=== PATIENT | male | born 1960 | race Caucasian/White ===

== ENCOUNTER 2018-03-15 20:07 | Inpatient (IN) | payer OTHER ==
[2018-03-15] MEDS ORDERED: ASPIRIN 81 MG CHEWABLE TABLET ONE (20:28)
[2018-03-15 20:42] LABS: Absolute Lymphocytes (CBC) 1.6 K/uL (0.7-4.9); Absolute Monocytes 0.7 K/uL (0.1-1.3); Absolute Neutrophil 4.5 K/uL (1.8-8.0); Basophils % 0.5 % (0-1.3); Eosinophils % 2.8 % (0-4.4); Hematocrit 46.9 % (39.6-49.0); Lymphocytes % 22.2 % (15.3-44.8); MCH 31.7 pg (27.0-35.0); MCV 92.4 fL (80-100); MPV 8.6 fL (7.6-11.3); Monocytes % 10.5 % (3.3-12.3); RBC Red Blood Cell Count 5.08 M/uL (4.33-5.43)
[2018-03-15] MEDS ORDERED: NA CHLORIDE 0.9% 1,000 ML ONE (20:46)
[2018-03-15] MEDS ORDERED: METOPROLOL TARTRATE 5 MG/5 ML INJ IV ONE (20:46)
[2018-03-15 21:00] LABS: Protime INR 0.97
[2018-03-15 21:02] LABS: Albumin 4.2 g/dL (3.2-5.5); Bilirubin Direct 0.2 mg/dL (0-0.2); Bilirubin Total 1.5 mg/dL (0.3-1.2); Magnesium 2.2 mg/dL (1.8-2.5); Protein, Total 7.4 g/dL (6.0-8.3)
--- NOTE | 2018-03-15 21:03 | RAD REPORT ---
EXAM DESCRIPTION: Xavi Single View03/15/2018 8:58 pm CLINICAL HISTORY: Chest pain COMPARISON: 2010 FINDINGS: The lungs appear clear of acute infiltrate. The heart is normal size IMPRESSION: No acute abnormalities displayed
[2018-03-15 21:06] LABS: CKMB Creatine Kinase MB 2.4 ng/ml (0.3-4.0)
[2018-03-15] MEDS ORDERED: FENTANYL CITR 100 MCG/2 ML ONE (21:29)
[2018-03-15 21:36] LABS: Thyroid Stimulating Hormone 2.74 uIU/mL (0.34-5.60)
--- NOTE | 2018-03-15 22:48 | ER ---
Nurse's Notes [facility] Name: Buzz Jurado Age: 57 yrs Sex: Male : 1960 Arrival Date: 03/15/2018 Time: 20:10 Bed 2 Private MD: Diagnosis: Atrial fibrillation and flutter-with RVR;Chest pain, unspecified Presentation: 03/15 20:10 Presenting complaint: states: that pt has been having chest pain that radiates to left arm, fast heart rate and sweats on and off x 2 weeks. Also having nausea. Transition of care: patient was not received from another setting of care. Onset of symptoms was March 01, 2018. Initial Sepsis Screen: Does the patient meet any 2 criteria? HR > 90 bpm. Yes Does the patient have a suspected source of infection? No. Patient's initial sepsis screen is negative. Care prior to arrival: None. 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 - Social history:: Smoking status: Patient/guardian denies using tobacco. Screenin:10 Abuse screen: Denies threats or abuse. Nutritional screening: No deficits noted. Tuberculosis screening: No symptoms or risk factors identified. Fall Risk None identified. Assessment: 20:41 General: Appears in no apparent distress. Behavior is calm, cooperative. Pain: ak1 Complains of pain in chest Pain does not radiate. Pain currently is 2 out of 10 on a pain scale. Pain began 2 weeks SLATE PICKER intermittent. Neuro: Level of Consciousness is awake, alert, obeys commands, Oriented to person, place, time, situation, Corsets Salesperson are equal bilaterally Moves all extremities. Gait is steady, Speech is normal, Facial symmetry appears normal. Cardiovascular: Reports diaphoresis, palpitations, Rhythm is atrial fibrillation with rapid ventricular response. Respiratory: No deficits noted. GI: No signs and/or symptoms were reported involving the gastrointestinal system. : No signs and/or symptoms were reported regarding the genitourinary system. EENT: No signs and/or symptoms were reported regarding the EENT system. Derm: Skin is diaphoretic. 21:19 Reassessment: Patient appears in no apparent distress at this time. No changes from ak1 previously documented assessment. Patient is alert, oriented x 3, equal unlabored respirations, skin warm/dry/pink. 21:30 Reassessment: pt stated pt having chest pain. ERP notified, verbal orders for ak1 repeat EKG and pain medication. 21:36 Reassessment: repeat EKG continues to show A.Fib. pt stated pain has resolved and ak1 refused medication at this time. 21:59 Reassessment: Patient appears in no apparent distress at this time. No changes from ak1 previously documented assessment. Patient is alert, oriented x 3, equal unlabored respirations, skin warm/dry/pink. Patient denies pain at this time. Patient states feeling better. Vital Signs: 20:10 BP 114 / 87; Pulse 131; Resp 18; Temp 98.1(O); Pulse Ox 97% on R/A; Weight 102.06 kg fc (R); Height 6 ft. 4 in. (193.04 cm) (R); Pain 1/10; 20:56 BP 116 / 95; Pulse 112; Resp 16; Pulse Ox 96% on R/A; Pain 1/10; ak1 21:20 BP 105 / 81; Pulse 110 MON; Resp 16; Pulse Ox 96% on R/A; Pain 1/10; ak1 22:00 BP 96 / 74; Pulse 108; Resp 16; Pulse Ox 96% on R/A; Pain 0/10; ak1 22:27 BP 110 / 97; Pulse 109; Resp 18; Pulse Ox 96% on R/A; Pain 0/10; ak1 22:41 BP 112 / 75; Pulse 118; Resp 16; Temp 98.2(O); Pulse Ox 96% on R/A; Pain 1/10; ak1 22:50 BP 105 / 85; Pulse 106 MON; Resp 18; Temp 98.2(O); Pulse Ox 96% on R/A; Pain 1/10; ak1 23:50 BP 104 / 87; Pulse 110 MON; Resp 18; Temp 98.4(O); Pulse Ox 96% on R/A; Pain 0/10; ak1 20:10 Body Mass Index 27.39 (102.06 kg, 193.04 cm) fc 21:20 A fib ak1 22:50 A fib ak1 23:50 A fib ak1 ED Course: 20:10 Patient arrived in ED. es 20:10 Arm band placed on Patient placed in an exam room, on a stretcher, on manager cardiac, fc on pulse oximetry. 20:10 Patient has correct armband on for positive identification. Placed in gown. Bed in low fc position. Call light in reach. secured entrance monitor on. Pulse ox on. NIBP on. 20:19 Anjel Mac PA is PHCP. jr8 20:19 Dell Mejia MD is Attending Physician. jr8 20:19 Inserted saline lock: 20 gauge in left antecubital area, using aseptic technique. fc ,using aseptic technique. per Shelley JEAN. 20:23 Shelley Tate, RN is Primary Nurse. ak1 20:27 Triage completed. fc 20:43 Patient maintains SpO2 saturation greater than 95% on room air. ak1 20:57 X-ray completed. Portable x-ray completed in exam room. Patient tolerated procedure kc2 well. 20:58 XRAY Chest (1 view) In Process Unspecified. EDMS 22:46 Reji Gupta MD is Hospitalizing Provider. jr8 22:50 No provider procedures requiring assistance completed. Patient admitted, IV remains in ak1 place. Administered Medications: 20:30 Drug: Aspirin Chewable Tablet 324 mg Route: PO; ak1 20:41 Follow up: Response: No adverse reaction ak1 23:58 Follow up: Response: No adverse reaction ak1 20:55 Drug: NS 0.9% 1000 ml Route: IV; Rate: 1000 ml; Site: right antecubital; ak1 22:01 Follow up: IV Status: Completed infusion ak1 20:55 Drug: Metoprolol 5 mg Route: IVP; Site: right antecubital; ak1 22:01 Follow up: Response: No adverse reaction ak1 23:58 Follow up: Response: No adverse reaction ak1 23:57 Not Given (Patient Refused; pt continues to deny pain): fentaNYL (PF) 50 mcg IVP once ak1 Outcome: 22:47 Decision to Hospitalize by Provider. jr8 22:51 Condition: stable ak1 22:51 Instructed on the need for admit. 23:50 Admitted to Tele accompanied by tech, family with patient, via wheelchair, room 211, ak1 with chart, Report called to Shannan JEAN for 211 03/16 00:13 Patient left the ED. ak1 Signatures: Dispatcher [employer] Izzy Merino Felicia RN RN Anjel Giron PA PA jr8 Shelley Tate RN RN ak1 Linda Bolden Corrections: (The following items were deleted from the chart) 03/15 21:36 21:34 Reassessment: pt stated pt having chest pain. ERP notified, verbal orders ak1 for repeat EKG and pain medication. ak1
--- NOTE | 2018-03-15 22:48 | EDPHYS ---
Physician Documentation [facility] Name: Buzz Jurado Age: 57 yrs Sex: Male : 1960 Arrival Date: 03/15/2018 Time: 20:10 Bed 2 Private MD: ED Physician Dell Mejia HPI: 03/15 20:46 This 57 yrs old Male presents to ER via Wheelchair with complaints of jr8 Palpitations, Chest Pain, SWEATS. 20:46 The patient presents with a history of irregular heart beat, heart racing. Context: The jr8 symptoms occur at rest. Onset: The symptoms/episode began/occurred gradually, 2 week(s) ago. Duration: The patient or guardian reports multiple episodes. Modifying factors: The symptoms are aggravated by light activity, The symptoms are alleviated by nothing. Associated signs and symptoms: Pertinent positives: dyspnea on exertion . Severity of symptoms: At their worst the symptoms were moderate in the emergency department the symptoms are unchanged. The patient has not experienced similar symptoms in the past. The patient has not recently seen a physician. also complains of chest tightness and sweating on/off . Historical: - Allergies: 20:30 codeine- causes severe nausea; fc - Home Meds: 20:30 duloxetine 20 mg oral cpDR 1 cap daily [Active]; fc - PMHx: 20:30 Back pain; neck pain; Aortic Anuresym; Sleep Apnea; Testicular cancer with mets to fc lung, lymphnodes; - PSHx: 20:30 testicle removed; Hernia repair; rotator cuff repair-right; Appendectomy; R thumb; fc - Immunization history:: Last tetanus immunization: up to date. - Social history:: Smoking status: Patient/guardian denies using tobacco. ROS: 20:46 Eyes: Negative for injury, pain, redness, and discharge, ENT: Negative for injury, jr8 pain, and discharge, Neck: Negative for injury, pain, and swelling, Abdomen/GI: Negative for abdominal pain, nausea, vomiting, diarrhea, and constipation, Back: Negative for injury and pain, MS/Extremity: Negative for injury and deformity, Skin: Negative for injury, rash, and discoloration, Neuro: Negative for headache, weakness, numbness, tingling, and seizure. 20:46 Cardiovascular: Positive for chest pain, palpitations, Negative for edema, orthopnea, paroxysmal nocturnal dyspnea. 20:46 Respiratory: Positive for dyspnea on exertion, Negative for cough, hemoptysis, orthopnea, pleurisy, shortness of breath, sputum production, wheezing. Exam: 20:46 Eyes: Pupils equal round and reactive to light, extra-ocular motions intact. Lids and jr8 lashes normal. Conjunctiva and sclera are non-icteric and not injected. Cornea within normal limits. Periorbital areas with no swelling, redness, or edema. ENT: Nares patent. No nasal discharge, no septal abnormalities noted. Tympanic membranes are normal and external auditory canals are clear. Oropharynx with no redness, swelling, or masses, exudates, or evidence of obstruction, uvula midline. Mucous membranes moist. Neck: Trachea midline, no thyromegaly or masses palpated, and no cervical lymphadenopathy. Supple, full range of motion without nuchal rigidity, or vertebral point tenderness. No Meningismus. Respiratory: Lungs have equal breath sounds bilaterally, clear to auscultation and percussion. No rales, rhonchi or wheezes noted. No increased work of breathing, no retractions or nasal flaring. Abdomen/GI: Soft, non-tender, with normal bowel sounds. No distension or tympany. No guarding or rebound. No evidence of tenderness throughout. Back: No spinal tenderness. No costovertebral tenderness. Full range of motion. Skin: Warm, dry with normal turgor. Normal color with no rashes, no lesions, and no evidence of cellulitis. MS/ Extremity: Pulses equal, no cyanosis. Neurovascular intact. Full, normal range of motion. Neuro: Awake and alert, GCS 15, oriented to person, place, time, and situation. Cranial nerves II-XII grossly intact. Motor strength 5/5 in all extremities. Sensory grossly intact. Cerebellar exam normal. Normal gait. 20:46 Cardiovascular: Rate: tachycardic, Rhythm: irregularly irregular, Pulses: Pulses are 2+ in bilateral radial, brachial, femoral, popliteal, posterior tibial and and dorsalis pedis arteries.. Heart sounds: normal, normal S1and S2, no S3 or S4, no murmur, no rub, no gallop, Edema: is not appreciated, JVD: is not appreciated. Vital Signs: 20:10 BP 114 / 87; Pulse 131; Resp 18; Temp 98.1(O); Pulse Ox 97% on R/A; Weight 102.06 kg fc (R); Height 6 ft. 4 in. (193.04 cm) (R); Pain 1/10; 20:56 BP 116 / 95; Pulse 112; Resp 16; Pulse Ox 96% on R/A; Pain 1/10; ak1 21:20 BP 105 / 81; Pulse 110 MON; Resp 16; Pulse Ox 96% on R/A; Pain 1/10; ak1 22:00 BP 96 / 74; Pulse 108; Resp 16; Pulse Ox 96% on R/A; Pain 0/10; ak1 22:27 BP 110 / 97; Pulse 109; Resp 18; Pulse Ox 96% on R/A; Pain 0/10; ak1 22:41 BP 112 / 75; Pulse 118; Resp 16; Temp 98.2(O); Pulse Ox 96% on R/A; Pain 1/10; ak1 22:50 BP 105 / 85; Pulse 106 MON; Resp 18; Temp 98.2(O); Pulse Ox 96% on R/A; Pain 1/10; ak1 23:50 BP 104 / 87; Pulse 110 MON; Resp 18; Temp 98.4(O); Pulse Ox 96% on R/A; Pain 0/10; ak1 20:10 Body Mass Index 27.39 (102.06 kg, 193.04 cm) fc 21:20 A fib ak1 22:50 A fib ak1 23:50 A fib ak1 MDM: 20:19 Patient medically screened. [facility] 22:46 Data reviewed: vital signs, nurses notes, lab test result(s), EKG, radiologic studies, jr8 plain films, and as a result, I will admit patient. Data interpreted: Pulse oximetry: on room air is 96 %. Interpretation: normal. Counseling: I had a detailed discussion with the patient and/or guardian regarding: the historical points, exam findings, and any diagnostic results supporting the discharge/admit diagnosis, lab results, radiology results, the need for further work-up and treatment in the hospital. Physician consultation: Reji Gupta MD was called at 22:46, was contacted at 22:46, regarding admission, to the telemetry unit. consult, patient's condition, and will see patient. 03/15 20:24 Order name: Basic Metabolic Panel; Complete Time: 21:41 03/15 20:24 Order name: BNP; Complete Time: 21:06 03/15 20:24 Order name: CBC with Diff; Complete Time: 20:43 03/15 20:24 Order name: Ckmb; Complete Time: 21:41 ak03/15 20:24 Order name: CPK; Complete Time: 21:41 03/15 20:24 Order name: LFT's; Complete Time: 21:41 03/15 20:24 Order name: Magnesium; Complete Time: 21:41 03/15 20:24 Order name: PT-INR; Complete Time: 21:03/15 20:24 Order name: Ptt, Activated; Complete Time: 21:03/15 20:24 Order name: Troponin (emerg Dept Use Only); Complete Time: 21:06 03/15 20:42 Order name: T4 Free; Complete Time: 21:41 EDMS 03/15 20:42 Order name: Thyroid Stimulating Hormone; Complete Time: 21:41 EDMS 03/15 20:24 Order name: XRAY Chest (1 view); Complete Time: 21:06 03/15 20:24 Order name: EKG; Complete Time: 20:25 03/15 20:24 Order name: Cardiac monitoring; Complete Time: 20:24 03/15 20:24 Order name: EKG - Nurse/Tech; Complete Time: 20:24 03/15 20:24 Order name: IV Saline Lock; Complete Time: 20:24 03/15 20:24 Order name: Labs collected and sent; Complete Time: 20:24 03/15 20:24 Order name: O2 Per Protocol; Complete Time: 20:24 03/15 20:24 Order name: O2 Sat Monitoring; Complete Time: 20:24 ak03/15 21:34 Order name: EKG - Nurse/Tech; Complete Time: 21:34 03/15 21:34 Order name: EKG; Complete Time: 21:34 ak1 Administered Medications: 20:30 Drug: Aspirin Chewable Tablet 324 mg Route: PO; ak1 20:41 Follow up: Response: No adverse reaction ak1 23:58 Follow up: Response: No adverse reaction ak1 20:55 Drug: NS 0.9% 1000 ml Route: IV; Rate: 1000 ml; Site: right antecubital; ak1 22:01 Follow up: IV Status: Completed infusion ak1 20:55 Drug: Metoprolol 5 mg Route: IVP; Site: right antecubital; ak1 22:01 Follow up: Response: No adverse reaction ak1 23:58 Follow up: Response: No adverse reaction ak1 23:57 Not Given (Patient Refused; pt continues to deny pain): fentaNYL (PF) 50 mcg IVP once ak1 Disposition: 03/16 07:58 Co-signature as Attending Physician, Dell Mejia MD I agree with the assessment and cleve plan of care. Disposition: 03/15/18 22:47 Hospitalization ordered by Reji Gupta for Observation. Preliminary diagnosis are Atrial fibrillation and flutter - with RVR, Chest pain, unspecified. - Bed requested for Telemetry/MedSurg (observation). - Status is Observation. ak1 - Condition is Stable. - Problem is new. - Symptoms have improved. UTI on Admission? No Signatures: Dispatcher [employer] EDMS Dell Mejia MD MD cha Chretien, Felicia, RN RN Madison Estevez Josh, PA PA [facility] Shelley Tate, RN RN ak1 Corrections: (The following items were deleted from the chart) 03/15 20:42 20:41 THYROID STIMULAT HORMONE+C.LAB.BRZ ordered. EDMS EDMS 20:42 20:41 T4 FREE+C.LAB.BRZ ordered. EDMS EDMS 23:57 20:24 Urine Dipstick-Ancillary ordered. ak1 ak1
[2018-03-15] MEDS ORDERED: MORPHINE 4 MG/ML SYR IV PRN (23:26)
[2018-03-15] MEDS: ENOXAPARIN 80 MG/0.8 ML SQ SCH (23:33)
[2018-03-16 00:37] VITALS: BMI 28.5
[2018-03-16 04:48] LABS: Absolute Lymphocytes (CBC) 1.6 K/uL (0.7-4.9); Absolute Monocytes 0.6 K/uL (0.1-1.3); Absolute Neutrophil 2.9 K/uL (1.8-8.0); Basophils % 0.5 % (0-1.3); Eosinophils % 4.8 % (0-4.4); Hematocrit 43.3 % (39.6-49.0); Lymphocytes % 30.3 % (15.3-44.8); MCH 31.4 pg (27.0-35.0); MCV 93.7 fL (80-100); MPV 8.5 fL (7.6-11.3); Monocytes % 10.5 % (3.3-12.3); RBC Red Blood Cell Count 4.62 M/uL (4.33-5.43)
[2018-03-16 05:39] LABS: Potassium 5.1 mEq/L (3.6-5.0)
[2018-03-16 05:59] LABS: Thyroid Stimulating Hormone 2.38 uIU/mL (0.34-5.60)
[2018-03-16] MEDS ORDERED: Morphine 2 MG/2 ML SYR IV PRN (07:46)
[2018-03-16] MEDS: LISINOPRIL 10 MG TAB PO SCH (08:22)
[2018-03-16] MEDS: ENOXAPARIN 80 MG/0.8 ML SQ SCH (08:23)
[2018-03-16] MEDS ORDERED: METOPROLOL TAR 50 MG TAB PO SCH (09:00)
--- NOTE | 2018-03-16 09:15 | P.HP ---
Certification for Inpatient Patient admitted to: Observation With expected LOS: <2 Midnights Patient will require the following post-hospital care: None Practitioner: I am a practitioner with admitting privileges, knowledge of patient current condition, hospital course, and medical plan of care. Services: Services provided to patient in accordance with Admission requirements found in Title 42 Section 412.3 of the Code of Federal Regulations Patient History Date of Service: 03/16/18 Reason for admission: Chest pain rule out acute coronary syndrome; atrial fibrillation History of Present Illness: Patient is a 57-year-old gentleman came into the hospital with chest pain. Patient has also been having palpitations. Patient was worked up and was found have atrial fibrillation with rapid ventricular response. Patient has been having chest pain whenever the episodes occur. He had a stress test & heart catheterization in 2011. He states all this was normal. He was going to follow with his court messenger in [place] however the chest pain became persistent so he came into the hospital for further evaluation. Patient was given IV Lopressor in the emergency room. Patient's heart rate is better controlled. Will Consult Cardiology for further plan of care and do serial troponins and EKG. Patient also states he has had some hemorrhoidal bleeding. Will hold Lovenox for now Allergies codeine- causes severe nausea Allergy (Uncoded 03/16/18 00:24) Unknown Home Medications: Duloxetine HCl [Duloxetine HCl] 20 mg PO DAILY 03/16/18 - Past Medical/Surgical History Has patient received pneumonia vaccine in the past: Yes Diabetic: No -: hyperlipidemia -: aortic anuerysm -: arthritis -: hemorrhoids -: testicular cancer with lung, lymphatic;liver mets -: tonsillectomy -: hernia repairs x2 -: appendectmy -: rotator cuff repair- right -: right thumb repair -: right testicle removed - Family History Mother Medical History: Heart disease, Hypertension, Other (see notes) Notes: hyperlipidemia Father Medical History: Heart disease, Hypertension - Social History Smoking Status: Never smoker Alcohol use: Yes CD- Drugs: No Caffeine use: Yes Place of Residence: Home Review of Systems 10-point ROS is otherwise unremarkable Physical Examination - Vital Signs Temperature: 97.6 F Blood Pressure: 105/71 Pulse: 89 Respirations: 18 Pulse Ox (%): 97 - Physical Exam General: Alert, In no apparent distress, Oriented x3 HEENT: Atraumatic, PERRLA, Mucous membr. moist/pink, EOMI, Sclerae nonicteric Neck: Supple, 2+ carotid pulse no bruit, No LAD, Without JVD or thyroid abnormality Respiratory: Clear to auscultation bilaterally, Normal air movement Cardiovascular: Regular rate/rhythm, Normal S1 S2, No murmurs Gastrointestinal: Normal bowel sounds, Soft and benign, Non-distended, No tenderness Musculoskeletal: No clubbing, No swelling, No tenderness Integumentary: No rashes Neurological: Normal gait, Normal speech, Normal strength at 5/5 x4 extr, Normal tone, Sensation intact, Cranial nerves 3-12 intact, Normal affect Lymphatics: No axilla or inguinal lymphadenopathy - Studies Laboratory Data (last 24 hrs) 03/15/18 20:22: PT 11.5, INR 0.97, APTT 25.6 03/15/18 20:22: WBC 7.0, Hgb 16.1, Hct 46.9, Plt Count 214 03/15/18 20:22: B-Natriuretic Peptide 122 H 03/15/18 20:22: Sodium 138, Potassium 4.0, BUN 16, Creatinine 1.06, Glucose 69, Magnesium 2.2, Total Bilirubin 1.5 H, AST 23, ALT 25, Alkaline Phosphatase 68 Assessment & Plan - Problems (Diagnosis) (1) Atrial fibrillation with RVR Current Visit: Yes Status: Acute (2) Chest pain, rule out acute myocardial infarction Current Visit: Yes Status: Acute (3) Thoracic aortic aneurysm Current Visit: Yes Status: Acute - Plan 1. Serial troponins and EKG 2. Cardiology consultation 3. Echocardiogram and further cardiac workup per Cardiology 4. Anti-platelet therapy, anti coagulation, beta-antoine, statin, and O2 as needed 5. IV morphine for pain 6. Hold anti coagulation secondary to GI bleeding - Advance Directives Does patient have a Living Will: No Does patient have a Durable POA for Healthcare: No
[2018-03-16] MEDS ORDERED: RIVAROXABAN 20 MG TABLET PO ONE (10:27)
--- NOTE | 2018-03-16 15:40 | EKG ---
Test Date: 2018-03-16 Test Time: 09:19:47 Medical Practice Assistant: VITALY MEASUREMENT RESULTS: Intervals: Rate: 126 [place]: QRSD: 74 QT: 312 QTc: 451 [place]: P: [place]: QRS: 42 T: 43 INTERPRETIVE STATEMENTS: Atrial fibrillation with rapid ventricular response Abnormal ECG Compared to ECG 03/15/2018 21:28:28 No significant changes Electronically Signed On 03-16-18 15:37:45 CDT by Thomas Lopez
--- NOTE | 2018-03-16 15:42 | EKG ---
Test Date: 2018-03-15 Test Time: 20:21:59 Band Leader: JOSE MEASUREMENT RESULTS: Intervals: Rate: 122 [place]: QRSD: 68 QT: 306 QTc: 436 [place]: P: MS: QRS: 29 T: 16 INTERPRETIVE STATEMENTS: Atrial fibrillation with rapid ventricular response Abnormal ECG Compared to ECG 09/27/2011 00:09:54 Sinus bradycardia no longer present Electronically Signed On 03-16-18 15:37:59 CDT by Thomas Lopez
--- NOTE | 2018-03-16 15:42 | EKG ---
Test Date: 2018-03-15 Test Time: 21:28:28 Analytic Programmer: JOSE MEASUREMENT RESULTS: Intervals: Rate: 109 [place]: QRSD: 76 QT: 352 QTc: 474 [place]: P: [place]: QRS: 14 T: 25 INTERPRETIVE STATEMENTS: Atrial fibrillation with rapid ventricular response Low voltage QRS Abnormal ECG Compared to ECG 09/27/2011 00:09:54 Low QRS voltage now present Sinus bradycardia no longer present Electronically Signed On 03-16-18 15:37:56 CDT by Thomas Lopez
--- NOTE | 2018-03-16 17:01 | ECHO ---
HEIGHT: 6 ft 4 in WEIGHT: 234 lb 4 oz DATE OF STUDY: 03/16/[address]: Reji Gupta MD 2-DIMENSIONAL: YES M.MODE: YES DOPPLER: YES COLOR FLOW: YES TDS: PORTABLE: DEFINITY: BUBBLE STUDY: DIAGNOSIS: CORNARY ARTERY DISEASE CARDIAC HISTORY: CATHERIZATION: NO SURGERY: NO PROSTHETIC VALVE: NO PACEMAKER: NO MEASUREMENTS (cm) DIASTOLIC (NORMALS) SYSTOLIC (NORMALS) IVSd 1.3 (0.6-1.2) LA Diam 4.1 (1.9-4.0) LVEF 50-55% LVIDd 3.7 (3.5-5.7) LVIDs 3.1 (2.0-3.5) %FS 18% LVPWd 1.3 (0.6-1.2) Ao Diam 3.5 (2.0-3.7) 2 DIMENSIONAL ASSESSMENT: RIGHT ATRIUM: NORMAL LEFT ATRIUM: POSTITIVE ATRIAL THROMBUS RIGHT VENTRICLE: NORMAL LEFT VENTRICLE: NORMAL TRICUSPID VALVE: NORMAL MITRAL VALVE: NORMAL PULMONIC VALVE: NORMAL AORTIC VALVE: NORMAL PERICARDIAL EFFUSION: NONE AORTIC ROOT: NORMAL LEFT VENTRICULAR WALL MOTION: NORMAL DOPPLER/COLOR FLOW: MILD MITRAL AND TRICUSPID REGURGITATION. NORMAL RIGHT VENTRICULAR SYSTOLIC PRESSURE. COMMENTS: 2 CENTIMETER LEFT ATRIAL THROMBUS, MOBILE. NORMAL LEFT VENTRICULAR EJECTION FRACTION AND SIZE. LEFT ATRIAL ENLARGEMENT. MILD MITRAL AND TRICUSPID REGURGITATION. TECHNOLOGIST: WICHO WANG
[2018-03-16] MEDS: RIVAROXABAN 20 MG TABLET PO SCH (17:56)
[2018-03-16] MEDS: METOPROLOL TAR 50 MG TAB PO SCH (20:57)
[2018-03-17] MEDS: ACETAMINOPHEN 500 MG TAB PO PRN ×2 (04:44→13:58)
[2018-03-17 05:26] VITALS: O2SAT 98
[2018-03-17 08:07] LABS: Urine Appearance CLEAR; Urine Bilirubin NEGATIVE (NEG); Urine Blood NEGATIVE (NEG); Urine Color YELLOW; Urine Glucose NEGATIVE (NEG); Urine Protein NEGATIVE (NEG); Urine pH 6.5 (5.0-7.0)
[2018-03-17 08:18] LABS: Urine Microscopic Reflex NO UMIC
[2018-03-17] MEDS: METOPROLOL TAR 50 MG TAB PO SCH (08:49)
[2018-03-17] MEDS: LISINOPRIL 10 MG TAB PO SCH (09:00)
[2018-03-17] MEDS ORDERED: DULOXETINE 20 MG CAP PO SCH (09:00)
--- NOTE | 2018-03-17 10:42 | CON ---
Date of Consultation: 03/16/[address] to Dr. Gupta's service on 03/15/2018. I saw the patient on 03/16/2018. Reason For Consultation: Atrial fibrillation with chest pain. History Of Present Illness: Mr. Jurado is a 57-year-old white male, who has really no significant pas t cardiac history. He has a history of sleep apnea and apparently has known abdominal aortic aneurys m. The details of that are available. Had a history of testicular cancer, metastatic to the lungs m any years ago that apparently had been cured. He came in with chest pain, atrial fibrillation with r apid ventricular response, beta-blockers were given, Lovenox was started. The patient is asymptomati c now. His heart rate is under better control but still rapid at about 110 to 120. Denied PND, orth opnea, pedal edema, or syncope. Denied any fever or chills. Allergies: HE IS ALLERGIC TO CODEINE. Medications: At home include duloxetine. Review of Systems: Negative. Social History: Positive for tobacco. Denies alcohol or drugs. Family History: Noncontributory. Physical Examination: General: He was in no acute distress. Vital signs: Stable, but he was in atrial fibrillation at a rate of about 110. HEENT: Negative. Neck: Supple without any bruit, lymphadenopathy, or thyromegaly. Chest: Clear to auscultation and percussion. Cardiac: Revealed atrial fibrillation. No murmurs, gallops, or rubs. Abdomen: Benign. Extremities: Revealed no clubbing, cyanosis, or edema. Diagnostic Data: So far all within normal limits. Chest x-ray was negative. Atrial fibrillation no maricarmen on the EKG. Impression And Plan: Atrial fibrillation that seem to have been going on for the last 2 to 3 weeks. I agree with rate control and Lovenox for now. We will get a 2D echocardiogram on him today to rule out atrial thrombus or left ventricular dysfunction prior to making final decisions. We should prob ably send him home whenever he is ready with on anticoagulation such as Xarelto or Eliquis for at [facility] 3 weeks prior to attempting cardioversion. I will discuss the case further with Dr. Gupta and I wi ll see what the echocardiogram shows before making any further decisions. TOD/MONY Voice ID: [id number] Report ID: [id number]
--- NOTE | 2018-03-17 14:04 | P.DS ---
Admission Date: 03/17/18 Discharge Date: 03/17/18 Reason for Admission: Chest pain rule out acute coronary syndrome; atrial fibrillation Consultations: Cardiology - Problems (1) Atrial fibrillation with RVR Onset Date: 03/16/18 Current Visit: Yes Status: Acute (2) Chest pain, rule out acute myocardial infarction Onset Date: 03/16/18 Current Visit: Yes Status: Acute Brief History of Present Illness: Patient is a 57-year-old gentleman came into the hospital with chest pain. Patient has also been having palpitations. Patient was worked up and was found have atrial fibrillation with rapid ventricular response. Patient has been having chest pain whenever the episodes occur. He had a stress test & heart catheterization in 2011. He states all this was normal. He was going to follow with his finisher [facility] in [place] however the chest pain became persistent so he came into the hospital for further evaluation. Patient was given IV Lopressor in the emergency room. Patient's heart rate is better controlled. Will Consult Cardiology for further plan of care and do serial troponins and EKG. Patient also states he has had some hemorrhoidal bleeding. Will hold Lovenox for now Hospital Course: Overall during the hospital stay patient remained stable Patient was initially admitted to the hospital for palpitations was found to be in AFib with RVR. Cardiology was consulted. Patient did receive IV Lopressor in the ER and his heart rate was controlled however remained in AFib. Cardiology at that time recommended that we increase the dose for metoprolol 200 mg b.i.d. and patient had an echocardiogram done here in the hospital. Patient had an echocardiogram done here in the hospital which was consistent with ejection fraction of 30% and large blood clot in the left atrial area. Patient was started on Xarelto 20 mg daily. And a decision was made to observe the patient for 24 hr and then have a followup appointment in 3 weeks for possible cardioversion after he has been anticoagulant appropriately. At that time family requested that they would like to be [facility] and had an acceptance at [facility] and thus was transferred over to [facility] for further workup and treatment. Vital Signs/Physical Exam: Temp Pulse Resp BP Pulse Ox 96.6 F L 73 16 109/69 98 03/17/18 12:00 03/17/18 12:00 03/17/18 12:00 03/17/18 12:00 03/17/18 12:00 General: Alert, In no apparent distress HEENT: Atraumatic, PERRLA, EOMI Neck: Supple, JVD not distended Respiratory: Clear to auscultation bilaterally, Normal air movement Cardiovascular: Regular rate/rhythm, Normal S1 S2 Gastrointestinal: Normal bowel sounds, No tenderness Musculoskeletal: No tenderness Integumentary: No rashes Neurological: Normal speech, Normal tone, Normal affect Lymphatics: No axilla or inguinal lymphadenopathy Laboratory Data at Discharge: WBC 5.4 K/uL (4.3-10.9) D 03/16/18 04:27 Hgb 14.5 g/dL (13.6-17.9) 03/16/18 04: Hct 43.3 % (39.6-49.0) 03/16/18 04: Plt Count 200 K/uL (152-406) 03/16/18 04: PT 11.5 SECONDS (9.5-12.5) 03/15/18 20:22 INR 0.97 03/15/18 20:22 APTT 25.6 SECONDS (24.3-36.9) 03/15/18 20:22 Sodium 138 mEq/L (135-145) 03/16/18 04: Potassium 5.1 mEq/L (3.6-5.0) H 03/16/18 04:27 BUN 19 mg/dL (6-20) 03/16/18 04:27 Creatinine 1.04 mg/dL (0.61-1.24) 03/16/18 04: Glucose 95 mg/dL (65-120) 03/16/18 04:27 Magnesium 2.2 mg/dL (1.8-2.5) 03/15/18 20:22 Total Bilirubin 1.5 mg/dL (0.3-1.2) H 03/15/18 20:22 AST 23 IU/L (10-42) 03/15/18 20:22 ALT 25 IU/L (10-60) 03/15/18 20:22 Alkaline Phosphatase 68 IU/L (42-121) 03/15/18 20:22 Troponin I < 0.03 ng/mL (<0.03) 03/16/18 11:44 B-Natriuretic Peptide 122 pg/ml (<=100) H 03/15/18 20:22 Triglycerides 78 mg/dL (35-160) 03/16/18 04:27 Cholesterol 219 mg/dL (<200) H 03/16/18 04:27 HDL Cholesterol 43 mg/dL (27-67) 03/16/18 04:27 Cholesterol/HDL Ratio 5.09 03/16/18 04:27 Home Medications: Duloxetine HCl [Duloxetine HCl] 20 mg PO DAILY 03/16/18
[2018-03-17 16:45] VITALS: BP 97/60; TEMP 96.5
[2018-03-17] MEDS ORDERED: RIVAROXABAN 20 MG TABLET PO SCH (17:00)
[2018-03-17] MEDS: RIVAROXABAN 20 MG TABLET PO SCH (17:59)
--- NOTE | 2018-03-18 15:59 | PN ---
Mr. Jurado came in with atrial fibrillation. Left atrial thrombus was noted on the echocardiogram. Alan rosales remains in atrial fibrillation at a controlled rate. No TIA. I am comfortable with him going home on metoprolol and Xarelto, and I will see him in the office in the next week or 2. We will need to repeat echocardiography in the next 4-6 weeks and see how he is progressing and we will be hoping to cardiovert him after the thrombus has gone. TOD/MONY Voice ID: [id number] Report ID: [id number]
== END 2018-03-17 20:30 | disposition short-term general hospital (02) | DRG 310 ==
LOC: ER 20:07 → ERHOLD 23:20 → 2ND 23:49 → OBSVTOIN 03-17 07:50
PROVIDERS: ADMIT Hospitalist; ATTEND Family Medicine
DX: I48.91 Unspecified atrial fibrillation (principal); I51.3 Intracardiac thrombosis, not elsewhere classified; E78.5 Hyperlipidemia, unspecified; G47.30 Sleep apnea, unspecified; I71.4 Abdominal aortic aneurysm, without rupture; K64.9 Unspecified hemorrhoids; Z90.79 Acquired absence of other genital organ(s); Z88.6 Allergy status to analgesic agent; Z85.47 Personal history of malignant neoplasm of testis; Z85.118 Personal history of other malignant neoplasm of bronchus and lung; Z85.05 Personal history of malignant neoplasm of liver
CPT/HCPCS: 36415; 71045; 80048; 80061; 80076; 81003; 82550; 82553; 83735; 83880; 84439; 84443; 84484; 85025; 85610; 85730; 93005; 93306; 96361; 96374; 99285; G0378; J1650; J3010; J7030

== ENCOUNTER 2018-08-09 14:25 | Emergency (ER) | payer OTHER ==
--- OUTSIDE RECORDS SUMMARY | 2018-08-09 14:28 | XMS REPORT | Clinical Summary ---
:1960 Author Organization [facility] Address [address] [place] [address] Phone Care Team Providers Name Role Phone Unavailable Primary Care Provider Unavailable Allergies Active Allergy Reactions Severity Noted Date Comments Codeine Nausea Only 03/17/2018 Current Medications Prescription Sig. Disp. Refills Start Date End Date Status DULoxetine (CYMBALTA) Take 20 mg by Active 20 MG capsule mouth daily. methocarbamol Take 750 mg by Active (ROBAXIN) 750 MG mouth 3 (three) tablet times daily as needed. aspirin 81 MG chewable Take 1 tablet 0 03/29/2018 03/29/2019 Active tablet (81 mg total) by mouth daily. amiodarone (PACERONE) Take 1 tablet 60 tablet 0 03/28/2018 03/28/2019 Active 200 MG tablet (200 mg total) by mouth 2 (two) times daily. HYDROcodone-acetaminop Take 1 tablet 30 tablet 0 03/28/2018 04/07/2018 hen (NORCO 5-325) by mouth every 5-325 mg per tablet 6 (six) hours as needed for up to 10 days. 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 Encounters Date Type Specialty Care Team Description 03/24/2018 Anesthesia Event Luis Wang MD 03/24/2018 Procedure Pass 03/24/2018 Surgery SHELBIE Andino MD 03/22/2018 Procedure Pass 03/22/2018 Surgery Saima Dias HEART CATH ONLY - MD Joni NO ANGIOS 03/17/2018 - Hospital Encounter Cardiology Alagugurusamy Aneurysm, ascending 03/28/2018 , Ernestina, aorta (HCC) (Primary MD Dx);Respiratory insufficiency 03/17/2018 Orders Only General Internal Medicine after 08/08/2017 Family History Medical History Relation Name Comments Heart disease Father Heart disease Mother Relation Name Status Comments Father Mother Social History Tobacco Use Types Packs/Day Years Used Date Never Smoker Smokeless Tobacco: Never Used Alcohol Use Drinks/Week oz/Week Comments Yes occasion; wine and beer Sex Assigned at Date Recorded Not on file Last Filed Vital Signs Vital Sign Reading Time Taken Blood Pressure 124/65 03/28/2018 11:13 AM CDT Pulse 76 03/28/2018 11:13 AM CDT Temperature 36 C (96.8 F) 03/28/2018 11:13 AM CDT Respiratory Rate 18 03/28/2018 11:13 AM CDT Oxygen Saturation 96% 03/28/2018 11:13 AM CDT Inhaled Oxygen Concentration - - Weight 102.2 kg (225 lb 6.4 oz) 03/28/2018 9:00 AM CDT Height 193 cm (6' 4") 03/17/2018 9:55 PM CDT Body Mass Index 27.44 03/28/2018 9:00 AM CDT Plan of Treatment Not on file Procedures Procedure Name Priority Date/Time Associated Diagnosis Comments RESECTION,ATRIAL 03/24/2018 4:55 PM Atrial fibrillation, MYXOMA CDT chronic (HCC) MAZE 03/24/2018 4:55 PM Atrial fibrillation, CDT chronic (HCC) L HEART CATH ONLY - NO 03/22/2018 10:43 AM Atrial mass ANGIOS CDT after 08/08/2017 Results VASCULAR DIAGRAM -SCAN (05/18/2018 11:41 AM)Only the most recent of2 resultswithin the time period is included.CARDIAC CATH REPORT - SCAN (2017 7:10 AM)ECHOCARDIOGRAM REPORT - SCAN (03/29/2018 5:53 PM)Only the most recent of3 resultswithin the time period is included.RHYTHM STRIP - SCAN (2017 2:10 PM)XR chest 2 views (03/28/2018 1:27 PM)Only the most recent of2 resultswithin the time period is included. Specimen Performing Laboratory GE RIS Narrative FINAL REPORT Chest 2 views 03/28/2018 1:29 PM CLINICAL HISTORY: pneumo, discharge dependent COMPARISON: 03/27/2018 IMPRESSION: No pneumothorax is evident. There are trace bilateral pleural effusions with adjacent basilar atelectasis. Cardiomediastinal contours are within normal limits. The central pulmonary vasculature is not engorged. There are no acute-appearing skeletal abnormalities. Signed: Jose Miguel Gardner MD Report Verified Date/Time:03/28/2018 13:30:46 Reading Location: [address] Consult Reading Room Procedure Note Interface, External Ris In - 03/28/2018 1:32 PM CDT FINAL REPORT Chest 2 views 03/28/2018 1:29 PM CLINICAL HISTORY: pneumo, discharge dependent COMPARISON: 03/27/2018 IMPRESSION: No pneumothorax is evident. There are trace bilateral pleural effusions with adjacent basilar atelectasis. Cardiomediastinal contours are within normal limits. The central pulmonary vasculature is not engorged. There are no acute-appearing skeletal abnormalities. Signed: Jose Miguel Gardner MD Report Verified Date/Time: 03/28/2018 13:30:46 Reading Location: [facility] C013 Consult Reading Room 2D Echo W/Doppler(CW/PW/Color) (03/28/2018 11:16 AM)Only the most recent of2 resultswithin the time period is included. 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 Clinical History Atrial Fibrillation/flutter Cancer LA mass 03/24/2018 MAZE procedure, Excision of left atrial mass, PFO oversewn HGB 12.1 HCT 36.7 % Height: 76 inches Weight: 102.06 kg (225 lbs) BSA: 2.33 m^2 BMI: 27.39 kg/m^2 HR: 75 bpm BP: 111/74 mmHg Previous Study In comparison with the prior exam 03/20/2018 the following changes are noted: overall LV systolic function has improved and the left atrial mass has been excised with no evidence of residual mass present . Signature Findings Technical Quality: Technically adequate exam. Rhythm/BPRegular sinus rhythm during the exam. Left Ventricle The left ventricle is chamber size (by vol index) is mildly enlarged (male - LVED 75-89ml/m2). No evidence of LV hypertrophy. All of the LV segments contract normally . Global LV systolic function normal . LVEF by Mcleod's method of disk assessment is normal (55-60%) . The LVEF was measured using Mcleod's bi-plane method of disk . Normal diastolic function. Left AtriumLA size is normal (16-34 ml/m2) . Right VentricleThe right ventricular chamber size and systolic function are within normal limits. Right Atrium RA cavity size is normal . Aortic Valve Mild AoV cusp thickening. AoV cusp mobility is normal . A trace of aortic regurgitation. Mitral Valve Mild MV leaflet thickening. Trace mitral regurgitation. Tricuspid ValveTV structure is normal. Mild tricuspid regurgitation. Estimated peak systolic PA pressure is 35-40 mmHg . Pulmonic Valve Mild pulmonary regurgitation. Normal PV structure appears normal by available views. AortaAortic root size (SInus of Valsalva diameter) is normal . PericardiumNo pericardial effusion is visualized. IVC/SVC/PA/PV/PleuralThe inferior vena cava is adequately visualized. The inferior vena cava size is normal . The estimated RA pressure by IVC dynamics 0-5mmHg . Chambers/Structures Left Atrium LA Volume: 64.2 mlLA Area: 20.44 cm^2 LA Vol. Index: 28 ml/m^2 Left Ventricle LVIDd: 5.15 cm LVIDs: 3.57 cm LV Septum Diastolic: 1.01 cm LV PW Diastolic: 0.99 cm LV Length: 9.24 cm LVEDV Mcleod's:204.75 mlLV FS: 30.7 % LVESV Mcleod's:92.79 ml LVEF Mcelod's: 55 % LVEDVI: 88 ml /m^2 LVESVI: 40 ml/m^2 LVOT Diameter: 2.3 cm Right Atrium RA Vol. (Sngl Plane): 47.01 ml Aorta Ao Root S of Paula.: 3.83 cm Doppler/Quantitative Measurements Mitral Valve MV Peak E-Wave: 1.08 m/s MV Peak A-Wave: 0.44 m/s E/A Ratio: 2.43 Peak Gradient: 4.63 mmHg Deceleration Time: 151.4 msec MV Blayne. Peak: Aortic Valve Peak Velocity: 1.58 m/sMean Velocity: 1.22 m/s Peak Gradient: 9.93 mmHg Mean Gradient: 6.65 mmHg AV Area (continuity): 2.74 cm^2 AV VTI: 33.05 cm AV DVI: 0.66 LVOT Peak Velocity: 1.17 m/s Peak Gradient: 5.61 mmHg Mean Velocity: 0.88 m/s Mean Gradient: 3.49 mmHg LVOT Diameter: 2.3 cm LVOT VTI: 21.77 cm LVOT Area: 4.15 cm^2LVOT SV:90.4 ml LVOT CO: 6.78 l/min LVOT CI: 2.91 l/min/m^2 Tricuspid Valve TR Velocity: 2.91 m/s TR Gradient: 33.9 mmHg Procedure Note Interface, External Ris In - 03/29/2018 6:50 PM CDT Transthoracic Echocardiography Report (TTE) Demographics Patient Name ALISTAIR BUZZ Date of Study 03/28/2018 WOODY Gender Male Visit Number [id number] Race Unknown Room Number 1006 Number Date of 1960 Referring Lisseth Conway MD Physician 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 Clinical History Atrial Fibrillation/flutter Cancer LA mass 03/24/2018 MAZE procedure, Excision of left atrial mass, PFO oversewn HGB 12.1 HCT 36.7 % Height: 76 inches Weight: 102.06 kg (225 lbs) BSA: 2.33 m^2 BMI: 27.39 kg/m^2 HR: 75 bpm BP: 111/74 mmHg Previous Study In comparison with the prior exam 03/20/2018 the following changes are noted: overall LV systolic function has improved and the left atrial mass has been excised with no evidence of residual mass present . Signature Findings Technical Quality: Technically adequate exam. Rhythm/BP Regular sinus rhythm during the exam. Left Ventricle The left ventricle is chamber size (by vol index) is mildly enlarged (male - LVED 75-89ml/m2). No evidence of LV hypertrophy. All of the LV segments contract normally . Global LV systolic function normal . LVEF by Mcleod's method of disk assessment is normal (55-60%) . The LVEF was measured using Mcleod's bi-plane method of disk . Normal diastolic function. Left Atrium LA size is normal (16-34 ml/m2) . Right Ventricle The right ventricular chamber size and systolic function are within normal limits. Right Atrium RA cavity size is normal . Aortic Valve Mild AoV cusp thickening. AoV cusp mobility is normal . A trace of aortic regurgitation. Mitral Valve Mild MV leaflet thickening. Trace mitral regurgitation. Tricuspid Valve TV structure is normal. Mild tricuspid regurgitation. Estimated peak systolic PA pressure is 35-40 mmHg . Pulmonic Valve Mild pulmonary regurgitation. Normal PV structure appears normal by available views. Aorta Aortic root size (SInus of Valsalva diameter) is normal . Pericardium No pericardial effusion is visualized. IVC/SVC/PA/PV/Pleural The inferior vena cava is adequately visualized. The inferior vena cava size is normal . The estimated RA pressure by IVC dynamics 0-5mmHg . Chambers/Structures Left Atrium LA Volume: 64.2 ml LA Area: 20.44 cm^2 LA Vol. Index: 28 ml/m^2 Left Ventricle LVIDd: 5.15 cm LVIDs: 3.57 cm LV Septum Diastolic: 1.01 cm LV PW Diastolic: 0.99 cm LV Length: 9.24 cm LVEDV Mcleod's:204.75 ml LV FS: 30.7 % LVESV Mcleod's:92.79 ml LVEF Mcleod's: 55 % LVEDVI: 88 ml/m^2 LVESVI: 40 ml/m^2 LVOT Diameter: 2.3 cm Right Atrium RA Vol. (Sngl Plane): 47.01 ml Aorta Ao Root S of Paula.: 3.83 cm Doppler/Quantitative Measurements Mitral Valve MV Peak E-Wave: 1.08 m/s MV Peak A-Wave: 0.44 m/s E/A Ratio: 2.43 Peak Gradient: 4.63 mmHg Deceleration Time: 151.4 msec MV Blayne. Peak: Aortic Valve Peak Velocity: 1.58 m/s Mean Velocity: 1.22 m/s Peak Gradient: 9.93 mmHg Mean Gradient: 6.65 mmHg AV Area (continuity): 2.74 cm^2 AV VTI: 33.05 cm AV DVI: 0.66 LVOT Peak Velocity: 1.17 m/s Peak Gradient: 5.61 mmHg Mean Velocity: 0.88 m/s Mean Gradient: 3.49 mmHg LVOT Diameter: 2.3 cm LVOT VTI: 21.77 cm LVOT Area: 4.15 cm^2 LVOT SV:90.4 ml LVOT CO: 6.78 l/min LVOT CI: 2.91 l/min/m^2 Tricuspid Valve TR Velocity: 2.91 m/s TR Gradient: 33.9 mmHg Magnesium (03/28/2018 5:37 AM)Only the most recent of6 resultswithin the time period is included. Component Value Ref Range Magnesium 2.2 1.6 - 2.6 mg/dL Specimen Performing Laboratory Blood [address] [address] Basic Metabolic Panel (03/28/2018 5:37 AM)Only the most recent of11 resultswithin the time period is included. Component Value Ref Range Sodium 139 136 - 145 meq/L Potassium 4.6 3.5 - 5.1 meq/L Chloride 102 98 - 107 meq/L CO2 28 22 - 29 meq/L BUN 11 7 - 21 mg/dL Creatinine 0.70 0.57 - 1.25 mg/dL Glucose 98 70 - 105 mg/dL Calcium 9.7 8.4 - 10.2 mg/dL EGFR 116Comment: ESTIMATED GFR IS NOT ACCURATE mL/min/1.73 sq m CREATININE CLEARANCE IN PREDICTING GLOMERULAR FILTRATION RATE. ESTIMATED GFR IS NOT APPLICABLE FOR DIALYSIS PATIENTS. Specimen Performing Laboratory Blood [address] [address] XR chest 1 view portable / bedside (03/27/2018 6:52 PM)Only the most recent of4 resultswithin the time period is included. Specimen Performing Laboratory GE RIS Narrative FINAL REPORT EXAMINATION: AP PORTABLE CHEST RADIOGRAPH CLINICAL INDICATION: Chest tube removal. Evaluate for a pneumothorax. IMPRESSION: Compared with 03/26/2018. Overall aeration of the lungs has improved. Thin curvilinear and patchy opacities are again noted the lung bases. The morphology and distribution favor a component of atelectasis. Cardiomediastinal contours are grossly stable allowing for the improved aeration of the lungs. The right-sided chest tubes have been removed in the interval. Of note, there is a subtle radiolucency at the right lung base which is suspicious for a small pneumothorax. Short-term follow-up imaging surveillance recommended. Results discussed with the nurse caring for the patient at the time of dictation. She will notify the appropriate on-call clinician. Signed: Pawan Dash MD Report Verified Date/Time:03/27/2018 22:38:14 Reading Location: [address] Reading Room Procedure Note Interface, External Ris In - 03/27/2018 10:40 PM CDT FINAL REPORT EXAMINATION: AP PORTABLE CHEST RADIOGRAPH CLINICAL INDICATION: Chest tube removal. Evaluate for a pneumothorax. IMPRESSION: Compared with 03/26/2018. Overall aeration of the lungs has improved. Thin curvilinear and patchy opacities are again noted the lung bases. The morphology and distribution favor a component of atelectasis. Cardiomediastinal contours are grossly stable allowing for the improved aeration of the lungs. The right-sided chest tubes have been removed in the interval. Of note, there is a subtle radiolucency at the right lung base which is suspicious for a small pneumothorax. Short-term follow-up imaging surveillance recommended. Results discussed with the nurse caring for the patient at the time of dictation. She will notify the appropriate on-call clinician. Signed: Pawan Dash MD Report Verified Date/Time: 03/27/2018 22:38:14 Reading Location: [address] Reading Room with platelet count + automated diff (03/27/2018 4:19 AM)Only the most recent of9 resultswithin the time period is included. Component Value Ref Range WBC 13.5 (H) 3.5 - 10.5 K/L RBC 3.91 (L) 4.63 - 6.08 M/L Hemoglobin 12.1 (L) 13.7 - 17.5 GM/DL Hematocrit 36.7 (L) 40.1 - 51.0 % MCV 93.9 (H) 79.0 - 92.2 fL MCH 30.9 25.7 - 32.2 pg MCHC 33.0 32.3 - 36.5 GM/DL RDW 13.2 11.6 - 14.4 % Platelets 116 (L) 150 - 450 K/CU MM MPV 10.3 9.4 - 12.4 fL nRBC 0 0 - 0 /100 WBC % Neutros 85 % % Lymphs 5 % % Monos 9 % % Eos 0 % % Baso 0 % # Neutros 11.40 (H) 1.78 - 5.38 K/L # Lymphs 0.69 (L) 1.32 - 3.57 K/L # Monos 1.21 (H) 0.30 - 0.82 K/L # Eos 0.01 (L) 0.04 - 0.54 K/L # Baso 0.02 0.01 - 0.08 K/L Immature Granulocytes-Relative 1 0 - 1 % Specimen Performing Laboratory Blood [address] [address] CBC with platelet count + automated diff (03/27/2018 4:19 AM)Only the most recent of9 resultswithin the time period is included. Specimen Performing Laboratory Blood Narrative The following orders were created for panel order CBC with platelet count + automated diff. Procedure Abnormality Status --------- ------ CBC with platelet count ...[[id number]]AbnormalFinal result Please view results for these tests on the individual orders. Lactic acid, arterial, whole blood (03/26/2018 4:03 AM)Only the most recent of3 resultswithin the time period is included. Component Value Ref Range Lactate, Art 0.8 0.5 - 2.2 mmol/L Specimen Performing Laboratory Blood, Arterial [address] [address] Narrative Effective 03/24/2016: Units/Reference Range Change New: 0.5-2.2 mmol/LPrevious: 5-20 mg/dL Phosphorus (03/26/2018 4:03 AM)Only the most recent of2 resultswithin the time period is included. Component Value Ref Range Phosphorus 3.1 2.3 - 4.7 mg/dL Specimen Performing Laboratory Blood [address] [address] Blood gas, arterial (03/26/2018 4:03 AM)Only the most recent of9 resultswithin the time period is included. Component Value Ref Range pH, Arterial 7.44 7.35 - 7.45 pCO2, Arterial 41 35 - 45 mmHg pO2, Arterial 78 (L) 80 - 90 mmHg O2 Sat, Arterial 95.5 (L) 96.0 - 97.0 % HCO3, Arterial 27 21 - 29 mmol/L Base Excess, Arterial 3.1 (H) -2.0 - 3.0 mmol/L Patient Temperature 37.7 C FIO2 36.0 % Specimen Performing Laboratory Blood, Arterial [address] [address] POC-Glucose meter (03/25/2018 10:33 AM)Only the most recent of2 resultswithin the time period is included. Component Value Ref Range POC-Glucose Meter 96Comment: TESTED AT [address] 70 - 110 mg/dL [id number] Specimen Performing Laboratory Blood [address] [address] [facility] CRITICAL LABS (ABG,NA,K,H&H,GLUCOSE) (03/25/2018 4:27 AM)Only the most recent of6 resultswithin the time period is included. Specimen Performing Laboratory Blood, Arterial Narrative The following orders were created for panel order [facility] CRITICAL LABS (ABG,NA,K,H&H,GLUCOSE). Procedure Abnormality Status --------- ------ Blood gas, arterial[[id number]]AbnormalFinal result Sodium Na-Stat Lab[[id number]] NormalFinal result Potassium-Stat Lab[[id number]] AbnormalFinal result Glucose-Stat Lab[[id number]] AbnormalFinal result HGB/HCT (H&H)-Stat Lab[[id number]] Normal Final result Please view results for these tests on the individual orders. Potassium-Stat Lab (03/25/2018 4:27 AM)Only the most recent of7 resultswithin the time period is included. Component Value Ref Range Potassium 3.4 (L) 3.6 - 5.5 meq/L Specimen Performing Laboratory Blood, [address] [address] Sodium Na-Stat Lab (03/25/2018 4:27 AM)Only the most recent of7 resultswithin the time period is included. Component Value Ref Range Sodium 144 135 - 148 meq/L Specimen Performing Laboratory Blood, [address] [address] Glucose-Stat Lab (03/25/2018 4:27 AM)Only the most recent of7 resultswithin the time period is included. Component Value Ref Range Glucose 218 (H) 70 - 110 mg/dL Specimen Performing Laboratory Blood, [address] [address] HGB/HCT (H&H)-Stat Lab (03/25/2018 4:27 AM)Only the most recent of7 resultswithin the time period is included. Component Value Ref Range Hemoglobin 13.8 13.0 - 16.8 g/dL Hematocrit 41.0 40.0 - 50.0 % Specimen Performing Laboratory Blood, [address] [address] Hemoglobin-Stat Lab (03/24/2018 11:47 PM) Component Value Ref Range Hemoglobin 15.1 13.0 - 16.8 g/dL Specimen Performing Laboratory Blood, [address] [address] Calcium, Ionized (03/24/2018 11:47 PM)Only the most recent of3 resultswithin the time period is included. Component Value Ref Range Calcium, Ion 1.10 (L) 1.12 - 1.27 mmol/L pH, Blood 7.28 Specimen Performing Laboratory Blood [address] [address] Oxygen saturation, measured (03/24/2018 9:54 PM) Component Value Ref Range O2 Saturation (Measured) 78.3 % Specimen Performing Laboratory Blood [address] [address] aPTT (03/24/2018 9:54 PM)Only the most recent of5 resultswithin the time period is included. Component Value Ref Range PTT 29.6 22.5 - 36.0 seconds Specimen Performing Laboratory Blood [address] [address] Prothrombin time/INR (03/24/2018 9:54 PM)Only the most recent of2 resultswithin the time period is included. Component Value Ref Range Protime 17.4 (H) 11.7 - 14.7 seconds INR 1.4 <=5.9 Specimen Performing Laboratory Blood [address] [address] Narrative RECOMMENDED COUMADIN/WARFARIN INR THERAPY RANGES STANDARD DOSE: 2.0 - 3.0 Includes: PROPHYLAXIS for venous thrombosis, systemic embolization; TREATMENT for venous thrombosis and/or pulmonary embolus. HIGH RISK: Target INR is 2.5-3.5 for patients with mechanical heart valves. Fibrinogen (03/24/2018 9:54 PM) Component Value Ref Range Fibrinogen 375 225 - 434 mg/dl Specimen Performing Laboratory Blood [address] [address] ANESTHESIA MAHESH (03/24/2018 9:14 PM) Gregory Carreno MD 03/24/20189:14 PM MAHESH Date: 03/24/2018 5:47 PM Sex: Male Location: OR Requesting Physician: DARSHAN ANDINO Examiner: STARLA FISHER Indication: LA massIntubatedSedated Patient screened for esoph disease: Yes Insertion: easy Probe Type: multiplane Modalities: 2D, CFM, CWD, Contrast and PWD Aorta Size Dissection Plaque Thick Plaque Mobile Ascending Ao normal No < 3mm No Ao Arch normal No < 3mm No Descending Ao normal No < 3mm No Valves Annulus Stenosis Area (cm3) Gradient Regurgitation Leaflet Morphology Leaflet Motion Not Visualized Aortic valve normal none none normal normal Mitral valve normal none trivial (1+) normal normal Tricuspid normal none none normal normal Atria Size SEC Thrombus Tumor Device Right Atrium normal No No No Yes Left Atrium normal No No Yes device Interatrial Septum: Morphology: patent foramen ovale ASD: Shunt: Interventricular Septum: Morphology: normal Defect: Shunt: Ventricles Cavity size Dimension Hypertrophy Thrombus Global FXN EF Right ventricle normalNo No normal Left ventricle normalNo No moderately impaired 27 Pre Intervention Summary: Global hypokinesis with EF 30% LA mass near opening of TARAN, measured 3.26 x 1.28 cm Positive PFO by color flow and bubble study Trace MR Normal RV size and function Post Intervention Summary:Improvement of biV function on epinephrine and milrinone. LA mass is no longer visible. PFO no longer visible. No new valvular or aortic defects are obvious. Procedure Note Gregory Vicente MD - 03/24/2018 5:47 PM CDT Formatting of this note may be different from the original. MAHESH Date: 03/24/2018 5:47 PM Sex: Male Location: OR Requesting Physician: DARSHAN ANDINO Examiner: STARLA FISHER Indication: LA mass Intubated Sedated Patient screened for esoph disease: Yes Insertion: easy Probe Type: multiplane Modalities: 2D, CFM, CWD, Contrast and PWD Aorta Size Dissection Plaque Thick Plaque Mobile Ascending Ao normal No < 3mm No Ao Arch normal No < 3mm No Descending Ao normal No < 3mm No Valves Annulus Stenosis Area (cm3) Gradient Regurgitation Leaflet Morphology Leaflet Motion Not Visualized Aortic valve normal none none normal normal Mitral valve normal none trivial (1+) normal normal Tricuspid normal none none normal normal Atria Size SEC Thrombus Tumor Device Right Atrium normal No No No Yes Left Atrium normal No No Yes device Interatrial Septum: Morphology: patent foramen ovale ASD: Shunt: Interventricular Septum: Morphology: normal Defect: Shunt: Ventricles Cavity size Dimension Hypertrophy Thrombus Global FXN EF Right ventricle normal No No normal Left ventricle normal No No moderately impaired 27 Pre Intervention Summary: Global hypokinesis with EF 30% LA mass near opening of TARAN, measured 3.26 x 1.28 cm Positive PFO by color flow and bubble study Trace MR Normal RV size and function Post Intervention Summary: Improvement of biV function on epinephrine and milrinone. LA mass is no longer visible. PFO no longer visible. No new valvular or aortic defects are obvious. POC ACTIVATED CLOTTING TIME (03/24/2018 8:26 PM)Only the most recent of10 resultswithin the time period is included. Component Value Ref Range Activated Clotting Time 98Comment: TESTED AT [address] sec [id number] Specimen Performing Laboratory Blood [facility] [address] [address] Tissue Exam (03/24/2018 6:58 PM) Component Value Ref Range Case Report Surgical Pathology Report Case: [id number] Authorizing Provider:Darshan Andino MDCollected: 03/24/2018 [id number] Ordering Location: [facility] Received: 03/26/2018 1129 PERIOPERATIVE SERVICES Pathologist: Shelton Joe MD Specimen:Soft Tissue, Other, Atrial Mass DIAGNOSIS HEART, LEFT ATRIUM, RESECTION: MYXOMA Signing Pathologist Direct Phone Line: [phone] CPT Code(s) 36942 CLINICAL HISTORY Chronic atrial fibrillation, left atrial mass SPECIMEN SOURCE Left atrial mass GROSS DESCRIPTION Received fresh labeled "soft tissue, other", description "atrial mass" is a 4.0 x 2.0 x 1.0 cm dark red to yellow christine irregular rubbery gelatinous soft tissue mass. The specimen is serially sectioned to reveal a dark red to yellow-christine, rubbery, hemorrhagic, gelatinous cut surface. No firm areas are identified. Ink code: resection margin - black. The specimen is entirely submitted as follows: A1, perpendicular resection margin; A2-A5, remainder of specimen. DB/pl MICROSCOPIC DESCRIPTION Performed Specimen Performing Laboratory Tissue - Soft Tissue, [place] [address] TRANSFUSION SERVICE REPORT - SCAN (03/24/2018 5:41 PM)Type and screen, automated (03/23/2018 2:51 PM) Component Value Ref Range ABO/RH AUTOMATED (BEAKER) A POSITIVE Ab Scrn NEGATIVE Specimen Performing [place] [address] Transesophageal echo (03/21/2018 3:57 PM) Component Value Ref Range Ejection Fraction Specimen Performing Laboratory [facility] MKCKESSON CPACS Narrative Transesophageal Echocardiography Report (MAHESH) Demographics Patient Name SMALL, BYRONDate of Study 03/21/2018 WOODY [id number] Male Visit Number [id number] Unknown [id number] Room Number 1434 Number Date of Birth1960Referring Physician Arun Quinones MD 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 Clinical History LA THROMBUS,CANCER Height: 76 inches Weight: 102.06 kg (225 lbs) BSA: 2.33 m^2 BMI: 27.39 kg/m^2 HR: 93 bpm BP: 124/85 mmHg Procedure Medications - Fentanyl I.V. 50 mcg. - Versed I.V. 3 mg. Summary LA is enlarged but severity assessment is unreliable due to known MAHESH sector size limitation. A 3.5 x 1.2 cm oblong highly mobile mass has a discrete attachment site at the anterior LA appendage orifice, consistent with atypical LA myxoma. The mass intermittently enters the LA appendage and intermittently crosses the MV annulus during diastole. The surface is irregular with multiple mobile strands. LA appendage morphology is simple (wind sock) . LA appendage thrombus is not present . Signature Findings Rhythm/BPAtrial fibrillation with rapid ventricular response. Left Ventricle The left ventricle is chamber size (by vol index) is normal. All of the LV segments are hypokinetic . Global LV systolic function [id number] reduced . Estimation of LV systolic function is less reliable in the presence of tachycardia. Left AtriumLA is enlarged but severity assessment is unreliable due to known MAHESH sector size limitation. A 3.5 x 1.2 cm oblong highly mobile mass has a discrete attachment site at the anterior LA appendage orifice, consistent with atypical LA myxoma. The mass intermittently enters the LA appendage and intermittently crosses the MV annulus during diastole. The surface is irregular with multiple mobile strands. LA appendage morphology is simple (wind sock) . LA appendage thrombus is not present . Right VentricleRV chamber size is normal . Global RV systolic function is mildly reduced . Right Atrium RA size is normal. Atrial SeptumNormal interatrial septum by available views. A patent foramen ovale (PFO) is suspected by color Doppler. Aortic Valve Normal AoV structure and function. Mild aortic regurgitation. Mitral Valve Mild MV leaflet thickening. Mild posterior leaflet prolapse. Mild mitral regurgitation. Tricuspid ValveNormal TV structure and function. Mild tricuspid regurgitation. Estimated peak systolic PA pressure is 25-30 mmHg + RA pressure. AortaAortic root size (Sinus of Valsalva diameter) is borderline dilated. 3.7 cm PericardiumNo significant pericardial effusion is visualized. IVC/SVC/PA/PV/PleuralThe visualized SVC appears normal. 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 Clinical History LA THROMBUS,CANCER Height: 76 inches Weight: 102.06 kg (225 lbs) BSA: 2.33 m^2 BMI: 27.39 kg/m^2 HR: 93 bpm BP: 124/85 mmHg Procedure Medications - Fentanyl I.V. 50 mcg. - Versed I.V. 3 mg. Summary LA is enlarged but severity assessment is unreliable due to known MAHESH sector size limitation. A 3.5 x 1.2 cm oblong highly mobile mass has a discrete attachment site at the anterior LA appendage orifice, consistent with atypical LA myxoma. The mass intermittently enters the LA appendage and intermittently crosses the MV annulus during diastole. The surface is irregular with multiple mobile strands. LA appendage morphology is simple (wind sock) . LA appendage thrombus is not present . Signature Findings Rhythm/BP Atrial fibrillation with rapid ventricular response. Left Ventricle The left ventricle is chamber size (by vol index) is normal. All of the LV segments are hypokinetic . Global LV systolic function [id number] reduced . Estimation of LV systolic function is less reliable in the presence of tachycardia. Left Atrium LA is enlarged but severity assessment is unreliable due to known MAHESH sector size limitation. A 3.5 x 1.2 cm oblong highly mobile mass has a discrete attachment site at the anterior LA appendage orifice, consistent with atypical LA myxoma. The mass intermittently enters the LA appendage and intermittently crosses the MV annulus during diastole. The surface is irregular with multiple mobile strands. LA appendage morphology is simple (wind sock) . LA appendage thrombus is not present . Right Ventricle RV chamber size is normal . Global RV systolic function is mildly reduced . Right Atrium RA size is normal. Atrial Septum Normal interatrial septum by available views. A patent foramen ovale (PFO) is suspected by color Doppler. Aortic Valve Normal AoV structure and function. Mild aortic regurgitation. Mitral Valve Mild MV leaflet thickening. Mild posterior leaflet prolapse. Mild mitral regurgitation. Tricuspid Valve Normal TV structure and function. Mild tricuspid regurgitation. Estimated peak systolic PA pressure is 25-30 mmHg + RA pressure. Aorta Aortic root size (Sinus of Valsalva diameter) is borderline dilated. 3.7 cm Pericardium No significant pericardial effusion is visualized. IVC/SVC/PA/PV/Pleural The visualized SVC appears normal. ECG 12 lead (03/18/2018 9:26 AM)Only the most recent of2 resultswithin the time period is included. Specimen Performing Laboratory [employer] Narrative Ventricular Rate 104 BPM Atrial Rate 227 BPM QRS Duration 74 ms Q-T Interval 284 ms QTC Calculation(Bazett) 373 ms R [place] 33 degrees T [place] 37 degrees Atrial fibrillation with rapid ventricular response Abnormal ECG When compared with ECG of 17-MAR-2018 23:50, No significant change was found Confirmed by MD RAJAN J. ALBERTO ([id number]) on 03/19/2018 11:36:35 AM Procedure Note Interface, External Ris In - 03/19/2018 11:36 AM CDT Ventricular Rate 104 BPM Atrial Rate 227 BPM QRS Duration 74 ms Q-T Interval 284 ms QTC Calculation(Bazett) 373 ms R [place] 33 degrees T [place] 37 degrees Atrial fibrillation with rapid ventricular response Abnormal ECG When compared with ECG of 17-MAR-2018 23:50, No significant change was found Confirmed by MD RAJAN J. ALBERTO ([id number]) on 03/19/2018 11:36:35 AM TSH/Free T4 If Indicated (03/18/2018 5:49 AM) Component Value Ref Range TSH 1.46 0.35 - 4.94 uIU/mL Specimen Performing Laboratory Blood - Arm, [address] [address] PT/aPTT (03/18/2018 5:49 AM) Component Value Ref Range Protime 16.7 (H) 11.7 - 14.7 seconds INR 1.4 <=5.9 PTT 31.7 22.5 - 36.0 seconds Specimen Performing Laboratory Blood - Arm, [address] [address] Narrative RECOMMENDED COUMADIN/WARFARIN INR THERAPY RANGES STANDARD DOSE: 2.0 - 3.0 Includes: PROPHYLAXIS for venous thrombosis, systemic embolization; TREATMENT for venous thrombosis and/or pulmonary embolus. HIGH RISK: Target INR is 2.5-3.5 for patients with mechanical heart valves. Troponin I (03/18/2018 5:49 AM) Component Value Ref Range Troponin I 0.01 0.00 - 0.03 ng/mL Specimen Performing Laboratory Blood - Arm, [address] [address] Narrative Troponin I (TnI) levels must be interpreted in the context of the presenting symptoms and the clinical findings. Elevated TnI levels indicate myocardial damage, but are not specific for ischemic heart disease. Elevated TnI levels are seen in patients with other cardiac conditions (including myocarditis and congestive heart failure), and slight TnI elevations occur in patients with other conditions, including sepsis, renal failure, acidosis, acute neurological disease, and persistent tachyarrhythmia. Hemoglobin A1c (03/18/2018 5:49 AM) Component Value Ref Range Hemoglobin A1C 5.1 4.3 - 6.1 % Specimen Performing Laboratory Blood - Arm, [address] [address] Lipid panel (03/18/2018 5:49 AM) Component Value Ref Range Triglycerides 106 mg/dL Cholesterol 220 mg/dL HDL 37 mg/dL LDL Calculated 162 mg/dL Specimen Performing Laboratory Blood - Arm, [address] [address] Narrative Triglyceride Reference Range: Low Risk <150 [id number] High Risk 200-499 Very High Risk>=500 Cholesterol Reference Range: Low Risk <200 [id number] High Risk>240 HDL Cholesterol Reference Range: Low Risk >=60 High Risk <40 LDL Cholesterol Reference Range: Optimal<100 Near [id number] Very High >=190 Specimen slightly icteric after 08/08/2017
--- OUTSIDE RECORDS SUMMARY | 2018-08-09 14:29 | XMS REPORT ---
:1960 [facility] Address [address] [place] [address] [address]. [address] [place] [address] Care Team Providers Name Role Phone SILVER VEGA Unavailable Unavailable Problems This patient has no known problems. Allergies, Adverse Reactions, Alerts This patient has no known allergies or adverse reactions. Medications This patient has no known medications. Results Test Description Test Time Test Comments Text Results Atomic Results Result Comments TISSUE EXAM 2018-03-28 Surgical Pathology Report 14:11:00 Case: [id number] Authorizing Provider: Darshan Dillon MD Collected: 03/24/2018 1858 Ordering Location: [facility] Received: 03/26/2018 1129 PERIOPERATIVE SERVICES Pathologist: Shelton Joe MD Specimen: Soft Tissue, Other, Atrial Mass HEART, LEFT ATRIUM, RESECTION:MYXOMA Signing Pathologist Direct Phone Line: [phone] signed by Shelton Joe MD on 03/28/2018 at 2:11 [id number] atrial fibrillation, left atrial massLeft atrial massReceived fresh labeled "soft tissue, other", description "atrial [...] perpendicular resection margin; A2-A5, remainder of specimen. DB/plPerformed RAD, CHEST, 2 2018-03-28 Reason for FINAL REPORT PATIENT ID: VIEWS 13:30:00 exam:->pneumo, [id number] Chest 2 views 03/28/2018 discharge 1:29 PM CLINICAL HISTORY: pneumo, dependent discharge dependent COMPARISON: 03/27/2018 IMPRESSION: No pneumothorax is evident. There are trace bilateral pleural effusions with adjacent basilar atelectasis. Cardiomediastinal contours are within normal limits. The central pulmonary vasculature is not engorged. There are no acute-appearing skeletal abnormalities. Signed: Jose Miguel Medeiros Verified Date/Time: 03/28/2018 13:30:46 Reading Location: [address] Consult Reading Room ESIUM 2018-03-28 07:13:00 Test Item Value Reference Range Comments MAGNESIUM (BEAKER) (test mhfv=242) 2.2 mg/dL 1.6-2.6 BASIC METABOLIC [id number] 07:13:00 Test Item Value Reference Range Comments SODIUM (BEAKER) (test 139 meq/L 136-145 jhuh=591) POTASSIUM (BEAKER) (test 4.6 meq/L 3.5-5.1 wuye=216) CHLORIDE (BEAKER) (test 102 meq/L 98-107 sibj=946) CO2 (BEAKER) (test 28 meq/L 22-29 gaet=313) BLOOD UREA NITROGEN 11 mg/dL 7-21 (BEAKER) (test plms=828) CREATININE (BEAKER) (test 0.70 mg/dL 0.57-1.25 bexq=707) GLUCOSE RANDOM (BEAKER) 98 mg/dL 70-105 (test nyxn=347) CALCIUM (BEAKER) (test 9.7 mg/dL 8.4-10.2 ncuu=588) EGFR (BEAKER) (test 116 mL/min/1.73 sq m ESTIMATED GFR IS NOT isft=4563) ACCURATE CREATININE CLEARANCE IN PREDICTING GLOMERULAR FILTRATION RATE. ESTIMATED GFR IS NOT APPLICABLE FOR DIALYSIS PATIENTS. RAD, CHEST, 1 VIEW, NON [id number] 22:38:00Reason for exam:->eval for right pneumothorax after chest tube removalShould this be performed atthe bedside?->YesFINAL REPORT EXAMINATION: AP PORTABLE CHEST RADIOGRAPH CLINICAL [...] lungs. The right-sided chest tubes have been removedin the interval. Of note, there is a subtle radiolucency at the right lung base which is suspicious for a small pneumothorax. Short-term follow-up imaging surveillance recommended. Results discussed with the nurse caring for the patient at the time of dictation. She will notify the appropriate on- callclinician. Signed: Arnoldo Dash MDReport Verified Date/Time: 03/27/2018 22: 38:14 Reading Location: [address] Reading Room 10:38 [id number] 05:17:00 Test Item Value Reference Range Comments MAGNESIUM (BEAKER) (test avsi=334) 2.0 mg/dL 1.6-2.6 BASIC METABOLIC [id number] 05:17:00 Test Item Value Reference Range Comments SODIUM (BEAKER) (test 138 meq/L 136-145 wntn=042) POTASSIUM (BEAKER) (test 4.6 meq/L 3.5-5.1 rvtf=622) CHLORIDE (BEAKER) (test 101 meq/L 98-107 ctfu=446) CO2 (BEAKER) (test 29 meq/L 22-29 rkez=928) BLOOD UREA NITROGEN 11 mg/dL 7-21 (BEAKER) (test qoel=300) CREATININE (BEAKER) (test 0.74 mg/dL 0.57-1.25 qgyy=251) GLUCOSE RANDOM (BEAKER) 116 mg/dL 70-105 (test itqa=017) CALCIUM (BEAKER) (test 9.3 mg/dL 8.4-10.2 lahl=224) EGFR (BEAKER) (test 109 mL/min/1.73 sq m ESTIMATED GFR IS NOT eqsy=8007) ACCURATE CREATININE CLEARANCE IN PREDICTING GLOMERULAR FILTRATION RATE. ESTIMATED GFR IS NOT APPLICABLE FOR DIALYSIS PATIENTS. CBC W/PLT COUNT & AUTO [id number] 05:08:00 Test Item Value Reference Range Comments WHITE BLOOD CELL COUNT (BEAKER) (test yfjm=715) 13.5 K/ L 3.5-10.5 RED BLOOD CELL COUNT (BEAKER) (test cxyq=924) 3.91 M/ L 4.63-6.08 HEMOGLOBIN (BEAKER) (test znuv=418) 12.1 GM/DL 13.7-17.5 HEMATOCRIT (BEAKER) (test mtnt=782) 36.7 % 40.1-51.0 MEAN CORPUSCULAR VOLUME (BEAKER) (test ebww=256) 93.9 fL 79.0-92.2 MEAN CORPUSCULAR HEMOGLOBIN (BEAKER) (test 30.9 pg 25.7-32.2 sved=888) MEAN CORPUSCULAR HEMOGLOBIN CONC (BEAKER) (test 33.0 GM/DL 32.3-36.5 yxiq=727) RED CELL DISTRIBUTION WIDTH (BEAKER) (test 13.2 % 11.6-14.4 hhbz=637) PLATELET COUNT (BEAKER) (test rfdp=316) 116 K/CU MM 150-450 MEAN PLATELET VOLUME (BEAKER) (test ijyw=210) 10.3 fL 9.4-12.4 NUCLEATED RED BLOOD CELLS (BEAKER) (test 0 /100 WBC 0-0 jnzj=088) NEUTROPHILS RELATIVE PERCENT (BEAKER) (test 85 % nryq=028) LYMPHOCYTES RELATIVE PERCENT (BEAKER) (test 5 % dhtm=343) MONOCYTES RELATIVE PERCENT (BEAKER) (test 9 % ihvk=147) EOSINOPHILS RELATIVE PERCENT (BEAKER) (test 0 % kmsu=478) BASOPHILS RELATIVE PERCENT (BEAKER) (test 0 % jekw=800) NEUTROPHILS ABSOLUTE COUNT (BEAKER) (test 11.40 K/ L 1.78-5.38 tuzj=436) LYMPHOCYTES ABSOLUTE COUNT (BEAKER) (test 0.69 K/ L 1.32-3.57 fyct=119) MONOCYTES ABSOLUTE COUNT (BEAKER) (test 1.21 K/ L 0.30-0.82 stav=336) EOSINOPHILS ABSOLUTE COUNT (BEAKER) (test 0.01 K/ L 0.04-0.54 ugdv=945) BASOPHILS ABSOLUTE COUNT (BEAKER) (test 0.02 K/ L 0.01-0.08 pdqe=174) IMMATURE GRANULOCYTES-RELATIVE PERCENT (BEAKER) 1 % 0-1 (test xsdr=9290) POCT-GLUCOSE [id number] 08:39:00 Test Item Value Reference Range Comments POC-GLUCOSE METER (BEAKER) 96 mg/dL 70-110 TESTED AT [facility] [address] [facility] (test jahn=2242) [facility] [address] POCT-GLUCOSE [id number] 08:39:00 Test Item Value Reference Range Comments POC-GLUCOSE METER (BEAKER) 156 mg/dL 70-110 TESTED AT [facility] [address] [facility] (test kpwt=1522) [facility] [address] RAD, CHEST, 1 VIEW, NON [id number] 06:12:00Reason for exam:->chest tubeShould this be performed at the bedside?->YesFINAL REPORT RAD, CHEST, 1 VIEW, NON DEPT INDICATION: chest tube COMPARISON: Prior day's exam FINDINGS: Portable frontal view of the chest. IMPRESSION: Support Lines: The [place]-Daniella catheter has been. Right IJ sheath remains in place. Thoracic drainage catheters again noted. Lungs and pleura: Basilar subsegmental atelectasis on the right. Trace right apical pneumothorax. Bilateral small effusions. No pneumothorax.Heart and mediastinum: Stable contours. Additional findings: None. Signed: JR Valdze Robert MDReport Verified Date/Time: 03/26/2018 06:12:29 Reading Location: [facility] C013Y CT Body Reading Room CBC W/ PLT COUNT & AUTO [id number] 05:52:00 Test Item Value Reference Range Comments WHITE BLOOD CELL COUNT (BEAKER) (test kozq=483) 15.0 K/ L 3.5-10.5 RED BLOOD CELL COUNT (BEAKER) (test qsbq=013) 3.80 M/ L 4.63-6.08 HEMOGLOBIN (BEAKER) (test jdxx=471) 12.1 GM/DL 13.7-17.5 HEMATOCRIT (BEAKER) (test wfcw=538) 34.7 % 40.1-51.0 MEAN CORPUSCULAR VOLUME (BEAKER) (test sesv=069) 91.3 fL 79.0-92.2 MEAN CORPUSCULAR HEMOGLOBIN (BEAKER) (test 31.8 pg 25.7-32.2 plhb=819) MEAN CORPUSCULAR HEMOGLOBIN CONC (BEAKER) (test 34.9 GM/DL 32.3-36.5 ghgj=031) RED CELL DISTRIBUTION WIDTH (BEAKER) (test 13.2 % 11.6-14.4 bgjg=194) PLATELET COUNT (BEAKER) (test clpj=491) 102 K/CU MM 150-450 MEAN PLATELET VOLUME (BEAKER) (test fymh=097) 10.0 fL 9.4-12.4 NUCLEATED RED BLOOD CELLS (BEAKER) (test 0 /100 WBC 0-0 thvv=969) NEUTROPHILS RELATIVE PERCENT (BEAKER) (test 85 % umqi=992) LYMPHOCYTES RELATIVE PERCENT (BEAKER) (test 5 % riqv=539) MONOCYTES RELATIVE PERCENT (BEAKER) (test 9 % uhgv=305) EOSINOPHILS RELATIVE PERCENT (BEAKER) (test 0 % rgrw=041) BASOPHILS RELATIVE PERCENT (BEAKER) (test 0 % xfxw=233) NEUTROPHILS ABSOLUTE COUNT (BEAKER) (test 12.80 K/ L 1.78-5.38 uqdh=021) LYMPHOCYTES ABSOLUTE COUNT (BEAKER) (test 0.68 K/ L 1.32-3.57 jlvn=940) MONOCYTES ABSOLUTE COUNT (BEAKER) (test 1.39 K/ L 0.30-0.82 owas=278) EOSINOPHILS ABSOLUTE COUNT (BEAKER) (test 0.00 K/ L 0.04-0.54 fxfs=008) BASOPHILS ABSOLUTE COUNT (BEAKER) (test 0.01 K/ L 0.01-0.08 rvzl=684) IMMATURE GRANULOCYTES-RELATIVE PERCENT (BEAKER) 1 % 0-1 (test usur=3617) BLOOD GAS, [id number] 04:52:00 Test Item Value Reference Range Comments PH ARTERIAL (BEAKER) (test qfyp=597) 7.44 7.35-7.45 PCO2 ARTERIAL (BEAKER) (test fkxz=043) 41 mmHg 35-45 PO2 ARTERIAL (BEAKER) (test zpfe=818) 78 mmHg 80-90 O2 SATURATION ARTERIAL (BEAKER) (test gane=365) 95.5 % 96.0-97.0 HCO3 ARTERIAL (BEAKER) (test yasb=689) 27 mmol/L 21-29 BASE EXCESS ARTERIAL (BEAKER) (test dhqp=710) 3.1 mmol/L -2.0-3.0 PATIENT TEMPERATURE (BEAKER) (test djjj=7736) 37.7 C FIO2 (BEAKER) (test kddi=1687) 36.0 % [id number] 04:31:00 Test Item Value Reference Range Comments PHOSPHORUS (BEAKER) (test chzh=970) 3.1 mg/dL 2.3-4.7 BASIC METABOLIC [id number] 04:31:00 Test Item Value Reference Range Comments SODIUM (BEAKER) (test 137 meq/L 136-145 veyw=353) POTASSIUM (BEAKER) (test 3.8 meq/L 3.5-5.1 pgsg=593) CHLORIDE (BEAKER) (test 106 meq/L 98-107 kbkj=479) CO2 (BEAKER) (test 24 meq/L 22-29 lwew=526) BLOOD UREA NITROGEN 11 mg/dL 7-21 (BEAKER) (test wtka=417) CREATININE (BEAKER) (test 0.65 mg/dL 0.57-1.25 mkwd=797) GLUCOSE RANDOM (BEAKER) 119 mg/dL 70-105 (test gdsv=976) CALCIUM (BEAKER) (test 8.9 mg/dL 8.4-10.2 kupo=313) EGFR (BEAKER) (test 127 mL/min/1.73 sq m ESTIMATED GFR IS NOT jqro=7194) ACCURATE CREATININE CLEARANCE IN PREDICTING GLOMERULAR FILTRATION RATE. ESTIMATED GFR IS NOT APPLICABLE FOR DIALYSIS PATIENTS. Specimen slightly ictericLACTIC ACID, ARTERIAL, WHOLE [id number] 04:26:00 Test Item Value Reference Range Comments LACTATE BLOOD ARTERIAL (2) (BEAKER) (test 0.8 mmol/L 0.5-2.2 cuqr=6160) Effective 03/24/2016: Units/Reference Range ChangeNew: 0.5-2.2 mmol/L Previous: 5 -20 mg/dLRAD, CHEST, 1 VIEW, NON [id number] 09:24:00Reason for exam:->s/ p resection atrial myxomaShould this be performed at the bedside?->YesFINAL REPORT HISTORY : s/p resection atrial myxoma. Comparison : 03/24/2018 Comment: Single portable view of the chest was obtained. The cardiac silhouette size is enlarged. The previously seen nasogastric tube is not definitively visualized. The endotracheal tube has been removed. The remainder of the support lines and tubes are otherwise unchanged. No definite pneumothorax is seen. There is a suspected small right-sided pleural effusion. There is some nonspecific patchy bibasilar airspace disease which may represent atelectasis. Pneumonitis or aspiration cannot be excluded. Signed: Oneil Davis MDReport Verified Date/Time: 03/25/2018 09:24:11 Reading Location: [address] Transitional Reading Room [id number] 06:29:00 Test Item Value Reference Range Comments PHOSPHORUS (BEAKER) (test mogd=938) 1.1 mg/dL 2.3-4.7 CBC W/PLT COUNT & AUTO [id number] 05:51:00 Test Item Value Reference Range Comments WHITE BLOOD CELL COUNT (BEAKER) (test qdkt=288) 19.2 K/ L 3.5-10.5 RED BLOOD CELL COUNT (BEAKER) (test rbzo=622) 4.11 M/ L 4.63-6.08 HEMOGLOBIN (BEAKER) (test gube=546) 12.9 GM/DL 13.7-17.5 HEMATOCRIT (BEAKER) (test verp=156) 37.9 % 40.1-51.0 MEAN CORPUSCULAR VOLUME (BEAKER) (test lgfk=659) 92.2 fL 79.0-92.2 MEAN CORPUSCULAR HEMOGLOBIN (BEAKER) (test 31.4 pg 25.7-32.2 maxd=329) MEAN CORPUSCULAR HEMOGLOBIN CONC (BEAKER) (test 34.0 GM/DL 32.3-36.5 vcyj=499) RED CELL DISTRIBUTION WIDTH (BEAKER) (test 13.0 % 11.6-14.4 ompl=963) PLATELET COUNT (BEAKER) (test qhlu=585) 132 K/CU MM 150-450 MEAN PLATELET VOLUME (BEAKER) (test pwde=342) 10.0 fL 9.4-12.4 NUCLEATED RED BLOOD CELLS (BEAKER) (test 0 /100 WBC 0-0 jaws=384) NEUTROPHILS RELATIVE PERCENT (BEAKER) (test 90 % ohxi=507) LYMPHOCYTES RELATIVE PERCENT (BEAKER) (test 1 % vgqt=342) MONOCYTES RELATIVE PERCENT (BEAKER) (test 7 % yqjq=202) EOSINOPHILS RELATIVE PERCENT (BEAKER) (test 0 % tzub=453) BASOPHILS RELATIVE PERCENT (BEAKER) (test 0 % brdp=768) NEUTROPHILS ABSOLUTE COUNT (BEAKER) (test 17.33 K/ L 1.78-5.38 ffgg=950) LYMPHOCYTES ABSOLUTE COUNT (BEAKER) (test 0.27 K/ L 1.32-3.57 ooxo=332) MONOCYTES ABSOLUTE COUNT (BEAKER) (test 1.39 K/ L 0.30-0.82 kecu=267) EOSINOPHILS ABSOLUTE COUNT (BEAKER) (test 0.00 K/ L 0.04-0.54 cxys=093) BASOPHILS ABSOLUTE COUNT (BEAKER) (test 0.04 K/ L 0.01-0.08 dxot=388) IMMATURE GRANULOCYTES-RELATIVE PERCENT (BEAKER) 1 % 0-1 (test avco=5728) BLOOD GAS, [id number] 05:35:00 Test Item Value Reference Range Comments PH ARTERIAL (BEAKER) (test ghkq=129) 7.33 7.35-7.45 PCO2 ARTERIAL (BEAKER) (test fnge=367) 40 mmHg 35-45 PO2 ARTERIAL (BEAKER) (test maje=647) 159 mmHg 80-90 O2 SATURATION ARTERIAL (BEAKER) (test vkds=087) 98.9 % 96.0-97.0 HCO3 ARTERIAL (BEAKER) (test cdcd=942) 20 mmol/L 21-29 BASE EXCESS ARTERIAL (BEAKER) (test evum=104) -5.2 mmol/L -2.0-3.0 PATIENT TEMPERATURE (BEAKER) (test pqlr=3206) 37.4 C FIO2 (BEAKER) (test eeeb=6553) 40.0 % GLUCOSE-STAT [id number] 05:35:00 Test Item Value Reference Range Comments GLUCOSE RANDOM (BEAKER) (test ximv=845) 218 mg/dL 70-110 POTASSIUM-STAT [id number] 05:35:00 Test Item Value Reference Range Comments POTASSIUM (BEAKER) (test wwka=477) 3.4 meq/L 3.6-5.5 SODIUM NA-STAT [id number] 05:33:00 Test Item Value Reference Range Comments SODIUM (BEAKER) (test jllu=404) 144 meq/L 135-148 HGB/HCT (H&H) - STAT [id number] 05:33:00 Test Item Value Reference Range Comments HEMOGLOBIN (BEAKER) (test xtoc=537) 13.8 g/dL 13.0-16.8 HEMATOCRIT (BEAKER) (test earj=643) 41.0 % 40.0-50.0 [id number] 05:32:00 Test Item Value Reference Range Comments MAGNESIUM (BEAKER) (test dycp=737) 1.9 mg/dL 1.6-2.6 BASIC METABOLIC [id number] 05:32:00 Test Item Value Reference Range Comments SODIUM (BEAKER) (test 143 meq/L 136-145 rszy=844) POTASSIUM (BEAKER) (test 3.5 meq/L 3.5-5.1 asvt=511) CHLORIDE (BEAKER) (test 111 meq/L 98-107 sqre=869) CO2 (BEAKER) (test 17 meq/L 22-29 fzxo=173) BLOOD UREA NITROGEN 13 mg/dL 7-21 (BEAKER) (test vrvy=262) CREATININE (BEAKER) (test 1.09 mg/dL 0.57-1.25 kjov=858) GLUCOSE RANDOM (BEAKER) 227 mg/dL 70-105 (test syql=482) CALCIUM (BEAKER) (test 8.5 mg/dL 8.4-10.2 eayk=757) EGFR (BEAKER) (test 70 mL/min/1.73 sq m ESTIMATED GFR IS NOT wfpb=7423) ACCURATE CREATININE CLEARANCE IN PREDICTING GLOMERULAR FILTRATION RATE. ESTIMATED GFR IS NOT APPLICABLE FOR DIALYSIS PATIENTS. LACTIC ACID, ARTERIAL, WHOLE [id number] 05:19:00 Test Item Value Reference Range Comments LACTATE BLOOD ARTERIAL (2) 8.6 mmol/L 0.5-2.2 Specimen slightly hemolyzed (BEAKER) (test ojpe=2656) Effective 03/24/2016: Units/Reference Range ChangeNew: 0.5-2.2 mmol/L Previous: 5 -20 mg/dLBLOOD GAS, [id number] 02:21:00 Test Item Value Reference Range Comments PH ARTERIAL (BEAKER) (test belv=120) 7.31 7.35-7.45 PCO2 ARTERIAL (BEAKER) (test bqmy=522) 36 mmHg 35-45 PO2 ARTERIAL (BEAKER) (test fgvy=496) 123 mmHg 80-90 O2 SATURATION ARTERIAL (BEAKER) (test noqe=453) 98.2 % 96.0-97.0 HCO3 ARTERIAL (BEAKER) (test tjav=772) 18 mmol/L 21-29 BASE EXCESS ARTERIAL (BEAKER) (test mgzf=208) -7.7 mmol/L -2.0-3.0 PATIENT TEMPERATURE (BEAKER) (test cbiy=3994) 36.8 C FIO2 (BEAKER) (test olhm=6900) 40.0 % BLOOD GAS, [id number] 00:28:00 Test Item Value Reference Range Comments PH ARTERIAL (BEAKER) (test uozk=318) 7.28 7.35-7.45 PCO2 ARTERIAL (BEAKER) (test zsot=299) 35 mmHg 35-45 PO2 ARTERIAL (BEAKER) (test uhbp=846) 114 mmHg 80-90 O2 SATURATION ARTERIAL (BEAKER) (test xisk=017) 97.8 % 96.0-97.0 HCO3 ARTERIAL (BEAKER) (test fpis=773) 16 mmol/L 21-29 BASE EXCESS ARTERIAL (BEAKER) (test ltpx=190) -9.7 mmol/L -2.0-3.0 PATIENT TEMPERATURE (BEAKER) (test csem=5677) 36.7 C FIO2 (BEAKER) (test gacv=3320) 40.0 % POTASSIUM-STAT [id number] 00:28:00 Test Item Value Reference Range Comments POTASSIUM (BEAKER) (test fqoh=431) 3.1 meq/L 3.6-5.5 GLUCOSE-STAT [id number] 00:28:00 Test Item Value Reference Range Comments GLUCOSE RANDOM (BEAKER) (test pnkj=321) 236 mg/dL 70-110 CALCIUM, [id number] 00:28:00 Test Item Value Reference Range Comments CALCIUM IONIZED (BEAKER) (test groh=872) 1.10 mmol/L 1.12-1.27 PH, BLOOD (BEAKER) (test pofu=9001) 7.28 SODIUM NA-STAT [id number] 00:27:00 Test Item Value Reference Range Comments SODIUM (BEAKER) (test nbmu=583) 142 meq/L 135-148 HEMOGLOBIN-STAT [id number] 00:27:00 Test Item Value Reference Range Comments HEMOGLOBIN (BEAKER) (test usvs=957) 15.1 g/dL 13.0-16.8 HGB/HCT (H&H) - STAT [id number] 00:27:00 Test Item Value Reference Range Comments HEMOGLOBIN (BEAKER) (test lwoo=878) 15.1 GM/DL 13.0-16.8 HEMATOCRIT (BEAKER) (test zoly=905) 44.0 % 40.0-50.0 [id number] 22:39:00 Test Item Value Reference Range Comments MAGNESIUM (BEAKER) (test 2.2 mg/dL 1.6-2.6 Specimen slightly hemolyzed exhw=691) BASIC METABOLIC [id number] 22:39:00 Test Item Value Reference Range Comments SODIUM (BEAKER) (test 140 meq/L 136-145 eseh=866) POTASSIUM (BEAKER) (test 4.0 meq/L 3.5-5.1 Specimen slightly vwyv=986) hemolyzed CHLORIDE (BEAKER) (test 110 meq/L 98-107 ejnt=565) CO2 (BEAKER) (test 17 meq/L 22-29 uuid=688) BLOOD UREA NITROGEN 14 mg/dL 7-21 (BEAKER) (test hlpb=498) CREATININE (BEAKER) (test 1.09 mg/dL 0.57-1.25 Specimen slightly mqnt=732) hemolyzed GLUCOSE RANDOM (BEAKER) 202 mg/dL 70-105 (test adbc=289) CALCIUM (BEAKER) (test 8.8 mg/dL 8.4-10.2 fvqj=784) EGFR (BEAKER) (test 70 mL/min/1.73 sq m ESTIMATED GFR IS NOT ogls=1555) ACCURATE CREATININE CLEARANCE IN PREDICTING GLOMERULAR FILTRATION RATE. ESTIMATED GFR IS NOT APPLICABLE FOR DIALYSIS PATIENTS. LACTIC ACID, ARTERIAL, WHOLE [id number] 22:36:00 Test Item Value Reference Range Comments LACTATE BLOOD ARTERIAL (2) 5.5 mmol/L 0.5-2.2 Specimen slightly hemolyzed (BEAKER) (test ndzp=0844) Effective 03/24/2016: Units/Reference Range ChangeNew: 0.5-2.2 mmol/L Previous: 5 -20 mg/[id number] 22:32:00 Test Item Value Reference Range Comments FIBRINOGEN LEVEL (BEAKER) (test wqdr=711) 375 mg/dl 225-434 [id number] 22:32:00 Test Item Value Reference Range Comments PARTIAL THROMBOPLASTIN TIME (BEAKER) (test 29.6 seconds 22.5-36.0 dtkq=328) CBC W/PLT COUNT & AUTO [id number] 22:31:00 Test Item Value Reference Range Comments WHITE BLOOD CELL COUNT (BEAKER) (test tqdf=213) 20.7 K/ L 3.5-10.5 RED BLOOD CELL COUNT (BEAKER) (test jbgt=959) 4.73 M/ L 4.63-6.08 HEMOGLOBIN (BEAKER) (test glph=199) 14.8 GM/DL 13.7-17.5 HEMATOCRIT (BEAKER) (test vufx=260) 44.4 % 40.1-51.0 MEAN CORPUSCULAR VOLUME (BEAKER) (test yeoz=915) 93.9 fL 79.0-92.2 MEAN CORPUSCULAR HEMOGLOBIN (BEAKER) (test 31.3 pg 25.7-32.2 sjvm=465) MEAN CORPUSCULAR HEMOGLOBIN CONC (BEAKER) (test 33.3 GM/DL 32.3-36.5 muev=569) RED CELL DISTRIBUTION WIDTH (BEAKER) (test 13.2 % 11.6-14.4 rlsh=254) PLATELET COUNT (BEAKER) (test txqy=748) 147 K/CU MM 150-450 MEAN PLATELET VOLUME (BEAKER) (test htoq=834) 9.9 fL 9.4-12.4 NUCLEATED RED BLOOD CELLS (BEAKER) (test 0 /100 WBC 0-0 slca=522) NEUTROPHILS RELATIVE PERCENT (BEAKER) (test 82 % tqru=380) LYMPHOCYTES RELATIVE PERCENT (BEAKER) (test 7 % sric=381) MONOCYTES RELATIVE PERCENT (BEAKER) (test 9 % nlnh=956) EOSINOPHILS RELATIVE PERCENT (BEAKER) (test 0 % otlg=286) BASOPHILS RELATIVE PERCENT (BEAKER) (test 0 % swnc=662) NEUTROPHILS ABSOLUTE COUNT (BEAKER) (test 17.02 K/ L 1.78-5.38 semk=094) LYMPHOCYTES ABSOLUTE COUNT (BEAKER) (test 1.53 K/ L 1.32-3.57 cjox=284) MONOCYTES ABSOLUTE COUNT (BEAKER) (test 1.85 K/ L 0.30-0.82 zngb=128) EOSINOPHILS ABSOLUTE COUNT (BEAKER) (test 0.03 K/ L 0.04-0.54 ygci=183) BASOPHILS ABSOLUTE COUNT (BEAKER) (test 0.06 K/ L 0.01-0.08 bnjh=231) IMMATURE GRANULOCYTES-RELATIVE PERCENT (BEAKER) 1 % 0-1 (test pwrp=1476) PROTHROMBIN [id number] 22:31:00 Test Item Value Reference Range Comments PROTIME (BEAKER) (test etyz=111) 17.4 seconds 11.7-14.7 INR (BEAKER) (test idvg=276) 1.4 <=5.9 RECOMMENDED COUMADIN/WARFARIN INR THERAPY RANGESSTANDARD DOSE: 2.0 - 3.0 Includes: PROPHYLAXIS forvenous thrombosis, systemic embolization; TREATMENT for venous thrombosis and/or pulmonary embolus.HIGH RISK: Target INR is 2.5-3.5 for patients with mechanical heart valves.OXYGEN SATURATION, [id number] 22:26:00 Test Item Value Reference Range Comments O2 SATURATION (MEASURED) (BEAKER) (test zvct=1726) 78.3 % CALCIUM, [id number] 22:23:00 Test Item Value Reference Range Comments CALCIUM IONIZED (BEAKER) (test zxon=269) 1.19 mmol/L 1.12-1.27 PH, BLOOD (BEAKER) (test yuie=5793) 7.26 SODIUM NA-STAT [id number] 22:22:00 Test Item Value Reference Range Comments SODIUM (BEAKER) (test dvku=753) 139 meq/L 135-148 POTASSIUM-STAT [id number] 22:22:00 Test Item Value Reference Range Comments POTASSIUM (BEAKER) (test bkhj=687) 3.7 meq/L 3.6-5.5 HGB/HCT (H&H) - STAT [id number] 22:22:00 Test Item Value Reference Range Comments HEMOGLOBIN (BEAKER) (test kndi=406) 15.7 g/dL 13.0-16.8 HEMATOCRIT (BEAKER) (test xmeo=740) 46.0 % 40.0-50.0 BLOOD GAS, [id number] 22:22:00 Test Item Value Reference Range Comments PH ARTERIAL (BEAKER) (test fyoj=891) 7.26 7.35-7.45 PCO2 ARTERIAL (BEAKER) (test auvp=079) 44 mmHg 35-45 PO2 ARTERIAL (BEAKER) (test zvev=623) 102 mmHg 80-90 O2 SATURATION ARTERIAL (BEAKER) (test wgjm=196) 96.8 % 96.0-97.0 HCO3 ARTERIAL (BEAKER) (test nzwg=092) 19 mmol/L 21-29 BASE EXCESS ARTERIAL (BEAKER) (test ihyc=700) -7.6 mmol/L -2.0-3.0 PATIENT TEMPERATURE (BEAKER) (test jjzu=9073) 36.9 C FIO2 (BEAKER) (test mvow=9791) 60.0 % GLUCOSE-STAT [id number] 22:22:00 Test Item Value Reference Range Comments GLUCOSE RANDOM (BEAKER) (test ktfa=126) 197 mg/dL 70-110 RAD, CHEST, 1 VIEW, NON [id number] 21:48:00Reason for exam:->s/p atrial myexoma dissectionFINAL REPORT RAD, CHEST, 1 VIEW, NON DEPT INDICATION: s/p atrial myexoma dissection COMPARISON: March 23, 2020 FINDINGS : Portable frontal view of the chest. IMPRESSION: Support Lines: Right IJ [place] catheter terminates over the proximal right main pulmonary artery. Multiple thoracic drains have been placed. The endotracheal tube terminates 9 cm above the drake. The enterictube is curved in retrograde fashion in the lower thoracic esophagus. Careful removal and repositioning is advised. Lungs and pleura: Discoid subsegmental atelectasis noted on the right. There is a trace right apical pneumothorax. Basilar subsegmental atelectasis noted on the left. No pneumothorax.Heart and mediastinum: Normal cardiac size. Normal aortic caliber.Additional findings: None. Signed: JR Valdez Robert MDReport Verified Date/Time: 03/24/2018 21:48:52 Reading Location: [place] [id number] CT Body Reading Room [id number] 21:05:00 Test Item Value Reference Range Comments ACTIVATED CLOTTING TIME (BEAKER) 98 sec TESTED AT [address] (test epbt=808) [facility] [address] [id number] 21:05:00 Test Item Value Reference Range Comments ACTIVATED CLOTTING TIME 494 sec TESTED AT [place] [id number] [place] (BEAKER) (test ijpx=732) [facility] [address] [id number] 21:05:00 Test Item Value Reference Range Comments ACTIVATED CLOTTING TIME 510 sec TESTED AT [place] [id number] [place] (BEAKER) (test xska=652) [facility] [address] [id number] 21:05:00 Test Item Value Reference Range Comments ACTIVATED CLOTTING TIME 527 sec TESTED AT [place] [address] [place] (BEAKER) (test fcax=215) [facility] [address] [id number] 21:05:00 Test Item Value Reference Range Comments ACTIVATED CLOTTING TIME 527 sec TESTED AT [place] [address] [place] (BEAKER) (test aqgz=004) [place] [id number] 21:05:00 Test Item Value Reference Range Comments ACTIVATED CLOTTING TIME 417 sec TESTED AT [place] [id number] [place] (BEAKER) (test nhmz=392) [facility] [address] [id number] 21:05:00 Test Item Value Reference Range Comments ACTIVATED CLOTTING TIME 428 sec TESTED AT [place] [id number] BERTNER (BEAKER) (test ubto=528) [facility] [address] [id number] 21:05:00 Test Item Value Reference Range Comments ACTIVATED CLOTTING TIME 389 sec TESTED AT [place] [id number] BERTNER (BEAKER) (test edys=418) [facility] [address] [id number] 21:05:00 Test Item Value Reference Range Comments ACTIVATED CLOTTING TIME 351 sec TESTED AT [place] [id number] BERTNER (BEAKER) (test ydvf=896) [place] [id number] 21:05:00 Test Item Value Reference Range Comments ACTIVATED CLOTTING TIME 103 sec TESTED AT [facility] [address] BERTNER (BEAKER) (test wgie=501) [facility] [address] BLOOD GAS, [id number] 19:37:00 Test Item Value Reference Range Comments PH ARTERIAL (BEAKER) (test ckmx=203) 7.36 7.35-7.45 PCO2 ARTERIAL (BEAKER) (test gwec=810) 43 mmHg 35-45 PO2 ARTERIAL (BEAKER) (test vvid=849) 363 mmHg 80-90 O2 SATURATION ARTERIAL (BEAKER) (test fytl=142) 99.8 % 96.0-97.0 HCO3 ARTERIAL (BEAKER) (test fojg=923) 24 mmol/L 21-29 BASE EXCESS ARTERIAL (BEAKER) (test vmeh=466) -1.9 mmol/L -2.0-3.0 PATIENT TEMPERATURE (BEAKER) (test jhfh=2115) 36.6 C FIO2 (BEAKER) (test mbze=2602) 85.0 % GLUCOSE-STAT [id number] 19:37:00 Test Item Value Reference Range Comments GLUCOSE RANDOM (BEAKER) (test uoql=454) 177 mg/dL 70-110 SODIUM NA-STAT [id number] 19:37:00 Test Item Value Reference Range Comments SODIUM (BEAKER) (test invf=130) 133 meq/L 135-148 POTASSIUM-STAT [id number] 19:36:00 Test Item Value Reference Range Comments POTASSIUM (BEAKER) (test wuqu=596) 5.3 meq/L 3.6-5.5 HGB/HCT (H&H) - STAT [id number] 19:36:00 Test Item Value Reference Range Comments HEMOGLOBIN (BEAKER) (test avpt=347) 13.9 g/dL 13.0-16.8 HEMATOCRIT (BEAKER) (test zezi=307) 41.0 % 40.0-50.0 POTASSIUM-STAT [id number] 19:09:00 Test Item Value Reference Range Comments POTASSIUM (BEAKER) (test dudx=646) 4.9 meq/L 3.6-5.5 BLOOD GAS, [id number] 19:09:00 Test Item Value Reference Range Comments PH ARTERIAL (BEAKER) (test tevw=824) 7.41 7.35-7.45 PCO2 ARTERIAL (BEAKER) (test jndc=076) 37 mmHg 35-45 PO2 ARTERIAL (BEAKER) (test saka=472) 353 mmHg 80-90 O2 SATURATION ARTERIAL (BEAKER) (test snfv=665) 99.8 % 96.0-97.0 HCO3 ARTERIAL (BEAKER) (test rdla=152) 23 mmol/L 21-29 BASE EXCESS ARTERIAL (BEAKER) (test nuax=369) -1.5 mmol/L -2.0-3.0 PATIENT TEMPERATURE (BEAKER) (test wdru=7668) 36.6 C FIO2 (BEAKER) (test aodr=7444) 85.0 % GLUCOSE-STAT [id number] 19:09:00 Test Item Value Reference Range Comments GLUCOSE RANDOM (BEAKER) (test yvlc=619) 141 mg/dL 70-110 SODIUM NA-STAT [id number] 19:09:00 Test Item Value Reference Range Comments SODIUM (BEAKER) (test yluw=217) 132 meq/L 135-148 HGB/HCT (H&H) - STAT [id number] 19:09:00 Test Item Value Reference Range Comments HEMOGLOBIN (BEAKER) (test kqnl=763) 13.3 g/dL 13.0-16.8 HEMATOCRIT (BEAKER) (test qijb=792) 39.0 % 40.0-50.0 POTASSIUM-STAT [id number] 18:39:00 Test Item Value Reference Range Comments POTASSIUM (BEAKER) (test qrxu=856) 4.1 meq/L 3.6-5.5 BLOOD GAS, [id number] 18:39:00 Test Item Value Reference Range Comments PH ARTERIAL (BEAKER) (test qglr=859) 7.41 7.35-7.45 PCO2 ARTERIAL (BEAKER) (test kisr=780) 37 mmHg 35-45 PO2 ARTERIAL (BEAKER) (test kalq=314) 248 mmHg 80-90 O2 SATURATION ARTERIAL (BEAKER) (test wzkz=264) 99.6 % 96.0-97.0 HCO3 ARTERIAL (BEAKER) (test tqrv=877) 23 mmol/L 21-29 BASE EXCESS ARTERIAL (BEAKER) (test jqfe=573) -1.6 mmol/L -2.0-3.0 PATIENT TEMPERATURE (BEAKER) (test wjkb=9511) 35.2 C FIO2 (BEAKER) (test wuiv=6008) 80.0 % GLUCOSE-STAT [id number] 18:39:00 Test Item Value Reference Range Comments GLUCOSE RANDOM (BEAKER) (test rzec=032) 120 mg/dL 70-110 SODIUM NA-STAT [id number] 18:39:00 Test Item Value Reference Range Comments SODIUM (BEAKER) (test whpu=906) 132 meq/L 135-148 HGB/HCT (H&H) - STAT [id number] 18:39:00 Test Item Value Reference Range Comments HEMOGLOBIN (BEAKER) (test syvw=284) 12.5 g/dL 13.0-16.8 HEMATOCRIT (BEAKER) (test govy=523) 37.0 % 40.0-50.0 CALCIUM, [id number] 17:24:00 Test Item Value Reference Range Comments CALCIUM IONIZED (BEAKER) (test mawg=564) 1.15 mmol/L 1.12-1.27 PH, BLOOD (BEAKER) (test zvtg=2236) 7.38 BLOOD GAS, [id number] 17:24:00 Test Item Value Reference Range Comments PH ARTERIAL (BEAKER) (test xdwd=236) 7.39 7.35-7.45 PCO2 ARTERIAL (BEAKER) (test rhqf=556) 41 mmHg 35-45 PO2 ARTERIAL (BEAKER) (test rzwl=543) 447 mmHg 80-90 O2 SATURATION ARTERIAL (BEAKER) (test yfkf=595) 99.8 % 96.0-97.0 HCO3 ARTERIAL (BEAKER) (test ofqt=147) 25 mmol/L 21-29 BASE EXCESS ARTERIAL (BEAKER) (test nfvj=053) -0.5 mmol/L -2.0-3.0 PATIENT TEMPERATURE (BEAKER) (test aker=0448) 36.0 C FIO2 (BEAKER) (test faxh=0356) 100.0 % GLUCOSE-STAT [id number] 17:23:00 Test Item Value Reference Range Comments GLUCOSE RANDOM (BEAKER) (test mzio=351) 95 mg/dL 70-110 SODIUM NA-STAT [id number] 17:23:00 Test Item Value Reference Range Comments SODIUM (BEAKER) (test avtm=267) 136 meq/L 135-148 POTASSIUM-STAT [id number] 17:23:00 Test Item Value Reference Range Comments POTASSIUM (BEAKER) (test pkxv=987) 3.7 meq/L 3.6-5.5 HGB/HCT (H&H) - STAT [id number] 17:23:00 Test Item Value Reference Range Comments HEMOGLOBIN (BEAKER) (test rnyg=892) 15.6 g/dL 13.0-16.8 HEMATOCRIT (BEAKER) (test uobd=551) 46.0 % 40.0-50.0 [id number] 11:57:00 Test Item Value Reference Range Comments PARTIAL THROMBOPLASTIN TIME (BEAKER) (test 44.2 seconds 22.5-36.0 poxh=617) BASIC METABOLIC [id number] 06:20:00 Test Item Value Reference Range Comments SODIUM (BEAKER) (test 139 meq/L 136-145 fjpq=060) POTASSIUM (BEAKER) (test 4.2 meq/L 3.5-5.1 aksi=368) CHLORIDE (BEAKER) (test 108 meq/L 98-107 khes=466) CO2 (BEAKER) (test 23 meq/L 22-29 oecq=936) BLOOD UREA NITROGEN 13 mg/dL 7-21 (BEAKER) (test nzjh=914) CREATININE (BEAKER) (test 0.84 mg/dL 0.57-1.25 yyfv=179) GLUCOSE RANDOM (BEAKER) 97 mg/dL 70-105 (test jqtb=583) CALCIUM (BEAKER) (test 9.5 mg/dL 8.4-10.2 glqj=750) EGFR (BEAKER) (test 94 mL/min/1.73 sq m ESTIMATED GFR IS NOT pnnk=2291) ACCURATE CREATININE CLEARANCE IN PREDICTING GLOMERULAR FILTRATION RATE. ESTIMATED GFR IS NOT APPLICABLE FOR DIALYSIS PATIENTS. [id number] 05:44:00 Test Item Value Reference Range Comments PARTIAL THROMBOPLASTIN TIME (BEAKER) (test 34.0 seconds 22.5-36.0 qciq=065) CBC W/PLT COUNT & AUTO [id number] 05:33:00 Test Item Value Reference Range Comments WHITE BLOOD CELL COUNT (BEAKER) (test xdmw=974) 5.7 K/ L 3.5-10.5 RED BLOOD CELL COUNT (BEAKER) (test ftnd=551) 5.07 M/ L 4.63-6.08 HEMOGLOBIN (BEAKER) (test hkwo=214) 15.7 GM/DL 13.7-17.5 HEMATOCRIT (BEAKER) (test wuot=759) 47.2 % 40.1-51.0 MEAN CORPUSCULAR VOLUME (BEAKER) (test trwp=634) 93.1 fL 79.0-92.2 MEAN CORPUSCULAR HEMOGLOBIN (BEAKER) (test 31.0 pg 25.7-32.2 dlyh=099) MEAN CORPUSCULAR HEMOGLOBIN CONC (BEAKER) (test 33.3 GM/DL 32.3-36.5 bllr=778) RED CELL DISTRIBUTION WIDTH (BEAKER) (test 13.3 % 11.6-14.4 wyot=192) PLATELET COUNT (BEAKER) (test tsax=939) 196 K/CU MM 150-450 MEAN PLATELET VOLUME (BEAKER) (test mmfr=616) 10.0 fL 9.4-12.4 NUCLEATED RED BLOOD CELLS (BEAKER) (test 0 /100 WBC 0-0 fwgb=904) NEUTROPHILS RELATIVE PERCENT (BEAKER) (test 60 % mqio=737) LYMPHOCYTES RELATIVE PERCENT (BEAKER) (test 26 % wcut=804) MONOCYTES RELATIVE PERCENT (BEAKER) (test 11 % cxbs=590) EOSINOPHILS RELATIVE PERCENT (BEAKER) (test 2 % yxgi=118) BASOPHILS RELATIVE PERCENT (BEAKER) (test 1 % civi=363) NEUTROPHILS ABSOLUTE COUNT (BEAKER) (test 3.41 K/ L 1.78-5.38 zgbz=664) LYMPHOCYTES ABSOLUTE COUNT (BEAKER) (test 1.51 K/ L 1.32-3.57 rbsr=320) MONOCYTES ABSOLUTE COUNT (BEAKER) (test 0.63 K/ L 0.30-0.82 rlsp=048) EOSINOPHILS ABSOLUTE COUNT (BEAKER) (test 0.12 K/ L 0.04-0.54 ejox=526) BASOPHILS ABSOLUTE COUNT (BEAKER) (test 0.04 K/ L 0.01-0.08 rery=256) IMMATURE GRANULOCYTES-RELATIVE PERCENT (BEAKER) 0 % 0-1 (test grdl=9274) [id number] 22:16:00 Test Item Value Reference Range Comments PARTIAL THROMBOPLASTIN TIME (BEAKER) (test 32.2 seconds 22.5-36.0 yldi=001) [id number] 15:17:00 Test Item Value Reference Range Comments PARTIAL THROMBOPLASTIN TIME (BEAKER) (test 26.8 seconds 22.5-36.0 bnti=331) Prior to initiating heparinRAD, CHEST, 2 [id number] 14:45:00Reason for exam :->cough for 3 weeksFINAL REPORT Two lateral and one frontal chest images Discussion: Lungs clear. Heart size normal. No effusion or pneumothorax. Bones and soft tissues unremarkable. Signed: Jeanmarie Farmereport Verified Date/Time: 03/23/2018 14:45:35 Reading Location: [address] Consult Reading Room BASI METABOLIC [id number] 06:41:00 Test Item Value Reference Range Comments SODIUM (BEAKER) (test 138 meq/L 136-145 dmsl=967) POTASSIUM (BEAKER) (test 4.4 meq/L 3.5-5.1 cpis=602) CHLORIDE (BEAKER) (test 108 meq/L 98-107 nrea=914) CO2 (BEAKER) (test 23 meq/L 22-29 mxzf=153) BLOOD UREA NITROGEN 16 mg/dL 7-21 (BEAKER) (test mtht=893) CREATININE (BEAKER) (test 0.88 mg/dL 0.57-1.25 mwzt=971) GLUCOSE RANDOM (BEAKER) 87 mg/dL 70-105 (test kfsf=147) CALCIUM (BEAKER) (test 9.5 mg/dL 8.4-10.2 osiz=232) EGFR (BEAKER) (test 89 mL/min/1.73 sq m ESTIMATED GFR IS NOT gwvj=9091) ACCURATE CREATININE CLEARANCE IN PREDICTING GLOMERULAR FILTRATION RATE. ESTIMATED GFR IS NOT APPLICABLE FOR DIALYSIS PATIENTS. CBC W/PLT COUNT & AUTO [id number] 04:56:00 Test Item Value Reference Range Comments WHITE BLOOD CELL COUNT (BEAKER) (test rhgg=573) 7.0 K/ L 3.5-10.5 RED BLOOD CELL COUNT (BEAKER) (test nlwi=165) 5.13 M/ L 4.63-6.08 HEMOGLOBIN (BEAKER) (test slcg=991) 16.1 GM/DL 13.7-17.5 HEMATOCRIT (BEAKER) (test rmwo=167) 47.8 % 40.1-51.0 MEAN CORPUSCULAR VOLUME (BEAKER) (test ylsj=180) 93.2 fL 79.0-92.2 MEAN CORPUSCULAR HEMOGLOBIN (BEAKER) (test 31.4 pg 25.7-32.2 cwvh=636) MEAN CORPUSCULAR HEMOGLOBIN CONC (BEAKER) (test 33.7 GM/DL 32.3-36.5 wnzg=562) RED CELL DISTRIBUTION WIDTH (BEAKER) (test 13.2 % 11.6-14.4 bdis=818) PLATELET COUNT (BEAKER) (test mckb=306) 237 K/CU MM 150-450 MEAN PLATELET VOLUME (BEAKER) (test pxer=814) 11.0 fL 9.4-12.4 NUCLEATED RED BLOOD CELLS (BEAKER) (test 0 /100 WBC 0-0 namu=103) NEUTROPHILS RELATIVE PERCENT (BEAKER) (test 68 % rhnt=449) LYMPHOCYTES RELATIVE PERCENT (BEAKER) (test 19 % bmse=790) MONOCYTES RELATIVE PERCENT (BEAKER) (test 10 % wesr=010) EOSINOPHILS RELATIVE PERCENT (BEAKER) (test 2 % pcxt=146) BASOPHILS RELATIVE PERCENT (BEAKER) (test 1 % mcqv=765) NEUTROPHILS ABSOLUTE COUNT (BEAKER) (test 4.72 K/ L 1.78-5.38 pzcc=521) LYMPHOCYTES ABSOLUTE COUNT (BEAKER) (test 1.35 K/ L 1.32-3.57 wuvb=823) MONOCYTES ABSOLUTE COUNT (BEAKER) (test 0.73 K/ L 0.30-0.82 nmbk=537) EOSINOPHILS ABSOLUTE COUNT (BEAKER) (test 0.12 K/ L 0.04-0.54 tbis=561) BASOPHILS ABSOLUTE COUNT (BEAKER) (test 0.04 K/ L 0.01-0.08 cbaw=679) IMMATURE GRANULOCYTES-RELATIVE PERCENT (BEAKER) 0 % 0-1 (test xolh=9970) [id number] 06:11:00 Test Item Value Reference Range Comments MAGNESIUM (BEAKER) (test lwxk=611) 1.9 mg/dL 1.6-2.6 BASIC METABOLIC [id number] 06:11:00 Test Item Value Reference Range Comments SODIUM (BEAKER) (test 138 meq/L 136-145 frwh=379) POTASSIUM (BEAKER) (test 4.1 meq/L 3.5-5.1 owhj=559) CHLORIDE (BEAKER) (test 106 meq/L 98-107 tjiz=219) CO2 (BEAKER) (test 22 meq/L 22-29 fbao=921) BLOOD UREA NITROGEN 13 mg/dL 7-21 (BEAKER) (test fups=344) CREATININE (BEAKER) (test 0.80 mg/dL 0.57-1.25 akie=976) GLUCOSE RANDOM (BEAKER) 91 mg/dL 70-105 (test qrdz=638) CALCIUM (BEAKER) (test 9.6 mg/dL 8.4-10.2 hxkc=156) EGFR (BEAKER) (test 100 mL/min/1.73 sq m ESTIMATED GFR IS NOT bbgd=9021) ACCURATE CREATININE CLEARANCE IN PREDICTING GLOMERULAR FILTRATION RATE. ESTIMATED GFR IS NOT APPLICABLE FOR DIALYSIS PATIENTS. CBC W/PLT COUNT & AUTO [id number] 05:49:00 Test Item Value Reference Range Comments WHITE BLOOD CELL COUNT (BEAKER) (test wsds=707) 5.7 K/ L 3.5-10.5 RED BLOOD CELL COUNT (BEAKER) (test yipw=242) 5.31 M/ L 4.63-6.08 HEMOGLOBIN (BEAKER) (test cnqz=580) 16.3 GM/DL 13.7-17.5 HEMATOCRIT (BEAKER) (test ldqh=223) 48.0 % 40.1-51.0 MEAN CORPUSCULAR VOLUME (BEAKER) (test shvw=630) 90.4 fL 79.0-92.2 MEAN CORPUSCULAR HEMOGLOBIN (BEAKER) (test 30.7 pg 25.7-32.2 bxwd=647) MEAN CORPUSCULAR HEMOGLOBIN CONC (BEAKER) (test 34.0 GM/DL 32.3-36.5 ahks=105) RED CELL DISTRIBUTION WIDTH (BEAKER) (test 13.2 % 11.6-14.4 uqez=982) PLATELET COUNT (BEAKER) (test dpxs=013) 198 K/CU MM 150-450 MEAN PLATELET VOLUME (BEAKER) (test dzgw=120) 9.7 fL 9.4-12.4 NUCLEATED RED BLOOD CELLS (BEAKER) (test 0 /100 WBC 0-0 iesn=491) NEUTROPHILS RELATIVE PERCENT (BEAKER) (test 60 % bxan=044) LYMPHOCYTES RELATIVE PERCENT (BEAKER) (test 25 % qwtl=499) MONOCYTES RELATIVE PERCENT (BEAKER) (test 11 % ahuo=939) EOSINOPHILS RELATIVE PERCENT (BEAKER) (test 4 % ltkk=632) BASOPHILS RELATIVE PERCENT (BEAKER) (test 1 % fmhj=668) NEUTROPHILS ABSOLUTE COUNT (BEAKER) (test 3.42 K/ L 1.78-5.38 nddb=186) LYMPHOCYTES ABSOLUTE COUNT (BEAKER) (test 1.40 K/ L 1.32-3.57 wnoh=232) MONOCYTES ABSOLUTE COUNT (BEAKER) (test 0.60 K/ L 0.30-0.82 pjqa=303) EOSINOPHILS ABSOLUTE COUNT (BEAKER) (test 0.21 K/ L 0.04-0.54 yqif=178) BASOPHILS ABSOLUTE COUNT (BEAKER) (test 0.06 K/ L 0.01-0.08 xanq=935) IMMATURE GRANULOCYTES-RELATIVE PERCENT (BEAKER) 0 % 0-1 (test lcwg=6401) BASIC METABOLIC [id number] 04:57:00 Test Item Value Reference Range Comments SODIUM (BEAKER) (test 140 meq/L 136-145 sphh=646) POTASSIUM (BEAKER) (test 4.1 meq/L 3.5-5.1 bswh=267) CHLORIDE (BEAKER) (test 109 meq/L 98-107 hdte=567) CO2 (BEAKER) (test 24 meq/L 22-29 zgfd=704) BLOOD UREA NITROGEN 14 mg/dL 7-21 (BEAKER) (test vzpc=261) CREATININE (BEAKER) (test 0.81 mg/dL 0.57-1.25 lwua=297) GLUCOSE RANDOM (BEAKER) 100 mg/dL 70-105 (test wyoo=265) CALCIUM (BEAKER) (test 9.4 mg/dL 8.4-10.2 vvjy=817) EGFR (BEAKER) (test 98 mL/min/1.73 sq m ESTIMATED GFR IS NOT esjg=5102) ACCURATE CREATININE CLEARANCE IN PREDICTING GLOMERULAR FILTRATION RATE. ESTIMATED GFR IS NOT APPLICABLE FOR DIALYSIS PATIENTS. CBC W/PLT COUNT & AUTO [id number] 04:42:00 Test Item Value Reference Range Comments WHITE BLOOD CELL COUNT (BEAKER) (test bdhv=204) 5.9 K/ L 3.5-10.5 RED BLOOD CELL COUNT (BEAKER) (test eyib=168) 5.02 M/ L 4.63-6.08 HEMOGLOBIN (BEAKER) (test veuc=026) 15.6 GM/DL 13.7-17.5 HEMATOCRIT (BEAKER) (test dsdo=970) 45.3 % 40.1-51.0 MEAN CORPUSCULAR VOLUME (BEAKER) (test hhkh=747) 90.2 fL 79.0-92.2 MEAN CORPUSCULAR HEMOGLOBIN (BEAKER) (test 31.1 pg 25.7-32.2 nump=760) MEAN CORPUSCULAR HEMOGLOBIN CONC (BEAKER) (test 34.4 GM/DL 32.3-36.5 xsik=056) RED CELL DISTRIBUTION WIDTH (BEAKER) (test 13.2 % 11.6-14.4 ljka=428) PLATELET COUNT (BEAKER) (test oscy=137) 202 K/CU MM 150-450 MEAN PLATELET VOLUME (BEAKER) (test ypgb=569) 9.6 fL 9.4-12.4 NUCLEATED RED BLOOD CELLS (BEAKER) (test 0 /100 WBC 0-0 jhye=699) NEUTROPHILS RELATIVE PERCENT (BEAKER) (test 62 % ffay=635) LYMPHOCYTES RELATIVE PERCENT (BEAKER) (test 25 % bswz=727) MONOCYTES RELATIVE PERCENT (BEAKER) (test 10 % qhwv=397) EOSINOPHILS RELATIVE PERCENT (BEAKER) (test 2 % vbte=993) BASOPHILS RELATIVE PERCENT (BEAKER) (test 1 % lwkx=369) NEUTROPHILS ABSOLUTE COUNT (BEAKER) (test 3.65 K/ L 1.78-5.38 puwo=455) LYMPHOCYTES ABSOLUTE COUNT (BEAKER) (test 1.49 K/ L 1.32-3.57 kigj=067) MONOCYTES ABSOLUTE COUNT (BEAKER) (test 0.56 K/ L 0.30-0.82 pgbk=783) EOSINOPHILS ABSOLUTE COUNT (BEAKER) (test 0.14 K/ L 0.04-0.54 aevw=678) BASOPHILS ABSOLUTE COUNT (BEAKER) (test 0.05 K/ L 0.01-0.08 pszq=874) IMMATURE GRANULOCYTES-RELATIVE PERCENT (BEAKER) 0 % 0-1 (test hofd=3053) BASIC METABOLIC [id number] 06:01:00 Test Item Value Reference Range Comments SODIUM (BEAKER) (test 140 meq/L 136-145 zree=717) POTASSIUM (BEAKER) (test 3.8 meq/L 3.5-5.1 Specimen slightly leiz=143) hemolyzed CHLORIDE (BEAKER) (test 108 meq/L 98-107 zwnt=799) CO2 (BEAKER) (test 23 meq/L 22-29 jszf=479) BLOOD UREA NITROGEN 14 mg/dL 7-21 (BEAKER) (test wjtd=691) CREATININE (BEAKER) (test 0.87 mg/dL 0.57-1.25 Specimen slightly qtbp=787) hemolyzed GLUCOSE RANDOM (BEAKER) 91 mg/dL 70-105 (test njbk=243) CALCIUM (BEAKER) (test 9.2 mg/dL 8.4-10.2 qzle=215) EGFR (BEAKER) (test 90 mL/min/1.73 sq m ESTIMATED GFR IS NOT eiay=4863) ACCURATE CREATININE CLEARANCE IN PREDICTING GLOMERULAR FILTRATION RATE. ESTIMATED GFR IS NOT APPLICABLE FOR DIALYSIS PATIENTS. HEMOGLOBIN [id number] 08:04:00 Test Item Value Reference Range Comments HEMOGLOBIN A1C (BEAKER) (test ryhx=628) 5.1 % 4.3-6.1 [id number] 07:27:00 Test Item Value Reference Range Comments MAGNESIUM (BEAKER) (test fofr=486) 1.9 mg/dL 1.6-2.6 BASIC METABOLIC [id number] 07:27:00 Test Item Value Reference Range Comments SODIUM (BEAKER) (test 139 meq/L 136-145 lebm=716) POTASSIUM (BEAKER) (test 4.1 meq/L 3.5-5.1 mxai=419) CHLORIDE (BEAKER) (test 108 meq/L 98-107 wixk=487) CO2 (BEAKER) (test 22 meq/L 22-29 fdyb=871) BLOOD UREA NITROGEN 12 mg/dL 7-21 (BEAKER) (test kojq=282) CREATININE (BEAKER) (test 0.88 mg/dL 0.57-1.25 mhkf=444) GLUCOSE RANDOM (BEAKER) 94 mg/dL 70-105 (test spum=871) CALCIUM (BEAKER) (test 9.4 mg/dL 8.4-10.2 ggwu=898) EGFR (BEAKER) (test 89 mL/min/1.73 sq m ESTIMATED GFR IS NOT kbmh=5016) ACCURATE CREATININE CLEARANCE IN PREDICTING GLOMERULAR FILTRATION RATE. ESTIMATED GFR IS NOT APPLICABLE FOR DIALYSIS PATIENTS. Specimen slightly ictericLIPID [id number] 07:27:00 Test Item Value Reference Range Comments TRIGLYCERIDES (BEAKER) (test izta=864) 106 mg/dL CHOLESTEROL (BEAKER) (test xmpd=358) 220 mg/dL HDL CHOLESTEROL (BEAKER) (test yapg=927) 37 mg/dL LDL CHOLESTEROL CALCULATED (BEAKER) (test 162 mg/dL sdcp=038) Triglyceride Reference Range: Low Risk <150 Borderline 150- 199 High Risk 200-499 Very High Risk >=500Cholesterol Reference Range: Low Risk <200 Borderline 200-239 High Risk > 240HDL Cholesterol Reference Range: Low Risk >=60 High Risk <40LDL Cholesterol Reference Range: Optimal <100 Near Optimal 100-129 Borderline 130-159 High 160-189 Very High >=190 Specimen slightly ictericTSH/FREE T4 IF [id number] 07:07 :00 Test Item Value Reference Range Comments THYROID STIMULATING HORMONE (BEAKER) (test 1.46 uIU/mL 0.35-4.94 hrqt=423) TROPONIN [id number] 07:05:00 Test Item Value Reference Range Comments TROPONIN I (BEAKER) (test fozy=289) 0.01 ng/mL 0.00-0.03 Troponin I (TnI) levels must be interpreted [...] failure, acidosis, acute neurological disease, and persistent tachyarrhythmia.PROTHROMBIN [id number] 06:28:00 Test Item Value Reference Range Comments PROTIME (BEAKER) (test piqr=568) 16.7 seconds 11.7-14.7 INR (BEAKER) (test uwsh=820) 1.4 <=5.9 RECOMMENDED COUMADIN/WARFARIN INR THERAPY RANGESSTANDARD DOSE: 2.0 - 3.0 Includes: PROPHYLAXIS forvenous thrombosis, systemic embolization; TREATMENT for venous thrombosis and/or pulmonary embolus.HIGH RISK: Target INR is 2.5-3.5 for patients with mechanical heart valves.PT/[id number] 06:28:00 Test Item Value Reference Range Comments PROTIME (BEAKER) (test ytbi=933) 16.7 seconds 11.7-14.7 INR (BEAKER) (test xkqm=408) 1.4 <=5.9 PARTIAL THROMBOPLASTIN TIME (BEAKER) (test 31.7 seconds 22.5-36.0 zvdu=051) RECOMMENDED COUMADIN/WARFARIN INR THERAPY RANGESSTANDARD DOSE: 2.0 - 3.0 Includes: PROPHYLAXIS forvenous thrombosis, systemic embolization; TREATMENT for venous thrombosis and/or pulmonary embolus.HIGH RISK: Target INR is 2.5-3.5 for patients with mechanical heart valves.CBC W/PLT COUNT & AUTO [id number] 06:18:00 Test Item Value Reference Range Comments WHITE BLOOD CELL COUNT (BEAKER) (test hwuv=708) 6.7 K/ L 3.5-10.5 RED BLOOD CELL COUNT (BEAKER) (test kcjo=040) 4.86 M/ L 4.63-6.08 HEMOGLOBIN (BEAKER) (test cxsi=845) 15.4 GM/DL 13.7-17.5 HEMATOCRIT (BEAKER) (test haej=837) 44.9 % 40.1-51.0 MEAN CORPUSCULAR VOLUME (BEAKER) (test gfqg=485) 92.4 fL 79.0-92.2 MEAN CORPUSCULAR HEMOGLOBIN (BEAKER) (test 31.7 pg 25.7-32.2 zdum=590) MEAN CORPUSCULAR HEMOGLOBIN CONC (BEAKER) (test 34.3 GM/DL 32.3-36.5 uvxh=327) RED CELL DISTRIBUTION WIDTH (BEAKER) (test 13.2 % 11.6-14.4 obpp=607) PLATELET COUNT (BEAKER) (test xjht=440) 192 K/CU MM 150-450 MEAN PLATELET VOLUME (BEAKER) (test mmwe=199) 10.0 fL 9.4-12.4 NUCLEATED RED BLOOD CELLS (BEAKER) (test 0 /100 WBC 0-0 aash=392) NEUTROPHILS RELATIVE PERCENT (BEAKER) (test 67 % uqug=249) LYMPHOCYTES RELATIVE PERCENT (BEAKER) (test 21 % lvxk=791) MONOCYTES RELATIVE PERCENT (BEAKER) (test 9 % mtnv=067) EOSINOPHILS RELATIVE PERCENT (BEAKER) (test 3 % xfnq=845) BASOPHILS RELATIVE PERCENT (BEAKER) (test 0 % njng=829) NEUTROPHILS ABSOLUTE COUNT (BEAKER) (test 4.49 K/ L 1.78-5.38 dtjl=468) LYMPHOCYTES ABSOLUTE COUNT (BEAKER) (test 1.38 K/ L 1.32-3.57 hphp=915) MONOCYTES ABSOLUTE COUNT (BEAKER) (test 0.62 K/ L 0.30-0.82 zzhv=327) EOSINOPHILS ABSOLUTE COUNT (BEAKER) (test 0.17 K/ L 0.04-0.54 ntzk=846) BASOPHILS ABSOLUTE COUNT (BEAKER) (test 0.03 K/ L 0.01-0.08 bsdv=288) IMMATURE GRANULOCYTES-RELATIVE PERCENT (BEAKER) 0 % 0-1 (test chry=3432)
[2018-08-09 15:16] LABS: Absolute Lymphocytes (CBC) 1.5 K/uL (0.7-4.9); Absolute Monocytes 0.7 K/uL (0.1-1.3); Absolute Neutrophil 5.7 K/uL (1.8-8.0); Basophils % 0.4 % (0-1.3); Eosinophils % 2.4 % (0-4.4); Lymphocytes % 18.1 % (15.3-44.8); MCH 32.7 pg (27.0-35.0); MCV 94.5 fL (80-100); Monocytes % 8.9 % (3.3-12.3)
[2018-08-09] MEDS ORDERED: NA CHLORIDE 0.9% 500 ML ONE (15:54)
[2018-08-09 16:06] LABS: Albumin 3.8 g/dL (3.4-5.0); Bilirubin Direct 0.2 mg/dL (0-0.2); Potassium 4.1 mmol/L (3.5-5.1); Protein, Total 7.5 g/dL (6.4-8.2)
--- NOTE | 2018-08-09 17:49 | RAD REPORT ---
EXAM DESCRIPTION: CTAbdomen Pelvis W Contrast - 08/09/2018 5:35 pm CLINICAL HISTORY: Abdominal pain. rectal bleeding COMPARISON: No comparisons TECHNIQUE: Biphasic CT imaging of the abdomen and pelvis was performed with 100 ml non-ionic IV cont rast. All CT scans are performed using dose optimization technique as appropriate and may include automated exposure control or mA/KV adjustment according to patient size. FINDINGS: The lung bases are clear. The liver, spleen, pancreas, adrenal glands and kidneys are within normal limits. No bowel obstruction, free air, free fluid or abscess. Sigmoid diverticulosis coli is present without diverticulitis. The appendix appears absent. No evidence of significant lymphadenopathy. Postsurgic al change are present in the left inguinal canal. No suspicious bony findings. IMPRESSION: Prominent sigmoid diverticulosis coli without diverticulitis.
--- NOTE | 2018-08-09 18:15 | ER ---
Nurse's Notes [facility] Name: Buzz Jurado Age: 58 yrs Sex: Male : 1960 Arrival Date: 08/09/2018 Time: 14:27 Bed 5 Private MD: out of town, doctor Diagnosis: Diverticulosis of large intestine without perforation or abscess with bleeding;Rectal bleeding Presentation: 08/09 14:30 Presenting complaint: Patient states: Rectal bleeding for 3 days. Reports bright red aj bleeding and clots in toilet. Transition of care: patient was not received from another setting of care. Onset of symptoms was August 06, 2018. Risk Assessment: Do you want to hurt yourself or someone else? Patient reports no desire to harm self or others. Initial Sepsis Screen: Does the patient meet any 2 criteria? No. Patient's initial sepsis screen is negative. Does the patient have a suspected source of infection? No. Patient's initial sepsis screen is negative. Care prior to arrival: None. 14:30 Method Of Arrival: Ambulatory aj 14:30 Acuity: [place]QU[place] 2 aj Triage Assessment: 14:33 General: Appears in no apparent distress. comfortable, Behavior is calm, cooperative, aj appropriate for age. Pain: Denies pain. Neuro: Level of Consciousness is awake, alert, obeys commands, Oriented to person, place, time, situation, Appropriate for age. Respiratory: Airway is patent Respiratory effort is even, unlabored, Respiratory pattern is regular, symmetrical. GI: Abdomen is flat, Reports bloody stool. Derm: Skin is intact, is healthy with good turgor, Skin is diaphoretic, Skin is normal. 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 - Social history:: Smoking status: Patient/guardian denies using tobacco. - Ebola Screening: : Patient negative for fever greater than or equal to 101.5 degrees Fahrenheit, and additional compatible Ebola Virus Disease symptoms Patient denies exposure to infectious person Patient denies travel to an Ebola-affected area in the 21 days before illness onset No symptoms or risks identified at this time. - Family history:: not pertinent. - Hospitalizations: : No recent hospitalization is reported. Screenin:00 Abuse screen: Denies threats or abuse. Denies injuries from another. Nutritional jl7 screening: No deficits noted. Tuberculosis screening: No symptoms or risk factors identified. Fall Risk IV access (20 points). Total Bain Fall Scale indicates No Risk (0-24 pts). Assessment: 15:00 General: Appears in no apparent distress. comfortable, Behavior is calm, cooperative, jl7 appropriate for age. Pain: Denies pain. Neuro: Level of Consciousness is awake, alert, obeys commands, Oriented to person, place, time, situation. Cardiovascular: Patient's skin is warm and dry. Respiratory: Airway is patent Respiratory effort is even, unlabored, Respiratory pattern is regular, symmetrical. GI: Abdomen is flat, non-distended, Bowel sounds present X 4 quads. Abd is soft and non tender X 4 quads. Reports rectal bleeding. : No signs and/or symptoms were reported regarding the genitourinary system. EENT: No signs and/or symptoms were reported regarding the EENT system. Derm: Skin is pink, warm \T\ dry. Musculoskeletal: No signs and/or symptoms reported regarding the musculoskeletal system. 15:10 Reassessment: Pt finished drinking oral contrast, CT notified. jl7 16:00 Reassessment: No changes from previously documented assessment. Patient and/or family jl7 updated on plan of care and expected duration. Pain level reassessed. Patient is alert, oriented x 3, equal unlabored respirations, skin warm/dry/pink. 16:57 Reassessment: Patient and/or family updated on plan of care and expected duration. Pain jl7 level reassessed. Patient is alert, oriented x 3, equal unlabored respirations, skin warm/dry/pink. 18:00 Reassessment: ERD at bedside discussing plan of care. jl7 Vital Signs: 14:33 BP 114 / 82; Pulse 98; Resp 16; Temp 96.0; Pulse Ox 99% on R/A; Weight 104.33 kg; aj Height 6 ft. 4 in. (193.04 cm); 16:12 BP 115 / 92; Pulse 78; Resp 16 S; Pulse Ox 96% on R/A; jl7 16:57 BP 120 / 87; Pulse 87; Resp 16 S; Pulse Ox 96% on R/A; jl7 18:10 BP 119 / 89; Pulse 80; Resp 16 S; Pulse Ox 98% on R/A; Pain 0/10; jl7 14:33 Body Mass Index 28.00 (104.33 kg, 193.04 cm) ED Course: 14:27 Patient arrived in ED. mr 14:28 out of town, doctor is Private Physician. mr 14:31 Triage completed. aj 14:33 Arm band placed on right wrist. Patient placed in an exam room. aj 14:34 Henry Celaya MD is Attending Physician. rn 14:50 Madeline Soni RN is Primary Nurse. jl7 15:00 Patient has correct armband on for positive identification. Placed in gown. Bed in low jl7 position. Call light in reach. Side rails up X 1. Pulse ox on. NIBP on. Warm blanket given. 15:00 Initial lab(s) drawn, by mi, sent to lab. Inserted saline lock: 20 gauge in right jl7 antecubital area, using aseptic technique. Blood collected. 17:[address] via stretcher. vr 18:19 No provider procedures requiring assistance completed. IV discontinued, intact, jl7 bleeding controlled, No redness/swelling at site. Pressure dressing applied. Administered Medications: 15:49 Drug: NS 0.9% 500 ml Route: IV; Rate: bolus; Site: right antecubital; jl7 16:30 Follow up: IV Status: Completed infusion jl7 Outcome: 18:14 Discharge ordered by . rn 18:19 Discharged to home ambulatory. jl7 18:19 Condition: stable 18:19 Discharge instructions given to patient, Instructed on discharge instructions, follow up and referral plans. Demonstrated understanding of instructions, follow-up care. 18:20 Patient left the ED. jl7 Signatures: Vonnie Jones RN Letty Ozuna mr Henry Celaya MD MD rn Davis, Victoria Madeline Soni RN RN jl7
--- NOTE | 2018-08-09 18:15 | EDPHYS ---
Physician Documentation [facility] Name: Buzz Jurado Age: 58 yrs Sex: Male : 1960 Arrival Date: 08/09/2018 Time: 14:27 Bed 5 Private MD: out of town, doctor ED Physician Henry Celaya HPI: 08/09 14:44 This 58 yrs old Male presents to ER via Ambulatory with complaints of Rectal rn Bleeding. 14:44 The patient presents to the emergency department with bleeding from the rectum/anus, rn that is mild. Onset: The symptoms/episode began/occurred 3 day(s) ago. Modifying factors: The symptoms are alleviated by nothing, The symptoms are aggravated by bowel movement. The patient has not experienced similar symptoms in the past. Reports bright red rectal bleeding for 3 days, no abd pain, reports abd feels "tight", painless bleeding, no fever, no trauma, stopped his xarelto and aspirin 2 days ago, continues to bleed, only with bowel movements. . 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 - Social history:: Smoking status: Patient/guardian denies using tobacco. - Ebola Screening: : Patient negative for fever greater than or equal to 101.5 degrees Fahrenheit, and additional compatible Ebola Virus Disease symptoms Patient denies exposure to infectious person Patient denies travel to an Ebola-affected area in the 21 days before illness onset No symptoms or risks identified at this time. - Family history:: not pertinent. - Hospitalizations: : No recent hospitalization is reported. ROS: 14:44 Constitutional: Negative for fever, chills, and weight loss, + sweating Eyes: Negative rn for injury, pain, redness, and discharge, Neck: Negative for injury, pain, and swelling, Cardiovascular: Negative for chest pain, palpitations, and edema, Respiratory: Negative for shortness of breath, cough, wheezing, and pleuritic chest pain, Abdomen/GI: Negative for abdominal pain, nausea, vomiting, diarrhea, and constipation, + rectal bleeding MS/Extremity: Negative for injury and deformity, Skin: Negative for injury, rash, and discoloration, Neuro: Negative for headache, weakness, numbness, tingling, and seizure. Exam: 14:44 Constitutional: This is a well developed, well nourished patient who is awake, alert, rn and in no acute distress. Head/Face: Normocephalic, atraumatic. Eyes: Pupils equal round and reactive to light, extra-ocular motions intact. Lids and lashes normal. Conjunctiva and sclera are non-icteric and not injected. Cornea within normal limits. Periorbital areas with no swelling, redness, or edema. Cardiovascular: Regular rate and rhythm with a normal S1 and S2. No gallops, murmurs, or rubs. Normal PMI, no JVD. No pulse deficits. Respiratory: Lungs have equal breath sounds bilaterally, clear to auscultation and percussion. No rales, rhonchi or wheezes noted. No increased work of breathing, no retractions or nasal flaring. Abdomen/GI: Soft, non-tender, with normal bowel sounds. No distension or tympany. No guarding or rebound. No evidence of tenderness throughout. Skin: Warm, dry with normal turgor. Normal color with no rashes, no lesions, and no evidence of cellulitis. MS/ Extremity: Pulses equal, no cyanosis. Neurovascular intact. Full, normal range of motion. Equal circumference. Neuro: Awake and alert, GCS 15, oriented to person, place, time, and situation. Cranial nerves II-XII grossly intact. Motor strength 5/5 in all extremities. Sensory grossly intact. Cerebellar exam normal. Normal gait. Vital Signs: 14:33 BP 114 / 82; Pulse 98; Resp 16; Temp 96.0; Pulse Ox 99% on R/A; Weight 104.33 kg; aj Height 6 ft. 4 in. (193.04 cm); 16:12 BP 115 / 92; Pulse 78; Resp 16 S; Pulse Ox 96% on R/A; jl7 16:57 BP 120 / 87; Pulse 87; Resp 16 S; Pulse Ox 96% on R/A; jl7 18:10 BP 119 / 89; Pulse 80; Resp 16 S; Pulse Ox 98% on R/A; Pain 0/10; jl7 14:33 Body Mass Index 28.00 (104.33 kg, 193.04 cm) aj MDM: 14:35 Patient medically screened. rn 18:07 Differential diagnosis: hemorrhoids, diverticulosis, diverticulitis. Data reviewed: rn vital signs, nurses notes, lab test result(s), radiologic studies, CT scan, and as a result, I will discharge patient. Counseling: I had a detailed discussion with the patient and/or guardian regarding: the historical points, exam findings, and any diagnostic results supporting the discharge/admit diagnosis, lab results, radiology results, the need for outpatient follow up, to return to the emergency department if symptoms worsen or persist or if there are any questions or concerns that arise at home. Special discussion:. ED course: Pt without acute findings on CT abdomen, shows diverticulosis, no active process, normal h/h, offered admission, pt has a private GI doctor that he prefers to f/u with, return precautions given and understood. . 08/09 14:44 Order name: Basic Metabolic Panel 08/09 14:44 Order name: CBC with Diff 08/09 14:44 Order name: Hepatic Function 08/09 14:44 Order name: Lipase 08/09 14:44 Order name: Type And Screen 08/09 15:19 Order name: CBC with Automated Diff [facility] 08/09 14:44 Order name: CT Abd/Pelvis - W/Contrast 08/09 16:06 Order name: Basic Metabolic Panel; Complete Time: 16:10 [facility] 08/09 16:06 Order name: Liver (Hepatic) Function; Complete Time: 16:10 [facility] 08/09 16:06 Order name: Lipase; Complete Time: 16:10 [facility] 08/09 17:50 Order name: CT; Complete Time: 18:02 [facility] 08/09 18:01 Order name: Type and Screen; Complete Time: 18:02 [facility] 08/09 18:18 Order name: ABO/RH no charge [facility] 08/09 14:44 Order name: IV Saline Lock; Complete Time: 15:50 09/19 14:44 Order name: Labs collected and sent; Complete Time: 15:50 rn Administered Medications: 15:49 Drug: NS 0.9% 500 ml Route: IV; Rate: bolus; Site: right antecubital; [facility] 16:30 Follow up: IV Status: Completed infusion jl7 Disposition: 08/09/18 18:14 Discharged to Home. Impression: Diverticulosis of large intestine without perforation or abscess with bleeding, Rectal bleeding. - Condition is Stable. - Discharge Instructions: Diverticulosis, Gastrointestinal Bleeding, Rectal Bleeding. - Medication Reconciliation Form, Thank You Letter, Antibiotic Education, Prescription Opioid Use form. - Follow up: Private Physician; When: 1 - 2 days; Reason: Recheck today's complaints, Re-evaluation by your physician. - Problem is new. - Symptoms have improved. Signatures: Dispatcher [employer] EDVonnie Rockwell, RN Henry Sal MD MD rn Leal, Jahala, RN RN jl7 Corrections: (The following items were deleted from the chart) 18:20 18:14 08/09/2018 18:14 Discharged to Home. Impression: Diverticulosis of large jl7 intestine without perforation or abscess with bleeding; Rectal bleeding. Condition is Stable. Forms are Medication Reconciliation Form, Thank You Letter, Antibiotic Education, Prescription Opioid Use. Follow up: Private Physician; When: 1 - 2 days; Reason: Recheck today's complaints, Re-evaluation by your physician. Problem is new. Symptoms have improved. rn
[2018-08-09 19:06] VITALS: TEMP 96
[2018-08-09 19:09] VITALS: BP 119/89; O2SAT 98
[2018-08-09 20:24] LABS: Blood Morphology Comment NOT SEEN (NOT SEEN); Platelet Estimate ADEQ
== END 2018-08-09 18:20 | disposition home or self-care (01) ==
LOC: ER 14:25
DX: K57.30 Diverticulosis of large intestine without perforation or abscess without bleeding (principal); Z85.47 Personal history of malignant neoplasm of testis; Z85.118 Personal history of other malignant neoplasm of bronchus and lung; Z79.01 Long term (current) use of anticoagulants; Z88.5 Allergy status to narcotic agent
CPT/HCPCS: 36415; 74177; 80048; 80076; 83690; 85025; 86850; 86900; 86901; Q9967

== ENCOUNTER 2018-09-16 22:26 | Observation (INO) | payer OTHER ==
--- OUTSIDE RECORDS SUMMARY | 2018-09-16 22:29 | XMS REPORT | Clinical Summary ---
:1960 Author Organization [facility] Address [address] [place] [address] Care Team Providers Name Role Phone Camelia Pete Primary Care Provider Unavailable Allergies Active Allergy Reactions Severity Noted Date Comments Codeine Nausea Only 03/17/2018 Medications Medication Sig Dispensed Refills Start Date End Date Status DULoxetine (CYMBALTA) Take 20 mg by 0 Active 20 MG capsule mouth daily. methocarbamol Take 750 mg by 0 Active (ROBAXIN) 750 MG mouth 3 (three) tablet times daily as needed. aspirin 81 MG chewable Take 1 tablet 0 03/29/2018 03/29/2019 Active tablet (81 mg total) by mouth daily. amiodarone (PACERONE) Take 1 tablet 60 tablet 0 03/28/2018 03/28/2019 Active 200 MG tablet (200 mg total) by mouth 2 (two) times daily. rivaroxaban (XARELTO) Take 20 mg by 0 07/14/2018 Active 20 mg Tab tablet mouth. aspirin 81 MG EC Take 81 mg by 0 Active tablet mouth. DULoxetine (CYMBALTA) TAKE ONE CAPSULE 0 06/23/2018 Active 20 MG capsule BY MOUTH EVERY DAY NO DRIVING/NO ALCOHOL/NO OPERATING MACHINERY predniSONE (DELTASONE) Take as 0 07/31/2018 Active 10 mg tablet pack instructed on package cyclobenzaprine Take 5 mg by 0 07/31/2018 Active (FLEXERIL) 5 MG tablet mouth. HYDROcodone-acetaminop Take 1 tablet by 30 tablet 0 03/28/2018 04/07/2018 hen (NORCO 5-325) mouth every 6 5-325 mg per tablet (six) hours as needed for up to 10 days. 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 Encounters Date Type Specialty Care Team Description 08/13/2018 Emergency Emergency Medicine Ofordeme, Rectal bleeding (Primary Dx); [facility] Abdominal pain, acute, left lower quadrant MD Nils 08/13/2018 Orders Only General Internal Medicine 03/24/2018 Surgery Darshan Andino MAZE MD 03/24/2018 Anesthesia Event Luis Wang MD 03/22/2018 Surgery Joni Dias MD L HEART CATH ONLY - NO ANGIOS 03/17/2018 - Hospital Encounter Cardiology Alagugurusamy, Aneurysm, ascending aorta (HCC) (Primary Dx); 03/28/2018 MD Ernestina Respiratory insufficiency 03/17/2018 Orders Only General Internal Medicine after 09/15/2017 Family History Medical History Relation Name Comments Heart disease Father Heart disease Mother Relation Name Status Comments Father Mother Social History Tobacco Use Types Packs/Day Years Used Date Never Smoker Smokeless Tobacco: Never Used Alcohol Use Drinks/Week oz/Week Comments Yes occasion; wine and beer Sex Assigned at Date Recorded Not on file Job Start Date Occupation Industry Not on file Not on file Not on file Travel History Travel Start Travel End No recent travel history available. Last Filed Vital Signs Vital Sign Reading Time Taken Blood Pressure 116/74 08/13/2018 7:41 PM CDT Pulse 66 08/13/2018 7:41 PM CDT Temperature 36.5 C (97.7 F) 08/13/2018 7:38 PM CDT Respiratory Rate 18 08/13/2018 7:41 PM CDT Oxygen Saturation 95% 08/13/2018 7:38 PM CDT Inhaled Oxygen Concentration 21% 03/28/2018 1:03 AM CDT Weight 104.3 kg (230 lb) 08/13/2018 7:41 PM CDT Height 193 cm (6' 4") 08/13/2018 7:41 PM CDT Body Mass Index 28 08/13/2018 7:41 PM CDT Plan of Treatment Not on file Procedures Procedure Name Priority Date/Time Associated Comments Diagnosis ED ECG INTERPRETATION Routine 08/14/2018 12:48 Results for this AM CDT procedure are in the results section. CT ABDOMEN/PELVIS WITH STAT 08/13/2018 10:44 Results for this IV CONTRAST PM CDT procedure are in the results section. XR CHEST PA OR AP 1 STAT 08/13/2018 9:39 Results for this VIEW IN DEPT. PM CDT procedure are in the results section. URINALYSIS W/ STAT 08/13/2018 9:07 Results for this MICROSCOPIC PM CDT procedure are in the results section. B-TYPE NATRIURETIC STAT 08/13/2018 8:59 Results for this FACTOR (BNP) PM CDT procedure are in the results section. ECG 12-LEAD Routine 08/13/2018 8:56 PM CDT Procedure Note - Interface, External Ris In - 08/13/2018 10:38 PM CDT Ventricular Rate 69 BPM Atrial Rate 69 BPM P-R Interval 174 ms QRS Duration 84 ms Q-T Interval 418 ms QTC Calculation(Bazett) 447 ms P [place] 64 degrees R [place] 14 degrees T [place] 67 degrees Normal sinus rhythm Low voltage QRS Borderline ECG When compared with ECG of 18-MAR-2018 09:26, Sinus rhythm has replaced Atrial fibrillation Vent. rate has decreased BY 35 BPM Nonspecific T wave abnormality now evident in Anterior leads QT has lengthened ECG 12-LEAD STAT 08/13/2018 8:56 Results for this PM CDT procedure are in the results section. CBC W/PLT COUNT & AUTO STAT 08/13/2018 8:13 Results for this DIFFERENTIAL PM CDT procedure are in the results section. TROPONIN I STAT 08/13/2018 8:13 Results for this PM CDT procedure are in the results section. CREATINE KINASE (CK), STAT 08/13/2018 8:13 Results for this TOTAL AND MB PM CDT procedure are in the results section. PT/APTT STAT 08/13/2018 8:13 Results for this PM CDT procedure are in the results section. HEPATIC FUNCTION PANEL STAT 08/13/2018 8:13 Results for this PM CDT procedure are in the results section. LIPASE STAT 08/13/2018 8:13 Results for this PM CDT procedure are in the results section. CBC W/PLT COUNT & AUTO STAT 08/13/2018 8:13 Results for this DIFFERENTIAL PM CDT procedure are in the results section. BASIC METABOLIC PANEL STAT 08/13/2018 8:13 Results for this (7) PM CDT procedure are in the results section. VASCULAR DIAGRAM -SCAN 05/18/2018 11:41 AM CDT CARDIAC CATH REPORT - 04/04/2018 7:10 SCAN AM CDT ECHOCARDIOGRAM REPORT 03/29/2018 5:53 - SCAN PM CDT RHYTHM STRIP - SCAN 03/29/2018 2:10 PM CDT VASCULAR DIAGRAM -SCAN 03/29/2018 2:10 PM CDT XR CHEST 2 VIEWS EMMANUEL 03/28/2018 1:27 Results for this PM CDT procedure are in the results section. 2D ECHO W/ DOPPLER Pending 03/28/2018 11:16 Results for this (CW/PW/COLOR) Discharge AM CDT procedure are in the results section. MAGNESIUM Routine 03/28/2018 5:37 Results for this AM CDT procedure are in the results section. BASIC METABOLIC PANEL Routine 03/28/2018 5:37 Results for this (7) AM CDT procedure are in the results section. XR CHEST 1 VIEW Routine 03/27/2018 6:52 Results for this PORTABLE/BEDSIDE PM CDT procedure are in the results section. CBC W/PLT COUNT & AUTO Routine 03/27/2018 4:19 Results for this DIFFERENTIAL AM CDT procedure are in the results section. CBC W/PLT COUNT & AUTO Routine 03/27/2018 4:19 Results for this DIFFERENTIAL AM CDT procedure are in the results section. MAGNESIUM Routine 03/27/2018 4:19 Results for this AM CDT procedure are in the results section. BASIC METABOLIC PANEL Routine 03/27/2018 4:19 Results for this (7) AM CDT procedure are in the results section. XR CHEST 1 VIEW Routine 03/26/2018 5:20 Results for this PORTABLE/BEDSIDE AM CDT procedure are in the results section. CBC W/PLT COUNT & AUTO Routine 03/26/2018 4:03 Results for this DIFFERENTIAL AM CDT procedure are in the results section. LACTIC ACID, ARTERIAL, Routine 03/26/2018 4:03 Results for this WHOLE BLOOD AM CDT procedure are in the results section. BLOOD GAS, ARTERIAL Routine 03/26/2018 4:03 Results for this AM CDT procedure are in the results section. PHOSPHORUS Routine 03/26/2018 4:03 Results for this AM CDT procedure are in the results section. BASIC METABOLIC PANEL Routine 03/26/2018 4:03 Results for this (7) AM CDT procedure are in the results section. CBC W/PLT COUNT & AUTO Routine 03/26/2018 4:03 Results for this DIFFERENTIAL AM CDT procedure are in the results section. POCT-GLUCOSE METER Routine 03/25/2018 10:33 Results for this AM CDT procedure are in the results section. XR CHEST 1 VIEW EMMANUEL 03/25/2018 9:00 Results for this PORTABLE/BEDSIDE AM CDT procedure are in the results section. POCT-GLUCOSE METER Routine 03/25/2018 8:12 Results for this AM CDT procedure are in the results section. CBC W/PLT COUNT & AUTO Routine 03/25/2018 4:27 Results for this DIFFERENTIAL AM CDT procedure are in the results section. HGB/HCT (H&H) - STAT STAT 03/25/2018 4:27 Results for this LAB AM CDT procedure are in the results section. GLUCOSE-STAT LAB STAT 03/25/2018 4:27 Results for this AM CDT procedure are in the results section. POTASSIUM-STAT LAB STAT 03/25/2018 4:27 Results for this AM CDT procedure are in the results section. SODIUM NA-STAT LAB STAT 03/25/2018 4:27 Results for this AM CDT procedure are in the results section. BLOOD GAS, ARTERIAL STAT 03/25/2018 4:27 Results for this AM CDT procedure are in the results section. RRL CRITICAL LABS STAT 03/25/2018 4:27 Results for this (ABG,NA,K,H&H,GLUCOSE) AM CDT procedure are in the results section. LACTIC ACID, ARTERIAL, STAT 03/25/2018 4:27 Results for this WHOLE BLOOD AM CDT procedure are in the results section. PHOSPHORUS Routine 03/25/2018 4:27 Results for this AM CDT procedure are in the results section. MAGNESIUM Routine 03/25/2018 4:27 Results for this AM CDT procedure are in the results section. BASIC METABOLIC PANEL Routine 03/25/2018 4:27 Results for this (7) AM CDT procedure are in the results section. CBC W/PLT COUNT & AUTO Routine 03/25/2018 4:27 Results for this DIFFERENTIAL AM CDT procedure are in the results section. BLOOD GAS, ARTERIAL STAT 03/25/2018 2:15 Results for this AM CDT procedure are in the results section. HGB/HCT (H&H) - STAT STAT 03/24/2018 11:47 Results for this LAB PM CDT procedure are in the results section. HEMOGLOBIN-STAT LAB STAT 03/24/2018 11:47 Results for this PM CDT procedure are in the results section. GLUCOSE-STAT LAB STAT 03/24/2018 11:47 Results for this PM CDT procedure are in the results section. CALCIUM, IONIZED STAT 03/24/2018 11:47 Results for this PM CDT procedure are in the results section. POTASSIUM-STAT LAB STAT 03/24/2018 11:47 Results for this PM CDT procedure are in the results section. SODIUM NA-STAT LAB STAT 03/24/2018 11:47 Results for this PM CDT procedure are in the results section. BLOOD GAS, ARTERIAL STAT 03/24/2018 11:47 Results for this PM CDT procedure are in the results section. CBC W/PLT COUNT & AUTO Routine 03/24/2018 9:54 Results for this DIFFERENTIAL PM CDT procedure are in the results section. HGB/HCT (H&H) - STAT STAT 03/24/2018 9:54 Results for this LAB PM CDT procedure are in the results section. GLUCOSE-STAT LAB STAT 03/24/2018 9:54 Results for this PM CDT procedure are in the results section. POTASSIUM-STAT LAB STAT 03/24/2018 9:54 Results for this PM CDT procedure are in the results section. SODIUM NA-STAT LAB STAT 03/24/2018 9:54 Results for this PM CDT procedure are in the results section. BLOOD GAS, ARTERIAL STAT 03/24/2018 9:54 Results for this PM CDT procedure are in the results section. LACTIC ACID, ARTERIAL, STAT 03/24/2018 9:54 Results for this WHOLE BLOOD PM CDT procedure are in the results section. CBC W/PLT COUNT & AUTO Routine 03/24/2018 9:54 Results for this DIFFERENTIAL PM CDT procedure are in the results section. MAGNESIUM Routine 03/24/2018 9:54 Results for this PM CDT procedure are in the results section. BASIC METABOLIC PANEL Routine 03/24/2018 9:54 Results for this (7) PM CDT procedure are in the results section. OXYGEN SATURATION, STAT 03/24/2018 9:54 Results for this MEASURED PM CDT procedure are in the results section. FIBRINOGEN STAT 03/24/2018 9:54 Results for this PM CDT procedure are in the results section. APTT STAT 03/24/2018 9:54 Results for this PM CDT procedure are in the results section. PROTHROMBIN TIME/INR STAT 03/24/2018 9:54 Results for this PM CDT procedure are in the results section. CALCIUM, IONIZED STAT 03/24/2018 9:54 Results for this PM CDT procedure are in the results section. RRL CRITICAL LABS STAT 03/24/2018 9:54 Results for this (ABG,NA,K,H&H,GLUCOSE) PM CDT procedure are in the results section. XR CHEST 1 VIEW STAT 03/24/2018 9:37 Results for this PORTABLE/BEDSIDE PM CDT procedure are in the results section. ANESTHESIA JERILYN Routine 03/24/2018 9:14 Results for this PM CDT procedure are in the results section. POCT-ACT Routine 03/24/2018 8:26 Results for this PM CDT procedure are in the results section. POCT-ACT Routine 03/24/2018 7:34 Results for this PM CDT procedure are in the results section. HGB/HCT (H&H) - STAT STAT 03/24/2018 7:30 Results for this LAB PM CDT procedure are in the results section. GLUCOSE-STAT LAB STAT 03/24/2018 7:30 Results for this PM CDT procedure are in the results section. POTASSIUM-STAT LAB STAT 03/24/2018 7:30 Results for this PM CDT procedure are in the results section. SODIUM NA-STAT LAB STAT 03/24/2018 7:30 Results for this PM CDT procedure are in the results section. BLOOD GAS, ARTERIAL STAT 03/24/2018 7:30 Results for this PM CDT procedure are in the results section. RRL CRITICAL LABS STAT 03/24/2018 7:30 Results for this (ABG,NA,K,H&H,GLUCOSE) PM CDT procedure are in the results section. POCT-ACT Routine 03/24/2018 7:23 Results for this PM CDT procedure are in the results section. POCT-ACT Routine 03/24/2018 7:04 Results for this PM CDT procedure are in the results section. HGB/HCT (H&H) - STAT STAT 03/24/2018 7:01 Results for this LAB PM CDT procedure are in the results section. GLUCOSE-STAT LAB STAT 03/24/2018 7:01 Results for this PM CDT procedure are in the results section. POTASSIUM-STAT LAB STAT 03/24/2018 7:01 Results for this PM CDT procedure are in the results section. SODIUM NA-STAT LAB STAT 03/24/2018 7:01 Results for this PM CDT procedure are in the results section. BLOOD GAS, ARTERIAL STAT 03/24/2018 7:01 Results for this PM CDT procedure are in the results section. RRL CRITICAL LABS STAT 03/24/2018 7:01 Results for this (ABG,NA,K,H&H,GLUCOSE) PM CDT procedure are in the results section. TISSUE EXAM AP Routine 03/24/2018 6:58 Results for this PM CDT procedure are in the results section. POCT-ACT Routine 03/24/2018 6:53 Results for this PM CDT procedure are in the results section. POCT-ACT Routine 03/24/2018 6:37 Results for this PM CDT procedure are in the results section. HGB/HCT (H&H) - STAT STAT 03/24/2018 6:32 Results for this LAB PM CDT procedure are in the results section. GLUCOSE-STAT LAB STAT 03/24/2018 6:32 Results for this PM CDT procedure are in the results section. POTASSIUM-STAT LAB STAT 03/24/2018 6:32 Results for this PM CDT procedure are in the results section. SODIUM NA-STAT LAB STAT 03/24/2018 6:32 Results for this PM CDT procedure are in the results section. BLOOD GAS, ARTERIAL STAT 03/24/2018 6:32 Results for this PM CDT procedure are in the results section. RRL CRITICAL LABS STAT 03/24/2018 6:32 Results for this (ABG,NA,K,H&H,GLUCOSE) PM CDT procedure are in the results section. POCT-ACT Routine 03/24/2018 6:24 Results for this PM CDT procedure are in the results section. POCT-ACT Routine 03/24/2018 6:12 Results for this PM CDT procedure are in the results section. POCT-ACT Routine 03/24/2018 5:58 Results for this PM CDT procedure are in the results section. TRANSFUSION SERVICE 03/24/2018 5:41 REPORT - SCAN PM CDT POCT-ACT Routine 03/24/2018 5:19 Results for this PM CDT procedure are in the results section. HGB/HCT (H&H) - STAT STAT 03/24/2018 5:17 Results for this LAB PM CDT procedure are in the results section. GLUCOSE-STAT LAB STAT 03/24/2018 5:17 Results for this PM CDT procedure are in the results section. POTASSIUM-STAT LAB STAT 03/24/2018 5:17 Results for this PM CDT procedure are in the results section. SODIUM NA-STAT LAB STAT 03/24/2018 5:17 Results for this PM CDT procedure are in the results section. BLOOD GAS, ARTERIAL STAT 03/24/2018 5:17 Results for this PM CDT procedure are in the results section. CALCIUM, IONIZED STAT 03/24/2018 5:17 Results for this PM CDT procedure are in the results section. RRL CRITICAL LABS STAT 03/24/2018 5:17 Results for this (ABG,NA,K,H&H,GLUCOSE) PM CDT procedure are in the results section. RESECTION,ATRIAL 03/24/2018 4:55 Atrial MYXOMA PM CDT fibrillation, chronic (HCC) Left atrial mass MAZE 03/24/2018 4:55 Atrial PM CDT fibrillation, chronic (HCC) Left atrial mass APTT Routine 03/24/2018 11:32 Results for this AM CDT procedure are in the results section. CBC W/PLT COUNT & AUTO Routine 03/24/2018 5:13 Results for this DIFFERENTIAL AM CDT procedure are in the results section. BASIC METABOLIC PANEL Routine 03/24/2018 5:13 Results for this (7) AM CDT procedure are in the results section. CBC W/PLT COUNT & AUTO Routine 03/24/2018 5:13 Results for this DIFFERENTIAL AM CDT procedure are in the results section. APTT Routine 03/24/2018 5:13 Results for this AM CDT procedure are in the results section. APTT Routine 03/23/2018 9:43 Results for this PM CDT procedure are in the results section. TYPE AND SCREEN, Routine 03/23/2018 2:51 Results for this AUTOMATED PM CDT procedure are in the results section. APTT Routine 03/23/2018 2:51 Results for this PM CDT procedure are in the results section. XR CHEST 2 VIEWS Routine 03/23/2018 2:07 Results for this PM CDT procedure are in the results section. BASIC METABOLIC PANEL Routine 03/23/2018 5:29 Results for this (7) AM CDT procedure are in the results section. CBC W/PLT COUNT & AUTO Routine 03/23/2018 4:33 Results for this DIFFERENTIAL AM CDT procedure are in the results section. CBC W/PLT COUNT & AUTO Routine 03/23/2018 4:33 Results for this DIFFERENTIAL AM CDT procedure are in the results section. L HEART CATH ONLY - NO 03/22/2018 10:43 Atrial mass ANGIOS AM CDT ECHOCARDIOGRAM REPORT 03/21/2018 6:20 - SCAN PM CDT TRANSESOPHAGEAL ECHO Routine 03/21/2018 3:57 Results for this PM CDT procedure are in the results section. ECHOCARDIOGRAM REPORT 03/21/2018 12:20 - SCAN PM CDT CBC W/PLT COUNT & AUTO Routine 03/21/2018 5:26 Results for this DIFFERENTIAL AM CDT procedure are in the results section. MAGNESIUM Routine 03/21/2018 5:26 Results for this AM CDT procedure are in the results section. BASIC METABOLIC PANEL Routine 03/21/2018 5:26 Results for this (7) AM CDT procedure are in the results section. CBC W/PLT COUNT & AUTO Routine 03/21/2018 5:26 Results for this DIFFERENTIAL AM CDT procedure are in the results section. 2D ECHO W/ DOPPLER Routine 03/20/2018 7:57 Results for this (CW/PW/COLOR) PM CDT procedure are in the results section. CBC W/PLT COUNT & AUTO Routine 03/20/2018 4:22 Results for this DIFFERENTIAL AM CDT procedure are in the results section. CBC W/PLT COUNT & AUTO Routine 03/20/2018 4:22 Results for this DIFFERENTIAL AM CDT procedure are in the results section. BASIC METABOLIC PANEL Routine 03/20/2018 4:22 Results for this (7) AM CDT procedure are in the results section. BASIC METABOLIC PANEL Routine 03/19/2018 4:12 Results for this (7) AM CDT procedure are in the results section. ECG 12-LEAD Routine 03/18/2018 9:26 AM CDT Procedure Note - Interface, External Ris In - 03/18/2018 10:39 AM CDT Ventricular Rate 104 BPM Atrial Rate 227 BPM QRS Duration 74 ms Q-T Interval 284 ms QTC Calculation(Bazett) 373 ms R [place] 33 degrees T [place] 37 degrees Atrial fibrillation with rapid ventricular response Abnormal ECG When compared with ECG of 17-MAR-2018 23:50, No significant change was found ECG 12-LEAD Routine 03/18/2018 9:26 AM CDT CBC W/PLT COUNT & AUTO Routine 03/18/2018 5:49 AM CDT Results for this DIFFERENTIAL procedure are in the results section. TROPONIN I Routine 03/18/2018 5:49 AM CDT TSH/FREE T4 IF INDICATED Routine 03/18/2018 5:49 AM CDT CBC W/PLT COUNT & AUTO Routine 03/18/2018 5:49 AM CDT Results for this DIFFERENTIAL procedure are in the results section. HEMOGLOBIN A1C Routine 03/18/2018 5:49 AM CDT LIPID PANEL Routine 03/18/2018 5:49 AM CDT MAGNESIUM Routine 03/18/2018 5:49 AM CDT PROTHROMBIN TIME/INR Routine 03/18/2018 5:49 AM CDT PT/APTT Routine 03/18/2018 5:49 AM CDT BASIC METABOLIC PANEL (7) Routine 03/18/2018 5:49 AM CDT ECG 12-LEAD Routine 03/17/2018 11:50 PM CDT Procedure Note - Interface, External Ris In - 03/17/2018 11:59 PM CDT Ventricular Rate 108 BPM Atrial Rate 110 BPM QRS Duration 74 ms Q-T Interval 294 ms QTC Calculation(Bazett) 393 ms R [place] 38 degrees T [place] 39 degrees Atrial fibrillation with rapid ventricular response Abnormal ECG No previous ECGs available ECG 12-LEAD Routine 03/17/2018 11:50 PM CDT after 09/15/2017 Results ED ECG Interpretation (08/14/2018 12:48 AM CDT) [facility] 08/14/2018 12:48 AM ECG/EKG Interpretation Date/Time: 08/14/2018 12:47 AM Performed by: ADOLPH CHOWDARY Authorized by: ADOLPH CHOWDARY The ECG was interpreted by ED physician. The ECG is interpreted as sinus rhythm. Rate is normal rate. Heart rate is 69 BPM. Conduction: conduction normal. ST segments normal. T waves abnormal. [place] is normal. Clinical Impression: non-specific ECGECG reviewed and does not meet STEMI criteria. CT abdomen/pelvis with IV contrast (08/13/2018 10:44 PM CDT) Narrative Performed At FINAL REPORT [employer] CLINICAL HISTORY: Left lower quadrant pain, rectal bleeding, suspect diverticulitis FINDINGS: Multiple axial images of the abdomen and pelvis were performed after the uncomplicated administration of IV contrast. Oral contrast was not given. This exam was performed according to our departmental dose-optimization program, which includes automated exposure control, adjustment of the mA and/or kV according to patient size and/or use of the iterative reconstruction technique. Comparison:None. Lower chest: Clear lungs. No pleural effusion or pneumothorax. Visualized cardiac contours normal. Liver: No significant findings. Gallbladder and biliary tree: No significant findings. Spleen: No significant findings. Adrenal Glands: No significant findings. Kidneys and ureters: No significant findings. Stomach and Duodenum: No significant findings. Pancreas: No significant findings. Bowel: High density content in the left colon suggestive of enteric contrast. No focal abnormality. No bowel obstruction or pneumatosis intestinalis. No significant diverticulosis. Appendix: Nonvisualized. No right lower quadrant inflammatory changes. Bladder: No significant findings. Major vascular structures: Scattered atherosclerotic calcifications Reproductive organs: No significant findings. Other: Subcutaneous stranding in the left inguinal region suggesting previous procedure. No free intraperitoneal air, fluid or adenopathy Skeleton: No acute bony abnormality. IMPRESSION: Subcutaneous stranding in the left inguinal region, probably from previous procedure. Please correlate with history. Otherwise no CT abnormality to explain the patient's left lower quadrant pain. Specifically, there is no CT evidence of acute diverticulitis. High density suggestive of enteric contrast in the left colon, possibly from recent procedure. Please correlate with history. Signed: Jean Babb MD Report Verified Date/Time:08/13/2018 22:50:13 Reading Location: [address] Reading Room Procedure Note Interface, External Ris In - 08/13/2018 10:52 PM CDT FINAL REPORT CLINICAL HISTORY: Left lower quadrant pain, rectal bleeding, suspect diverticulitis FINDINGS: Multiple axial images of the abdomen and pelvis were performed after the uncomplicated administration of IV contrast. Oral contrast was not given. This exam was performed according to our departmental dose-optimization program, which includes automated exposure control, adjustment of the mA and/or kV according to patient size and/or use of the iterative reconstruction technique. Comparison:None. Lower chest: Clear lungs. No pleural effusion or pneumothorax. Visualized cardiac contours normal. Liver: No significant findings. Gallbladder and biliary tree: No significant findings. Spleen: No significant findings. Adrenal Glands: No significant findings. Kidneys and ureters: No significant findings. Stomach and Duodenum: No significant findings. Pancreas: No significant findings. Bowel: High density content in the left colon suggestive of enteric contrast. No focal abnormality. No bowel obstruction or pneumatosis intestinalis. No significant diverticulosis. Appendix: Nonvisualized. No right lower quadrant inflammatory changes. Bladder: No significant findings. Major vascular structures: Scattered atherosclerotic calcifications Reproductive organs: No significant findings. Other: Subcutaneous stranding in the left inguinal region suggesting previous procedure. No free intraperitoneal air, fluid or adenopathy Skeleton: No acute bony abnormality. IMPRESSION: Subcutaneous stranding in the left inguinal region, probably from previous procedure. Please correlate with history. Otherwise no CT abnormality to explain the patient's left lower quadrant pain. Specifically, there is no CT evidence of acute diverticulitis. High density suggestive of enteric contrast in the left colon, possibly from recent procedure. Please correlate with history. Signed: Jean Babb MD Report Verified Date/Time: 08/13/2018 22:50:13 Reading Location: [address] Reading Room Performing Organization Address City/State/Zipcode Phone Number [employer] XR chest PA or AP 1 view in dept (08/13/2018 9:39 PM CDT) Narrative Performed At FINAL REPORT [employer] INDICATION: chest pain COMPARISON: March 28, 2018 TECHNIQUE: Single frontal view of the chest. FINDINGS: Lungs and pleura: Clear lungs. No effusion. Heart and mediastinum: Normal heart size. Unremarkable mediastinal contours. Osseous structures: No acute abnormality. Other: None. IMPRESSION: No acute intrathoracic abnormality. Signed: JR Valdez Robert MD Report Verified Date/Time:08/13/2018 22:04:08 Reading Location: [address] Transitional Reading Room Procedure Note Interface, External Ris In - 08/13/2018 10:06 PM CDT FINAL REPORT INDICATION: chest pain COMPARISON: March 28, 2018 TECHNIQUE: Single frontal view of the chest. FINDINGS: Lungs and pleura: Clear lungs. No effusion. Heart and mediastinum: Normal heart size. Unremarkable mediastinal contours. Osseous structures: No acute abnormality. Other: None. IMPRESSION: No acute intrathoracic abnormality. Signed: JR Valdez Robert MD Report Verified Date/Time: 08/13/2018 22:04:08 Reading Location: [address] Transitional Reading Room Performing Organization Address City/State/Zipcode Phone Number [facility] Urinalysis w/Microscopic (08/13/2018 9:07 PM CDT) Color, UA Yellow [facility] Clarity, UA Clear [facility] Specific [place], UA 1.017 1.001 - 1.035 [facility] pH, UA 6.5 5.0 - 8.0 [facility] Protein, UA Negative Negative [facility] Glucose, UA Negative Negative [facility] Ketones, UA Negative Negative [facility] Bilirubin, UA Negative Negative [facility] Blood, UA Negative Negative [facility] Nitrite, UA Negative Negative [facility] Leukocytes, UA Negative Negative [facility] Urobilinogen, UA 12.0 (H) 0.2 - 1.0 mg/dL [facility] RBC, UA <1 /HPF [facility] WBC, UA <1 /HPF [facility] Squam Epithel, UA <1 /HPF [facility] Specimen Source [facility] Specimen Urine Performing Organization Address [facility] Phone Number [facility] [address] [place] [address] [place] B-type Natriuretic Factor (BNP) (08/13/2018 8:59 PM CDT) BNP 69 0 - 100 pg/mL [facility] Specimen Blood Performing Organization Address [facility] [place] Phone Number [address] [address] [place] ECG 12 lead (08/13/2018 8:56 PM CDT)Only the most recent of3 resultswithin the time period is included. Narrative Performed At Ventricular Rate 69 BPM GE MUSE Atrial Rate 69 BPM P-R Interval 174 ms QRS Duration 84 ms Q-T Interval 418 ms QTC Calculation(Bazett) 447 ms P [place] 64 degrees R [place] 14 degrees T [place] 67 degrees Normal sinus rhythm Low voltage QRS Otherwise normal ECG When compared with ECG of 18-MAR-2018 09:26, Sinus rhythm has replaced Atrial fibrillation Confirmed by Lila VARGAS MICHAEL ([id number]) on 08/15/2018 8:04:07 AM Procedure Note Interface, External Ris In - 08/15/2018 8:04 AM CDT Ventricular Rate 69 BPM Atrial Rate 69 BPM P-R Interval 174 ms QRS Duration 84 ms Q-T Interval 418 ms QTC Calculation(Bazett) 447 ms P [place] 64 degrees R [place] 14 degrees T [place] 67 degrees Normal sinus rhythm Low voltage QRS Otherwise normal ECG When compared with ECG of 18-MAR-2018 09:26, Sinus rhythm has replaced Atrial fibrillation Confirmed by Lila VARGAS MICHAEL ([id number]) on 08/15/2018 8:04:07 AM Performing Organization Address [facility]/Zipcode Phone Number [employer] PT/aPTT (08/13/2018 8:13 PM CDT)Only the most recent of2 resultswithin the time period is included. Protime 13.8 11.7 - 14.[address] [facility] INR 1.1 <=5.9 [facility] PTT 24.9 22.5 - 36.[address] [facility] Specimen Blood Narrative Performed At [facility] RECOMMENDED COUMADIN/WARFARIN INR THERAPY RANGES STANDARD DOSE: 2.0 - 3.0 Includes: PROPHYLAXIS for venous thrombosis, systemic embolization; TREATMENT for venous thrombosis and/or pulmonary embolus. HIGH RISK: Target INR is 2.5-3.5 for patients with mechanical heart valves. Performing Organization Address City/State/Zipcode Phone Number [facility] [address] [place] [address] CENTER CBC with platelet count + automated diff (08/13/2018 8:13 PM CDT)Only the most recent of10 resultswithin the time period is included. WBC 6.6 3.5 - 10.5 K/L [facility] RBC 4.54 (L) 4.63 - 6.08 M/L [facility] Hemoglobin 14.5 13.7 - 17.5 GM/DL [facility] Hematocrit 43.2 40.1 - 51.0 % [facility] MCV 95.2 (H) 79.0 - 92.[address] [facility] MCH 31.9 25.7 - 32.[address] [facility] MCHC 33.6 32.3 - 36.5 GM/DL [facility] RDW 13.5 11.6 - 14.4 % [facility] Platelets 176 150 - 450 K/CU MM [facility] MPV 9.9 9.4 - 12.[address] [facility] nRBC 0 0 - 0 /[address] [facility] % Neutros 64 % [facility] % Lymphs 21 % [facility] % Monos 11 % [facility] % Eos 3 % [facility] % Baso 1 % [facility] # Neutros 4.23 1.78 - 5.38 K/L [facility] # Lymphs 1.35 1.32 - 3.57 K/L [facility] # Monos 0.72 0.30 - 0.82 K/L [facility] # Eos 0.17 0.04 - 0.54 K/L [facility] # Baso 0.04 0.01 - 0.08 K/L [facility] Immature Granulocytes-Relative 1 0 - 1 % [facility] Specimen Blood Performing Organization Address City/[facility] Cent[facility]ode Phone Number [address] [address] [place] Troponin I (08/13/2018 8:13 PM CDT)Only the most recent of2 resultswithin the time period is included. Troponin I <0.01 0.00 - 0.03 ng/mL [facility] Specimen Blood Narrative Performed At [facility] Troponin I (TnI) levels must be interpreted [...] acidosis, acute neurological disease, and persistent tachyarrhythmia. Performing Organization Address City/[facility]/Zipcode Phone Number [address] [address] [place] Lipase (08/13/2018 8:13 PM CDT) Lipase 44 8 - 78 U/L [facility] Specimen Blood Performing Organization Address [facility] Cent[facility] Phone Number [address] [address] [place] Creatine Kinase (CK), Total and MB (08/13/2018 8:13 PM CDT) Total CK 80 29 - 200 U/L [facility] CK-MB 1.7 0.0 - 6.6 ng/mL [facility] MB Relative Index 2.1 % [facility] Specimen Blood Narrative Performed At CK-MB Reference Range: [facility] <6.7Normal 6.7-10.0Borderline >10.0 Abnormal Performing Organization Address [facility] [place] Phone Number [address] [address] [place] Hepatic function panel (08/13/2018 8:13 PM CDT) Protein, Total 6.7Comment: Specimen 6.0 - 8.3 gm/dL [facility] hemolyzed [facility] Albumin 4.0Comment: Specimen 3.5 - 5.0 g/dL [facility] Total Bilirubin 1.4 (H)Comment: Specimen 0.2 - 1.2 mg/dL [facility] hemolyzed [facility] Bilirubin, Direct 0.3Comment: Specimen 0.1 - 0.5 mg/dL [facility] hemolyzed [facility] Alkaline Phosphatase 62 40 - 150 U/L [facility] AST 26Comment: Specimen 5 - 34 U/L [facility] slightly hemolyzed [facility] ALT 47Comment: Specimen 6 - 55 U/L [facility] slightly hemolyzed [facility] Specimen Blood Performing Organization Address City/[facility]/Zipcode Phone Number [facility] [address] [place] [address] [place] Basic Metabolic Panel (08/13/2018 8:13 PM CDT)Only the most recent of12 resultswithin the time period is included. Sodium 141 136 - 145 meq/L [facility] Potassium 4.2Comment: Specimen slightly 3.5 - 5.1 meq/L [facility] hemolyzed [facility] Chloride 107 98 - 107 meq/L [facility] CO2 27 22 - 29 meq/L [facility] BUN 15 7 - 21 mg/dL [facility] Creatinine 0.95Comment: Specimen 0.57 - 1.25 mg/dL [facility] slightly hemolyzed [facility] Glucose 75 70 - 105 mg/dL [facility] Calcium 9.1 8.4 - 10.2 mg/dL [facility] EGFR 81Comment: ESTIMATED GFR IS mL/min/1.73 sq m [facility] NOT ACCURATE CREATININE [facility] CENTER CLEARANCE IN PREDICTING GLOMERULAR FILTRATION RATE. ESTIMATED GFR IS NOT APPLICABLE FOR DIALYSIS PATIENTS. Specimen Blood Performing Organization Address [facility]/Zipcode Phone Number [facility] [address] [place], [place] [address] [phone] [place] VASCULAR DIAGRAM -SCAN (05/18/2018 11:41 AM CDT)Only the most recent of2 resultswithin the time period is included. Narrative Performed At CARDIAC CATH REPORT - SCAN (04/04/2018 7:10 AM CDT) Narrative Performed At ECHOCARDIOGRAM REPORT - SCAN (03/29/2018 5:53 PM CDT) Narrative Performed At RHYTHM STRIP - SCAN (03/29/2018 2:10 PM CDT) Narrative Performed At XR chest 2 views (03/28/2018 1:27 PM CDT)Only the most recent of2 resultswithin the time period is included. Narrative Performed At FINAL REPORT [facility] Chest 2 views 03/28/2018 1:29 PM CLINICAL HISTORY: pneumo, discharge dependent COMPARISON: 03/27/2018 IMPRESSION: No pneumothorax is evident. There are trace bilateral pleural effusions with adjacent basilar atelectasis. Cardiomediastinal contours are within normal limits. The central pulmonary vasculature is not engorged. There are no acute-appearing skeletal abnormalities. Signed: Jose Miguel Gardner MD Report Verified Date/Time:03/28/2018 13:30:46 Reading Location: [address] Consult Reading Room Procedure Note Interface, [...] Report Verified Date/Time: 03/28/2018 13:30:46 Reading Location: [address] Consult Reading Room Performing Organization Address City/State/Zipcode Phone Number [employer] Echo W/Doppler(CW/PW/Color) (03/28/2018 11:16 AM CDT) Ejection Fraction [facility] ECHO HEARTLAB MKCKESSON CPACS Narrative Performed At Transthoracic Echocardiography Report (TTE) [facility] ECHO HEARTLAB [employer] TechnologyCKESSON CPA Demographics Patient NameSMALL, BYRONDate of Study 03/28/2018 WOODY Male Visit [id number] Unknown Room Number 1006 Number Date of 1960Referring Lisseth Conway MD Physician Age 57 year(s)Pot Feeder Jose C Caballero, NB, RDCS,RVT,RDMS [employer] Elisa Shelton, InterpretingLisseth Conway MD RDCSPhysician Procedure [...] LVED 75-89ml/m2). No evidence of LV hypertrophy. Al l of the LV segments contract normally . Gl obal LV systolic function normal . LV EF by Mcleod's method of disk assessment is no rmal (55-60%) . Th e LVEF was measured using Mcleod's bi-plane me thod of disk . No rmal diastolic function. Left AtriumLA size is normal (16-34 ml/m2) . Right VentricleThe right ventricular chamber size and systolic fu nction are within normal limits. Right Atrium RA cavity size is normal . Aortic Valve Mild AoV cusp thickening. Ao V cusp mobility is normal . A trace of aortic regurgitation. Mitral Valve Mild MV leaflet thickening. Tr nadja mitral regurgitation. Tricuspid ValveTV structure is normal. Mi ld tricuspid regurgitation. Es timated peak systolic PA pressure is 35-40 mmHg . Pulmonic Valve Mild pulmonary regurgitation. No rmal PV structure appears normal by available vi ews. AortaAortic root size (SInus of Valsalva diameter) is no rmal . PericardiumNo pericardial effusion is visualized. IVC/SVC/PA/PV/PleuralThe inferior vena cava is adequately visualized. Th e inferior vena cava size is normal . 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 Magnesium 2.2 1.6 - 2.6 mg/dL [facility] Specimen Blood Performing Organization Address City/[facility] Phone Number [place] [phone] [place] [address] CENTER XR chest 1 view portable / bedside (03/27/2018 6:52 PM CDT)Only the most recent of4 resultswithin the time period is included. Narrative Performed At FINAL REPORT [facility] EXAMINATION: AP PORTABLE CHEST RADIOGRAPH CLINICAL INDICATION: [...] MD Report Verified Date/Time:03/27/2018 22:38:14 Reading Location: [address] Reading Room Procedure Note Interface, External [...] Report Verified Date/Time: 03/27/2018 22:38:14 Reading Location: [address] Reading Room Performing Organization Address City/State/Zipcode Phone Number [facility] Lactic acid, arterial, whole blood (03/26/2018 4:03 AM CDT)Only the most recent of3 resultswithin the time period is included. Lactate, Art 0.8 0.5 - 2.2 mmol/L [facility] Specimen Blood, Arterial Narrative Performed At [facility] Effective 03/24/2016: Units/Reference Range Change New: 0.5-2.2 mmol/LPrevious: 5-20 mg/dL Performing Organization Address City/State/Zipcode Phone Number [address] [address] CENTER Phosphorus (03/26/2018 4:03 AM CDT)Only the most recent of2 resultswithin the time period is included. Phosphorus 3.1 2.3 - 4.7 mg/dL [facility] Specimen Blood Performing Organization Address City/[facility]/Zipcode Phone Number [address] [address] [phone] [place] Blood gas, arterial (03/26/2018 4:03 AM CDT)Only the most recent of9 resultswithin the time period is included. pH, Arterial 7.44 7.35 - 7.45 [facility] pCO2, Arterial 41 35 - [address] [facility] pO2, Arterial 78 (L) 80 - [address] [facility] O2 Sat, Arterial 95.5 (L) 96.0 - 97.0 % [facility] HCO3, Arterial 27 21 - 29 mmol/L [facility] Base Excess, Arterial 3.1 (H) -2.0 - 3.0 mmol/L [facility] Patient Temperature 37.[address] [facility] FIO2 36.0 % [facility] Specimen Blood, Arterial Performing Organization Address City/[facility] Phone Number [address] [address] [place] POC-Glucose meter (03/25/2018 10:33 AM CDT)Only the most recent of2 resultswithin the time period is included. POC-Glucose Meter 96Comment: TESTED AT 70 - 110 mg/dL [facility] BSC [address] [place] [address] Specimen Blood Performing Organization Address City/[facility] Centercode Phone Number [address] [address] [place] Potassium-Stat Lab (03/25/2018 4:27 AM CDT)Only the most recent of7 resultswithin the time period is included. Potassium 3.4 (L) 3.6 - 5.5 meq/L [facility] Specimen Blood, Arterial Performing Organization Address [facility] Phone Number [address] [address] [place] Sodium Na-Stat Lab (03/25/2018 4:27 AM CDT)Only the most recent of7 resultswithin the time period is included. Sodium 144 135 - 148 meq/L [facility] Specimen Blood, Arterial Performing Organization Address City/[facility] Phone Number [address] [address] [phone] CENTER Glucose-Stat Lab (03/25/2018 4:27 AM CDT)Only the most recent of7 resultswithin the time period is included. Glucose 218 (H) 70 - 110 mg/dL [facility] Specimen Blood, Arterial Performing Organization Address [facility] [place] Phone Number [address] [address] [phone] [place] HGB/HCT (H&H)-Stat Lab (03/25/2018 4:27 AM CDT)Only the most recent of7 resultswithin the time period is included. Hemoglobin 13.8 13.0 - 16.8 g/dL [facility] Hematocrit 41.0 40.0 - 50.0 % [facility] Specimen Blood, Arterial Performing Organization Address [facility] Phone Number [address] [address] [phone] CENTER Hemoglobin-Stat Lab (03/24/2018 11:47 PM CDT) Hemoglobin 15.1 13.0 - 16.8 g/dL [facility] Specimen Blood, Arterial Performing Organization Address City/[facility] Centercode Phone Number [address] [address] [place] Calcium, Ionized (03/24/2018 11:47 PM CDT)Only the most recent of3 resultswithin the time period is included. Calcium, Ion 1.10 (L) 1.12 - 1.27 mmol/L [facility] pH, Blood 7.28 [facility] Specimen Blood Performing Organization Address City/[facility] Centercode Phone Number [address] [address] [phone] [place] Oxygen saturation, measured (03/24/2018 9:54 PM CDT) O2 Saturation (Measured) 78.3 % [facility] Specimen Blood Performing Organization Address [facility] Phone Number [address] [address] [phone] CENTER aPTT (03/24/2018 9:54 PM CDT)Only the most recent of5 resultswithin the time period is included. PTT 29.6 22.5 - 36.[address] [facility] Specimen Blood Performing Organization Address [facility] Phone Number [address] [address] CENTER Prothrombin time/INR (03/24/2018 9:54 PM CDT)Only the most recent of2 resultswithin the time period is included. Protime 17.4 (H) 11.7 - 14.[address] [facility] INR 1.[address] <=[address]9 [facility] Specimen Blood Narrative Performed At [facility] RECOMMENDED COUMADIN/WARFARIN INR THERAPY RANGES STANDARD DOSE: 2.0 - 3.0 Includes: PROPHYLAXIS for venous thrombosis, systemic embolization; TREATMENT for venous thrombosis and/or pulmonary embolus. HIGH RISK: Target INR is 2.5-3.5 for patients with mechanical heart valves. Performing Organization Address City/[facility] Centercode Phone Number [address] [address] CENTER Fibrinogen (03/24/2018 9:54 PM CDT) Fibrinogen 375 225 - 434 mg/dl [facility] Specimen Blood Performing Organization Address City/State/Zipcode Phone Number [facility] [address] [place] [address] CENTER ANESTHESIA JERILYN (03/24/2018 9:14 PM CDT) Narrative Performed At Gregory Vicente MD 03/24/20189:14 PM JERILYN Date: 03/24/2018 5:47 PM Sex: Male Location: [...] Vicente MD - 03/24/2018 5:47 PM CDT JERILYN Date: 03/24/2018 5:47 PM Sex: Male Location: [...] obvious. POC ACTIVATED CLOTTING TIME (03/24/2018 8:26 PM CDT)Only the most recent of10 resultswithin the time period is included. Activated Clotting Time 98Comment: TESTED AT sec [address] [address] Specimen Blood Performing Organization Address City/State/Zipcode Phone Number [address] [address] CENTER Tissue Exam (03/24/2018 6:58 PM CDT) Case Report Surgical Pathology Report Case: [id number] [facility] Authorizing Provider:Darshan Andino MDCollected: 03/24/2018 [facility] [facility] Ordering Location: [facility] Received: 03/26/2018 1129 [employer]IOPERATIVE SERVICES Pathologist: Shelton Joe MD Specimen:Soft Tissue, Other, Atrial Mass DIAGNOSIS HEART, LEFT ATRIUM, RESECTION: [facility] MYXOMA [facility] Signing Pathologist Direct Phone Line: [phone] CPT Code(s) [address]33 [facility] CLINICAL HISTORY Chronic atrial fibrillation, [facility] left atrial mass [facility] SPECIMEN SOURCE Left atrial mass [facility] GROSS DESCRIPTION Received fresh labeled "soft tissue, other", description "atrial mass" is a 4.0 x 2.0 x 1.0 cm dark red to yellow christine irregular rubbery gelatinous soft tissue mass. [facility] The specimen is serially sectioned to reveal a dark red to yellow-christine, rubbery, hemorrhagic, gelatinous cut surface. No firm areas are identified. Ink code: resection margin - black. The specimen is entirely submitted as follows: A1, perpendicular resection margin; A2-A5, remainder of specimen. DB/pl MICROSCOPIC DESCRIPTION Performed [facility] Specimen Tissue - Soft Tissue, Other Performing Organization Address City/[facility] [place] Phone Number [address] [address] CENTER TRANSFUSION SERVICE REPORT - SCAN (03/24/2018 5:41 PM CDT) Narrative Performed At Type and screen, automated (03/23/2018 2:51 PM CDT) ABO/RH AUTOMATED (BEAKER) A POSITIVE [facility] Ab Scrn NEGATIVE [facility] Specimen Blood Performing Organization Address [facility] [place] Phone Number [address] [address] [phone] ECHOCARDIOGRAM REPORT - SCAN (03/21/2018 6:20 PM CDT) Narrative Performed At Transesophageal echo (03/21/2018 3:57 PM CDT) Ejection Fraction [facility] [employer] [facility] Narrative Performed At Transesophageal Echocardiography Report (JERILYN) [facility] [employer] [facility] Demographics Patient Name SMALL, BYRONDate of Study 03/21/2018 WOODY [id number] GenderMale Visit Number [id number] Unknown [id number] Room Number 1434 Number Date of Birth1960Referring Physician Arun Quinones MD Age57 year(s)Pot Feeder Paul Sunshine InterpretingHira Ribera, Physician Procedure Type of Study JERILYN procedure:TRANSESOPHAGEAL ECHO Indications:Suspected cardiac source of emboli. Clinical History LA THROMBUS,CANCER Height: 76 inches Weight: 102.06 kg (225 lbs) BSA: 2.33 m^2 BMI: 27.39 kg/m^2 HR: 93 bpm BP: 124/85 mmHg Procedure Medications - Fentanyl I.V. 50 mcg. - Versed I.V. 3 mg. Summary LA is enlarged but severity assessment is unreliable due to known JERILYN sector size limitation. A 3.5 x 1.2 [...] Signature Findings Rhythm/BPAtrial fibrillation with rapid ventricular re sponse. Left Ventricle The left ventricle is chamber size (by vol index) is normal. Al l of the LV segments are hypokinetic . Gl obal LV systolic function [id number] re duced . Es timation of LV systolic function is less reliable in the presence of tachycardia. Left AtriumLA is enlarged but severity assessment is un reliable due to known JERILYN sector size limitation. A 3.5 x 1.2 cm oblong highly mobile mass has a di screte attachment site at the anterior LA ap pendage orifice, consistent with atypical LA my xoma. The mass intermittently enters the LA ap pendage and intermittently crosses the MV annulus du ring diastole. The surface is irregular with mu ltiple mobile strands. LA appendage morphology is simple (wind sock) . LA appendage thrombus is not present . Right VentricleRV chamber size is normal . Gl obal RV systolic function is mildly reduced . Right Atrium RA size is normal. Atrial SeptumNormal interatrial septum by available views. A patent foramen ovale (PFO) is suspected by color Do ppler. Aortic Valve Normal AoV structure and function. Mi ld aortic regurgitation. Mitral Valve Mild MV leaflet thickening. Mild posterior leaflet pr olapse. Mi ld mitral regurgitation. Tricuspid ValveNormal TV structure and function. Mi ld tricuspid regurgitation. Es timated peak systolic PA pressure is 25-30 mmHg + RA pressure. AortaAortic root size (Sinus of Valsalva diameter) is loly rderline dilated. 3.7 cm PericardiumNo significant pericardial effusion is visualized. IVC/SVC/PA/PV/PleuralThe visualized SVC appears normal. 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 Clinical History LA THROMBUS,CANCER Height: 76 inches Weight: 102.06 kg (225 lbs) BSA: 2.33 m^2 BMI: 27.39 kg/m^2 HR: 93 bpm BP: 124/85 mmHg Procedure Medications - Fentanyl I.V. 50 mcg. - Versed I.V. 3 mg. Summary LA is enlarged but severity assessment is unreliable due to known JERILYN sector size limitation. A 3.5 x 1.2 [...] are hypokinetic . Global LV systolic function [id number] reduced . Estimation of LV systolic function is less reliable in the presence of tachycardia. Left Atrium LA is enlarged but severity assessment is unreliable due to known JERILYN sector size limitation. A 3.5 x 1.2 [...] visualized. IVC/SVC/PA/PV/Pleural The visualized SVC appears normal. Performing Organization Address City/State/Zipcode Phone Number [facility] ECHOCARDIOGRAM REPORT - SCAN (03/21/2018 12:20 PM CDT) Narrative Performed At 2D Echo W/Doppler(CW/PW/Color) (03/20/2018 7:57 PM CDT) Ejection Fraction [facility] Narrative Performed At Transthoracic Echocardiography Report (TTE) [facility] Demographics Patient NameSBUZZ DANIELS Date of Study03/20/2018 Gender Male Visit [id number] Race Unknown [id number] Number Date of 1960 ReferringZofia Do Physician Age 57 year(s) Pot Feeder Interpreting Physician LuisMD FellowMicALY Freitas Procedure Type of Study TTE procedure:2DECHO W DOPPLER(CW/PW/COLOR) (EMMANUEL) Indications:Sustained or non sustained Afib, SVT or VT. Clinical History CANCER ABN CT SCAN OF LUNG LA THROMBUS Height: 76 inches Weight: 102.06 kg (225 lbs) BSA: 2.33 m^2 BMI: 27.39 kg/m^2 HR: 103 bpm BP: 115/86 mmHg Summary The LV endocardium is adequately visualized. No evidence of LV hypertrophy. The left ventricle is chamber size (by vol index) is normal (male - LVED vol - 34-74ml/m2). All of the LV segments are hypokinetic . Global LV systolic function moderately reduced . LVEF by Mcleod's method of disk assessment is moderately reduced (30-34%) . No significant pericardial effusion is visualized. LA size is mildly enlarged . A higly mobile mass, measuring 1.5 cm x 1.5 cm is noted near the MV annulus. I some views it appears to emerge from the LA appendage - in some views it appears partially attached (sessile attachment) near the aortic root - mitral annular fibrous trigone area within the LA / MV annulus. A jerilyn may be needed to more clearly define complex mass. The estimated RA pressure by IVC dynamics 11-15mmHg . Mild tricuspid regurgitation. Estimated peak systolic pressure is at least 40-45 mmHg. Peak systolic pressure may be underestimated; partial TR signal. Signature Findings Rhythm/BPAtrial fibrillation with controlled ventricular re sponse. Left Ventricle The LV endocardium is adequately visualized. No evidence of LV hypertrophy. Th e left ventricle is chamber size (by vol index) is normal (male - LVED vol - 34-74ml/m2). Al l of the LV segments are hypokinetic . Gl obal LV systolic function moderately reduced . LV EF by Mcleod's method of disk assessment is mo derately reduced (30-34%) . Left AtriumLA size is mildly enlarged . A higly mobile mass, measuring 1.5 cm x 1.5 cm is no marciarmen near the MV annulus. I some views it appears to emerge from the LA appendage - in some views it ap pears partially attached (sessile attachment) ne ar the aortic root - mitral annular fibrous tr igone area within the LA / MV annulus. A jerilyn may be needed to more clearly define complex mass. Right VentricleThe right ventricular chamber size and systolic fu nction are within normal limits. Right Atrium RA size is probably normal based on available vi ews. Aortic Valve Normal AoV structure and function. Mitral Valve Mild MV leaflet thickening. Mi ld mitral regurgitation. Tricuspid ValveMild tricuspid regurgitation. Es timated peak systolic pressure is at least 40-45 mm Hg. Pe ak systolic pressure may be underestimated; pa rtial TR signal. Pulmonic Valve PV is not well visualized; function appears normal by Doppler visualized. AortaAortic root size (SInus of Valsalva diameter) is no rmal . PericardiumNo significant pericardial effusion is visualized. IVC/SVC/PA/PV/PleuralThe estimated RA pressure by IVC dynamics 11-15mmHg . Chambers/Structures Left Atrium LA Volume: 80.46 ml LA Area: 26.59 cm^2 LA Vol. Index: 35 ml/m^2 Left Ventricle LVEDV Mcleod's:136.83 ml LVESV Mcleod's:87.45 ml LVEF Mcleod's: 36.1 % LVEDVI: 59 ml/m^2 LVOT Diameter: 2.22 cmLVESVI: 38 ml/m^2 Doppler/Quantitative Measurements Mitral Valve MV Peak E-Wave: 0.89 m/sPeak Gradient: 3.17 mmHg MV Blayne. Peak: Tissue Doppler E' Lateral Velocity: 0.09 m/s E/E': 9.97 Aortic Valve Peak Velocity: 1.05 m/sMean Velocity: 0.61 m/s Peak Gradient: 4.44 mmHg Mean Gradient: 1.96 mmHg AV Area (continuity): 3.74 cm^2 AV VTI: 15.67 cm AV DVI: 0.97 LVOT Peak Velocity: 0.79 m/s Peak Gradient: 2.51 mmHg Mean Velocity: 0.55 m/s Mean Gradient: 1.4 mmHg LVOT Diameter: 2.22 cmLVOT VTI: 15.14 cm LVOT Area: 3.87 cm^2LVOT SV:58.57 ml LVOT CO: 6.03 l/min LVOT CI: 2.59 l/min/m^2 Tricuspid Valve TR Velocity: 1.83 m/s TR Gradient: 13.36 mmHg Procedure Note Interface, External Ris In - 03/21/2018 11:45 AM CDT Transthoracic Echocardiography Report (TTE) Demographics Patient Name BUZZ SAINZ Date of Study 03/20/2018 Gender Male Visit Number [id number] Race Unknown Room Number 1434 Number Date of 1960 Referring Zofia Do Physician Age 57 year(s) 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 Clinical History CANCER ABN CT SCAN OF LUNG LA THROMBUS Height: 76 inches Weight: 102.06 kg (225 lbs) BSA: 2.33 m^2 BMI: 27.39 kg/m^2 HR: 103 bpm BP: 115/86 mmHg Summary The LV endocardium is adequately visualized. No evidence of LV hypertrophy. The left ventricle is chamber size (by vol index) is normal (male - LVED vol - 34-74ml/m2). All of the LV segments are hypokinetic . Global LV systolic function moderately reduced . LVEF by Mcleod's method of disk assessment is moderately reduced (30-34%) . No significant pericardial effusion is visualized. LA size is mildly enlarged . A higly mobile mass, measuring 1.5 cm x 1.5 cm is noted near the MV annulus. I some views it appears to emerge from the LA appendage - in some views it appears partially attached (sessile attachment) near the aortic root - mitral annular fibrous trigone area within the LA / MV annulus. A jerilyn may be needed to more clearly define complex mass. The estimated RA pressure by IVC dynamics 11-15mmHg . Mild tricuspid regurgitation. Estimated peak systolic pressure is at least 40-45 mmHg. Peak systolic pressure may be underestimated; partial TR signal. Signature Findings Rhythm/BP Atrial fibrillation with controlled ventricular response. Left Ventricle The LV endocardium is adequately visualized. No evidence of LV hypertrophy. The left ventricle is chamber size (by vol index) is normal (male - LVED vol - 34-74ml/m2). All of the LV segments are hypokinetic . Global LV systolic function moderately reduced . LVEF by Mcleod's method of disk assessment is moderately reduced (30-34%) . Left Atrium LA size is mildly enlarged . A higly mobile mass, measuring 1.5 cm x 1.5 cm is noted near the MV annulus. I some views it appears to emerge from the LA appendage - in some views it appears partially attached (sessile attachment) near the aortic root - mitral annular fibrous trigone area within the LA / MV annulus. A jerilyn may be needed to more clearly define complex mass. Right Ventricle The right ventricular chamber size and systolic function are within normal limits. Right Atrium RA size is probably normal based on available views. Aortic Valve Normal AoV structure and function. Mitral Valve Mild MV leaflet thickening. Mild mitral regurgitation. Tricuspid Valve Mild tricuspid regurgitation. Estimated peak systolic pressure is at least 40-45 mmHg. Peak systolic pressure may be underestimated; partial TR signal. Pulmonic Valve PV is not well visualized; function appears normal by Doppler visualized. Aorta Aortic root size (SInus of Valsalva diameter) is normal . Pericardium No significant pericardial effusion is visualized. IVC/SVC/PA/PV/Pleural The estimated RA pressure by IVC dynamics 11-15mmHg . Chambers/Structures Left Atrium LA Volume: 80.46 ml LA Area: 26.59 cm^2 LA Vol. Index: 35 ml/m^2 Left Ventricle LVEDV Mcleod's:136.83 ml LVESV Mcleod's:87.45 ml LVEF Mcleod's: 36.1 % LVEDVI: 59 ml/m^2 LVOT Diameter: 2.22 cm LVESVI: 38 ml/m^2 Doppler/Quantitative Measurements Mitral Valve MV Peak E-Wave: 0.89 m/s Peak Gradient: 3.17 mmHg MV Blayne. Peak: Tissue Doppler E' Lateral Velocity: 0.09 m/s E/E': 9.97 Aortic Valve Peak Velocity: 1.05 m/s Mean Velocity: 0.61 m/s Peak Gradient: 4.44 mmHg Mean Gradient: 1.96 mmHg AV Area (continuity): 3.74 cm^2 AV VTI: 15.67 cm AV DVI: 0.97 LVOT Peak Velocity: 0.79 m/s Peak Gradient: 2.51 mmHg Mean Velocity: 0.55 m/s Mean Gradient: 1.4 mmHg LVOT Diameter: 2.22 cm LVOT VTI: 15.14 cm LVOT Area: 3.87 cm^2 LVOT SV:58.57 ml LVOT CO: 6.03 l/min LVOT CI: 2.59 l/min/m^2 Tricuspid Valve TR Velocity: 1.83 m/s TR Gradient: 13.36 mmHg Performing Organization Address City/State/Zipcode Phone Number [facility] TSH/Free T4 If Indicated (03/18/2018 5:49 AM CDT) TSH 1.46 0.35 - 4.94 uIU/mL [facility] Specimen Blood - Arm, Left Performing Organization Address City/[facility] [place]/Zipcode Phone Number [address] [address] [phone] [place] Hemoglobin A1c (03/18/2018 5:49 AM CDT) Hemoglobin A1C 5.1 4.3 - 6.1 % [facility] Specimen Blood - Arm, Left Performing Organization Address [facility] [place]/[facility] Phone Number [address] [address] [phone] [place] Lipid panel (03/18/2018 5:49 AM CDT) Triglycerides 106 mg/dL [facility] Cholesterol 220 mg/dL [facility] HDL 37 mg/dL [facility] LDL Calculated 162 mg/dL [facility] Specimen Blood - Arm, Left Narrative Performed At [facility] Triglyceride Reference Range: Low Risk <150 [id number] High Risk 200-499 Very High Risk>=500 Cholesterol Reference Range: Low Risk <200 [id number] High Risk>240 HDL Cholesterol Reference Range: Low Risk >=60 High Risk <40 LDL Cholesterol Reference Range: Optimal<100 Near [id number] Very High >=190 Specimen slightly icteric Performing Organization Address [facility] [place]/Zipcode Phone Number [address] [address] [phone] CENTER after 09/15/2017 Insurance Payer Benefit Plan / Group Subscriber ID Type Phone Address [facility] HMO/POS/OPEN ACCESS xxxxxxxxxxx HMO/POS Advance Directives For more information, please contact:[place] [id number] Sanna SimpsonStoning[place], [place] [phone] Code Status Date Activated Date Inactivated Comments Full Code 03/24/2018 10:56 PM 03/28/2018 6:54 PM This code status was determined by: Patient Full Code 03/22/2018 2:53 PM 03/24/2018 10:56 PM This code status was determined by: Patient Full Code 03/21/2018 4:07 PM 03/21/2018 4:45 PM This code status was determined by: Patient Full Code 03/17/2018 10:55 PM 03/21/2018 4:07 PM This code status was determined by: Patient
--- OUTSIDE RECORDS SUMMARY | 2018-09-16 22:31 | XMS REPORT ---
:1960 [facility] Address [address] [place] [address] Care Team Providers Name Role Phone ADOLPH CHOWDARY Unavailable Unavailable SILVER VEGA Unavailable Unavailable Problems This patient has no known problems. Allergies, Adverse Reactions, Alerts This patient has no known allergies or adverse reactions. Medications This patient has no known medications. Results Test Description Test Time Test Comments Text Results Atomic Results Result Comments CT, ABDOMEN 2018-08-13 22:50:00 Reason for exam:->RECTAL FINAL REPORT PATIENT ID: Rigo colin [id number] CLINICAL exam:->ABDOMINAL PAINWhat HISTORY: Left lower is the patient's sedation quadrant pain, rectal requirement?->No Sedation bleeding, suspect diverticulitis FINDINGS: Multiple axial images [...] Please correlate with history. Signed: Jean Babb MDReport Verified Date/Time: 08/13/2018 22:50:13 Reading Location: [address] Reading Room TINE KINASE (CK), TOTAL AND MB 2018-08-13 22:40:00 Test Item Value Reference Range Comments CREATINE KINASE TOTAL (BEAKER) (test eyif=508) 80 U/L 29-200 CREATINE KINASE-MB (BEAKER) (test lhuy=255) 1.7 ng/mL 0.0-6.6 CREATINE KINASE-MB INDEX (BEAKER) (test nvla=493) 2.1 % CK-MB Reference Range:<6.7 Normal6.7-10.0 Borderline>10.0 AbnormalTROPONIN [id number] 22:40:00 Test Item Value Reference Range Comments TROPONIN I (BEAKER) (test pufc=552) < ng/mL 0.00-0.03 Troponin I (TnI) levels must [...] failure, acidosis, acute neurological disease, and persistent tachyarrhythmia.RAD, CHEST, PA OR AP, 1 [id number] 22:04:00Reason for exam:->chest painShould this be performed at the bedside?- >YesFINAL REPORT INDICATION: chest pain COMPARISON: March 28, 2018 TECHNIQUE: Singlefrontal view of the chest. FINDINGS: Lungs and pleura: Clear lungs. No effusion.Heart and mediastinum: Normal heart size. Unremarkable mediastinal contours.Osseous structures: No acute abnormality.Other : None. IMPRESSION: No acute intrathoracic abnormality. Signed: JR José Miguel, Catherine MKIeport Verified Date/Time: 08/13/2018 22:04:08 Reading Location: [facility] C0[facility] Transitional Reading Room URINALYSIS W/ [id number] 21:58:00 Test Item Value Reference Range Comments COLOR (BEAKER) (test hksr=818) Yellow CLARITY (BEAKER) (test eaix=887) Clear SPECIFIC GRAVITY UA (BEAKER) (test bdsy=195) 1.017 1.001-1.035 PH UA (BEAKER) (test zyak=298) 6.5 5.0-8.0 PROTEIN UA (BEAKER) (test lebn=263) Negative Negative GLUCOSE UA (BEAKER) (test kvbk=398) Negative Negative KETONES UA (BEAKER) (test lkeq=037) Negative Negative BILIRUBIN UA (BEAKER) (test spoq=775) Negative Negative BLOOD UA (BEAKER) (test rxnb=124) Negative Negative NITRITE UA (BEAKER) (test blka=767) Negative Negative LEUKOCYTE ESTERASE UA (BEAKER) (test jree=963) Negative Negative UROBILINOGEN UA (BEAKER) (test fyez=396) 12.0 mg/dL 0.2-1.0 RBC UA (BEAKER) (test izys=210) < /HPF WBC UA (BEAKER) (test uozt=536) < /HPF SQUAMOUS EPITHELIAL (BEAKER) (test hpod=253) < /HPF SOURCE(BEAKER) (test jbmn=4313) B-TYPE NATRIURETIC FACTOR (BNP)2018-08-13 21:31:00 Test Item Value Reference Range Comments B-TYPE NATRIURETIC PEPTIDE (BEAKER) (test piss=581) 69 pg/mL 0-100 [id number] 21:02:00 Test Item Value Reference Range Comments LIPASE (BEAKER) (test viud=476) 44 U/L 8-78 BASIC METABOLIC [id number] 21:02:00 Test Item Value Reference Range Comments SODIUM (BEAKER) (test 141 meq/L 136-145 hslr=022) POTASSIUM (BEAKER) (test 4.2 meq/L 3.5-5.1 Specimen slightly ldmk=467) hemolyzed CHLORIDE (BEAKER) (test 107 meq/L 98-107 xrfe=830) CO2 (BEAKER) (test 27 meq/L 22-29 otmn=497) BLOOD UREA NITROGEN 15 mg/dL 7-21 (BEAKER) (test nkax=374) CREATININE (BEAKER) (test 0.95 mg/dL 0.57-1.25 Specimen slightly soit=936) hemolyzed GLUCOSE RANDOM (BEAKER) 75 mg/dL 70-105 (test uugq=216) CALCIUM (BEAKER) (test 9.1 mg/dL 8.4-10.2 axvn=377) EGFR (BEAKER) (test 81 mL/min/1.73 sq m ESTIMATED GFR IS NOT dbmb=2127) ACCURATE CREATININE CLEARANCE IN PREDICTING GLOMERULAR FILTRATION RATE. ESTIMATED GFR IS NOT APPLICABLE FOR DIALYSIS PATIENTS. HEPATIC FUNCTION [id number] 21:02:00 Test Item Value Reference Range Comments TOTAL PROTEIN (BEAKER) (test 6.7 gm/dL 6.0-8.3 Specimen slightly hemolyzed ndoa=269) ALBUMIN (BEAKER) (test 4.0 g/dL 3.5-5.0 Specimen slightly hemolyzed bima=5568) BILIRUBIN TOTAL (BEAKER) (test 1.4 mg/dL 0.2-1.2 Specimen slightly hemolyzed ihse=493) BILIRUBIN DIRECT (BEAKER) (test 0.3 mg/dL 0.1-0.5 Specimen slightly hemolyzed bcvz=715) ALKALINE PHOSPHATASE (BEAKER) 62 U/L 40-150 (test zypw=878) AST (SGOT) (BEAKER) (test 26 U/L 5-34 Specimen slightly hemolyzed omua=288) ALT (SGPT) (BEAKER) (test 47 U/L 6-55 Specimen slightly hemolyzed kbrk=819) [id number] 20:37:00 Test Item Value Reference Range Comments PROTIME (BEAKER) (test hvvw=566) 13.8 seconds 11.7-14.7 INR (BEAKER) (test pgej=183) 1.1 <=5.9 PARTIAL THROMBOPLASTIN TIME (BEAKER) (test 24.9 seconds 22.5-36.0 iwpd=288) RECOMMENDED COUMADIN/WARFARIN INR THERAPY RANGESSTANDARD DOSE: 2.0 - 3.0 Includes: PROPHYLAXIS forvenous thrombosis, systemic embolization; TREATMENT for venous thrombosis and/or pulmonary embolus.HIGH RISK: Target INR is 2.5-3.5 for patients with mechanical heart valves.CBC W/PLT COUNT & AUTO [id number] 20:28:00 Test Item Value Reference Range Comments WHITE BLOOD CELL COUNT (BEAKER) (test fdbd=604) 6.6 K/ L 3.5-10.5 RED BLOOD CELL COUNT (BEAKER) (test rjgp=655) 4.54 M/ L 4.63-6.08 HEMOGLOBIN (BEAKER) (test ougc=112) 14.5 GM/DL 13.7-17.5 HEMATOCRIT (BEAKER) (test qntm=800) 43.2 % 40.1-51.0 MEAN CORPUSCULAR VOLUME (BEAKER) (test wpgy=288) 95.2 fL 79.0-92.2 MEAN CORPUSCULAR HEMOGLOBIN (BEAKER) (test 31.9 pg 25.7-32.2 hzwq=823) MEAN CORPUSCULAR HEMOGLOBIN CONC (BEAKER) (test 33.6 GM/DL 32.3-36.5 ilyo=048) RED CELL DISTRIBUTION WIDTH (BEAKER) (test 13.5 % 11.6-14.4 vhno=437) PLATELET COUNT (BEAKER) (test ohji=074) 176 K/CU MM 150-450 MEAN PLATELET VOLUME (BEAKER) (test oswf=633) 9.9 fL 9.4-12.4 NUCLEATED RED BLOOD CELLS (BEAKER) (test 0 /100 WBC 0-0 asus=398) NEUTROPHILS RELATIVE PERCENT (BEAKER) (test 64 % ubjl=981) LYMPHOCYTES RELATIVE PERCENT (BEAKER) (test 21 % qjfh=396) MONOCYTES RELATIVE PERCENT (BEAKER) (test 11 % jgty=800) EOSINOPHILS RELATIVE PERCENT (BEAKER) (test 3 % zkzp=369) BASOPHILS RELATIVE PERCENT (BEAKER) (test 1 % jnff=436) NEUTROPHILS ABSOLUTE COUNT (BEAKER) (test 4.23 K/ L 1.78-5.38 qfnc=159) LYMPHOCYTES ABSOLUTE COUNT (BEAKER) (test 1.35 K/ L 1.32-3.57 tkvy=426) MONOCYTES ABSOLUTE COUNT (BEAKER) (test 0.72 K/ L 0.30-0.82 rhip=235) EOSINOPHILS ABSOLUTE COUNT (BEAKER) (test 0.17 K/ L 0.04-0.54 wjhf=706) BASOPHILS ABSOLUTE COUNT (BEAKER) (test 0.04 K/ L 0.01-0.08 ztfx=654) IMMATURE GRANULOCYTES-RELATIVE PERCENT (BEAKER) 1 % 0-1 (test nyma=9766) TISSUE [id number] 14:11:00Surgical Pathology Report Case: [id number] Authorizing Provider: Darshan Dillon MD Collected: 03/24/2018 7088 Ordering Location: [facility] Received: 03/26/2018 1129 PERIOPERATIVE SERVICES Pathologist: Shelton Joe MD Specimen: Soft Tissue, Other, Atrial Mass HEART, LEFT ATRIUM, RESECTION: MYXOMA Signing Pathologist Direct Phone Line: [phone] signed by Shelton Joe MD on 03/28/2018 at 2:11 [id number] atrial fibrillation, left atrial massLeft atrial massReceived fresh labeled "soft tissue, other", description "atrial mass" is a 4.0 x 2.0 x 1.0 cm dark red to yellow christine irregular rubbery gelatinous soft tissue mass. The specimen is serially sectioned to reveal a dark red to yellow-christine, rubbery, hemorrhagic, gelatinous cut surface. No firm areasare identified. Ink code: resection margin - black. The specimen is entirely submitted as follows: A1, perpendicular resection margin; A2-A5, remainder of specimen. DB/plPerformedRAD, CHEST, 2 [id number] 13:30:00Reason for exam:->pneumo, discharge dependentFINAL REPORT Chest 2 views 03/28/2018 1:29 PM CLINICAL HISTORY: pneumo, discharge dependent COMPARISON: 03/27/2018 IMPRESSION: No pneumothorax is evident. There are trace bilateral pleural effusions with adjacent basilar atelectasis. Cardiomediastinal contours are within normal limits. The central pulmonary vasculature is not engorged. There are no acute-appearing skeletal abnormalities. Signed: Jose Miguel Gardner MDReport Verified Date/Time: 03/28/2018 13:30:46 Reading Location: [facility] B1 [id number] Consult Reading Room [id number] 07: 13:00 Test Item Value Reference Range Comments MAGNESIUM (BEAKER) (test rzlk=116) 2.2 mg/dL 1.6-2.6 BASIC METABOLIC [id number] 07:13:00 Test Item Value Reference Range Comments SODIUM (BEAKER) (test 139 meq/L 136-145 vxlf=469) POTASSIUM (BEAKER) (test 4.6 meq/L 3.5-5.1 dxiu=253) CHLORIDE (BEAKER) (test 102 meq/L 98-107 vbvk=052) CO2 (BEAKER) (test 28 meq/L 22-29 sioe=099) BLOOD UREA NITROGEN 11 mg/dL 7-21 (BEAKER) (test dafa=521) CREATININE (BEAKER) (test 0.70 mg/dL 0.57-1.25 jdeh=297) GLUCOSE RANDOM (BEAKER) 98 mg/dL 70-105 (test sxom=004) CALCIUM (BEAKER) (test 9.7 mg/dL 8.4-10.2 mjyr=984) EGFR (BEAKER) (test 116 mL/min/1.73 sq m ESTIMATED GFR IS NOT iadk=8519) ACCURATE CREATININE CLEARANCE IN PREDICTING GLOMERULAR FILTRATION RATE. ESTIMATED GFR IS NOT APPLICABLE FOR DIALYSIS PATIENTS. RAD, CHEST, 1 VIEW, NON [id number] 22:38:00Reason for exam:->eval for right pneumothorax after [...] will notify the appropriate on- callclinician. Signed: Pawan Dash MDReport Verified Date/Time: 03/27/2018 22: 38:14 Reading Location: [address] Reading Room 10:38 [id number] 05:17:00 Test Item Value Reference Range Comments MAGNESIUM (BEAKER) (test stjl=952) 2.0 mg/dL 1.6-2.6 BASIC METABOLIC [id number] 05:17:00 Test Item Value Reference Range Comments SODIUM (BEAKER) (test 138 meq/L 136-145 wqtf=490) POTASSIUM (BEAKER) (test 4.6 meq/L 3.5-5.1 abgw=527) CHLORIDE (BEAKER) (test 101 meq/L 98-107 zqtr=137) CO2 (BEAKER) (test 29 meq/L 22-29 lzcb=961) BLOOD UREA NITROGEN 11 mg/dL 7-21 (BEAKER) (test wtxg=797) CREATININE (BEAKER) (test 0.74 mg/dL 0.57-1.25 zksy=115) GLUCOSE RANDOM (BEAKER) 116 mg/dL 70-105 (test sxlm=932) CALCIUM (BEAKER) (test 9.3 mg/dL 8.4-10.2 tclv=905) EGFR (BEAKER) (test 109 mL/min/1.73 sq m ESTIMATED GFR IS NOT yzfz=6715) ACCURATE CREATININE CLEARANCE IN PREDICTING GLOMERULAR FILTRATION RATE. ESTIMATED GFR IS NOT APPLICABLE FOR DIALYSIS PATIENTS. CBC W/PLT COUNT & AUTO [id number] 05:08:00 Test Item Value Reference Range Comments WHITE BLOOD CELL COUNT (BEAKER) (test zhoj=295) 13.5 K/ L 3.5-10.5 RED BLOOD CELL COUNT (BEAKER) (test zbev=912) 3.91 M/ L 4.63-6.08 HEMOGLOBIN (BEAKER) (test laka=875) 12.1 GM/DL 13.7-17.5 HEMATOCRIT (BEAKER) (test juef=698) 36.7 % 40.1-51.0 MEAN CORPUSCULAR VOLUME (BEAKER) (test augb=028) 93.9 fL 79.0-92.2 MEAN CORPUSCULAR HEMOGLOBIN (BEAKER) (test 30.9 pg 25.7-32.2 yrdz=696) MEAN CORPUSCULAR HEMOGLOBIN CONC (BEAKER) (test 33.0 GM/DL 32.3-36.5 ovvt=769) RED CELL DISTRIBUTION WIDTH (BEAKER) (test 13.2 % 11.6-14.4 fkuu=242) PLATELET COUNT (BEAKER) (test htad=960) 116 K/CU MM 150-450 MEAN PLATELET VOLUME (BEAKER) (test ldzn=620) 10.3 fL 9.4-12.4 NUCLEATED RED BLOOD CELLS (BEAKER) (test 0 /100 WBC 0-0 bpav=839) NEUTROPHILS RELATIVE PERCENT (BEAKER) (test 85 % hpad=077) LYMPHOCYTES RELATIVE PERCENT (BEAKER) (test 5 % scqs=245) MONOCYTES RELATIVE PERCENT (BEAKER) (test 9 % hyvm=374) EOSINOPHILS RELATIVE PERCENT (BEAKER) (test 0 % vrit=761) BASOPHILS RELATIVE PERCENT (BEAKER) (test 0 % znrj=049) NEUTROPHILS ABSOLUTE COUNT (BEAKER) (test 11.40 K/ L 1.78-5.38 uecc=039) LYMPHOCYTES ABSOLUTE COUNT (BEAKER) (test 0.69 K/ L 1.32-3.57 gnob=703) MONOCYTES ABSOLUTE COUNT (BEAKER) (test 1.21 K/ L 0.30-0.82 bjxm=752) EOSINOPHILS ABSOLUTE COUNT (BEAKER) (test 0.01 K/ L 0.04-0.54 xmtg=194) BASOPHILS ABSOLUTE COUNT (BEAKER) (test 0.02 K/ L 0.01-0.08 crcu=554) IMMATURE GRANULOCYTES-RELATIVE PERCENT (BEAKER) 1 % 0-1 (test kdov=5936) POCT-GLUCOSE [id number] 08:39:00 Test Item Value Reference Range Comments POC-GLUCOSE METER (BEAKER) 96 mg/dL 70-110 TESTED AT [address] (test ncni=4560) [facility] [address] POCT-GLUCOSE [id number] 08:39:00 Test Item Value Reference Range Comments POC-GLUCOSE METER (BEAKER) 156 mg/dL 70-110 TESTED AT [address] (test gfmq=3035) [facility] [address] RAD, CHEST, 1 VIEW, NON [id number] 06:12:00Reason for exam:->chest tubeShould this be performed at the bedside?->YesFINAL REPORT RAD, CHEST, 1 VIEW, NON DEPT INDICATION: chest tube COMPARISON: Prior day's exam FINDINGS: Portable frontal view of the chest. IMPRESSION: Support Lines: The Florence-Daniella catheter has been. Right IJ sheath remains in place. Thoracic drainage catheters again noted. Lungs and pleura: Basilar subsegmental atelectasis on the right. Trace right apical pneumothorax. Bilateral small effusions. No pneumothorax.Heart and mediastinum: Stable contours. Additional findings: None. Signed: JR Valdez Robert MDReport Verified Date/Time: 03/26/2018 06:12:29 Reading Location: [address] Body Reading Room CBC W/ PLT COUNT & AUTO [id number] 05:52:00 Test Item Value Reference Range Comments WHITE BLOOD CELL COUNT (BEAKER) (test yaqh=468) 15.0 K/ L 3.5-10.5 RED BLOOD CELL COUNT (BEAKER) (test lyxg=709) 3.80 M/ L 4.63-6.08 HEMOGLOBIN (BEAKER) (test geww=699) 12.1 GM/DL 13.7-17.5 HEMATOCRIT (BEAKER) (test hqkq=854) 34.7 % 40.1-51.0 MEAN CORPUSCULAR VOLUME (BEAKER) (test ffgi=927) 91.3 fL 79.0-92.2 MEAN CORPUSCULAR HEMOGLOBIN (BEAKER) (test 31.8 pg 25.7-32.2 cckq=623) MEAN CORPUSCULAR HEMOGLOBIN CONC (BEAKER) (test 34.9 GM/DL 32.3-36.5 dlgs=571) RED CELL DISTRIBUTION WIDTH (BEAKER) (test 13.2 % 11.6-14.4 ween=787) PLATELET COUNT (BEAKER) (test vugi=699) 102 K/CU MM 150-450 MEAN PLATELET VOLUME (BEAKER) (test axcq=997) 10.0 fL 9.4-12.4 NUCLEATED RED BLOOD CELLS (BEAKER) (test 0 /100 WBC 0-0 bvny=583) NEUTROPHILS RELATIVE PERCENT (BEAKER) (test 85 % pwbu=985) LYMPHOCYTES RELATIVE PERCENT (BEAKER) (test 5 % aioq=504) MONOCYTES RELATIVE PERCENT (BEAKER) (test 9 % ycqv=209) EOSINOPHILS RELATIVE PERCENT (BEAKER) (test 0 % kvdx=793) BASOPHILS RELATIVE PERCENT (BEAKER) (test 0 % zrdj=962) NEUTROPHILS ABSOLUTE COUNT (BEAKER) (test 12.80 K/ L 1.78-5.38 xfjt=169) LYMPHOCYTES ABSOLUTE COUNT (BEAKER) (test 0.68 K/ L 1.32-3.57 dcdl=282) MONOCYTES ABSOLUTE COUNT (BEAKER) (test 1.39 K/ L 0.30-0.82 ymun=738) EOSINOPHILS ABSOLUTE COUNT (BEAKER) (test 0.00 K/ L 0.04-0.54 vsaj=252) BASOPHILS ABSOLUTE COUNT (BEAKER) (test 0.01 K/ L 0.01-0.08 jqbp=879) IMMATURE GRANULOCYTES-RELATIVE PERCENT (BEAKER) 1 % 0-1 (test atat=5913) BLOOD GAS, [id number] 04:52:00 Test Item Value Reference Range Comments PH ARTERIAL (BEAKER) (test cjav=540) 7.44 7.35-7.45 PCO2 ARTERIAL (BEAKER) (test xcrg=593) 41 mmHg 35-45 PO2 ARTERIAL (BEAKER) (test yjip=543) 78 mmHg 80-90 O2 SATURATION ARTERIAL (BEAKER) (test gqln=718) 95.5 % 96.0-97.0 HCO3 ARTERIAL (BEAKER) (test iuhi=924) 27 mmol/L 21-29 BASE EXCESS ARTERIAL (BEAKER) (test fals=473) 3.1 mmol/L -2.0-3.0 PATIENT TEMPERATURE (BEAKER) (test hjan=4467) 37.7 C FIO2 (BEAKER) (test cfdo=5811) 36.0 % [id number] 04:31:00 Test Item Value Reference Range Comments PHOSPHORUS (BEAKER) (test dtem=497) 3.1 mg/dL 2.3-4.7 BASIC METABOLIC [id number] 04:31:00 Test Item Value Reference Range Comments SODIUM (BEAKER) (test 137 meq/L 136-145 tbcn=971) POTASSIUM (BEAKER) (test 3.8 meq/L 3.5-5.1 mwop=208) CHLORIDE (BEAKER) (test 106 meq/L 98-107 ywdw=744) CO2 (BEAKER) (test 24 meq/L 22-29 bkaf=791) BLOOD UREA NITROGEN 11 mg/dL 7-21 (BEAKER) (test hucp=208) CREATININE (BEAKER) (test 0.65 mg/dL 0.57-1.25 cbfv=591) GLUCOSE RANDOM (BEAKER) 119 mg/dL 70-105 (test gqcx=021) CALCIUM (BEAKER) (test 8.9 mg/dL 8.4-10.2 mbps=958) EGFR (BEAKER) (test 127 mL/min/1.73 sq m ESTIMATED GFR IS NOT upyh=7503) ACCURATE CREATININE CLEARANCE IN PREDICTING GLOMERULAR FILTRATION RATE. ESTIMATED GFR IS NOT APPLICABLE FOR DIALYSIS PATIENTS. Specimen slightly ictericLACTIC ACID, ARTERIAL, WHOLE [id number] 04:26:00 Test Item Value Reference Range Comments LACTATE BLOOD ARTERIAL (2) (BEAKER) (test 0.8 mmol/L 0.5-2.2 hgvt=6502) Effective 03/24/2016: Units/Reference Range ChangeNew: 0.5-2.2 mmol/L Previous: 5 -20 mg/dLRAD, CHEST, 1 VIEW, NON [id number] 09:24:00Reason for exam:->s/ p resection atrial myxomaShould [...] or aspiration cannot be excluded. Signed: Oneil Daviseport Verified Date/Time: 03/25/2018 09:24:11 Reading Location: [address] Transitional Reading Room [id number] 06:29:00 Test Item Value Reference Range Comments PHOSPHORUS (BEAKER) (test bkif=591) 1.1 mg/dL 2.3-4.7 CBC W/PLT COUNT & AUTO [id number] 05:51:00 Test Item Value Reference Range Comments WHITE BLOOD CELL COUNT (BEAKER) (test pvfy=382) 19.2 K/ L 3.5-10.5 RED BLOOD CELL COUNT (BEAKER) (test ynev=095) 4.11 M/ L 4.63-6.08 HEMOGLOBIN (BEAKER) (test qszq=012) 12.9 GM/DL 13.7-17.5 HEMATOCRIT (BEAKER) (test dmld=833) 37.9 % 40.1-51.0 MEAN CORPUSCULAR VOLUME (BEAKER) (test lhco=773) 92.2 fL 79.0-92.2 MEAN CORPUSCULAR HEMOGLOBIN (BEAKER) (test 31.4 pg 25.7-32.2 sovq=362) MEAN CORPUSCULAR HEMOGLOBIN CONC (BEAKER) (test 34.0 GM/DL 32.3-36.5 rmse=658) RED CELL DISTRIBUTION WIDTH (BEAKER) (test 13.0 % 11.6-14.4 uvzj=919) PLATELET COUNT (BEAKER) (test glip=784) 132 K/CU MM 150-450 MEAN PLATELET VOLUME (BEAKER) (test kaub=405) 10.0 fL 9.4-12.4 NUCLEATED RED BLOOD CELLS (BEAKER) (test 0 /100 WBC 0-0 bbdu=572) NEUTROPHILS RELATIVE PERCENT (BEAKER) (test 90 % dvwy=306) LYMPHOCYTES RELATIVE PERCENT (BEAKER) (test 1 % upwy=496) MONOCYTES RELATIVE PERCENT (BEAKER) (test 7 % pxvv=800) EOSINOPHILS RELATIVE PERCENT (BEAKER) (test 0 % lfzw=091) BASOPHILS RELATIVE PERCENT (BEAKER) (test 0 % wrdv=063) NEUTROPHILS ABSOLUTE COUNT (BEAKER) (test 17.33 K/ L 1.78-5.38 ncsf=376) LYMPHOCYTES ABSOLUTE COUNT (BEAKER) (test 0.27 K/ L 1.32-3.57 rqbx=408) MONOCYTES ABSOLUTE COUNT (BEAKER) (test 1.39 K/ L 0.30-0.82 febi=158) EOSINOPHILS ABSOLUTE COUNT (BEAKER) (test 0.00 K/ L 0.04-0.54 hxjl=247) BASOPHILS ABSOLUTE COUNT (BEAKER) (test 0.04 K/ L 0.01-0.08 rakl=346) IMMATURE GRANULOCYTES-RELATIVE PERCENT (BEAKER) 1 % 0-1 (test feyu=9756) BLOOD GAS, [id number] 05:35:00 Test Item Value Reference Range Comments PH ARTERIAL (BEAKER) (test fvmz=801) 7.33 7.35-7.45 PCO2 ARTERIAL (BEAKER) (test xtkc=620) 40 mmHg 35-45 PO2 ARTERIAL (BEAKER) (test mrwg=776) 159 mmHg 80-90 O2 SATURATION ARTERIAL (BEAKER) (test mdzo=197) 98.9 % 96.0-97.0 HCO3 ARTERIAL (BEAKER) (test uoti=522) 20 mmol/L 21-29 BASE EXCESS ARTERIAL (BEAKER) (test lskr=636) -5.2 mmol/L -2.0-3.0 PATIENT TEMPERATURE (BEAKER) (test iwnh=0126) 37.4 C FIO2 (BEAKER) (test xtui=1420) 40.0 % GLUCOSE-STAT [id number] 05:35:00 Test Item Value Reference Range Comments GLUCOSE RANDOM (BEAKER) (test jzgs=282) 218 mg/dL 70-110 POTASSIUM-STAT [id number] 05:35:00 Test Item Value Reference Range Comments POTASSIUM (BEAKER) (test dxro=962) 3.4 meq/L 3.6-5.5 SODIUM NA-STAT [id number] 05:33:00 Test Item Value Reference Range Comments SODIUM (BEAKER) (test rxvl=911) 144 meq/L 135-148 HGB/HCT (H&H) - STAT [id number] 05:33:00 Test Item Value Reference Range Comments HEMOGLOBIN (BEAKER) (test udhq=044) 13.8 g/dL 13.0-16.8 HEMATOCRIT (BEAKER) (test pwto=526) 41.0 % 40.0-50.0 [id number] 05:32:00 Test Item Value Reference Range Comments MAGNESIUM (BEAKER) (test jtou=641) 1.9 mg/dL 1.6-2.6 BASIC METABOLIC [id number] 05:32:00 Test Item Value Reference Range Comments SODIUM (BEAKER) (test 143 meq/L 136-145 akzu=043) POTASSIUM (BEAKER) (test 3.5 meq/L 3.5-5.1 bhim=761) CHLORIDE (BEAKER) (test 111 meq/L 98-107 ppnb=767) CO2 (BEAKER) (test 17 meq/L 22-29 wqag=498) BLOOD UREA NITROGEN 13 mg/dL 7-21 (BEAKER) (test omgd=885) CREATININE (BEAKER) (test 1.09 mg/dL 0.57-1.25 exvc=141) GLUCOSE RANDOM (BEAKER) 227 mg/dL 70-105 (test vton=425) CALCIUM (BEAKER) (test 8.5 mg/dL 8.4-10.2 evql=670) EGFR (BEAKER) (test 70 mL/min/1.73 sq m ESTIMATED GFR IS NOT pxkv=1526) ACCURATE CREATININE CLEARANCE IN PREDICTING GLOMERULAR FILTRATION RATE. ESTIMATED GFR IS NOT APPLICABLE FOR DIALYSIS PATIENTS. LACTIC ACID, ARTERIAL, WHOLE [id number] 05:19:00 Test Item Value Reference Range Comments LACTATE BLOOD ARTERIAL (2) 8.6 mmol/L 0.5-2.2 Specimen slightly hemolyzed (BEAKER) (test gqwb=0149) Effective 03/24/2016: Units/Reference Range ChangeNew: 0.5-2.2 mmol/L Previous: 5 -20 mg/dLBLOOD GAS, [id number] 02:21:00 Test Item Value Reference Range Comments PH ARTERIAL (BEAKER) (test fmso=880) 7.31 7.35-7.45 PCO2 ARTERIAL (BEAKER) (test anqx=893) 36 mmHg 35-45 PO2 ARTERIAL (BEAKER) (test tpyc=624) 123 mmHg 80-90 O2 SATURATION ARTERIAL (BEAKER) (test jsiv=674) 98.2 % 96.0-97.0 HCO3 ARTERIAL (BEAKER) (test lrvp=609) 18 mmol/L 21-29 BASE EXCESS ARTERIAL (BEAKER) (test erns=220) -7.7 mmol/L -2.0-3.0 PATIENT TEMPERATURE (BEAKER) (test yxur=0170) 36.8 C FIO2 (BEAKER) (test uqpo=7665) 40.0 % BLOOD GAS, [id number] 00:28:00 Test Item Value Reference Range Comments PH ARTERIAL (BEAKER) (test pvlg=871) 7.28 7.35-7.45 PCO2 ARTERIAL (BEAKER) (test olxa=912) 35 mmHg 35-45 PO2 ARTERIAL (BEAKER) (test lvfo=547) 114 mmHg 80-90 O2 SATURATION ARTERIAL (BEAKER) (test unxq=876) 97.8 % 96.0-97.0 HCO3 ARTERIAL (BEAKER) (test nuvb=417) 16 mmol/L 21-29 BASE EXCESS ARTERIAL (BEAKER) (test xcbi=713) -9.7 mmol/L -2.0-3.0 PATIENT TEMPERATURE (BEAKER) (test ahid=4435) 36.7 C FIO2 (BEAKER) (test zbvo=9349) 40.0 % POTASSIUM-STAT [id number] 00:28:00 Test Item Value Reference Range Comments POTASSIUM (BEAKER) (test wllg=772) 3.1 meq/L 3.6-5.5 GLUCOSE-STAT [id number] 00:28:00 Test Item Value Reference Range Comments GLUCOSE RANDOM (BEAKER) (test ojkj=984) 236 mg/dL 70-110 CALCIUM, [id number] 00:28:00 Test Item Value Reference Range Comments CALCIUM IONIZED (BEAKER) (test ctut=951) 1.10 mmol/L 1.12-1.27 PH, BLOOD (BEAKER) (test sraj=8351) 7.28 SODIUM NA-STAT [id number] 00:27:00 Test Item Value Reference Range Comments SODIUM (BEAKER) (test efrf=153) 142 meq/L 135-148 HEMOGLOBIN-STAT [id number] 00:27:00 Test Item Value Reference Range Comments HEMOGLOBIN (BEAKER) (test zzyk=205) 15.1 g/dL 13.0-16.8 HGB/HCT (H&H) - STAT [id number] 00:27:00 Test Item Value Reference Range Comments HEMOGLOBIN (BEAKER) (test weox=952) 15.1 GM/DL 13.0-16.8 HEMATOCRIT (BEAKER) (test kqrk=166) 44.0 % 40.0-50.0 [id number] 22:39:00 Test Item Value Reference Range Comments MAGNESIUM (BEAKER) (test 2.2 mg/dL 1.6-2.6 Specimen slightly hemolyzed jnmx=764) BASIC METABOLIC [id number] 22:39:00 Test Item Value Reference Range Comments SODIUM (BEAKER) (test 140 meq/L 136-145 vedx=910) POTASSIUM (BEAKER) (test 4.0 meq/L 3.5-5.1 Specimen slightly umrn=603) hemolyzed CHLORIDE (BEAKER) (test 110 meq/L 98-107 nlwp=479) CO2 (BEAKER) (test 17 meq/L 22-29 nnpx=332) BLOOD UREA NITROGEN 14 mg/dL 7-21 (BEAKER) (test anpz=659) CREATININE (BEAKER) (test 1.09 mg/dL 0.57-1.25 Specimen slightly ditf=559) hemolyzed GLUCOSE RANDOM (BEAKER) 202 mg/dL 70-105 (test hhjn=153) CALCIUM (BEAKER) (test 8.8 mg/dL 8.4-10.2 isbp=178) EGFR (BEAKER) (test 70 mL/min/1.73 sq m ESTIMATED GFR IS NOT lzpz=6307) ACCURATE CREATININE CLEARANCE IN PREDICTING GLOMERULAR FILTRATION RATE. ESTIMATED GFR IS NOT APPLICABLE FOR DIALYSIS PATIENTS. LACTIC ACID, ARTERIAL, WHOLE [id number] 22:36:00 Test Item Value Reference Range Comments LACTATE BLOOD ARTERIAL (2) 5.5 mmol/L 0.5-2.2 Specimen slightly hemolyzed (BEAKER) (test qndj=3055) Effective 03/24/2016: Units/Reference Range ChangeNew: 0.5-2.2 mmol/L Previous: 5 -20 mg/[id number] 22:32:00 Test Item Value Reference Range Comments FIBRINOGEN LEVEL (BEAKER) (test dvmr=160) 375 mg/dl 225-434 [id number] 22:32:00 Test Item Value Reference Range Comments PARTIAL THROMBOPLASTIN TIME (BEAKER) (test 29.6 seconds 22.5-36.0 cbew=769) CBC W/PLT COUNT & AUTO [id number] 22:31:00 Test Item Value Reference Range Comments WHITE BLOOD CELL COUNT (BEAKER) (test xiuf=955) 20.7 K/ L 3.5-10.5 RED BLOOD CELL COUNT (BEAKER) (test fkky=679) 4.73 M/ L 4.63-6.08 HEMOGLOBIN (BEAKER) (test dqce=205) 14.8 GM/DL 13.7-17.5 HEMATOCRIT (BEAKER) (test aiwh=381) 44.4 % 40.1-51.0 MEAN CORPUSCULAR VOLUME (BEAKER) (test ewrm=820) 93.9 fL 79.0-92.2 MEAN CORPUSCULAR HEMOGLOBIN (BEAKER) (test 31.3 pg 25.7-32.2 ymyb=914) MEAN CORPUSCULAR HEMOGLOBIN CONC (BEAKER) (test 33.3 GM/DL 32.3-36.5 bzpc=417) RED CELL DISTRIBUTION WIDTH (BEAKER) (test 13.2 % 11.6-14.4 tfwk=499) PLATELET COUNT (BEAKER) (test skty=567) 147 K/CU MM 150-450 MEAN PLATELET VOLUME (BEAKER) (test tjcj=420) 9.9 fL 9.4-12.4 NUCLEATED RED BLOOD CELLS (BEAKER) (test 0 /100 WBC 0-0 nnrm=221) NEUTROPHILS RELATIVE PERCENT (BEAKER) (test 82 % zhqt=570) LYMPHOCYTES RELATIVE PERCENT (BEAKER) (test 7 % peyp=153) MONOCYTES RELATIVE PERCENT (BEAKER) (test 9 % cbwk=934) EOSINOPHILS RELATIVE PERCENT (BEAKER) (test 0 % xusl=361) BASOPHILS RELATIVE PERCENT (BEAKER) (test 0 % kfps=200) NEUTROPHILS ABSOLUTE COUNT (BEAKER) (test 17.02 K/ L 1.78-5.38 ytdl=751) LYMPHOCYTES ABSOLUTE COUNT (BEAKER) (test 1.53 K/ L 1.32-3.57 fmtz=732) MONOCYTES ABSOLUTE COUNT (BEAKER) (test 1.85 K/ L 0.30-0.82 nyzq=754) EOSINOPHILS ABSOLUTE COUNT (BEAKER) (test 0.03 K/ L 0.04-0.54 pfpx=420) BASOPHILS ABSOLUTE COUNT (BEAKER) (test 0.06 K/ L 0.01-0.08 immx=885) IMMATURE GRANULOCYTES-RELATIVE PERCENT (BEAKER) 1 % 0-1 (test szjk=5913) PROTHROMBIN [id number] 22:31:00 Test Item Value Reference Range Comments PROTIME (BEAKER) (test usry=456) 17.4 seconds 11.7-14.7 INR (BEAKER) (test uskn=061) 1.4 <=5.9 RECOMMENDED COUMADIN/WARFARIN INR THERAPY RANGESSTANDARD DOSE: 2.0 - 3.0 Includes: PROPHYLAXIS forvenous thrombosis, systemic embolization; TREATMENT for venous thrombosis and/or pulmonary embolus.HIGH RISK: Target INR is 2.5-3.5 for patients with mechanical heart valves.OXYGEN SATURATION, [id number] 22:26:00 Test Item Value Reference Range Comments O2 SATURATION (MEASURED) (BEAKER) (test grpe=7580) 78.3 % CALCIUM, [id number] 22:23:00 Test Item Value Reference Range Comments CALCIUM IONIZED (BEAKER) (test tnjj=799) 1.19 mmol/L 1.12-1.27 PH, BLOOD (BEAKER) (test owpg=0072) 7.26 SODIUM NA-STAT [id number] 22:22:00 Test Item Value Reference Range Comments SODIUM (BEAKER) (test layz=839) 139 meq/L 135-148 POTASSIUM-STAT [id number] 22:22:00 Test Item Value Reference Range Comments POTASSIUM (BEAKER) (test bknb=566) 3.7 meq/L 3.6-5.5 HGB/HCT (H&H) - STAT [id number] 22:22:00 Test Item Value Reference Range Comments HEMOGLOBIN (BEAKER) (test qxpw=844) 15.7 g/dL 13.0-16.8 HEMATOCRIT (BEAKER) (test uubl=155) 46.0 % 40.0-50.0 BLOOD GAS, [id number] 22:22:00 Test Item Value Reference Range Comments PH ARTERIAL (BEAKER) (test seop=383) 7.26 7.35-7.45 PCO2 ARTERIAL (BEAKER) (test hxmg=932) 44 mmHg 35-45 PO2 ARTERIAL (BEAKER) (test gkuu=961) 102 mmHg 80-90 O2 SATURATION ARTERIAL (BEAKER) (test kbhx=230) 96.8 % 96.0-97.0 HCO3 ARTERIAL (BEAKER) (test uefn=253) 19 mmol/L 21-29 BASE EXCESS ARTERIAL (BEAKER) (test bolr=102) -7.6 mmol/L -2.0-3.0 PATIENT TEMPERATURE (BEAKER) (test kist=4181) 36.9 C FIO2 (BEAKER) (test lzjh=0121) 60.0 % GLUCOSE-STAT [id number] 22:22:00 Test Item Value Reference Range Comments GLUCOSE RANDOM (BEAKER) (test rptv=068) 197 mg/dL 70-110 RAD, CHEST, 1 VIEW, NON [id number] 21:48:00Reason for exam:->s/p atrial myexoma dissectionFINAL REPORT RAD, CHEST, 1 VIEW, NON DEPT INDICATION: s/p atrial myexoma dissection COMPARISON: March 23, 2020 FINDINGS : Portable frontal view of the chest. IMPRESSION: Support Lines: Right IJ Florence-Daniella catheter terminates over the proximal right main [...] MDReport Verified Date/Time: 03/24/2018 21:48:52 Reading Location: [facility] C013Y CT Body Reading Room [id number] 21:05:00 Test Item Value Reference Range Comments ACTIVATED CLOTTING TIME (BEAKER) 98 sec TESTED AT [facility] [facility] (test knwk=012) [facility] [address] [id number] 21:05:00 Test Item Value Reference Range Comments ACTIVATED CLOTTING TIME 494 sec TESTED AT [place] [address] [facility] (BEAKER) (test uysv=923) [place] [address] [id number] 21:05:00 Test Item Value Reference Range Comments ACTIVATED CLOTTING TIME 510 sec TESTED AT [place] [address] [facility] (BEAKER) (test pyle=153) [place] [address] [id number] 21:05:00 Test Item Value Reference Range Comments ACTIVATED CLOTTING TIME 527 sec TESTED AT [place] [address] [facility] (BEAKER) (test mfbo=470) [place] [address] [id number] 21:05:00 Test Item Value Reference Range Comments ACTIVATED CLOTTING TIME 527 sec TESTED AT [address] (BEAKER) (test hczi=663) [place] [address] [id number] 21:05:00 Test Item Value Reference Range Comments ACTIVATED CLOTTING TIME 417 sec TESTED AT [address] (BEAKER) (test fpen=341) [place] [address] [id number] 21:05:00 Test Item Value Reference Range Comments ACTIVATED CLOTTING TIME 428 sec TESTED AT [address] (BEAKER) (test nnbt=635) [place] [address] [id number] 21:05:00 Test Item Value Reference Range Comments ACTIVATED CLOTTING TIME 389 sec TESTED AT [address] (BEAKER) (test cqac=757) [place] [address] [id number] 21:05:00 Test Item Value Reference Range Comments ACTIVATED CLOTTING TIME 351 sec TESTED AT [place] [address] [facility] (BEAKER) (test ctqs=312) [place] [address] [id number] 21:05:00 Test Item Value Reference Range Comments ACTIVATED CLOTTING TIME 103 sec TESTED AT [address] (BEAKER) (test nxjz=400) [place] [id number] BLOOD GAS, [id number] 19:37:00 Test Item Value Reference Range Comments PH ARTERIAL (BEAKER) (test rmao=653) 7.36 7.35-7.45 PCO2 ARTERIAL (BEAKER) (test rcva=644) 43 mmHg 35-45 PO2 ARTERIAL (BEAKER) (test cpqk=264) 363 mmHg 80-90 O2 SATURATION ARTERIAL (BEAKER) (test bbxn=438) 99.8 % 96.0-97.0 HCO3 ARTERIAL (BEAKER) (test fpey=562) 24 mmol/L 21-29 BASE EXCESS ARTERIAL (BEAKER) (test uypa=895) -1.9 mmol/L -2.0-3.0 PATIENT TEMPERATURE (BEAKER) (test tnyn=4420) 36.6 C FIO2 (BEAKER) (test zanj=3609) 85.0 % GLUCOSE-STAT [id number] 19:37:00 Test Item Value Reference Range Comments GLUCOSE RANDOM (BEAKER) (test ulzz=558) 177 mg/dL 70-110 SODIUM NA-STAT [id number] 19:37:00 Test Item Value Reference Range Comments SODIUM (BEAKER) (test fkom=685) 133 meq/L 135-148 POTASSIUM-STAT [id number] 19:36:00 Test Item Value Reference Range Comments POTASSIUM (BEAKER) (test cdho=446) 5.3 meq/L 3.6-5.5 HGB/HCT (H&H) - STAT [id number] 19:36:00 Test Item Value Reference Range Comments HEMOGLOBIN (BEAKER) (test ynye=065) 13.9 g/dL 13.0-16.8 HEMATOCRIT (BEAKER) (test xtbf=448) 41.0 % 40.0-50.0 POTASSIUM-STAT [id number] 19:09:00 Test Item Value Reference Range Comments POTASSIUM (BEAKER) (test cbxz=927) 4.9 meq/L 3.6-5.5 BLOOD GAS, [id number] 19:09:00 Test Item Value Reference Range Comments PH ARTERIAL (BEAKER) (test lkxd=651) 7.41 7.35-7.45 PCO2 ARTERIAL (BEAKER) (test vrnl=242) 37 mmHg 35-45 PO2 ARTERIAL (BEAKER) (test nbob=067) 353 mmHg 80-90 O2 SATURATION ARTERIAL (BEAKER) (test owey=823) 99.8 % 96.0-97.0 HCO3 ARTERIAL (BEAKER) (test isng=525) 23 mmol/L 21-29 BASE EXCESS ARTERIAL (BEAKER) (test lhwr=937) -1.5 mmol/L -2.0-3.0 PATIENT TEMPERATURE (BEAKER) (test ambz=8412) 36.6 C FIO2 (BEAKER) (test eazg=3295) 85.0 % GLUCOSE-STAT [id number] 19:09:00 Test Item Value Reference Range Comments GLUCOSE RANDOM (BEAKER) (test ddeh=040) 141 mg/dL 70-110 SODIUM NA-STAT [id number] 19:09:00 Test Item Value Reference Range Comments SODIUM (BEAKER) (test tsrb=824) 132 meq/L 135-148 HGB/HCT (H&H) - STAT [id number] 19:09:00 Test Item Value Reference Range Comments HEMOGLOBIN (BEAKER) (test syxw=807) 13.3 g/dL 13.0-16.8 HEMATOCRIT (BEAKER) (test xwfz=922) 39.0 % 40.0-50.0 POTASSIUM-STAT [id number] 18:39:00 Test Item Value Reference Range Comments POTASSIUM (BEAKER) (test ybpk=802) 4.1 meq/L 3.6-5.5 BLOOD GAS, [id number] 18:39:00 Test Item Value Reference Range Comments PH ARTERIAL (BEAKER) (test mfsw=535) 7.41 7.35-7.45 PCO2 ARTERIAL (BEAKER) (test qkgi=432) 37 mmHg 35-45 PO2 ARTERIAL (BEAKER) (test vnce=764) 248 mmHg 80-90 O2 SATURATION ARTERIAL (BEAKER) (test ysrs=356) 99.6 % 96.0-97.0 HCO3 ARTERIAL (BEAKER) (test lsrq=713) 23 mmol/L 21-29 BASE EXCESS ARTERIAL (BEAKER) (test byhl=470) -1.6 mmol/L -2.0-3.0 PATIENT TEMPERATURE (BEAKER) (test wtxg=4592) 35.2 C FIO2 (BEAKER) (test dksj=5648) 80.0 % GLUCOSE-STAT [id number] 18:39:00 Test Item Value Reference Range Comments GLUCOSE RANDOM (BEAKER) (test awxd=690) 120 mg/dL 70-110 SODIUM NA-STAT [id number] 18:39:00 Test Item Value Reference Range Comments SODIUM (BEAKER) (test wdbt=846) 132 meq/L 135-148 HGB/HCT (H&H) - STAT [id number] 18:39:00 Test Item Value Reference Range Comments HEMOGLOBIN (BEAKER) (test njyt=384) 12.5 g/dL 13.0-16.8 HEMATOCRIT (BEAKER) (test ubcr=890) 37.0 % 40.0-50.0 CALCIUM, [id number] 17:24:00 Test Item Value Reference Range Comments CALCIUM IONIZED (BEAKER) (test lkpm=760) 1.15 mmol/L 1.12-1.27 PH, BLOOD (BEAKER) (test bcyd=6289) 7.38 BLOOD GAS, [id number] 17:24:00 Test Item Value Reference Range Comments PH ARTERIAL (BEAKER) (test sxir=159) 7.39 7.35-7.45 PCO2 ARTERIAL (BEAKER) (test zlsp=242) 41 mmHg 35-45 PO2 ARTERIAL (BEAKER) (test afpb=054) 447 mmHg 80-90 O2 SATURATION ARTERIAL (BEAKER) (test ahqy=855) 99.8 % 96.0-97.0 HCO3 ARTERIAL (BEAKER) (test lvcy=438) 25 mmol/L 21-29 BASE EXCESS ARTERIAL (BEAKER) (test ehyv=555) -0.5 mmol/L -2.0-3.0 PATIENT TEMPERATURE (BEAKER) (test hxab=8485) 36.0 C FIO2 (BEAKER) (test dnqr=9766) 100.0 % GLUCOSE-STAT [id number] 17:23:00 Test Item Value Reference Range Comments GLUCOSE RANDOM (BEAKER) (test bxxl=551) 95 mg/dL 70-110 SODIUM NA-STAT [id number] 17:23:00 Test Item Value Reference Range Comments SODIUM (BEAKER) (test szck=565) 136 meq/L 135-148 POTASSIUM-STAT [id number] 17:23:00 Test Item Value Reference Range Comments POTASSIUM (BEAKER) (test ohld=350) 3.7 meq/L 3.6-5.5 HGB/HCT (H&H) - STAT [id number] 17:23:00 Test Item Value Reference Range Comments HEMOGLOBIN (BEAKER) (test nmav=416) 15.6 g/dL 13.0-16.8 HEMATOCRIT (BEAKER) (test once=914) 46.0 % 40.0-50.0 [id number] 11:57:00 Test Item Value Reference Range Comments PARTIAL THROMBOPLASTIN TIME (BEAKER) (test 44.2 seconds 22.5-36.0 wsav=505) BASIC METABOLIC [id number] 06:20:00 Test Item Value Reference Range Comments SODIUM (BEAKER) (test 139 meq/L 136-145 mzkh=417) POTASSIUM (BEAKER) (test 4.2 meq/L 3.5-5.1 ykba=674) CHLORIDE (BEAKER) (test 108 meq/L 98-107 cuzg=376) CO2 (BEAKER) (test 23 meq/L 22-29 lzzd=721) BLOOD UREA NITROGEN 13 mg/dL 7-21 (BEAKER) (test eqiv=024) CREATININE (BEAKER) (test 0.84 mg/dL 0.57-1.25 rdjy=540) GLUCOSE RANDOM (BEAKER) 97 mg/dL 70-105 (test qmic=204) CALCIUM (BEAKER) (test 9.5 mg/dL 8.4-10.2 attw=586) EGFR (BEAKER) (test 94 mL/min/1.73 sq m ESTIMATED GFR IS NOT bnaq=0998) ACCURATE CREATININE CLEARANCE IN PREDICTING GLOMERULAR FILTRATION RATE. ESTIMATED GFR IS NOT APPLICABLE FOR DIALYSIS PATIENTS. [id number] 05:44:00 Test Item Value Reference Range Comments PARTIAL THROMBOPLASTIN TIME (BEAKER) (test 34.0 seconds 22.5-36.0 qlsj=734) CBC W/PLT COUNT & AUTO [id number] 05:33:00 Test Item Value Reference Range Comments WHITE BLOOD CELL COUNT (BEAKER) (test wvpj=850) 5.7 K/ L 3.5-10.5 RED BLOOD CELL COUNT (BEAKER) (test yxwk=445) 5.07 M/ L 4.63-6.08 HEMOGLOBIN (BEAKER) (test zkti=130) 15.7 GM/DL 13.7-17.5 HEMATOCRIT (BEAKER) (test dqhj=390) 47.2 % 40.1-51.0 MEAN CORPUSCULAR VOLUME (BEAKER) (test tiwn=252) 93.1 fL 79.0-92.2 MEAN CORPUSCULAR HEMOGLOBIN (BEAKER) (test 31.0 pg 25.7-32.2 hayp=980) MEAN CORPUSCULAR HEMOGLOBIN CONC (BEAKER) (test 33.3 GM/DL 32.3-36.5 tqld=829) RED CELL DISTRIBUTION WIDTH (BEAKER) (test 13.3 % 11.6-14.4 xnhx=758) PLATELET COUNT (BEAKER) (test cazk=432) 196 K/CU MM 150-450 MEAN PLATELET VOLUME (BEAKER) (test jxgz=628) 10.0 fL 9.4-12.4 NUCLEATED RED BLOOD CELLS (BEAKER) (test 0 /100 WBC 0-0 ohtk=791) NEUTROPHILS RELATIVE PERCENT (BEAKER) (test 60 % znnu=916) LYMPHOCYTES RELATIVE PERCENT (BEAKER) (test 26 % cwji=240) MONOCYTES RELATIVE PERCENT (BEAKER) (test 11 % yplb=012) EOSINOPHILS RELATIVE PERCENT (BEAKER) (test 2 % daly=661) BASOPHILS RELATIVE PERCENT (BEAKER) (test 1 % gztx=330) NEUTROPHILS ABSOLUTE COUNT (BEAKER) (test 3.41 K/ L 1.78-5.38 dupj=293) LYMPHOCYTES ABSOLUTE COUNT (BEAKER) (test 1.51 K/ L 1.32-3.57 wjke=089) MONOCYTES ABSOLUTE COUNT (BEAKER) (test 0.63 K/ L 0.30-0.82 fqxc=836) EOSINOPHILS ABSOLUTE COUNT (BEAKER) (test 0.12 K/ L 0.04-0.54 fpcr=362) BASOPHILS ABSOLUTE COUNT (BEAKER) (test 0.04 K/ L 0.01-0.08 bsxn=401) IMMATURE GRANULOCYTES-RELATIVE PERCENT (BEAKER) 0 % 0-1 (test xkxj=1025) [id number] 22:16:00 Test Item Value Reference Range Comments PARTIAL THROMBOPLASTIN TIME (BEAKER) (test 32.2 seconds 22.5-36.0 ciqd=886) [id number] 15:17:00 Test Item Value Reference Range Comments PARTIAL THROMBOPLASTIN TIME (BEAKER) (test 26.8 seconds 22.5-36.0 agie=964) Prior to initiating heparinRAD, CHEST, 2 [id number] 14:45:00Reason for exam :->cough for 3 weeksFINAL REPORT Two lateral and one frontal chest images Discussion: Lungs clear. Heart size normal. No effusion or pneumothorax. Bones and soft tissues unremarkable. Signed: Jeanmarie Farmer Verified Date/Time: 03/23/2018 14:45:35 Reading Location: [address] Consult Reading [facility] METABOLIC [id number] 06:41:00 Test Item Value Reference Range Comments SODIUM (BEAKER) (test 138 meq/L 136-145 lxhg=001) POTASSIUM (BEAKER) (test 4.4 meq/L 3.5-5.1 fykc=756) CHLORIDE (BEAKER) (test 108 meq/L 98-107 iftr=802) CO2 (BEAKER) (test 23 meq/L 22-29 chtu=320) BLOOD UREA NITROGEN 16 mg/dL 7-21 (BEAKER) (test svuy=783) CREATININE (BEAKER) (test 0.88 mg/dL 0.57-1.25 rali=518) GLUCOSE RANDOM (BEAKER) 87 mg/dL 70-105 (test ehep=308) CALCIUM (BEAKER) (test 9.5 mg/dL 8.4-10.2 almi=946) EGFR (BEAKER) (test 89 mL/min/1.73 sq m ESTIMATED GFR IS NOT khxr=1128) ACCURATE CREATININE CLEARANCE IN PREDICTING GLOMERULAR FILTRATION RATE. ESTIMATED GFR IS NOT APPLICABLE FOR DIALYSIS PATIENTS. CBC W/PLT COUNT & AUTO [id number] 04:56:00 Test Item Value Reference Range Comments WHITE BLOOD CELL COUNT (BEAKER) (test tpbb=397) 7.0 K/ L 3.5-10.5 RED BLOOD CELL COUNT (BEAKER) (test utdp=744) 5.13 M/ L 4.63-6.08 HEMOGLOBIN (BEAKER) (test ebav=145) 16.1 GM/DL 13.7-17.5 HEMATOCRIT (BEAKER) (test jpym=624) 47.8 % 40.1-51.0 MEAN CORPUSCULAR VOLUME (BEAKER) (test bkii=837) 93.2 fL 79.0-92.2 MEAN CORPUSCULAR HEMOGLOBIN (BEAKER) (test 31.4 pg 25.7-32.2 ufiv=303) MEAN CORPUSCULAR HEMOGLOBIN CONC (BEAKER) (test 33.7 GM/DL 32.3-36.5 wdzs=925) RED CELL DISTRIBUTION WIDTH (BEAKER) (test 13.2 % 11.6-14.4 vhii=974) PLATELET COUNT (BEAKER) (test zgzi=068) 237 K/CU MM 150-450 MEAN PLATELET VOLUME (BEAKER) (test kqqb=980) 11.0 fL 9.4-12.4 NUCLEATED RED BLOOD CELLS (BEAKER) (test 0 /100 WBC 0-0 wrwa=691) NEUTROPHILS RELATIVE PERCENT (BEAKER) (test 68 % syog=034) LYMPHOCYTES RELATIVE PERCENT (BEAKER) (test 19 % jfsp=956) MONOCYTES RELATIVE PERCENT (BEAKER) (test 10 % chhg=833) EOSINOPHILS RELATIVE PERCENT (BEAKER) (test 2 % erwt=781) BASOPHILS RELATIVE PERCENT (BEAKER) (test 1 % sotc=483) NEUTROPHILS ABSOLUTE COUNT (BEAKER) (test 4.72 K/ L 1.78-5.38 humv=679) LYMPHOCYTES ABSOLUTE COUNT (BEAKER) (test 1.35 K/ L 1.32-3.57 fofv=391) MONOCYTES ABSOLUTE COUNT (BEAKER) (test 0.73 K/ L 0.30-0.82 varb=852) EOSINOPHILS ABSOLUTE COUNT (BEAKER) (test 0.12 K/ L 0.04-0.54 jvxh=708) BASOPHILS ABSOLUTE COUNT (BEAKER) (test 0.04 K/ L 0.01-0.08 woyx=593) IMMATURE GRANULOCYTES-RELATIVE PERCENT (BEAKER) 0 % 0-1 (test wnye=4253) [id number] 06:11:00 Test Item Value Reference Range Comments MAGNESIUM (BEAKER) (test xnck=320) 1.9 mg/dL 1.6-2.6 BASIC METABOLIC [id number] 06:11:00 Test Item Value Reference Range Comments SODIUM (BEAKER) (test 138 meq/L 136-145 pbos=505) POTASSIUM (BEAKER) (test 4.1 meq/L 3.5-5.1 nqft=389) CHLORIDE (BEAKER) (test 106 meq/L 98-107 fwnl=804) CO2 (BEAKER) (test 22 meq/L 22-29 kxsj=655) BLOOD UREA NITROGEN 13 mg/dL 7-21 (BEAKER) (test ffgy=646) CREATININE (BEAKER) (test 0.80 mg/dL 0.57-1.25 wusq=058) GLUCOSE RANDOM (BEAKER) 91 mg/dL 70-105 (test depb=372) CALCIUM (BEAKER) (test 9.6 mg/dL 8.4-10.2 wwae=774) EGFR (BEAKER) (test 100 mL/min/1.73 sq m ESTIMATED GFR IS NOT iuhb=1944) ACCURATE CREATININE CLEARANCE IN PREDICTING GLOMERULAR FILTRATION RATE. ESTIMATED GFR IS NOT APPLICABLE FOR DIALYSIS PATIENTS. CBC W/PLT COUNT & AUTO [id number] 05:49:00 Test Item Value Reference Range Comments WHITE BLOOD CELL COUNT (BEAKER) (test ogof=343) 5.7 K/ L 3.5-10.5 RED BLOOD CELL COUNT (BEAKER) (test phpw=645) 5.31 M/ L 4.63-6.08 HEMOGLOBIN (BEAKER) (test icpm=089) 16.3 GM/DL 13.7-17.5 HEMATOCRIT (BEAKER) (test obti=117) 48.0 % 40.1-51.0 MEAN CORPUSCULAR VOLUME (BEAKER) (test uife=519) 90.4 fL 79.0-92.2 MEAN CORPUSCULAR HEMOGLOBIN (BEAKER) (test 30.7 pg 25.7-32.2 mzdb=842) MEAN CORPUSCULAR HEMOGLOBIN CONC (BEAKER) (test 34.0 GM/DL 32.3-36.5 usym=225) RED CELL DISTRIBUTION WIDTH (BEAKER) (test 13.2 % 11.6-14.4 pctd=632) PLATELET COUNT (BEAKER) (test dyse=437) 198 K/CU MM 150-450 MEAN PLATELET VOLUME (BEAKER) (test vdag=856) 9.7 fL 9.4-12.4 NUCLEATED RED BLOOD CELLS (BEAKER) (test 0 /100 WBC 0-0 ncvc=398) NEUTROPHILS RELATIVE PERCENT (BEAKER) (test 60 % upsf=345) LYMPHOCYTES RELATIVE PERCENT (BEAKER) (test 25 % wbjr=880) MONOCYTES RELATIVE PERCENT (BEAKER) (test 11 % bfur=767) EOSINOPHILS RELATIVE PERCENT (BEAKER) (test 4 % rgfi=315) BASOPHILS RELATIVE PERCENT (BEAKER) (test 1 % zwvx=577) NEUTROPHILS ABSOLUTE COUNT (BEAKER) (test 3.42 K/ L 1.78-5.38 liqs=251) LYMPHOCYTES ABSOLUTE COUNT (BEAKER) (test 1.40 K/ L 1.32-3.57 wwyp=699) MONOCYTES ABSOLUTE COUNT (BEAKER) (test 0.60 K/ L 0.30-0.82 votp=900) EOSINOPHILS ABSOLUTE COUNT (BEAKER) (test 0.21 K/ L 0.04-0.54 nwdo=516) BASOPHILS ABSOLUTE COUNT (BEAKER) (test 0.06 K/ L 0.01-0.08 nyza=212) IMMATURE GRANULOCYTES-RELATIVE PERCENT (BEAKER) 0 % 0-1 (test lkad=1304) BASIC METABOLIC [id number] 04:57:00 Test Item Value Reference Range Comments SODIUM (BEAKER) (test 140 meq/L 136-145 dlmq=493) POTASSIUM (BEAKER) (test 4.1 meq/L 3.5-5.1 spvm=825) CHLORIDE (BEAKER) (test 109 meq/L 98-107 aexi=966) CO2 (BEAKER) (test 24 meq/L 22-29 fwfv=621) BLOOD UREA NITROGEN 14 mg/dL 7-21 (BEAKER) (test xtvn=224) CREATININE (BEAKER) (test 0.81 mg/dL 0.57-1.25 zira=031) GLUCOSE RANDOM (BEAKER) 100 mg/dL 70-105 (test oeig=821) CALCIUM (BEAKER) (test 9.4 mg/dL 8.4-10.2 dxtt=356) EGFR (BEAKER) (test 98 mL/min/1.73 sq m ESTIMATED GFR IS NOT hrwx=0480) ACCURATE CREATININE CLEARANCE IN PREDICTING GLOMERULAR FILTRATION RATE. ESTIMATED GFR IS NOT APPLICABLE FOR DIALYSIS PATIENTS. CBC W/PLT COUNT & AUTO [id number] 04:42:00 Test Item Value Reference Range Comments WHITE BLOOD CELL COUNT (BEAKER) (test buxn=255) 5.9 K/ L 3.5-10.5 RED BLOOD CELL COUNT (BEAKER) (test pwba=019) 5.02 M/ L 4.63-6.08 HEMOGLOBIN (BEAKER) (test fbkm=047) 15.6 GM/DL 13.7-17.5 HEMATOCRIT (BEAKER) (test kxos=996) 45.3 % 40.1-51.0 MEAN CORPUSCULAR VOLUME (BEAKER) (test biec=158) 90.2 fL 79.0-92.2 MEAN CORPUSCULAR HEMOGLOBIN (BEAKER) (test 31.1 pg 25.7-32.2 iszi=395) MEAN CORPUSCULAR HEMOGLOBIN CONC (BEAKER) (test 34.4 GM/DL 32.3-36.5 afay=317) RED CELL DISTRIBUTION WIDTH (BEAKER) (test 13.2 % 11.6-14.4 sghx=330) PLATELET COUNT (BEAKER) (test nopq=944) 202 K/CU MM 150-450 MEAN PLATELET VOLUME (BEAKER) (test gghy=905) 9.6 fL 9.4-12.4 NUCLEATED RED BLOOD CELLS (BEAKER) (test 0 /100 WBC 0-0 ecrl=963) NEUTROPHILS RELATIVE PERCENT (BEAKER) (test 62 % ciqo=884) LYMPHOCYTES RELATIVE PERCENT (BEAKER) (test 25 % elyb=142) MONOCYTES RELATIVE PERCENT (BEAKER) (test 10 % pfmu=925) EOSINOPHILS RELATIVE PERCENT (BEAKER) (test 2 % iwyn=067) BASOPHILS RELATIVE PERCENT (BEAKER) (test 1 % hqbq=266) NEUTROPHILS ABSOLUTE COUNT (BEAKER) (test 3.65 K/ L 1.78-5.38 lyco=944) LYMPHOCYTES ABSOLUTE COUNT (BEAKER) (test 1.49 K/ L 1.32-3.57 ddhr=151) MONOCYTES ABSOLUTE COUNT (BEAKER) (test 0.56 K/ L 0.30-0.82 zasq=873) EOSINOPHILS ABSOLUTE COUNT (BEAKER) (test 0.14 K/ L 0.04-0.54 cwiz=695) BASOPHILS ABSOLUTE COUNT (BEAKER) (test 0.05 K/ L 0.01-0.08 wzks=002) IMMATURE GRANULOCYTES-RELATIVE PERCENT (BEAKER) 0 % 0-1 (test prdw=0705) BASIC METABOLIC [id number] 06:01:00 Test Item Value Reference Range Comments SODIUM (BEAKER) (test 140 meq/L 136-145 yrcx=501) POTASSIUM (BEAKER) (test 3.8 meq/L 3.5-5.1 Specimen slightly ugiv=851) hemolyzed CHLORIDE (BEAKER) (test 108 meq/L 98-107 osmk=889) CO2 (BEAKER) (test 23 meq/L 22-29 tkzd=784) BLOOD UREA NITROGEN 14 mg/dL 7-21 (BEAKER) (test cjtt=655) CREATININE (BEAKER) (test 0.87 mg/dL 0.57-1.25 Specimen slightly pgxy=428) hemolyzed GLUCOSE RANDOM (BEAKER) 91 mg/dL 70-105 (test weon=129) CALCIUM (BEAKER) (test 9.2 mg/dL 8.4-10.2 wvpy=791) EGFR (BEAKER) (test 90 mL/min/1.73 sq m ESTIMATED GFR IS NOT rthu=8298) ACCURATE CREATININE CLEARANCE IN PREDICTING GLOMERULAR FILTRATION RATE. ESTIMATED GFR IS NOT APPLICABLE FOR DIALYSIS PATIENTS. HEMOGLOBIN [id number] 08:04:00 Test Item Value Reference Range Comments HEMOGLOBIN A1C (BEAKER) (test peuz=280) 5.1 % 4.3-6.1 [id number] 07:27:00 Test Item Value Reference Range Comments MAGNESIUM (BEAKER) (test hbob=409) 1.9 mg/dL 1.6-2.6 BASIC METABOLIC [id number] 07:27:00 Test Item Value Reference Range Comments SODIUM (BEAKER) (test 139 meq/L 136-145 zdpa=292) POTASSIUM (BEAKER) (test 4.1 meq/L 3.5-5.1 fzkq=105) CHLORIDE (BEAKER) (test 108 meq/L 98-107 gajw=544) CO2 (BEAKER) (test 22 meq/L 22-29 qaex=290) BLOOD UREA NITROGEN 12 mg/dL 7-21 (BEAKER) (test feja=488) CREATININE (BEAKER) (test 0.88 mg/dL 0.57-1.25 yvhv=215) GLUCOSE RANDOM (BEAKER) 94 mg/dL 70-105 (test rtuf=726) CALCIUM (BEAKER) (test 9.4 mg/dL 8.4-10.2 twny=978) EGFR (BEAKER) (test 89 mL/min/1.73 sq m ESTIMATED GFR IS NOT rtmq=9481) ACCURATE CREATININE CLEARANCE IN PREDICTING GLOMERULAR FILTRATION RATE. ESTIMATED GFR IS NOT APPLICABLE FOR DIALYSIS PATIENTS. Specimen slightly ictericLIPID [id number] 07:27:00 Test Item Value Reference Range Comments TRIGLYCERIDES (BEAKER) (test sjuc=250) 106 mg/dL CHOLESTEROL (BEAKER) (test uqhx=857) 220 mg/dL HDL CHOLESTEROL (BEAKER) (test oczp=807) 37 mg/dL LDL CHOLESTEROL CALCULATED (BEAKER) (test 162 mg/dL oqrq=728) Triglyceride Reference Range: Low Risk <150 Borderline 150- 199 High Risk 200-499 Very High Risk >=500Cholesterol Reference Range: Low Risk <200 Borderline 200-239 High Risk > 240HDL Cholesterol Reference Range: Low Risk >=60 High Risk <40LDL Cholesterol Reference Range: Optimal <100 Near Optimal 100-129 Borderline 130-159 High 160-189 Very High >=190 Specimen slightly ictericTSH/FREE T4 IF [id number] 07:07 :00 Test Item Value Reference Range Comments THYROID STIMULATING HORMONE (BEAKER) (test 1.46 uIU/mL 0.35-4.94 unyo=681) TROPONIN [id number] 07:05:00 Test Item Value Reference Range Comments TROPONIN I (BEAKER) (test bpfc=333) 0.01 ng/mL 0.00-0.03 Troponin I (TnI) levels [...] acidosis, acute neurological disease, and persistent tachyarrhythmia.PROTHROMBIN [id number] 06:28:00 Test Item Value Reference Range Comments PROTIME (BEAKER) (test wntw=888) 16.7 seconds 11.7-14.7 INR (BEAKER) (test bjje=308) 1.4 <=5.9 RECOMMENDED COUMADIN/WARFARIN INR THERAPY RANGESSTANDARD DOSE: 2.0 - 3.0 Includes: PROPHYLAXIS forvenous thrombosis, systemic embolization; TREATMENT for venous thrombosis and/or pulmonary embolus.HIGH RISK: Target INR is 2.5-3.5 for patients with mechanical heart valves.PT/[id number] 06:28:00 Test Item Value Reference Range Comments PROTIME (BEAKER) (test mkat=446) 16.7 seconds 11.7-14.7 INR (BEAKER) (test youg=246) 1.4 <=5.9 PARTIAL THROMBOPLASTIN TIME (BEAKER) (test 31.7 seconds 22.5-36.0 drvw=119) RECOMMENDED COUMADIN/WARFARIN INR THERAPY RANGESSTANDARD DOSE: 2.0 - 3.0 Includes: PROPHYLAXIS forvenous thrombosis, systemic embolization; TREATMENT for venous thrombosis and/or pulmonary embolus.HIGH RISK: Target INR is 2.5-3.5 for patients with mechanical heart valves.CBC W/PLT COUNT & AUTO [id number] 06:18:00 Test Item Value Reference Range Comments WHITE BLOOD CELL COUNT (BEAKER) (test wofw=699) 6.7 K/ L 3.5-10.5 RED BLOOD CELL COUNT (BEAKER) (test gkbk=629) 4.86 M/ L 4.63-6.08 HEMOGLOBIN (BEAKER) (test uqan=680) 15.4 GM/DL 13.7-17.5 HEMATOCRIT (BEAKER) (test rrcq=385) 44.9 % 40.1-51.0 MEAN CORPUSCULAR VOLUME (BEAKER) (test stxv=858) 92.4 fL 79.0-92.2 MEAN CORPUSCULAR HEMOGLOBIN (BEAKER) (test 31.7 pg 25.7-32.2 oyaq=895) MEAN CORPUSCULAR HEMOGLOBIN CONC (BEAKER) (test 34.3 GM/DL 32.3-36.5 anet=698) RED CELL DISTRIBUTION WIDTH (BEAKER) (test 13.2 % 11.6-14.4 nzly=144) PLATELET COUNT (BEAKER) (test fqjq=239) 192 K/CU MM 150-450 MEAN PLATELET VOLUME (BEAKER) (test vdrs=990) 10.0 fL 9.4-12.4 NUCLEATED RED BLOOD CELLS (BEAKER) (test 0 /100 WBC 0-0 tfxl=028) NEUTROPHILS RELATIVE PERCENT (BEAKER) (test 67 % uvyz=512) LYMPHOCYTES RELATIVE PERCENT (BEAKER) (test 21 % afyn=895) MONOCYTES RELATIVE PERCENT (BEAKER) (test 9 % amzn=649) EOSINOPHILS RELATIVE PERCENT (BEAKER) (test 3 % ttav=679) BASOPHILS RELATIVE PERCENT (BEAKER) (test 0 % apso=311) NEUTROPHILS ABSOLUTE COUNT (BEAKER) (test 4.49 K/ L 1.78-5.38 mefk=375) LYMPHOCYTES ABSOLUTE COUNT (BEAKER) (test 1.38 K/ L 1.32-3.57 nhej=930) MONOCYTES ABSOLUTE COUNT (BEAKER) (test 0.62 K/ L 0.30-0.82 cqii=850) EOSINOPHILS ABSOLUTE COUNT (BEAKER) (test 0.17 K/ L 0.04-0.54 pjog=348) BASOPHILS ABSOLUTE COUNT (BEAKER) (test 0.03 K/ L 0.01-0.08 ahmp=423) IMMATURE GRANULOCYTES-RELATIVE PERCENT (BEAKER) 0 % 0-1 (test yoaj=8091)
[2018-09-16] MEDS ORDERED: NA CHLORIDE 0.9% 1,000 ML ONE (23:04)
[2018-09-16 23:19] LABS: Absolute Lymphocytes (CBC) 1.8 K/uL (0.7-4.9); Absolute Monocytes 0.6 K/uL (0.1-1.3); Absolute Neutrophil 4.4 K/uL (1.8-8.0); Basophils % 0.7 % (0-1.3); Eosinophils % 2.7 % (0-4.4); Hematocrit 43.1 % (39.6-49.0); Lymphocytes % 25.3 % (15.3-44.8); MCH 33.3 pg (27.0-35.0); MCV 94.9 fL (80-100); MPV 8.2 fL (7.6-11.3); Monocytes % 8.9 % (3.3-12.3); RBC Red Blood Cell Count 4.54 M/uL (4.33-5.43)
[2018-09-16 23:22] LABS: Protime INR 0.95
[2018-09-16 23:37] LABS: ALT/SGPT 41 U/L (12-78); AST/SGOT 22 U/L (15-37); Albumin 3.7 g/dL (3.4-5.0); Alkaline Phosphatase 68 U/L (45-117); BUN Blood Urea Nitrogen 20 mg/dL (7-18); Bicarbonate 22 mmol/L (21-32); Bilirubin Direct 0.2 mg/dL (0-0.2); Bilirubin Total 0.9 mg/dL (0.2-1.0); CKMB Creatine Kinase MB 2.8 ng/mL (0.3-3.6); Creatine Phosphokinase 175 U/L (39-308); Glucose Level 86 mg/dL (74-106); Lipase 176 U/L (73-393); Magnesium 2.3 mg/dL (1.8-2.4); Potassium 3.6 mmol/L (3.5-5.1); Protein, Total 6.8 g/dL (6.4-8.2); Sodium Level 141 mmol/L (136-145); Troponin (Emerg Dept Use Only) < 0.02 ng/mL (0.0-0.045)
--- NOTE | 2018-09-17 01:42 | EDPHYS ---
Physician Documentation [facility] Name: Buzz Jurado Age: 58 yrs Sex: Male : 1960 Arrival Date: 09/16/2018 Time: 22:28 Bed 15 Private MD: ED Physician Tacho Estrella HPI: 09/17 02:55 This 58 yrs old Male presents to ER via Wheelchair with complaints of tw4 Fainting. 02:55 The patient has experienced syncope. The patient has experienced syncope, became tw4 unresponsive, collapsed, lost consciousness. Onset: The symptoms/episode began/occurred just prior to arrival, today. Duration: This was a single episode. Context: the episode(s) was witnessed. Associated injury: The patient did not suffer any apparent associated injury. Associated signs and symptoms: The patient has no apparent associated signs or symptoms. Current symptoms: Currently, the patient is not experiencing any symptoms. The patient has not experienced similar symptoms in the past. 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 - Social history:: Smoking status: Patient/guardian denies using tobacco, never smoked. - Ebola Screening: : No symptoms or risks identified at this time. ROS: 09/17 02:55 Constitutional: Negative for fever, chills, and weight loss, Eyes: Negative for injury, tw4 pain, redness, and discharge, Cardiovascular: Negative for chest pain, palpitations, and edema, Respiratory: Negative for shortness of breath, cough, wheezing, and pleuritic chest pain, Abdomen/GI: Negative for abdominal pain, nausea, vomiting, diarrhea, and constipation, Back: Negative for injury and pain, MS/Extremity: Negative for injury and deformity, Skin: Negative for injury, rash, and discoloration. Neuro: Positive for loss of consciousness, syncope, Negative for altered mental status, dizziness, gait disturbance, headache, hearing loss, numbness, seizure activity, speech changes. Exam: 02:55 Constitutional: This is a well developed, well nourished patient who is awake, alert, tw4 and in no acute distress. Head/Face: Normocephalic, atraumatic. Chest/axilla: Normal chest wall appearance and motion. Nontender with no deformity. No lesions are appreciated. Cardiovascular: Regular rate and rhythm with a normal S1 and S2. No gallops, murmurs, or rubs. Normal PMI, no JVD. No pulse deficits. Respiratory: Lungs have equal breath sounds bilaterally, clear to auscultation and percussion. No rales, rhonchi or wheezes noted. No increased work of breathing, no retractions or nasal flaring. Abdomen/GI: Soft, non-tender, with normal bowel sounds. No distension or tympany. No guarding or rebound. No evidence of tenderness throughout. Back: No spinal tenderness. No costovertebral tenderness. Full range of motion. MS/ Extremity: Pulses equal, no cyanosis. Neurovascular intact. Full, normal range of motion. 02:55 Neuro: Orientation: is normal, Mentation: is normal, Memory: is normal, Cranial nerves: Vital Signs: 09/16 22:38 BP 144 / 115; Pulse 67; Resp 18; Temp 98.6; Pulse Ox 95% ; Weight 106.59 kg; Height 6 tl3 ft. 4 in. (193.04 cm); 22:55 BP 91 / 63; ao 23:25 BP 97 / 58; Pulse 63; Resp 17; Pulse Ox 95% on R/A; Pain 0/10; ao 09/17 00:08 BP 94 / 61; Pulse 69; Resp 16; Pulse Ox 95% ; Pain 0/10; ao 01:09 BP 100 / 58; Pulse 70; Resp 14; Pulse Ox 96% ; Pain 0/10; ao 02:36 BP 104 / 70; Pulse 76; Resp 17; Pulse Ox 94% on 2 lpm NC; ao 09/16 22:38 Body Mass Index 28.60 (106.59 kg, 193.04 cm) tl3 MDM: 09/16 22:54 Patient medically screened. tw4 09/17 02:59 Differential Diagnosis: aortic aneurysm, cardiac arrhythmia, emotional response, tw4 idiopathic syncope, vasovagal episode. Data reviewed: vital signs, nurses notes. Data interpreted: Pulse oximetry: Interpretation: normal. Test interpretation: by ED physician or midlevel provider: ECG. Counseling: I had a detailed discussion with the patient and/or guardian regarding: the historical points, exam findings, and any diagnostic results supporting the discharge/admit diagnosis. Physician consultation: Reji Gupta MD was contacted at 01:00, regarding patient's condition, need to come to ED to see patient, and will see patient in ED, [facility]. 09/16 22:55 Order name: UDS 09/16 22:55 Order name: Basic Metabolic Panel; Complete Time: 00:21 09/17 00:22 Interpretation: Normal except: CL 109; BUN 20; GFR 69. 09/16 22:55 Order name: CBC with Diff; Complete Time: 00:22 09/17 00:22 Interpretation: Within normal limits. 09/16 22:55 Order name: Ckmb; Complete Time: 00:22 09/17 00:22 Interpretation: Within normal limits: CKMB 2.8. 09/16 22:55 Order name: CPK; Complete Time: 00:22 09/17 00:22 Interpretation: Within normal limits: CPK 175. 09/16 22:55 Order name: Hepatic Function; Complete Time: 00:22 09/16 22:55 Order name: Lipase; Complete Time: 00:22 09/17 00:22 Interpretation: Within normal limits: LIP 176. 09/16 22:55 Order name: Magnesium; Complete Time: 00:22 09/17 00:22 Interpretation: Within normal limits: MG 2.3. 09/16 22:55 Order name: Protime (+inr); Complete Time: 00:22 09/17 00:22 Interpretation: Within normal limits: PT 11.2. 09/16 22:55 Order name: Ptt, Activated; Complete Time: 00:23 09/17 00:23 Interpretation: Within normal limits: PTT 28.0. 09/16 22:55 Order name: Troponin (emerg Dept Use Only); Complete Time: 00:23 tw4 09/17 00:23 Interpretation: Within normal limits: TROPED < 0.02. tw4 09/17 01:50 Order name: Lipid Profile [facility] 09/17 01:50 Order name: Lipid Profile [facility] 09/17 01:50 Order name: Troponin I [facility]TN 09/16 22:55 Order name: CT Head C Spine tw4 09/16 22:55 Order name: EKG; Complete Time: 22:56 tw4 09/16 22:55 Order name: Cardiac monitoring; Complete Time: 23:11 tw4 09/16 22:55 Order name: EKG - Nurse/Tech; Complete Time: 23:11 tw4 09/17 01:45 Order name: CT Chest For PE Angio kb 09/17 01:50 Order name: CONS Physician Consult EDTN 09/17 01:50 Order name: Heart Healthy [facility] 09/17 01:50 Order name: Troponin I [facility] 09/17 01:50 Order name: Troponin I [facility] 09/17 01:50 Order name: Troponin I [facility] 09/17 01:51 Order name: Echo with Doppler [facility]TN 09/17 01:51 Order name: EKG Electrocardiogram [facility]TN 09/17 01:51 Order name: EKG Electrocardiogram [facility] 09/17 02:57 Order name: Urine Dipstick--Ancillary (enter results) ms 09/16 22:55 Order name: IV Saline Lock; Complete Time: 23:11 tw4 09/16 22:55 Order name: Labs collected and sent; Complete Time: 23:12 tw4 09/16 22:55 Order name: NPO; Complete Time: 23:12 tw4 09/16 22:55 Order name: O2 Per Protocol; Complete Time: 23:12 tw4 09/16 22:55 Order name: O2 Sat Monitoring; Complete Time: 23:12 tw4 09/16 22:55 Order name: Urine Dipstick-Ancillary (obtain specimen); Complete Time: 02:51 tw4 EC:59 Rhythm is regular. QRS [place] is Normal. MO interval is normal. QRS interval is normal. tw4 QT interval is normal. No Q waves. T waves are Normal. No ST changes noted. Clinical impression: Normal ECG. Interpreted by me. Reviewed by me. Administered Medications: 09/16 23:05 Drug: NS 0.9% 1000 ml Route: IV; Rate: 1 bolus; Site: left forearm; ao 09/17 02:50 Follow up: IV Status: Completed infusion; IV Intake: 1000ml ao Disposition: 09/17/18 01:41 Hospitalization ordered by Reji Gupta for Observation. Preliminary diagnosis is Syncope and collapse. - Bed requested for Telemetry/MedSurg (observation). - Status is Observation. ao - Condition is Stable. - Problem is new. - Symptoms have improved. UTI on Admission? No Signatures: Dispatcher [employer] EDTN Rhea Dickinson, RN RN Demetri Graff, RN RN Tacho Hills MD MD tw4 Cecille Ansari RN RN tl3 Corrections: (The following items were deleted from the chart) 09/16 23:09 22:55 Head Brain Wo Cont+CT.RAD.BRZ ordered. [facility] 09/17 02:17 01:41 Hospitalization Ordered by Reji Gupta MD for Observation. Preliminary diagnosis is Syncope and collapse. Bed requested for Telemetry/MedSurg (observation). Status is Observation. Condition is Stable. Problem is new. Symptoms have improved. UTI on Admission? No. tw4 03:23 02:17 09/17/2018 01:41 Hospitalization Ordered by Reji Gupta MD for Observation. ao Preliminary diagnosis is Syncope and collapse. Bed requested for Telemetry/MedSurg (observation). Status is Observation. Condition is Stable. Problem is new. Symptoms have improved. UTI on Admission? No. mw
--- NOTE | 2018-09-17 01:42 | ER ---
Nurse's Notes 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 Transition of care: patient was not received from another setting of care. Onset of symptoms was September 16, 2018 at 22:35. Risk Assessment: Do you want to hurt yourself or someone else? Patient reports no desire to harm self or others. Initial Sepsis Screen: Does the patient meet any 2 criteria? No. Patient's initial sepsis screen is negative. Does the patient have a suspected source of infection? No. Patient's initial sepsis screen is negative. Care prior to arrival: None. 22:32 Method Of Arrival: Wheelchair tl3 22:32 Acuity: [place]QU[place] 2 tl3 Triage Assessment: 22:38 General: Appears uncomfortable, Behavior is flat. Pain: Denies pain. 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 - Social history:: Smoking status: Patient/guardian denies using tobacco, never smoked. - Ebola Screening: : No symptoms or risks identified at this time. Screenin:15 Abuse screen: Denies threats or abuse. Denies injuries from another. Nutritional ao screening: No deficits noted. Tuberculosis screening: No symptoms or risk factors identified. Fall Risk None identified. Assessment: 23:00 General: Appears in no apparent distress. comfortable, well groomed, well developed, ao Behavior is calm, cooperative, appropriate for age. Pain: Denies pain. Neuro: Level of Consciousness is awake, alert, obeys commands, Oriented to person, place, time, situation, Appropriate for age Moves all extremities. Full function Speech is normal, Facial symmetry appears normal, Pupils are PERRLA. Cardiovascular: Reports chest pain, come an goes away Capillary refill < 3 seconds Patient's skin is warm and dry. Respiratory: Airway is patent Respiratory effort is even, unlabored, Respiratory pattern is regular, symmetrical. GI: Abdomen is non-distended, Bowel sounds present X 4 quads. : No signs and/or symptoms were reported regarding the genitourinary system. EENT: No signs and/or symptoms were reported regarding the EENT system. Derm: Skin is intact, Skin is diaphoretic, Skin is normal, pale, Skin temperature is warm. Musculoskeletal: Circulation, motion, and sensation intact. 09/17 00:08 Reassessment: Patient appears in no apparent distress at this time. Patient and/or ao family updated on plan of care and expected duration. Pain level reassessed. Patient back from CT. IV switch to the right forearm. 01:09 Reassessment: Patient appears in no apparent distress at this time. Patient and/or ao family updated on plan of care and expected duration. Pain level reassessed. Patient agree to stay in the hospital as recommended by Dr Estrella. Dr Estrella was notified. 01:23 Reassessment: Patient appears in no apparent distress at this time. Patient was ao sleeping and had a episode of sleep apnea. Patient was given O2 NC per hospital protocol at 2 liters. Monitoring VS at this moment. 02:36 Reassessment: Patient appears in no apparent distress at this time. Patient and/or ao family updated on plan of care and expected duration. Pain level reassessed. Patient to be admitted to the hospital. waiting on urine sample to call report. Patient aware of admission. Vital Signs: 09/16 22:38 BP 144 / 115; Pulse 67; Resp 18; Temp 98.6; Pulse Ox 95% ; Weight 106.59 kg; Height 6 tl3 ft. 4 in. (193.04 cm); 22:55 BP 91 / 63; ao 23:25 BP 97 / 58; Pulse 63; Resp 17; Pulse Ox 95% on R/A; Pain 0/10; ao 09/17 00:08 BP 94 / 61; Pulse 69; Resp 16; Pulse Ox 95% ; Pain 0/10; ao 01:09 BP 100 / 58; Pulse 70; Resp 14; Pulse Ox 96% ; Pain 0/10; ao 02:36 BP 104 / 70; Pulse 76; Resp 17; Pulse Ox 94% on 2 lpm NC; ao 09/16 22:38 Body Mass Index 28.60 (106.59 kg, 193.04 cm) tl3 ED Course: 09/16 22:28 Patient arrived in ED. ag3 22:35 Triage completed. tl3 22:38 Arm band placed on left wrist. tl3 22:49 Demetri Graff, TED is Primary Nurse. ao 22:54 Tacho Estrella MD is Attending Physician. tw4 23:04 Inserted saline lock: 20 gauge in left forearm, using aseptic technique. ao 23:16 Patient has correct armband on for positive identification. Placed in gown. Bed in low ao position. Call light in reach. Side rails up X2. hearing aid assistant on. Pulse ox on. NIBP on. 23:45 IV discontinued, intact, bleeding controlled, No redness/swelling at site. Pressure ao dressing applied. 23:45 Inserted saline lock: 20 gauge in right forearm, using aseptic technique. ,using ao aseptic technique. Patient family member requested to change IV side. 23:52 CT completed. Patient tolerated procedure well. Patient moved to CT via stretcher. cw1 Patient moved back from CT. 09/17 00:11 CT Head C Spine In Process Unspecified. EDMS 01:41 Reji Gupta MD is Hospitalizing Provider. tw4 02:38 Patient admitted, IV remains in place. ao 02:38 No provider procedures requiring assistance completed. ao 02:45 CT completed. Patient tolerated procedure well. Patient moved to CT via stretcher. cw1 Patient moved back from CT. Administered Medications: 09/16 23:05 Drug: NS 0.9% 1000 ml Route: IV; Rate: 1 bolus; Site: left forearm; ao 09/17 02:50 Follow up: IV Status: Completed infusion; IV Intake: 1000ml ao Intake: 02:50 IV: 1000ml; Total: 1000ml. ao Outcome: 01:41 Decision to Hospitalize by Provider. tw4 03:22 Admitted to Tele accompanied by tech, room 406, with oxygen, with chart, Report called ao to TED Hussein 03:22 Condition: stable 03:22 Instructed on the need for admit. 03:23 Patient left the ED. ao Signatures: Dispatcher [employer] ED Susan Reddy cw1 Demetri Graff RN RN Tacho Hills MD MD tw4 Cecille Ansari RN RN tl3 Halle Rivera 3 Corrections: (The following items were deleted from the chart) 00:16 09/16 20:00 General: Appears in no apparent distress. comfortable, well groomed, well ao developed, Behavior is calm, cooperative, appropriate for age, ao 09/17 00:16 09/16 20:00 Pain: Denies pain. ao ao 09/17 00:16 09/16 20:00 Neuro: Level of Consciousness is awake, alert, obeys commands, Oriented to ao person, place, time, situation, Appropriate for age Moves all extremities. Full function Speech is normal, Facial symmetry appears normal, Pupils are PERRLA, ao 09/17 00:09/16 20:00 Cardiovascular: Reports chest pain, come an goes away Capillary refill < 3 ao seconds Patient's skin is warm and dry. ao 09/17 00:09/16 20:00 Respiratory: Airway is patent Respiratory effort is even, unlabored, ao Respiratory pattern is regular, symmetrical, ao 09/17 00:09/16 20:00 GI: Abdomen is non-distended, Bowel sounds present X 4 quads. ao ao 09/17 00:09/16 20:00 : No signs and/or symptoms were reported regarding the genitourinary ao system. ao 09/17 00:09/16 20:00 EENT: No signs and/or symptoms were reported regarding the EENT system. ao ao 09/17 00:09/16 20:00 Derm: Skin is intact, Skin is diaphoretic, Skin is normal, pale, Skin ao temperature is warm ao 09/17 00:16 09/16 20:00 Musculoskeletal: Circulation, motion, and sensation intact. ao ao
[2018-09-17] MEDS ORDERED: FENTANYL CITR 100 MCG/2 ML IV ONE (01:46)
[2018-09-17] MEDS ORDERED: NA CHLORIDE 0.9% 1,000 ML IV ONE (01:46)
[2018-09-17] MEDS ORDERED: ALPRAZOLAM 0.25 MG TABLET PO PRN (01:47)
[2018-09-17] MEDS ORDERED: ACETAMINOPHEN 500 MG TAB PO PRN (01:47)
[2018-09-17 03:10] LABS: Barbiturates NEGATIVE (NEGATIVE); Benzodiazepines NEGATIVE (NEGATIVE); Cocaine NEGATIVE (NEGATIVE); METHAMPHETAM NEGATIVE (NEGATIVE); Methadone NEGATIVE (NEGATIVE); Opiates NEGATIVE (NEGATIVE); Phencyclidine NEGATIVE (NEGATIVE); THC Cannibis NEGATIVE (NEGATIVE)
[2018-09-17 03:34] VITALS: O2SAT 94
[2018-09-17 03:50] VITALS: BMI 29.3
[2018-09-17 04:10] LABS: Urine Blood NEGATIVE (NEG); Urine Glucose NEGATIVE (NEG); Urine Protein NEGATIVE (NEG); Urine pH 5.5 (5.0-7.0)
--- NOTE | 2018-09-17 05:01 | P.HP ---
Certification for Inpatient Patient admitted to: Observation With expected LOS: <2 Midnights Patient will require the following post-hospital care: None Practitioner: I am a practitioner with admitting privileges, knowledge of patient current condition, hospital course, and medical plan of care. Services: Services provided to patient in accordance with Admission requirements found in Title 42 Section 412.3 of the Code of Federal Regulations Patient History Date of Service: 09/17/18 Reason for admission: Chest pain; syncope and collapse History of Present Illness: Patient is a 58-year-old gentleman who came into the hospital after his found him collapsed on the ground. Patient was in his pantry. 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 EMS was called out. Patient was brought to the emergency room for further evaluation. In the emergency room patient's had troponins and EKG which have not indicated any significant abnormality. Patient also had a CT of the chest which was done because patient was found to have thrombophlebitis about a month ago. Patient was started on anti coagulation. However, patient developed a lower GI bleeding and this was stopped. CT PE protocol results do not indicate an acute pulmonary embolism. However, patient does have evidence of pulmonary arterial hypertension. Patient blood pressure is still on the low side and patient is complaining of pain. Will go ahead and use IV fentanyl for now. Patient be admitted to the hospital for further treatment options. Allergies codeine- causes severe nausea Allergy (Uncoded 03/16/18 00:24) Unknown Home Medications: Duloxetine HCl 20 mg PO DAILY 03/16/18 Aspirin 325 mg PO DAILY 09/17/18 Metoprolol Succinate 50 mg PO DAILY 09/17/18 Tizanidine HCl 2 mg PO DAILY 09/17/18 - Past Medical/Surgical History Has patient received pneumonia vaccine in the past: No Diabetic: No -: hyperlipidemia -: aortic anuerysm -: arthritis -: hemorrhoids -: testicular cancer with lung, lymphatic;liver mets -: svt left arm -: tonsillectomy -: hernia repairs x2 -: appendectmy -: rotator cuff repair- right -: right thumb repair -: right testicle removed - Family History Mother Medical History: Heart disease, Hypertension, Other (see notes) Notes: hyperlipidemia Father Medical History: Heart disease, Hypertension - Social History Smoking Status: Never smoker Alcohol use: Yes CD- Drugs: No Caffeine use: Yes Place of Residence: Home Review of Systems 10-point ROS is otherwise unremarkable Physical Examination - Vital Signs Temperature: 97 F Blood Pressure: 103/63 Pulse: 73 Respirations: 20 Pulse Ox (%): 95 - Physical Exam General: Alert, In no apparent distress, Oriented x3 HEENT: Atraumatic, PERRLA, Mucous membr. moist/pink, EOMI, Sclerae nonicteric Neck: Supple, 2+ carotid pulse no bruit, No LAD, Without JVD or thyroid abnormality Respiratory: Clear to auscultation bilaterally, Normal air movement Cardiovascular: Regular rate/rhythm, Normal S1 S2, Systolic murmur Gastrointestinal: Normal bowel sounds, Soft and benign, Non-distended, No tenderness Musculoskeletal: No clubbing, No swelling, No tenderness Integumentary: No rashes Neurological: Normal gait, Normal speech, Normal strength at 5/5 x4 extr, Normal tone, Sensation intact, Cranial nerves 3-12 intact, Normal affect Lymphatics: No axilla or inguinal lymphadenopathy - Studies Laboratory Data (last 24 hrs) 09/16/18 23:05: PT 11.2, INR 0.95, APTT 28.0 09/16/18 23:05: WBC 7.1, Hgb 15.1, Hct 43.1, Plt Count 193 09/16/18 23:05: Sodium 141, Potassium 3.6, BUN 20 H, Creatinine 1.10, Glucose 86 , Magnesium 2.3, Total Bilirubin 0.9, AST 22, ALT 41, Alkaline Phosphatase 68, Lipase 176 Assessment & Plan - Problems (Diagnosis) (1) History of atrial myxoma Current Visit: Yes Status: Acute (2) Hypotensive episode Current Visit: Yes Status: Acute (3) Syncope and collapse Current Visit: Yes Status: Acute (4) Atrial fibrillation with RVR Onset Date: 03/16/18 Current Visit: No Status: Acute (5) Chest pain, rule out acute myocardial infarction Onset Date: 03/16/18 Current Visit: No Status: Acute (6) Thoracic aortic aneurysm Onset Date: 03/16/18 Current Visit: No Status: Acute - Plan 1. Serial troponins and EKG 2. Cardiology consultation 3. Echocardiogram and further testing as recommended by Cardiology 4. Anti-platelet therapy, beta-antoine, statin, and O2 as needed 5. IV morphine for pain 6. CT of the chest was negative and no anti coagulation is necessary. Patient will need further evaluation by Cardiology. 7. GI and DVT prophylax Discharge Plan: Home Plan to discharge in: Greater than 2 days - Advance Directives Does patient have a Living Will: No Does patient have a Durable POA for Healthcare: No - Code Status/Comfort Care Code Status Assessed: Yes Code Status: Full Code Critical Care: No Time Spent Managing PTS Care (In Minutes): 50
[2018-09-17] MEDS ORDERED: INFLUENZA VACCINE (for 3y+) 0.5 ML DOSE IMVAC ONE (08:00)
--- NOTE | 2018-09-17 08:08 | RAD REPORT ---
EXAM DESCRIPTION: CT - Chest For Pe Angio - 09/17/2018 3:52 am CLINICAL HISTORY: Chest pain COMPARISON: None. TECHNIQUE: Dynamically enhanced axial 3 mm thick images of the chest were obtained during administra tion of <100> mL Isovue 370 IV contrast. Coronal and oblique reconstruction images were generated and reviewed. Exam utilizes a protocol for optimal evaluation of pulmonary arterial tree. Preliminary re port was generated by virtual radiologic and reviewed prior to dictation Maximum intensity projections 3D imaging was utilized All CT scans are performed using dose optimization technique as appropriate and may include automated exposure control or mA/KV adjustment according to patient size. FINDINGS: A pulmonary embolus is not seen. Main pulmonary artery is mildly enlarged A thoracic aortic aneurysm is not noted. A pleural effusion is not seen. A pericardial effusion is not seen. A lung consolidation is not present. Mild right middle lobe atelectasis is seen IMPRESSION: Negative for a pulmonary embolism. Enlargement of a main pulmonary artery may indicate pulmonary to hypertension
--- NOTE | 2018-09-17 08:13 | RAD REPORT ---
EXAM DESCRIPTION: CT - Head C Spine Mpr Wo Con - 09/17/2018 3:50 am CLINICAL HISTORY: Syncope. Slurred speech. Head and neck injury status post fall. Head and neck pain COMPARISON: August 2017 TECHNIQUE: Computed axial tomography of the head and cervical spine was obtained. Sagittal and coronal reconstruction was performed. All CT scans are performed using dose optimization technique as appropriate and may include automated exposure control or mA/KV adjustment according to patient size. FINDINGS: An intracranial bleed is not seen. The ventricles are normal in caliber. An extra-axial fl uid collection is not noted.Fluid within the visualized sinuses and mastoids is not seen A cervical fracture is not visualized. No dislocation is noted. Slight anterior subluxation of C3 on C4 is unchanged. Spondylosis involves C6-7 consisting to space narrowing, osteophytes and disc bulge. IMPRESSION: No acute intracranial abnormality is seen. A cervical fracture is not visualized. If the patient continues to have symptoms to suggest intracra nial /spinal cord pathology then MRI would be recommended
[2018-09-17] MEDS: ENOXAPARIN 40 MG/0.4 ML SQ SCH (08:31)
[2018-09-17] MEDS ORDERED: ASPIRIN EC 81 MG TAB PO SCH (09:00)
--- NOTE | 2018-09-17 20:15 | RAD REPORT ---
EXAM DESCRIPTION: - CP - 09/17/2018 8:07 pm CLINICAL HISTORY: Syncope COMPARISON: None. TECHNIQUE: Real-time sonographic evaluation of both carotid systems was performed. Lo scale and Do ppler interrogation were performed with waveform tracing bilaterally. FINDINGS: Normal high resistance waveforms are noted in both external carotid arteries. The common c arotid arteries and internal carotid arteries show normal low resistance waveforms. Mild bilateral carotid bulb plaquing. On visual inspection, no significant luminal narrowing. Peak sy stolic and end diastolic velocity values and the ICA/CCA ratios are in the non-hemodynamically signif icant range. Antegrade flow seen in both vertebral arteries. Velocity values and ratios were recorded and are retained in the patient's imaging records. IMPRESSION: Minimal plaquing in each carotid bulb. No evidence of a hemodynamically significant stenosis.
--- NOTE | 2018-09-17 20:15 | RAD REPORT ---
EXAM DESCRIPTION: US - Extremity Venous Uni Ltd - 09/17/2018 8:07 pm CLINICAL HISTORY: Left arm pain and swelling COMPARISON: None. TECHNIQUE: Real-time sonographic evaluation of the left upper extremity deep venous systems was perf ormed. FINDINGS: Normal compressibility, flow augmentation, phasic flow and spontaneous flow are identified in the left upper extremity deep venous system. No intraluminal filling defects seen. Internal jugul ar and subclavian veins are normal as well. IMPRESSION: No DVT in the left upper extremity.
--- NOTE | 2018-09-18 03:01 | CON ---
Date of Consultation: 09/17/2018 Reason For Consultation: Syncope. History Of Present Illness: Mr. 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 He has a history of testicular cancer with metastatic disea se, history of aortic aneurysm, came in with syncope. No postictal or preictal symptom. He does not recall passing out. Does not recall any symptoms prior to passing out. He passed out while he was standing up. He takes aspirin, metoprolol, duloxetine. Allergies: NONE. Review of Systems: Negative. Social History: Negative. Family History: Negative. Medications: Listed earlier. Physical Examination: Vital Signs: Stable, afebrile. HEENT: Negative. Neck: Supple with no bruit. Chest: Clear. Extremities: Left upper extremity swollen. Extremities revealed no clubbing, cyanosis, or edema. Cardiac: Regular rhythm and rate. No murmurs, gallops, or rubs. Abdomen: Benign. Diagnostic Data: Negative. Impression And Plan: Syncope, unknown etiology. Echocardiogram is pending. Carotid Doppler has bee n done today. Left upper extremity swelling, venous Doppler has been done today. The pat ient has a history of atrial myxoma status post removal and has a history of testicular cancer and ao rtic aneurysm. Both seem to be stable at this point. if all workup is negative, it would be reasonable for him to get an outpatient event monitor. TOD/MONY Voice ID: [id number] Report ID: [id number]
[2018-09-18] MEDS: ENOXAPARIN 40 MG/0.4 ML SQ SCH (08:43)
[2018-09-18 08:45] VITALS: BP 138/91; TEMP 97.1
[2018-09-18] MEDS ORDERED: DULOXETINE 20 MG CAP PO SCH (09:00)
[2018-09-18] MEDS ORDERED: ASPIRIN 325 MG TAB PO SCH (09:00)
[2018-09-18] MEDS ORDERED: METOPROLOL XL 25 MG TAB PO SCH (09:00)
--- NOTE | 2018-09-18 09:10 | EKG ---
Test Date: 2018-09-16 Test Time: 23:07:12 Case Reviewer: TAISHA MEASUREMENT RESULTS: Intervals: Rate: 65 WY: 174 QRSD: 90 QT: 416 QTc: 432 [place]: P: 24 WY: 174 QRS: -7 T: 57 INTERPRETIVE STATEMENTS: Normal sinus rhythm Normal ECG Compared to ECG 03/16/2018 09:19:47 Atrial fibrillation no longer present Electronically Signed On 09-18-18 09:09:44 CDT by Ernie Murillo
--- NOTE | 2018-09-18 11:21 | EKG ---
Test Date: 2018-09-18 Test Time: 08:50:32 Director Of Nursing: ALEXANDER MEASUREMENT RESULTS: Intervals: Rate: 68 MT: 158 QRSD: 80 QT: 404 QTc: 429 [place]: P: 47 MT: 158 QRS: 8 T: 63 INTERPRETIVE STATEMENTS: Normal sinus rhythm Normal ECG Compared to ECG 09/16/2018 23:07:12 No significant changes Electronically Signed On 09-18-18 11:20:53 CDT by Ernie Murillo
--- NOTE | 2018-09-18 12:11 | P.SSS ---
Patient History Date of Service: 09/18/18 Reason for admission: Chest pain; syncope and collapse History of Present Illness: Patient is a 58-year-old gentleman who came into the hospital after his found him collapsed on the ground. Patient was in his pantry. 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 EMS was called out. Patient was brought to the emergency room for further evaluation. In the emergency room patient's had troponins and EKG which have not indicated any significant abnormality. Patient also had a CT of the chest which was done because patient was found to have thrombophlebitis about a month ago. Patient was started on anti coagulation. However, patient developed a lower GI bleeding and this was stopped. CT PE protocol results do not indicate an acute pulmonary embolism. However, patient does have evidence of pulmonary arterial hypertension. Patient blood pressure is still on the low side and patient is complaining of pain. Will go ahead and use IV fentanyl for now. Patient be admitted to the hospital for further treatment options Allergies No Known Allergies Allergy (Unverified 09/17/18 07:43) Home Medications: Duloxetine HCl 20 mg PO DAILY 03/16/18 Aspirin 325 mg PO DAILY 09/17/18 Metoprolol Succinate 50 mg PO DAILY 09/17/18 Tizanidine HCl 2 mg PO DAILY 09/17/18 - Past Medical/Surgical History Has patient received pneumonia vaccine in the past: No Diabetic: No -: hyperlipidemia -: aortic anuerysm -: arthritis -: hemorrhoids -: testicular cancer with lung, lymphatic;liver mets -: svt left arm -: tonsillectomy -: hernia repairs x2 -: appendectmy -: rotator cuff repair- right -: right thumb repair -: right testicle removed - Family History Mother -: Heart disease, Hypertension, Other (see notes) Notes: hyperlipidemia Father -: Heart disease, Hypertension - Social History Smoking Status: Never smoker Alcohol use: Yes CD- Drugs: No Caffeine use: Yes Place of Residence: Home Review of Systems 10-point ROS is otherwise unremarkable Physical Examination - Vital Signs Temperature: 97.1 F Blood Pressure: 138/91 Pulse: 69 Respirations: 16 Pulse Ox (%): 95 - Physical Exam General: Alert, In no apparent distress HEENT: Atraumatic, PERRLA, Mucous membr. moist/pink, EOMI, Sclerae nonicteric Neck: Supple, 2+ carotid pulse no bruit, No LAD, Without JVD or thyroid abnormality Respiratory: Clear to auscultation bilaterally, Normal air movement Cardiovascular: Regular rate/rhythm, Normal S1 S2 Gastrointestinal: Normal bowel sounds, No tenderness Musculoskeletal: No tenderness Integumentary: No rashes Neurological: Normal gait, Normal speech, Normal strength at 5/5 x4 extr, Normal tone, Normal affect Lymphatics: No axilla or inguinal lymphadenopathy - Diagnosis (Problem(s)) (1) Syncope and collapse Current Visit: Yes Status: Resolved (2) Hypotensive episode Current Visit: Yes Status: Resolved (3) Atrial fibrillation with RVR Onset Date: 03/16/18 Current Visit: No Status: Resolved (4) Chest pain, rule out acute myocardial infarction Onset Date: 03/16/18 Current Visit: No Status: Resolved (5) Thoracic aortic aneurysm Onset Date: 03/16/18 Current Visit: No Status: Chronic Qualifiers: Presence of rupture: without rupture Qualified Code(s): I71.2 - Thoracic aortic aneurysm, without rupture (6) History of atrial myxoma Current Visit: Yes Status: Chronic Treatment Summary: Overall during the hospital stay patient remained stable The patient was initially admitted to the hospital for syncopal episode. Pt does have a history of atrial Myxoma. Patient had extensive workup done for his syncopal episode while here in the hospital. Patient had an echocardiogram done here in the hospital along with carotid Doppler head CT which were all within normal limits. Patient did have orthostatic vitals done here in the hospital which were also negative for any acute abnormality. The patient also then worked with physical therapy and was able to ambulate okay without having any further syncopal episodes. Most likely patient's syncopal episode was secondary to AFib with RVR and hypotension. Patient was asked to continue taking increase fluid once he is discharged under stable condition. Patient was having chest pain does ACS was ruled out here in the hospital as well. He is like mentioned before echocardiogram and stress test were negative here in the hospital. Patient was asked to follow up with cardiology in about 1 -2 weeks post discharge. Patient demonstrated understanding of the current process. Patient was also found to have Afib with RVR and was started on a beta-antoine while here in the hospital. It was rate controlled and patient was then started on anti coagulation while here in the hospital. Patient did well overall and thus was discharged home under stable condition - Disposition Disposition: ROUTINE DISCHARGE Condition: GOOD Patient Discharge Instructions: Please f.u with Dr martinez and PCP in 1 to 2 days post discharge. No new medication Diet: Regular Activity: Ad gerri
--- NOTE | 2018-09-18 15:43 | ECHO ---
HEIGHT: 6 ft 4 in WEIGHT: 241 lb 6.4 oz DATE OF STUDY: 09/18/[address]: Reji Gupta MD 2-DIMENSIONAL: YES M.MODE: YES DOPPLER: YES COLOR FLOW: YES TDS: NO PORTABLE: NO DEFINITY: NO BUBBLE STUDY: NO DIAGNOSIS: CHEST PAIN RULE OUT ACS CARDIAC HISTORY: CATHERIZATION: NO SURGERY: YES PROSTHETIC VALVE: NO PACEMAKER: NO MEASUREMENTS (cm) DIASTOLIC (NORMALS) SYSTOLIC (NORMALS) IVSd 1.0 (0.6-1.2) LA Diam 3.4 (1.9-4.0) LVEF 61% LVIDd 4.8 (3.5-5.7) LVIDs 3.2 (2.0-3.5) %FS 33% LVPWd 1.0 (0.6-1.2) Ao Diam 3.2 (2.0-3.7) 2 DIMENSIONAL ASSESSMENT: RIGHT ATRIUM: NORMAL LEFT ATRIUM: NORMAL RIGHT VENTRICLE: NORMAL LEFT VENTRICLE: NORMAL TRICUSPID VALVE: NORMAL MITRAL VALVE: NORMAL PULMONIC VALVE: NORMAL AORTIC VALVE: NORMAL PERICARDIAL EFFUSION: NONE AORTIC ROOT: NORMAL LEFT VENTRICULAR WALL MOTION: NORMAL DOPPLER/COLOR FLOW: MILD AORTIC, MITRAL AND TRICUSPID REGURGITATION. NORMAL RIGHT VENTRICULAR SYSTOLIC PRESSURE. COMMENTS: NORMAL 2D ECHOCARDIOGRAM. MILD AORTIC, MITRAL AND TRICUSPID REGURGITATION. TECHNOLOGIST: Violeta URIARTE
== END 2018-09-18 16:57 | disposition home or self-care (01) ==
LOC: ER 22:26 → ERHOLD 09-17 02:28 → 4TH 09-17 03:03
PROVIDERS: ADMIT Hospitalist; ATTEND Hospitalist
DX: R55 Syncope and collapse (principal); E78.5 Hyperlipidemia, unspecified; I48.91 Unspecified atrial fibrillation; Z85.47 Personal history of malignant neoplasm of testis; Z85.118 Personal history of other malignant neoplasm of bronchus and lung; Z85.05 Personal history of malignant neoplasm of liver
CPT/HCPCS: 36415; 70450; 71275; 72125; 80048; 80061; 80076; 80307; 81003; 82550; 82553; 83690; 83735; 84484; 85025; 85610; 85730; 93005; 93306; 93880; 93971; 96360; 96361; 99285; G0378; J1650; J3010; J7030; Q9967

== ENCOUNTER 2019-04-16 09:17 | Emergency (ER) | payer OTHER, SELFPAY ==
--- OUTSIDE RECORDS SUMMARY | 2019-04-16 09:20 | XMS REPORT | Clinical Summary ---
:1960 Author Organization [facility] Address [address] [place] [address] Care Team Providers Name Role Phone Camelia [...] 3 (three) tablet times daily as needed. rivaroxaban (XARELTO) Take 20 mg by 0 [...] 07/31/2018 Active (FLEXERIL) 5 MG tablet mouth. aspirin 81 MG chewable Take 1 tablet 0 03/29/2018 03/29/2019 tablet (81 mg total) by mouth daily. amiodarone (PACERONE) Take 1 tablet 60 tablet 0 03/28/2018 03/28/2019 200 MG tablet (200 mg total) by mouth 2 (two) times daily. 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 Encounters Date Type Specialty Care Team Description 08/13/2018 Emergency Emergency Medicine Cam Russo Rectal bleeding (Primary Dx); MD Nils Abdominal pain, acute, left lower quadrant 08/13/2018 Orders Only General Internal Medicine after 04/15/2018 Family History Medical History Relation Name Comments [...] 08/13/2018 7:38 PM CDT Inhaled Oxygen Concentration - - Weight 104.3 kg (230 lb) 08/13/2018 7:41 [...] 418 ms QTC Calculation(Bazett) 447 ms P Mcadoo 64 degrees R Mcadoo 14 degrees T Mcadoo 67 degrees Normal sinus rhythm Low voltage QRS Borderline ECG When compared with ECG of 18-MAR-2018 09:26, Sinus rhythm has replaced Atrial fibrillation Vent. rate has decreased BY 35 BPM Nonspecific T wave abnormality now evident in Anterior leads QT has lengthened ECG 12-LEAD STAT 08/13/2018 8:56 PM CDT CBC W/PLT COUNT & AUTO STAT 08/13/2018 8:13 PM CDT Results for this DIFFERENTIAL procedure are in the results section. TROPONIN I STAT 08/13/2018 8:13 PM CDT CREATINE KINASE (CK), TOTAL STAT 08/13/2018 8:13 PM CDT Results for this AND MB procedure are in the results section. PT/APTT STAT 08/13/2018 8:13 PM CDT HEPATIC FUNCTION PANEL STAT 08/13/2018 8:13 PM CDT LIPASE STAT 08/13/2018 8:13 PM CDT CBC W/PLT COUNT & AUTO STAT 08/13/2018 8:13 PM CDT Results for this DIFFERENTIAL procedure are in the results section. BASIC METABOLIC PANEL (7) STAT 08/13/2018 8:13 PM CDT VASCULAR DIAGRAM -SCAN 05/18/2018 11:41 AM CDT after 04/15/2018 Results ED ECG Interpretation (08/14/2018 12:48 AM CDT) Narrative Performed At Cam Russo MD 08/14/2018 12:48 AM ECG/EKG Interpretation Date/Time: 08/14/2018 12:47 AM Performed by: CAM RUSSO Authorized by: CAM RUSSO The ECG was interpreted by ED physician. The ECG is interpreted as sinus rhythm. Rate is normal rate. Heart rate is 69 BPM. Conduction: conduction normal. ST segments normal. T waves abnormal. Mcadoo is normal. Clinical Impression: non-specific ECGECG reviewed and does not meet STEMI criteria. CT abdomen/pelvis with IV contrast (08/13/2018 10:44 PM CDT) Specimen Narrative Performed At FINAL REPORT [facility] CLINICAL HISTORY: Left lower quadrant pain, rectal [...] recent procedure. Please correlate with history. Signed: Alma Delia Madrigal MD Report Verified Date/Time:08/13/2018 22:50:13 Reading Location: [address] Reading Room Procedure Note Interface, External [...] recent procedure. Please correlate with history. Signed: Alma Delia Madrigal MD Report Verified Date/Time: 08/13/2018 22:50:13 Reading Location: [address] Reading Room Performing Organization Address City/State/Zipcode Phone Number [employer] XR chest PA or AP 1 view in dept (08/13/2018 9:39 PM CDT) Specimen Narrative Performed At FINAL REPORT [employer] INDICATION: chest pain COMPARISON: March 28, 2018 TECHNIQUE: Single frontal view of the chest. FINDINGS: Lungs and pleura: Clear lungs. No effusion. Heart and mediastinum: Normal heart size. Unremarkable mediastinal contours. Osseous structures: No acute abnormality. Other: None. IMPRESSION: No acute intrathoracic abnormality. Signed: JR Valdez Robert MD Report Verified Date/Time:08/13/2018 22:04:08 Reading Location: [facility] Transitional Reading Room Procedure Note Interface, External [...] Report Verified Date/Time: 08/13/2018 22:04:08 Reading Location: [facility] Transitional Reading Room Performing Organization Address City/State/Zipcode Phone Number [facility] Urinalysis w/Microscopic (08/13/2018 9:07 PM CDT) Color, UA Yellow [facility] Clarity, UA Clear [facility] Specific [place], UA 1.017 1.001 - 1.035 [facility] pH, UA 6.5 5.0 - 8.0 [facility] Protein, UA Negative Negative [facility] Glucose, UA Negative Negative [facility] Ketones, UA Negative Negative [facility] Bilirubin, UA Negative Negative [facility] Blood, UA Negative Negative [facility] Nitrite, UA Negative Negative [facility] Leukocytes, UA Negative Negative [facility] Urobilinogen, UA 12.0 (H) 0.2 - 1.0 mg/dL [facility] RBC, UA <1 /HPF [facility] WBC, UA <1 /HPF [facility] Squam Epithel, UA <1 /HPF [facility] Specimen Source [facility] Specimen Urine Performing Organization Address [facility] Phone Number [facility] [address] [place] [address] [place] B-type Natriuretic Factor (BNP) (08/13/2018 8:59 PM CDT) BNP 69 0 - 100 pg/mL [facility] Specimen Blood Performing Organization Address [facility] Phone Number [facility] [address] [place] [address] [phone] [place] ECG 12 lead (08/13/2018 8:56 PM CDT) Specimen Narrative Performed At Ventricular Rate 69 BPM GE MUSE Atrial Rate 69 BPM P-R Interval 174 ms QRS Duration 84 ms Q-T Interval 418 ms QTC Calculation(Bazett) 447 ms P Mcadoo 64 degrees R Mcadoo 14 degrees T Mcadoo 67 degrees Normal sinus rhythm Low voltage [...] 418 ms QTC Calculation(Bazett) 447 ms P Mcadoo 64 degrees R Mcadoo 14 degrees T Mcadoo 67 degrees Normal sinus rhythm Low voltage QRS Otherwise normal ECG When compared with ECG of 18-MAR-2018 09:26, Sinus rhythm has replaced Atrial fibrillation Confirmed by Lila VARGAS MICHAEL ([id number]) on 08/15/2018 8:04:07 AM Performing Organization Address [facility] Phone Number [facility] MUSE PT/aPTT (08/13/2018 8:13 PM CDT) Protime 13.8 11.7 - 14.7 seconds [facility] INR 1.1 <=5.9 [facility] PTT 24.9 22.5 - 36.0 seconds [facility] Specimen Blood Narrative Performed At [facility] RECOMMENDED COUMADIN/WARFARIN INR THERAPY RANGES STANDARD DOSE: 2.0 - 3.0 Includes: PROPHYLAXIS for venous thrombosis, systemic embolization; TREATMENT for venous thrombosis and/or pulmonary embolus. HIGH RISK: Target INR is 2.5-3.5 for patients with mechanical heart valves. Performing Organization Address City/State/Zipcode Phone Number [facility] [address] [place] [address] CENTER CBC with platelet count + automated diff (08/13/2018 8:13 PM CDT) WBC 6.6 3.5 - 10.5 K/L [facility] RBC 4.54 (L) 4.63 - 6.08 M/L [facility] Hemoglobin 14.5 13.7 - 17.5 GM/DL [facility] Hematocrit 43.2 40.1 - 51.0 % [facility] MCV 95.2 (H) 79.0 - 92.2 fL [facility] MCH 31.9 25.7 - 32.2 pg [facility] MCHC 33.6 32.3 - 36.5 GM/DL [facility] RDW 13.5 11.6 - 14.4 % [facility] Platelets 176 150 - 450 K/CU MM [facility] MPV 9.9 9.4 - 12.4 fL [facility] nRBC 0 0 - 0 /100 WBC [facility] % Neutros 64 % [facility] % Lymphs 21 % [facility] % Monos 11 % [facility] % Eos 3 % [facility] % Baso 1 % [facility] # Neutros 4.23 1.78 - 5.38 K/L [facility] # Lymphs 1.35 1.32 - 3.57 K/L [facility] # Monos 0.72 0.30 - 0.82 K/L [facility] # Eos 0.17 0.04 - 0.54 K/L [facility] # Baso 0.04 0.01 - 0.08 K/L [facility] Immature Granulocytes-Relative 1 0 - 1 % [facility] Specimen Blood Performing Organization Address City/[facility]/Zipcode Phone Number [address] [address] CENTER Troponin I (08/13/2018 8:13 PM CDT) Troponin I <0.01 0.00 - 0.03 ng/mL [facility] Specimen Blood Narrative Performed At [facility] Troponin I (TnI) levels must be interpreted [...] disease, and persistent tachyarrhythmia. Performing Organization Address City/[facility]/Zipcode Phone Number [address] [address] CENTER Lipase (08/13/2018 8:13 PM CDT) Lipase 44 8 - 78 U/L [facility] Specimen Blood Performing Organization Address City/[facility]/Zipcode Phone Number [address] [address] CENTER Creatine Kinase (CK), Total and MB (08/13/2018 8:13 PM CDT) Total CK 80 29 - 200 U/L [facility] CK-MB 1.7 0.0 - 6.6 ng/mL [facility] MB Relative Index 2.1 % [facility] Specimen Blood Narrative Performed At CK-MB Reference Range: [facility] <6.7Normal 6.7-10.0Borderline >10.0 Abnormal Performing Organization Address City/[facility] Phone Number [facility] [address] [place] [phone] [place] Hepatic function panel (08/13/2018 8:13 PM CDT) Protein, Total 6.7Comment: Specimen 6.0 - 8.3 gm/dL [facility] hemolyzed [facility] Albumin 4.0Comment: Specimen 3.5 - 5.0 g/dL [facility] slightly hemolyzed [facility] Total Bilirubin 1.4 (H)Comment: Specimen 0.2 - 1.2 mg/dL [facility] Bilirubin, Direct 0.3Comment: Specimen 0.1 - 0.5 mg/dL [facility] hemolyzed [facility] Alkaline Phosphatase 62 40 - 150 U/L [facility] AST 26Comment: Specimen 5 - 34 U/L [facility] slightly hemolyzed [facility] ALT 47Comment: Specimen 6 - 55 U/L [facility] hemolyzed [facility] Specimen Blood Performing Organization Address City/[facility] Phone Number [facility] [address] [place] [phone] [place] Basic Metabolic Panel (08/13/2018 8:13 PM CDT) Sodium 141 136 - 145 meq/L [facility] Potassium 4.2Comment: Specimen slightly 3.5 - 5.1 meq/L [facility] hemolyzed [facility] Chloride 107 98 - 107 meq/L [facility] CO2 27 22 - 29 meq/L [facility] BUN 15 7 - 21 mg/dL [facility] Creatinine 0.95Comment: Specimen 0.57 - 1.25 mg/dL [facility] slightly hemolyzed [facility] Glucose 75 70 - 105 mg/dL [facility] Calcium 9.1 8.4 - 10.2 mg/dL [facility] EGFR 81Comment: ESTIMATED GFR IS mL/min/1.73 sq m [facility] NOT ACCURATE [facility] CLEARANCE IN PREDICTING GLOMERULAR FILTRATION RATE. ESTIMATED GFR IS NOT APPLICABLE FOR DIALYSIS PATIENTS. Specimen Blood Performing Organization Address City/State/Zipcode Phone Number [facility] [address] [place] [address] CENTER VASCULAR DIAGRAM -SCAN (05/18/2018 11:41 AM CDT) Narrative Performed At after 04/15/2018 Insurance Payer Benefit Plan / Group Subscriber ID Type Phone Address [employer] - [employer] CARE [employer] HMO/POS/OPEN ACCESS xxxxxxxxxxx HMO/POS (Home) [place] [phone] [place], [place] (Work) [id number] Advance Directives For more information, please contact:[address] [phone] Code Status Date Activated Date Inactivated Comments [...]
--- OUTSIDE RECORDS SUMMARY | 2019-04-16 09:22 | XMS REPORT ---
:1960 [facility] [address] [place] [address] Care Team Providers Name Role Phone ADOLPH [...] exam:->RECTAL FINAL REPORT PATIENT ID: Rigo colin [id number] CLINICAL exam:->ABDOMINAL PAINWhat HISTORY: Left lower is [...] MDReport Verified Date/Time: 08/13/2018 22:50:13 Reading Location: [address] Reading Room TINE KINASE (CK), TOTAL AND MB 2018-08-13 22:40:00 Test Item Value Reference Range Comments CREATINE KINASE TOTAL (BEAKER) (test evld=041) 80 U/L 29-200 CREATINE KINASE-MB (BEAKER) (test oqun=517) 1.7 ng/mL 0.0-6.6 CREATINE KINASE-MB INDEX (BEAKER) (test kqcq=172) 2.1 % CK-MB Reference Range:<6.7 Normal6.7-10.0 Borderline>10.0 AbnormalTROPONIN [id number] 22:40:00 Test Item Value Reference Range Comments TROPONIN I (BEAKER) (test oswu=399) < ng/mL 0.00-0.03 Troponin I (TnI) levels [...] persistent tachyarrhythmia.RAD, CHEST, PA OR AP, 1 [id number] 22:04:00Reason for exam:->chest painShould this be performed at the bedside?- >YesFINAL REPORT INDICATION: chest pain COMPARISON: March 28, 2018 TECHNIQUE: Singlefrontal view of the chest. FINDINGS: Lungs and pleura: Clear lungs. No effusion.Heart and mediastinum: Normal heart size. Unremarkable mediastinal contours.Osseous structures: No acute abnormality.Other : None. IMPRESSION: No acute intrathoracic abnormality. Signed: JR José Miguel, Catherine MIKeport Verified Date/Time: 08/13/2018 22:04:08 Reading Location: [facility] C0[facility] Transitional Reading Room URINALYSIS W/ [id number] 21:58:00 Test Item Value Reference Range Comments COLOR (BEAKER) (test fwrx=511) Yellow CLARITY (BEAKER) (test hbyt=154) Clear SPECIFIC GRAVITY UA (BEAKER) (test ypfm=350) 1.017 1.001-1.035 PH UA (BEAKER) (test oxoz=896) 6.5 5.0-8.0 PROTEIN UA (BEAKER) (test vixw=201) Negative Negative GLUCOSE UA (BEAKER) (test qjxv=236) Negative Negative KETONES UA (BEAKER) (test audz=271) Negative Negative BILIRUBIN UA (BEAKER) (test bdkr=783) Negative Negative BLOOD UA (BEAKER) (test gmfq=610) Negative Negative NITRITE UA (BEAKER) (test jhzz=702) Negative Negative LEUKOCYTE ESTERASE UA (BEAKER) (test tykz=036) Negative Negative UROBILINOGEN UA (BEAKER) (test glsv=795) 12.0 mg/dL 0.2-1.0 RBC UA (BEAKER) (test nmau=693) < /HPF WBC UA (BEAKER) (test mpzg=240) < /HPF SQUAMOUS EPITHELIAL (BEAKER) (test kkrp=783) < /HPF SOURCE(BEAKER) (test qfad=6457) B-TYPE NATRIURETIC FACTOR (BNP)2018-08-13 21:31:00 Test Item Value Reference Range Comments B-TYPE NATRIURETIC PEPTIDE (BEAKER) (test ctum=707) 69 pg/mL 0-100 [id number] 21:02:00 Test Item Value Reference Range Comments LIPASE (BEAKER) (test soln=989) 44 U/L 8-78 BASIC METABOLIC [id number] 21:02:00 Test Item Value Reference Range Comments SODIUM (BEAKER) (test 141 meq/L 136-145 emyk=362) POTASSIUM (BEAKER) (test 4.2 meq/L 3.5-5.1 Specimen slightly wfyy=639) hemolyzed CHLORIDE (BEAKER) (test 107 meq/L 98-107 hofx=431) CO2 (BEAKER) (test 27 meq/L 22-29 wvla=606) BLOOD UREA NITROGEN 15 mg/dL 7-21 (BEAKER) (test pqib=267) CREATININE (BEAKER) (test 0.95 mg/dL 0.57-1.25 Specimen slightly cnrb=891) hemolyzed GLUCOSE RANDOM (BEAKER) 75 mg/dL 70-105 (test dmzv=675) CALCIUM (BEAKER) (test 9.1 mg/dL 8.4-10.2 race=699) EGFR (BEAKER) (test 81 mL/min/1.73 sq m ESTIMATED GFR IS NOT tajc=0087) ACCURATE CREATININE CLEARANCE IN PREDICTING GLOMERULAR FILTRATION RATE. ESTIMATED GFR IS NOT APPLICABLE FOR DIALYSIS PATIENTS. HEPATIC FUNCTION [id number] 21:02:00 Test Item Value Reference Range Comments TOTAL PROTEIN (BEAKER) (test 6.7 gm/dL 6.0-8.3 Specimen slightly hemolyzed vorz=943) ALBUMIN (BEAKER) (test 4.0 g/dL 3.5-5.0 Specimen slightly hemolyzed fzqc=9549) BILIRUBIN TOTAL (BEAKER) (test 1.4 mg/dL 0.2-1.2 Specimen slightly hemolyzed yvbx=492) BILIRUBIN DIRECT (BEAKER) (test 0.3 mg/dL 0.1-0.5 Specimen slightly hemolyzed zxyr=801) ALKALINE PHOSPHATASE (BEAKER) 62 U/L 40-150 (test vyjy=692) AST (SGOT) (BEAKER) (test 26 U/L 5-34 Specimen slightly hemolyzed vycx=952) ALT (SGPT) (BEAKER) (test 47 U/L 6-55 Specimen slightly hemolyzed xdic=658) [id number] 20:37:00 Test Item Value Reference Range Comments PROTIME (BEAKER) (test qppm=958) 13.8 seconds 11.7-14.7 INR (BEAKER) (test whaf=333) 1.1 <=5.9 PARTIAL THROMBOPLASTIN TIME (BEAKER) (test 24.9 seconds 22.5-36.0 pjrg=181) RECOMMENDED COUMADIN/WARFARIN INR THERAPY RANGESSTANDARD DOSE: 2.0 - 3.0 Includes: PROPHYLAXIS forvenous thrombosis, systemic embolization; TREATMENT for venous thrombosis and/or pulmonary embolus.HIGH RISK: Target INR is 2.5-3.5 for patients with mechanical heart valves.CBC W/PLT COUNT & AUTO [id number] 20:28:00 Test Item Value Reference Range Comments WHITE BLOOD CELL COUNT (BEAKER) (test vjhe=857) 6.6 K/ L 3.5-10.5 RED BLOOD CELL COUNT (BEAKER) (test lxyx=065) 4.54 M/ L 4.63-6.08 HEMOGLOBIN (BEAKER) (test liet=625) 14.5 GM/DL 13.7-17.5 HEMATOCRIT (BEAKER) (test drig=917) 43.2 % 40.1-51.0 MEAN CORPUSCULAR VOLUME (BEAKER) (test iiyb=111) 95.2 fL 79.0-92.2 MEAN CORPUSCULAR HEMOGLOBIN (BEAKER) (test 31.9 pg 25.7-32.2 fhjx=136) MEAN CORPUSCULAR HEMOGLOBIN CONC (BEAKER) (test 33.6 GM/DL 32.3-36.5 qztv=716) RED CELL DISTRIBUTION WIDTH (BEAKER) (test 13.5 % 11.6-14.4 nrzb=514) PLATELET COUNT (BEAKER) (test uxqm=124) 176 K/CU MM 150-450 MEAN PLATELET VOLUME (BEAKER) (test prku=086) 9.9 fL 9.4-12.4 NUCLEATED RED BLOOD CELLS (BEAKER) (test 0 /100 WBC 0-0 qfmx=066) NEUTROPHILS RELATIVE PERCENT (BEAKER) (test 64 % phdc=302) LYMPHOCYTES RELATIVE PERCENT (BEAKER) (test 21 % ocor=403) MONOCYTES RELATIVE PERCENT (BEAKER) (test 11 % zcwi=966) EOSINOPHILS RELATIVE PERCENT (BEAKER) (test 3 % vllt=073) BASOPHILS RELATIVE PERCENT (BEAKER) (test 1 % gygp=122) NEUTROPHILS ABSOLUTE COUNT (BEAKER) (test 4.23 K/ L 1.78-5.38 jylz=467) LYMPHOCYTES ABSOLUTE COUNT (BEAKER) (test 1.35 K/ L 1.32-3.57 ymzy=361) MONOCYTES ABSOLUTE COUNT (BEAKER) (test 0.72 K/ L 0.30-0.82 ycit=149) EOSINOPHILS ABSOLUTE COUNT (BEAKER) (test 0.17 K/ L 0.04-0.54 bwlq=109) BASOPHILS ABSOLUTE COUNT (BEAKER) (test 0.04 K/ L 0.01-0.08 vzzg=664) IMMATURE GRANULOCYTES-RELATIVE PERCENT (BEAKER) 1 % 0-1 (test psxx=0148) TISSUE [id number] 14:11:00Surgical Pathology Report Case: [id number] Authorizing Provider: Darshan Dillon MD Collected: 03/24/2018 1628 Ordering Location: [facility] Received: 03/26/2018 1129 PERIOPERATIVE SERVICES Pathologist: Shelton Joe MD Specimen: Soft Tissue, Other, Atrial Mass HEART, LEFT ATRIUM, RESECTION: MYXOMA Signing Pathologist Direct Phone Line: [phone] signed by Shelton Joe MD on 03/28/2018 at 2:11 [id number] atrial fibrillation, left atrial massLeft atrial massReceived [...] A2-A5, remainder of specimen. DB/plPerformedRAD, CHEST, 2 [id number] 13:30:00Reason for exam:->pneumo, discharge dependentFINAL REPORT Chest [...] MDReport Verified Date/Time: 03/28/2018 13:30:46 Reading Location: [facility] B1 C013W Consult Reading Room [id number] 07: 13:00 Test Item Value Reference Range Comments MAGNESIUM (BEAKER) (test kbbh=436) 2.2 mg/dL 1.6-2.6 BASIC METABOLIC [id number] 07:13:00 Test Item Value Reference Range Comments SODIUM (BEAKER) (test 139 meq/L 136-145 acgs=478) POTASSIUM (BEAKER) (test 4.6 meq/L 3.5-5.1 olhz=126) CHLORIDE (BEAKER) (test 102 meq/L 98-107 lhbs=293) CO2 (BEAKER) (test 28 meq/L 22-29 slgy=323) BLOOD UREA NITROGEN 11 mg/dL 7-21 (BEAKER) (test htzf=863) CREATININE (BEAKER) (test 0.70 mg/dL 0.57-1.25 jdop=936) GLUCOSE RANDOM (BEAKER) 98 mg/dL 70-105 (test bkid=320) CALCIUM (BEAKER) (test 9.7 mg/dL 8.4-10.2 xkmf=917) EGFR (BEAKER) (test 116 mL/min/1.73 sq m ESTIMATED GFR IS NOT pibf=1634) ACCURATE CREATININE CLEARANCE IN PREDICTING GLOMERULAR FILTRATION RATE. ESTIMATED GFR IS NOT APPLICABLE FOR DIALYSIS PATIENTS. RAD, CHEST, 1 VIEW, NON [id number] 22:38:00Reason for exam:->eval for right pneumothorax after [...] Verified Date/Time: 03/27/2018 22: 38:14 Reading Location: [address] Reading Room 10:38 [id number] 05:17:00 Test Item Value Reference Range Comments MAGNESIUM (BEAKER) (test svjc=491) 2.0 mg/dL 1.6-2.6 BASIC METABOLIC [id number] 05:17:00 Test Item Value Reference Range Comments SODIUM (BEAKER) (test 138 meq/L 136-145 nhvu=714) POTASSIUM (BEAKER) (test 4.6 meq/L 3.5-5.1 zfpn=930) CHLORIDE (BEAKER) (test 101 meq/L 98-107 jmdi=701) CO2 (BEAKER) (test 29 meq/L 22-29 lflc=955) BLOOD UREA NITROGEN 11 mg/dL 7-21 (BEAKER) (test ynzd=684) CREATININE (BEAKER) (test 0.74 mg/dL 0.57-1.25 iyyb=689) GLUCOSE RANDOM (BEAKER) 116 mg/dL 70-105 (test mufg=179) CALCIUM (BEAKER) (test 9.3 mg/dL 8.4-10.2 ytqx=694) EGFR (BEAKER) (test 109 mL/min/1.73 sq m ESTIMATED GFR IS NOT nhmc=6828) ACCURATE CREATININE CLEARANCE IN PREDICTING GLOMERULAR FILTRATION RATE. ESTIMATED GFR IS NOT APPLICABLE FOR DIALYSIS PATIENTS. CBC W/PLT COUNT & AUTO [id number] 05:08:00 Test Item Value Reference Range Comments WHITE BLOOD CELL COUNT (BEAKER) (test gbzm=242) 13.5 K/ L 3.5-10.5 RED BLOOD CELL COUNT (BEAKER) (test rclr=053) 3.91 M/ L 4.63-6.08 HEMOGLOBIN (BEAKER) (test ailp=876) 12.1 GM/DL 13.7-17.5 HEMATOCRIT (BEAKER) (test tftf=254) 36.7 % 40.1-51.0 MEAN CORPUSCULAR VOLUME (BEAKER) (test xazc=672) 93.9 fL 79.0-92.2 MEAN CORPUSCULAR HEMOGLOBIN (BEAKER) (test 30.9 pg 25.7-32.2 siqs=353) MEAN CORPUSCULAR HEMOGLOBIN CONC (BEAKER) (test 33.0 GM/DL 32.3-36.5 zmjr=365) RED CELL DISTRIBUTION WIDTH (BEAKER) (test 13.2 % 11.6-14.4 ledh=111) PLATELET COUNT (BEAKER) (test zpag=955) 116 K/CU MM 150-450 MEAN PLATELET VOLUME (BEAKER) (test qmdo=174) 10.3 fL 9.4-12.4 NUCLEATED RED BLOOD CELLS (BEAKER) (test 0 /100 WBC 0-0 wnhe=123) NEUTROPHILS RELATIVE PERCENT (BEAKER) (test 85 % hfjm=764) LYMPHOCYTES RELATIVE PERCENT (BEAKER) (test 5 % ipde=386) MONOCYTES RELATIVE PERCENT (BEAKER) (test 9 % sftg=572) EOSINOPHILS RELATIVE PERCENT (BEAKER) (test 0 % rabb=063) BASOPHILS RELATIVE PERCENT (BEAKER) (test 0 % elze=629) NEUTROPHILS ABSOLUTE COUNT (BEAKER) (test 11.40 K/ L 1.78-5.38 ksfd=460) LYMPHOCYTES ABSOLUTE COUNT (BEAKER) (test 0.69 K/ L 1.32-3.57 dacm=933) MONOCYTES ABSOLUTE COUNT (BEAKER) (test 1.21 K/ L 0.30-0.82 lnoj=845) EOSINOPHILS ABSOLUTE COUNT (BEAKER) (test 0.01 K/ L 0.04-0.54 tgzm=997) BASOPHILS ABSOLUTE COUNT (BEAKER) (test 0.02 K/ L 0.01-0.08 avfh=610) IMMATURE GRANULOCYTES-RELATIVE PERCENT (BEAKER) 1 % 0-1 (test wnqf=4433) POCT-GLUCOSE [id number] 08:39:00 Test Item Value Reference Range Comments POC-GLUCOSE METER (BEAKER) 96 mg/dL 70-110 TESTED AT [address] (test egax=9865) [facility] [address] POCT-GLUCOSE [id number] 08:39:00 Test Item Value Reference Range Comments POC-GLUCOSE METER (BEAKER) 156 mg/dL 70-110 TESTED AT [address] (test vbeg=9550) [facility] [address] RAD, CHEST, 1 VIEW, NON [id number] 06:12:00Reason for exam:->chest tubeShould this be performed at the bedside?->YesFINAL REPORT RAD, CHEST, 1 VIEW, NON DEPT INDICATION: chest tube COMPARISON: Prior day's exam FINDINGS: Portable frontal view of the chest. IMPRESSION: Support Lines: The [place] catheter has been. Right IJ sheath remains in place. Thoracic drainage catheters again noted. Lungs and pleura: Basilar subsegmental atelectasis on the right. Trace right apical pneumothorax. Bilateral small effusions. No pneumothorax.Heart and mediastinum: Stable contours. Additional findings: None. Signed: JR Valdez Robert MDReport Verified Date/Time: 03/26/2018 06:12:29 Reading Location: [address] Body Reading Room CBC W/ PLT COUNT & AUTO [id number] 05:52:00 Test Item Value Reference Range Comments WHITE BLOOD CELL COUNT (BEAKER) (test tfwx=021) 15.0 K/ L 3.5-10.5 RED BLOOD CELL COUNT (BEAKER) (test vzzc=417) 3.80 M/ L 4.63-6.08 HEMOGLOBIN (BEAKER) (test jkcu=922) 12.1 GM/DL 13.7-17.5 HEMATOCRIT (BEAKER) (test blbu=527) 34.7 % 40.1-51.0 MEAN CORPUSCULAR VOLUME (BEAKER) (test qmfx=736) 91.3 fL 79.0-92.2 MEAN CORPUSCULAR HEMOGLOBIN (BEAKER) (test 31.8 pg 25.7-32.2 dqze=988) MEAN CORPUSCULAR HEMOGLOBIN CONC (BEAKER) (test 34.9 GM/DL 32.3-36.5 pgqz=159) RED CELL DISTRIBUTION WIDTH (BEAKER) (test 13.2 % 11.6-14.4 cree=116) PLATELET COUNT (BEAKER) (test febz=293) 102 K/CU MM 150-450 MEAN PLATELET VOLUME (BEAKER) (test tqas=944) 10.0 fL 9.4-12.4 NUCLEATED RED BLOOD CELLS (BEAKER) (test 0 /100 WBC 0-0 atyx=306) NEUTROPHILS RELATIVE PERCENT (BEAKER) (test 85 % odgu=736) LYMPHOCYTES RELATIVE PERCENT (BEAKER) (test 5 % vjec=621) MONOCYTES RELATIVE PERCENT (BEAKER) (test 9 % anou=881) EOSINOPHILS RELATIVE PERCENT (BEAKER) (test 0 % ezjc=138) BASOPHILS RELATIVE PERCENT (BEAKER) (test 0 % lrwg=477) NEUTROPHILS ABSOLUTE COUNT (BEAKER) (test 12.80 K/ L 1.78-5.38 mhky=798) LYMPHOCYTES ABSOLUTE COUNT (BEAKER) (test 0.68 K/ L 1.32-3.57 ygjy=591) MONOCYTES ABSOLUTE COUNT (BEAKER) (test 1.39 K/ L 0.30-0.82 mnne=970) EOSINOPHILS ABSOLUTE COUNT (BEAKER) (test 0.00 K/ L 0.04-0.54 khpo=462) BASOPHILS ABSOLUTE COUNT (BEAKER) (test 0.01 K/ L 0.01-0.08 vnmx=213) IMMATURE GRANULOCYTES-RELATIVE PERCENT (BEAKER) 1 % 0-1 (test xrkj=7139) BLOOD GAS, [id number] 04:52:00 Test Item Value Reference Range Comments PH ARTERIAL (BEAKER) (test zryk=033) 7.44 7.35-7.45 PCO2 ARTERIAL (BEAKER) (test jsjb=389) 41 mmHg 35-45 PO2 ARTERIAL (BEAKER) (test wevx=509) 78 mmHg 80-90 O2 SATURATION ARTERIAL (BEAKER) (test rlfe=764) 95.5 % 96.0-97.0 HCO3 ARTERIAL (BEAKER) (test rikr=534) 27 mmol/L 21-29 BASE EXCESS ARTERIAL (BEAKER) (test pdup=712) 3.1 mmol/L -2.0-3.0 PATIENT TEMPERATURE (BEAKER) (test cxzo=8480) 37.7 C FIO2 (BEAKER) (test hinf=3004) 36.0 % [id number] 04:31:00 Test Item Value Reference Range Comments PHOSPHORUS (BEAKER) (test ebxi=231) 3.1 mg/dL 2.3-4.7 BASIC METABOLIC [id number] 04:31:00 Test Item Value Reference Range Comments SODIUM (BEAKER) (test 137 meq/L 136-145 tnvz=517) POTASSIUM (BEAKER) (test 3.8 meq/L 3.5-5.1 qela=437) CHLORIDE (BEAKER) (test 106 meq/L 98-107 tzxc=180) CO2 (BEAKER) (test 24 meq/L 22-29 tprt=205) BLOOD UREA NITROGEN 11 mg/dL 7-21 (BEAKER) (test rykh=413) CREATININE (BEAKER) (test 0.65 mg/dL 0.57-1.25 uadd=970) GLUCOSE RANDOM (BEAKER) 119 mg/dL 70-105 (test yfiw=046) CALCIUM (BEAKER) (test 8.9 mg/dL 8.4-10.2 qjma=781) EGFR (BEAKER) (test 127 mL/min/1.73 sq m ESTIMATED GFR IS NOT yqlr=7958) ACCURATE CREATININE CLEARANCE IN PREDICTING GLOMERULAR FILTRATION RATE. ESTIMATED GFR IS NOT APPLICABLE FOR DIALYSIS PATIENTS. Specimen slightly ictericLACTIC ACID, ARTERIAL, WHOLE [id number] 04:26:00 Test Item Value Reference Range Comments LACTATE BLOOD ARTERIAL (2) (BEAKER) (test 0.8 mmol/L 0.5-2.2 nkag=2313) Effective 03/24/2016: Units/Reference Range ChangeNew: 0.5-2.2 mmol/L Previous: 5 -20 mg/dLRAD, CHEST, 1 VIEW, NON [id number] 09:24:00Reason for exam:->s/ p resection atrial myxomaShould [...] Daviseport Verified Date/Time: 03/25/2018 09:24:11 Reading Location: [address] Transitional Reading Room [id number] 06:29:00 Test Item Value Reference Range Comments PHOSPHORUS (BEAKER) (test jglq=260) 1.1 mg/dL 2.3-4.7 CBC W/PLT COUNT & AUTO [id number] 05:51:00 Test Item Value Reference Range Comments WHITE BLOOD CELL COUNT (BEAKER) (test carc=443) 19.2 K/ L 3.5-10.5 RED BLOOD CELL COUNT (BEAKER) (test izxb=757) 4.11 M/ L 4.63-6.08 HEMOGLOBIN (BEAKER) (test aohd=407) 12.9 GM/DL 13.7-17.5 HEMATOCRIT (BEAKER) (test hdsz=366) 37.9 % 40.1-51.0 MEAN CORPUSCULAR VOLUME (BEAKER) (test qkwg=077) 92.2 fL 79.0-92.2 MEAN CORPUSCULAR HEMOGLOBIN (BEAKER) (test 31.4 pg 25.7-32.2 pssy=830) MEAN CORPUSCULAR HEMOGLOBIN CONC (BEAKER) (test 34.0 GM/DL 32.3-36.5 mkwp=126) RED CELL DISTRIBUTION WIDTH (BEAKER) (test 13.0 % 11.6-14.4 jpil=927) PLATELET COUNT (BEAKER) (test juyp=668) 132 K/CU MM 150-450 MEAN PLATELET VOLUME (BEAKER) (test bmds=846) 10.0 fL 9.4-12.4 NUCLEATED RED BLOOD CELLS (BEAKER) (test 0 /100 WBC 0-0 nsgy=589) NEUTROPHILS RELATIVE PERCENT (BEAKER) (test 90 % yjtn=254) LYMPHOCYTES RELATIVE PERCENT (BEAKER) (test 1 % ydxu=886) MONOCYTES RELATIVE PERCENT (BEAKER) (test 7 % jfmq=922) EOSINOPHILS RELATIVE PERCENT (BEAKER) (test 0 % gvre=871) BASOPHILS RELATIVE PERCENT (BEAKER) (test 0 % iqaa=720) NEUTROPHILS ABSOLUTE COUNT (BEAKER) (test 17.33 K/ L 1.78-5.38 fqxu=007) LYMPHOCYTES ABSOLUTE COUNT (BEAKER) (test 0.27 K/ L 1.32-3.57 bhwi=492) MONOCYTES ABSOLUTE COUNT (BEAKER) (test 1.39 K/ L 0.30-0.82 gdwv=109) EOSINOPHILS ABSOLUTE COUNT (BEAKER) (test 0.00 K/ L 0.04-0.54 vgqc=875) BASOPHILS ABSOLUTE COUNT (BEAKER) (test 0.04 K/ L 0.01-0.08 krpo=496) IMMATURE GRANULOCYTES-RELATIVE PERCENT (BEAKER) 1 % 0-1 (test nmlg=5842) BLOOD GAS, [id number] 05:35:00 Test Item Value Reference Range Comments PH ARTERIAL (BEAKER) (test dmlt=262) 7.33 7.35-7.45 PCO2 ARTERIAL (BEAKER) (test vrst=928) 40 mmHg 35-45 PO2 ARTERIAL (BEAKER) (test kswz=166) 159 mmHg 80-90 O2 SATURATION ARTERIAL (BEAKER) (test vksg=358) 98.9 % 96.0-97.0 HCO3 ARTERIAL (BEAKER) (test myjk=026) 20 mmol/L 21-29 BASE EXCESS ARTERIAL (BEAKER) (test ohqk=763) -5.2 mmol/L -2.0-3.0 PATIENT TEMPERATURE (BEAKER) (test xsqx=6321) 37.4 C FIO2 (BEAKER) (test aiyi=3750) 40.0 % GLUCOSE-STAT [id number] 05:35:00 Test Item Value Reference Range Comments GLUCOSE RANDOM (BEAKER) (test frln=185) 218 mg/dL 70-110 POTASSIUM-STAT [id number] 05:35:00 Test Item Value Reference Range Comments POTASSIUM (BEAKER) (test eoal=788) 3.4 meq/L 3.6-5.5 SODIUM NA-STAT [id number] 05:33:00 Test Item Value Reference Range Comments SODIUM (BEAKER) (test jroo=377) 144 meq/L 135-148 HGB/HCT (H&H) - STAT [id number] 05:33:00 Test Item Value Reference Range Comments HEMOGLOBIN (BEAKER) (test nmms=315) 13.8 g/dL 13.0-16.8 HEMATOCRIT (BEAKER) (test bxzt=022) 41.0 % 40.0-50.0 [id number] 05:32:00 Test Item Value Reference Range Comments MAGNESIUM (BEAKER) (test kzer=238) 1.9 mg/dL 1.6-2.6 BASIC METABOLIC [id number] 05:32:00 Test Item Value Reference Range Comments SODIUM (BEAKER) (test 143 meq/L 136-145 kgxa=513) POTASSIUM (BEAKER) (test 3.5 meq/L 3.5-5.1 ubpi=220) CHLORIDE (BEAKER) (test 111 meq/L 98-107 axpz=291) CO2 (BEAKER) (test 17 meq/L 22-29 cyls=187) BLOOD UREA NITROGEN 13 mg/dL 7-21 (BEAKER) (test fgws=504) CREATININE (BEAKER) (test 1.09 mg/dL 0.57-1.25 ovht=174) GLUCOSE RANDOM (BEAKER) 227 mg/dL 70-105 (test psaw=218) CALCIUM (BEAKER) (test 8.5 mg/dL 8.4-10.2 houl=804) EGFR (BEAKER) (test 70 mL/min/1.73 sq m ESTIMATED GFR IS NOT khgh=7150) ACCURATE CREATININE CLEARANCE IN PREDICTING GLOMERULAR FILTRATION RATE. ESTIMATED GFR IS NOT APPLICABLE FOR DIALYSIS PATIENTS. LACTIC ACID, ARTERIAL, WHOLE [id number] 05:19:00 Test Item Value Reference Range Comments LACTATE BLOOD ARTERIAL (2) 8.6 mmol/L 0.5-2.2 Specimen slightly hemolyzed (BEAKER) (test pobf=8147) Effective 03/24/2016: Units/Reference Range ChangeNew: 0.5-2.2 mmol/L Previous: 5 -20 mg/dLBLOOD GAS, [id number] 02:21:00 Test Item Value Reference Range Comments PH ARTERIAL (BEAKER) (test jsmb=700) 7.31 7.35-7.45 PCO2 ARTERIAL (BEAKER) (test xyuq=939) 36 mmHg 35-45 PO2 ARTERIAL (BEAKER) (test zpxz=508) 123 mmHg 80-90 O2 SATURATION ARTERIAL (BEAKER) (test vvny=811) 98.2 % 96.0-97.0 HCO3 ARTERIAL (BEAKER) (test fkxc=864) 18 mmol/L 21-29 BASE EXCESS ARTERIAL (BEAKER) (test pleo=452) -7.7 mmol/L -2.0-3.0 PATIENT TEMPERATURE (BEAKER) (test trmr=7738) 36.8 C FIO2 (BEAKER) (test opml=8532) 40.0 % BLOOD GAS, [id number] 00:28:00 Test Item Value Reference Range Comments PH ARTERIAL (BEAKER) (test euvj=850) 7.28 7.35-7.45 PCO2 ARTERIAL (BEAKER) (test cllf=872) 35 mmHg 35-45 PO2 ARTERIAL (BEAKER) (test thfy=364) 114 mmHg 80-90 O2 SATURATION ARTERIAL (BEAKER) (test qsso=227) 97.8 % 96.0-97.0 HCO3 ARTERIAL (BEAKER) (test wbrx=650) 16 mmol/L 21-29 BASE EXCESS ARTERIAL (BEAKER) (test jpby=470) -9.7 mmol/L -2.0-3.0 PATIENT TEMPERATURE (BEAKER) (test vsvk=8013) 36.7 C FIO2 (BEAKER) (test vzno=7666) 40.0 % POTASSIUM-STAT [id number] 00:28:00 Test Item Value Reference Range Comments POTASSIUM (BEAKER) (test aqme=407) 3.1 meq/L 3.6-5.5 GLUCOSE-STAT [id number] 00:28:00 Test Item Value Reference Range Comments GLUCOSE RANDOM (BEAKER) (test tfzk=373) 236 mg/dL 70-110 CALCIUM, [id number] 00:28:00 Test Item Value Reference Range Comments CALCIUM IONIZED (BEAKER) (test wiqg=713) 1.10 mmol/L 1.12-1.27 PH, BLOOD (BEAKER) (test dttp=4186) 7.28 SODIUM NA-STAT [id number] 00:27:00 Test Item Value Reference Range Comments SODIUM (BEAKER) (test fgyk=990) 142 meq/L 135-148 HEMOGLOBIN-STAT [id number] 00:27:00 Test Item Value Reference Range Comments HEMOGLOBIN (BEAKER) (test aqvl=878) 15.1 g/dL 13.0-16.8 HGB/HCT (H&H) - STAT [id number] 00:27:00 Test Item Value Reference Range Comments HEMOGLOBIN (BEAKER) (test yucg=050) 15.1 GM/DL 13.0-16.8 HEMATOCRIT (BEAKER) (test xmrg=154) 44.0 % 40.0-50.0 [id number] 22:39:00 Test Item Value Reference Range Comments MAGNESIUM (BEAKER) (test 2.2 mg/dL 1.6-2.6 Specimen slightly hemolyzed ycee=056) BASIC METABOLIC [id number] 22:39:00 Test Item Value Reference Range Comments SODIUM (BEAKER) (test 140 meq/L 136-145 pacj=919) POTASSIUM (BEAKER) (test 4.0 meq/L 3.5-5.1 Specimen slightly fuzz=286) hemolyzed CHLORIDE (BEAKER) (test 110 meq/L 98-107 svzr=977) CO2 (BEAKER) (test 17 meq/L 22-29 ygdl=300) BLOOD UREA NITROGEN 14 mg/dL 7-21 (BEAKER) (test tkqj=789) CREATININE (BEAKER) (test 1.09 mg/dL 0.57-1.25 Specimen slightly dlvb=542) hemolyzed GLUCOSE RANDOM (BEAKER) 202 mg/dL 70-105 (test jwsm=941) CALCIUM (BEAKER) (test 8.8 mg/dL 8.4-10.2 nlua=665) EGFR (BEAKER) (test 70 mL/min/1.73 sq m ESTIMATED GFR IS NOT kqir=0845) ACCURATE CREATININE CLEARANCE IN PREDICTING GLOMERULAR FILTRATION RATE. ESTIMATED GFR IS NOT APPLICABLE FOR DIALYSIS PATIENTS. LACTIC ACID, ARTERIAL, WHOLE [id number] 22:36:00 Test Item Value Reference Range Comments LACTATE BLOOD ARTERIAL (2) 5.5 mmol/L 0.5-2.2 Specimen slightly hemolyzed (BEAKER) (test ktsi=1024) Effective 03/24/2016: Units/Reference Range ChangeNew: 0.5-2.2 mmol/L Previous: 5 -20 mg/[id number] 22:32:00 Test Item Value Reference Range Comments FIBRINOGEN LEVEL (BEAKER) (test jppn=223) 375 mg/dl 225-434 [id number] 22:32:00 Test Item Value Reference Range Comments PARTIAL THROMBOPLASTIN TIME (BEAKER) (test 29.6 seconds 22.5-36.0 hhkj=800) CBC W/PLT COUNT & AUTO [id number] 22:31:00 Test Item Value Reference Range Comments WHITE BLOOD CELL COUNT (BEAKER) (test vfby=073) 20.7 K/ L 3.5-10.5 RED BLOOD CELL COUNT (BEAKER) (test rnst=797) 4.73 M/ L 4.63-6.08 HEMOGLOBIN (BEAKER) (test dlnf=553) 14.8 GM/DL 13.7-17.5 HEMATOCRIT (BEAKER) (test uotb=876) 44.4 % 40.1-51.0 MEAN CORPUSCULAR VOLUME (BEAKER) (test ovvv=695) 93.9 fL 79.0-92.2 MEAN CORPUSCULAR HEMOGLOBIN (BEAKER) (test 31.3 pg 25.7-32.2 mqwo=553) MEAN CORPUSCULAR HEMOGLOBIN CONC (BEAKER) (test 33.3 GM/DL 32.3-36.5 ykwt=693) RED CELL DISTRIBUTION WIDTH (BEAKER) (test 13.2 % 11.6-14.4 yvyv=118) PLATELET COUNT (BEAKER) (test erwe=571) 147 K/CU MM 150-450 MEAN PLATELET VOLUME (BEAKER) (test futr=898) 9.9 fL 9.4-12.4 NUCLEATED RED BLOOD CELLS (BEAKER) (test 0 /100 WBC 0-0 dqro=105) NEUTROPHILS RELATIVE PERCENT (BEAKER) (test 82 % xavj=229) LYMPHOCYTES RELATIVE PERCENT (BEAKER) (test 7 % vlnp=044) MONOCYTES RELATIVE PERCENT (BEAKER) (test 9 % qyzw=533) EOSINOPHILS RELATIVE PERCENT (BEAKER) (test 0 % nppc=466) BASOPHILS RELATIVE PERCENT (BEAKER) (test 0 % rfva=985) NEUTROPHILS ABSOLUTE COUNT (BEAKER) (test 17.02 K/ L 1.78-5.38 bcvm=366) LYMPHOCYTES ABSOLUTE COUNT (BEAKER) (test 1.53 K/ L 1.32-3.57 scpz=147) MONOCYTES ABSOLUTE COUNT (BEAKER) (test 1.85 K/ L 0.30-0.82 cduq=589) EOSINOPHILS ABSOLUTE COUNT (BEAKER) (test 0.03 K/ L 0.04-0.54 dogt=170) BASOPHILS ABSOLUTE COUNT (BEAKER) (test 0.06 K/ L 0.01-0.08 oskl=659) IMMATURE GRANULOCYTES-RELATIVE PERCENT (BEAKER) 1 % 0-1 (test zltn=7616) PROTHROMBIN TIME/[id number] 22:31:00 Test Item Value Reference Range Comments PROTIME (BEAKER) (test weiw=233) 17.4 seconds 11.7-14.7 INR (BEAKER) (test eyyb=338) 1.4 <=5.9 RECOMMENDED COUMADIN/WARFARIN INR THERAPY RANGESSTANDARD DOSE: 2.0 - 3.0 Includes: PROPHYLAXIS forvenous thrombosis, systemic embolization; TREATMENT for venous thrombosis and/or pulmonary embolus.HIGH RISK: Target INR is 2.5-3.5 for patients with mechanical heart valves.OXYGEN SATURATION, [id number] 22:26:00 Test Item Value Reference Range Comments O2 SATURATION (MEASURED) (BEAKER) (test otif=0452) 78.3 % CALCIUM, [id number] 22:23:00 Test Item Value Reference Range Comments CALCIUM IONIZED (BEAKER) (test ocfm=062) 1.19 mmol/L 1.12-1.27 PH, BLOOD (BEAKER) (test kqvm=0277) 7.26 SODIUM NA-STAT [id number] 22:22:00 Test Item Value Reference Range Comments SODIUM (BEAKER) (test bqin=271) 139 meq/L 135-148 POTASSIUM-STAT [id number] 22:22:00 Test Item Value Reference Range Comments POTASSIUM (BEAKER) (test afze=831) 3.7 meq/L 3.6-5.5 HGB/HCT (H&H) - STAT [id number] 22:22:00 Test Item Value Reference Range Comments HEMOGLOBIN (BEAKER) (test ioak=503) 15.7 g/dL 13.0-16.8 HEMATOCRIT (BEAKER) (test eval=093) 46.0 % 40.0-50.0 BLOOD GAS, [id number] 22:22:00 Test Item Value Reference Range Comments PH ARTERIAL (BEAKER) (test faqv=196) 7.26 7.35-7.45 PCO2 ARTERIAL (BEAKER) (test tkdv=882) 44 mmHg 35-45 PO2 ARTERIAL (BEAKER) (test eoxm=865) 102 mmHg 80-90 O2 SATURATION ARTERIAL (BEAKER) (test tozr=118) 96.8 % 96.0-97.0 HCO3 ARTERIAL (BEAKER) (test vwqf=092) 19 mmol/L 21-29 BASE EXCESS ARTERIAL (BEAKER) (test wfpy=230) -7.6 mmol/L -2.0-3.0 PATIENT TEMPERATURE (BEAKER) (test bqqn=3203) 36.9 C FIO2 (BEAKER) (test vnpo=1547) 60.0 % GLUCOSE-STAT [id number] 22:22:00 Test Item Value Reference Range Comments GLUCOSE RANDOM (BEAKER) (test vjwu=340) 197 mg/dL 70-110 RAD, CHEST, 1 VIEW, NON [id number] 21:48:00Reason for exam:->s/p atrial myexoma dissectionFINAL REPORT RAD, CHEST, 1 VIEW, NON DEPT INDICATION: s/p atrial myexoma dissection COMPARISON: March 23, 2020 FINDINGS : Portable frontal view of the chest. IMPRESSION: Support Lines: Right IJ [place] catheter terminates over the proximal right main [...] MDReport Verified Date/Time: 03/24/2018 21:48:52 Reading Location: [facility] C013Y CT Body Reading Room [id number] 21:05:00 Test Item Value Reference Range Comments ACTIVATED CLOTTING TIME (BEAKER) [address] [facility] [address] (test csmc=710) [facility] [address] [id number] 21:05:00 Test Item Value Reference Range Comments ACTIVATED CLOTTING TIME 494 sec TESTED AT [place] [address] [address] (BEAKER) (test jhbt=596) [place] [address] [id number] 21:05:00 Test Item Value Reference Range Comments ACTIVATED CLOTTING TIME 510 sec TESTED AT [place] [address] [address] (BEAKER) (test ylin=513) [place] [address] [id number] 21:05:00 Test Item Value Reference Range Comments ACTIVATED CLOTTING TIME 527 sec TESTED AT [place] [address] [address] (BEAKER) (test kpex=298) [place] [address] [id number] 21:05:00 Test Item Value Reference Range Comments ACTIVATED CLOTTING TIME 527 sec TESTED AT [address] (BEAKER) (test hesz=498) [place] [address] [id number] 21:05:00 Test Item Value Reference Range Comments ACTIVATED CLOTTING TIME 417 sec TESTED AT [address] (BEAKER) (test byee=196) [place] [address] [id number] 21:05:00 Test Item Value Reference Range Comments ACTIVATED CLOTTING TIME 428 sec TESTED AT [address] (BEAKER) (test hxmu=955) [place] [address] [id number] 21:05:00 Test Item Value Reference Range Comments ACTIVATED CLOTTING TIME 389 sec TESTED AT [address] (BEAKER) (test zngr=170) [place] [address] [id number] 21:05:00 Test Item Value Reference Range Comments ACTIVATED CLOTTING TIME 351 sec TESTED AT [place] [address] [address] (BEAKER) (test izly=078) [place] [address] [id number] 21:05:00 Test Item Value Reference Range Comments ACTIVATED CLOTTING TIME 103 sec TESTED AT [address] (BEAKER) (test ycqk=849) [place] [id number] BLOOD GAS, [id number] 19:37:00 Test Item Value Reference Range Comments PH ARTERIAL (BEAKER) (test nmfc=937) 7.36 7.35-7.45 PCO2 ARTERIAL (BEAKER) (test uvat=669) 43 mmHg 35-45 PO2 ARTERIAL (BEAKER) (test xhuy=632) 363 mmHg 80-90 O2 SATURATION ARTERIAL (BEAKER) (test vsig=237) 99.8 % 96.0-97.0 HCO3 ARTERIAL (BEAKER) (test alyh=169) 24 mmol/L 21-29 BASE EXCESS ARTERIAL (BEAKER) (test cbry=108) -1.9 mmol/L -2.0-3.0 PATIENT TEMPERATURE (BEAKER) (test ftph=7704) 36.6 C FIO2 (BEAKER) (test fzgq=0138) 85.0 % GLUCOSE-STAT [id number] 19:37:00 Test Item Value Reference Range Comments GLUCOSE RANDOM (BEAKER) (test ngbv=190) 177 mg/dL 70-110 SODIUM NA-STAT [id number] 19:37:00 Test Item Value Reference Range Comments SODIUM (BEAKER) (test kaaq=119) 133 meq/L 135-148 POTASSIUM-STAT [id number] 19:36:00 Test Item Value Reference Range Comments POTASSIUM (BEAKER) (test mjsc=865) 5.3 meq/L 3.6-5.5 HGB/HCT (H&H) - STAT [id number] 19:36:00 Test Item Value Reference Range Comments HEMOGLOBIN (BEAKER) (test eezt=992) 13.9 g/dL 13.0-16.8 HEMATOCRIT (BEAKER) (test xddb=146) 41.0 % 40.0-50.0 POTASSIUM-STAT [id number] 19:09:00 Test Item Value Reference Range Comments POTASSIUM (BEAKER) (test svdh=119) 4.9 meq/L 3.6-5.5 BLOOD GAS, [id number] 19:09:00 Test Item Value Reference Range Comments PH ARTERIAL (BEAKER) (test rryr=949) 7.41 7.35-7.45 PCO2 ARTERIAL (BEAKER) (test kxzf=924) 37 mmHg 35-45 PO2 ARTERIAL (BEAKER) (test vegw=839) 353 mmHg 80-90 O2 SATURATION ARTERIAL (BEAKER) (test zltq=591) 99.8 % 96.0-97.0 HCO3 ARTERIAL (BEAKER) (test afki=399) 23 mmol/L 21-29 BASE EXCESS ARTERIAL (BEAKER) (test sydq=058) -1.5 mmol/L -2.0-3.0 PATIENT TEMPERATURE (BEAKER) (test vvrm=4246) 36.6 C FIO2 (BEAKER) (test eurb=5403) 85.0 % GLUCOSE-STAT [id number] 19:09:00 Test Item Value Reference Range Comments GLUCOSE RANDOM (BEAKER) (test jxfp=080) 141 mg/dL 70-110 SODIUM NA-STAT [id number] 19:09:00 Test Item Value Reference Range Comments SODIUM (BEAKER) (test hnup=325) 132 meq/L 135-148 HGB/HCT (H&H) - STAT [id number] 19:09:00 Test Item Value Reference Range Comments HEMOGLOBIN (BEAKER) (test xyfg=882) 13.3 g/dL 13.0-16.8 HEMATOCRIT (BEAKER) (test lsqx=905) 39.0 % 40.0-50.0 POTASSIUM-STAT [id number] 18:39:00 Test Item Value Reference Range Comments POTASSIUM (BEAKER) (test sofc=283) 4.1 meq/L 3.6-5.5 BLOOD GAS, [id number] 18:39:00 Test Item Value Reference Range Comments PH ARTERIAL (BEAKER) (test ryne=868) 7.41 7.35-7.45 PCO2 ARTERIAL (BEAKER) (test cdqv=519) 37 mmHg 35-45 PO2 ARTERIAL (BEAKER) (test pmig=823) 248 mmHg 80-90 O2 SATURATION ARTERIAL (BEAKER) (test lmfh=202) 99.6 % 96.0-97.0 HCO3 ARTERIAL (BEAKER) (test wvwa=345) 23 mmol/L 21-29 BASE EXCESS ARTERIAL (BEAKER) (test hmwc=900) -1.6 mmol/L -2.0-3.0 PATIENT TEMPERATURE (BEAKER) (test sckj=0137) 35.2 C FIO2 (BEAKER) (test texw=2297) 80.0 % GLUCOSE-STAT [id number] 18:39:00 Test Item Value Reference Range Comments GLUCOSE RANDOM (BEAKER) (test htlk=578) 120 mg/dL 70-110 SODIUM NA-STAT [id number] 18:39:00 Test Item Value Reference Range Comments SODIUM (BEAKER) (test aysc=937) 132 meq/L 135-148 HGB/HCT (H&H) - STAT [id number] 18:39:00 Test Item Value Reference Range Comments HEMOGLOBIN (BEAKER) (test cofd=040) 12.5 g/dL 13.0-16.8 HEMATOCRIT (BEAKER) (test fsio=059) 37.0 % 40.0-50.0 CALCIUM, [id number] 17:24:00 Test Item Value Reference Range Comments CALCIUM IONIZED (BEAKER) (test vdov=568) 1.15 mmol/L 1.12-1.27 PH, BLOOD (BEAKER) (test wxef=0733) 7.38 BLOOD GAS, [id number] 17:24:00 Test Item Value Reference Range Comments PH ARTERIAL (BEAKER) (test anmy=147) 7.39 7.35-7.45 PCO2 ARTERIAL (BEAKER) (test ihrn=575) 41 mmHg 35-45 PO2 ARTERIAL (BEAKER) (test yjxf=709) 447 mmHg 80-90 O2 SATURATION ARTERIAL (BEAKER) (test dxgg=578) 99.8 % 96.0-97.0 HCO3 ARTERIAL (BEAKER) (test jtuw=814) 25 mmol/L 21-29 BASE EXCESS ARTERIAL (BEAKER) (test wsrc=100) -0.5 mmol/L -2.0-3.0 PATIENT TEMPERATURE (BEAKER) (test wcbk=5387) 36.0 C FIO2 (BEAKER) (test lhce=7446) 100.0 % GLUCOSE-STAT [id number] 17:23:00 Test Item Value Reference Range Comments GLUCOSE RANDOM (BEAKER) (test opha=717) 95 mg/dL 70-110 SODIUM NA-STAT [id number] 17:23:00 Test Item Value Reference Range Comments SODIUM (BEAKER) (test pclp=899) 136 meq/L 135-148 POTASSIUM-STAT [id number] 17:23:00 Test Item Value Reference Range Comments POTASSIUM (BEAKER) (test sqjs=141) 3.7 meq/L 3.6-5.5 HGB/HCT (H&H) - STAT [id number] 17:23:00 Test Item Value Reference Range Comments HEMOGLOBIN (BEAKER) (test mxil=023) 15.6 g/dL 13.0-16.8 HEMATOCRIT (BEAKER) (test bfpd=644) 46.0 % 40.0-50.0 [id number] 11:57:00 Test Item Value Reference Range Comments PARTIAL THROMBOPLASTIN TIME (BEAKER) (test 44.2 seconds 22.5-36.0 badp=585) BASIC METABOLIC [id number] 06:20:00 Test Item Value Reference Range Comments SODIUM (BEAKER) (test 139 meq/L 136-145 pvee=494) POTASSIUM (BEAKER) (test 4.2 meq/L 3.5-5.1 hqhr=676) CHLORIDE (BEAKER) (test 108 meq/L 98-107 ecqv=345) CO2 (BEAKER) (test 23 meq/L 22-29 jtst=258) BLOOD UREA NITROGEN 13 mg/dL 7-21 (BEAKER) (test vzsq=254) CREATININE (BEAKER) (test 0.84 mg/dL 0.57-1.25 wsdt=485) GLUCOSE RANDOM (BEAKER) 97 mg/dL 70-105 (test wcwl=308) CALCIUM (BEAKER) (test 9.5 mg/dL 8.4-10.2 ebna=563) EGFR (BEAKER) (test 94 mL/min/1.73 sq m ESTIMATED GFR IS NOT ohik=0551) ACCURATE CREATININE CLEARANCE IN PREDICTING GLOMERULAR FILTRATION RATE. ESTIMATED GFR IS NOT APPLICABLE FOR DIALYSIS PATIENTS. [id number] 05:44:00 Test Item Value Reference Range Comments PARTIAL THROMBOPLASTIN TIME (BEAKER) (test 34.0 seconds 22.5-36.0 vymi=058) CBC W/PLT COUNT & AUTO [id number] 05:33:00 Test Item Value Reference Range Comments WHITE BLOOD CELL COUNT (BEAKER) (test nzwm=113) 5.7 K/ L 3.5-10.5 RED BLOOD CELL COUNT (BEAKER) (test jyfa=485) 5.07 M/ L 4.63-6.08 HEMOGLOBIN (BEAKER) (test dlzz=748) 15.7 GM/DL 13.7-17.5 HEMATOCRIT (BEAKER) (test gvbb=324) 47.2 % 40.1-51.0 MEAN CORPUSCULAR VOLUME (BEAKER) (test yevh=034) 93.1 fL 79.0-92.2 MEAN CORPUSCULAR HEMOGLOBIN (BEAKER) (test 31.0 pg 25.7-32.2 apkn=088) MEAN CORPUSCULAR HEMOGLOBIN CONC (BEAKER) (test 33.3 GM/DL 32.3-36.5 wwur=916) RED CELL DISTRIBUTION WIDTH (BEAKER) (test 13.3 % 11.6-14.4 gsoz=362) PLATELET COUNT (BEAKER) (test cgar=580) 196 K/CU MM 150-450 MEAN PLATELET VOLUME (BEAKER) (test wbpm=228) 10.0 fL 9.4-12.4 NUCLEATED RED BLOOD CELLS (BEAKER) (test 0 /100 WBC 0-0 vdqv=806) NEUTROPHILS RELATIVE PERCENT (BEAKER) (test 60 % dhao=353) LYMPHOCYTES RELATIVE PERCENT (BEAKER) (test 26 % qsgm=709) MONOCYTES RELATIVE PERCENT (BEAKER) (test 11 % xzzd=423) EOSINOPHILS RELATIVE PERCENT (BEAKER) (test 2 % pbmu=494) BASOPHILS RELATIVE PERCENT (BEAKER) (test 1 % aevg=154) NEUTROPHILS ABSOLUTE COUNT (BEAKER) (test 3.41 K/ L 1.78-5.38 qfiq=791) LYMPHOCYTES ABSOLUTE COUNT (BEAKER) (test 1.51 K/ L 1.32-3.57 qeqo=451) MONOCYTES ABSOLUTE COUNT (BEAKER) (test 0.63 K/ L 0.30-0.82 frbs=790) EOSINOPHILS ABSOLUTE COUNT (BEAKER) (test 0.12 K/ L 0.04-0.54 quam=821) BASOPHILS ABSOLUTE COUNT (BEAKER) (test 0.04 K/ L 0.01-0.08 mzuj=066) IMMATURE GRANULOCYTES-RELATIVE PERCENT (BEAKER) 0 % 0-1 (test lrif=9529) [id number] 22:16:00 Test Item Value Reference Range Comments PARTIAL THROMBOPLASTIN TIME (BEAKER) (test 32.2 seconds 22.5-36.0 zvzj=170) [id number] 15:17:00 Test Item Value Reference Range Comments PARTIAL THROMBOPLASTIN TIME (BEAKER) (test 26.8 seconds 22.5-36.0 jlfx=340) Prior to initiating heparinRAD, CHEST, 2 [id number] 14:45:00Reason for exam :->cough for 3 weeksFINAL REPORT Two lateral and one frontal chest images Discussion: Lungs clear. Heart size normal. No effusion or pneumothorax. Bones and soft tissues unremarkable. Signed: Jeanmarie Farmer Verified Date/Time: 03/23/2018 14:45:35 Reading Location: [address] Consult Reading Room [facility] METABOLIC [id number] 06:41:00 Test Item Value Reference Range Comments SODIUM (BEAKER) (test 138 meq/L 136-145 kvet=569) POTASSIUM (BEAKER) (test 4.4 meq/L 3.5-5.1 jnah=458) CHLORIDE (BEAKER) (test 108 meq/L 98-107 xwpz=447) CO2 (BEAKER) (test 23 meq/L 22-29 cssm=086) BLOOD UREA NITROGEN 16 mg/dL 7-21 (BEAKER) (test bxkk=128) CREATININE (BEAKER) (test 0.88 mg/dL 0.57-1.25 nsce=287) GLUCOSE RANDOM (BEAKER) 87 mg/dL 70-105 (test wnrt=687) CALCIUM (BEAKER) (test 9.5 mg/dL 8.4-10.2 cnnm=987) EGFR (BEAKER) (test 89 mL/min/1.73 sq m ESTIMATED GFR IS NOT ogup=8279) ACCURATE CREATININE CLEARANCE IN PREDICTING GLOMERULAR FILTRATION RATE. ESTIMATED GFR IS NOT APPLICABLE FOR DIALYSIS PATIENTS. CBC W/PLT COUNT & AUTO [id number] 04:56:00 Test Item Value Reference Range Comments WHITE BLOOD CELL COUNT (BEAKER) (test aiea=078) 7.0 K/ L 3.5-10.5 RED BLOOD CELL COUNT (BEAKER) (test glwd=104) 5.13 M/ L 4.63-6.08 HEMOGLOBIN (BEAKER) (test xyka=445) 16.1 GM/DL 13.7-17.5 HEMATOCRIT (BEAKER) (test zina=446) 47.8 % 40.1-51.0 MEAN CORPUSCULAR VOLUME (BEAKER) (test kaol=573) 93.2 fL 79.0-92.2 MEAN CORPUSCULAR HEMOGLOBIN (BEAKER) (test 31.4 pg 25.7-32.2 layw=997) MEAN CORPUSCULAR HEMOGLOBIN CONC (BEAKER) (test 33.7 GM/DL 32.3-36.5 zjja=906) RED CELL DISTRIBUTION WIDTH (BEAKER) (test 13.2 % 11.6-14.4 iyka=026) PLATELET COUNT (BEAKER) (test ylqs=280) 237 K/CU MM 150-450 MEAN PLATELET VOLUME (BEAKER) (test kviv=417) 11.0 fL 9.4-12.4 NUCLEATED RED BLOOD CELLS (BEAKER) (test 0 /100 WBC 0-0 byft=743) NEUTROPHILS RELATIVE PERCENT (BEAKER) (test 68 % yobi=060) LYMPHOCYTES RELATIVE PERCENT (BEAKER) (test 19 % fica=213) MONOCYTES RELATIVE PERCENT (BEAKER) (test 10 % vukl=904) EOSINOPHILS RELATIVE PERCENT (BEAKER) (test 2 % nbfk=053) BASOPHILS RELATIVE PERCENT (BEAKER) (test 1 % kjbh=253) NEUTROPHILS ABSOLUTE COUNT (BEAKER) (test 4.72 K/ L 1.78-5.38 xccg=767) LYMPHOCYTES ABSOLUTE COUNT (BEAKER) (test 1.35 K/ L 1.32-3.57 rnjb=584) MONOCYTES ABSOLUTE COUNT (BEAKER) (test 0.73 K/ L 0.30-0.82 waxa=541) EOSINOPHILS ABSOLUTE COUNT (BEAKER) (test 0.12 K/ L 0.04-0.54 mmkg=476) BASOPHILS ABSOLUTE COUNT (BEAKER) (test 0.04 K/ L 0.01-0.08 hbjw=459) IMMATURE GRANULOCYTES-RELATIVE PERCENT (BEAKER) 0 % 0-1 (test dkgp=7475) [id number] 06:11:00 Test Item Value Reference Range Comments MAGNESIUM (BEAKER) (test xhta=026) 1.9 mg/dL 1.6-2.6 BASIC METABOLIC [id number] 06:11:00 Test Item Value Reference Range Comments SODIUM (BEAKER) (test 138 meq/L 136-145 ynbp=954) POTASSIUM (BEAKER) (test 4.1 meq/L 3.5-5.1 emkp=722) CHLORIDE (BEAKER) (test 106 meq/L 98-107 lvhx=605) CO2 (BEAKER) (test 22 meq/L 22-29 zecm=832) BLOOD UREA NITROGEN 13 mg/dL 7-21 (BEAKER) (test uykp=998) CREATININE (BEAKER) (test 0.80 mg/dL 0.57-1.25 olyq=561) GLUCOSE RANDOM (BEAKER) 91 mg/dL 70-105 (test wniy=391) CALCIUM (BEAKER) (test 9.6 mg/dL 8.4-10.2 suvy=029) EGFR (BEAKER) (test 100 mL/min/1.73 sq m ESTIMATED GFR IS NOT rczi=7737) ACCURATE CREATININE CLEARANCE IN PREDICTING GLOMERULAR FILTRATION RATE. ESTIMATED GFR IS NOT APPLICABLE FOR DIALYSIS PATIENTS. CBC W/PLT COUNT & AUTO [id number] 05:49:00 Test Item Value Reference Range Comments WHITE BLOOD CELL COUNT (BEAKER) (test zjrm=348) 5.7 K/ L 3.5-10.5 RED BLOOD CELL COUNT (BEAKER) (test xpsg=417) 5.31 M/ L 4.63-6.08 HEMOGLOBIN (BEAKER) (test ttyd=145) 16.3 GM/DL 13.7-17.5 HEMATOCRIT (BEAKER) (test tlah=069) 48.0 % 40.1-51.0 MEAN CORPUSCULAR VOLUME (BEAKER) (test skfc=748) 90.4 fL 79.0-92.2 MEAN CORPUSCULAR HEMOGLOBIN (BEAKER) (test 30.7 pg 25.7-32.2 dlac=151) MEAN CORPUSCULAR HEMOGLOBIN CONC (BEAKER) (test 34.0 GM/DL 32.3-36.5 jlra=414) RED CELL DISTRIBUTION WIDTH (BEAKER) (test 13.2 % 11.6-14.4 khvd=139) PLATELET COUNT (BEAKER) (test noxv=692) 198 K/CU MM 150-450 MEAN PLATELET VOLUME (BEAKER) (test glft=600) 9.7 fL 9.4-12.4 NUCLEATED RED BLOOD CELLS (BEAKER) (test 0 /100 WBC 0-0 dzho=500) NEUTROPHILS RELATIVE PERCENT (BEAKER) (test 60 % ddxn=607) LYMPHOCYTES RELATIVE PERCENT (BEAKER) (test 25 % bgfh=327) MONOCYTES RELATIVE PERCENT (BEAKER) (test 11 % ujmm=073) EOSINOPHILS RELATIVE PERCENT (BEAKER) (test 4 % egje=324) BASOPHILS RELATIVE PERCENT (BEAKER) (test 1 % ntri=388) NEUTROPHILS ABSOLUTE COUNT (BEAKER) (test 3.42 K/ L 1.78-5.38 omqz=940) LYMPHOCYTES ABSOLUTE COUNT (BEAKER) (test 1.40 K/ L 1.32-3.57 fjnc=412) MONOCYTES ABSOLUTE COUNT (BEAKER) (test 0.60 K/ L 0.30-0.82 gwrs=543) EOSINOPHILS ABSOLUTE COUNT (BEAKER) (test 0.21 K/ L 0.04-0.54 mrlk=876) BASOPHILS ABSOLUTE COUNT (BEAKER) (test 0.06 K/ L 0.01-0.08 fqii=422) IMMATURE GRANULOCYTES-RELATIVE PERCENT (BEAKER) 0 % 0-1 (test xsoa=5732) BASIC METABOLIC [id number] 04:57:00 Test Item Value Reference Range Comments SODIUM (BEAKER) (test 140 meq/L 136-145 evim=288) POTASSIUM (BEAKER) (test 4.1 meq/L 3.5-5.1 borl=291) CHLORIDE (BEAKER) (test 109 meq/L 98-107 wkiu=802) CO2 (BEAKER) (test 24 meq/L 22-29 gxuo=390) BLOOD UREA NITROGEN 14 mg/dL 7-21 (BEAKER) (test qxcn=603) CREATININE (BEAKER) (test 0.81 mg/dL 0.57-1.25 liel=777) GLUCOSE RANDOM (BEAKER) 100 mg/dL 70-105 (test puty=905) CALCIUM (BEAKER) (test 9.4 mg/dL 8.4-10.2 ekvd=240) EGFR (BEAKER) (test 98 mL/min/1.73 sq m ESTIMATED GFR IS NOT lwhh=9649) ACCURATE CREATININE CLEARANCE IN PREDICTING GLOMERULAR FILTRATION RATE. ESTIMATED GFR IS NOT APPLICABLE FOR DIALYSIS PATIENTS. CBC W/PLT COUNT & AUTO [id number] 04:42:00 Test Item Value Reference Range Comments WHITE BLOOD CELL COUNT (BEAKER) (test lqop=104) 5.9 K/ L 3.5-10.5 RED BLOOD CELL COUNT (BEAKER) (test kzxx=645) 5.02 M/ L 4.63-6.08 HEMOGLOBIN (BEAKER) (test ltxa=385) 15.6 GM/DL 13.7-17.5 HEMATOCRIT (BEAKER) (test qfkg=652) 45.3 % 40.1-51.0 MEAN CORPUSCULAR VOLUME (BEAKER) (test wgms=060) 90.2 fL 79.0-92.2 MEAN CORPUSCULAR HEMOGLOBIN (BEAKER) (test 31.1 pg 25.7-32.2 yqwv=232) MEAN CORPUSCULAR HEMOGLOBIN CONC (BEAKER) (test 34.4 GM/DL 32.3-36.5 gbrq=182) RED CELL DISTRIBUTION WIDTH (BEAKER) (test 13.2 % 11.6-14.4 ewfp=171) PLATELET COUNT (BEAKER) (test orof=491) 202 K/CU MM 150-450 MEAN PLATELET VOLUME (BEAKER) (test hsmq=239) 9.6 fL 9.4-12.4 NUCLEATED RED BLOOD CELLS (BEAKER) (test 0 /100 WBC 0-0 ihxj=305) NEUTROPHILS RELATIVE PERCENT (BEAKER) (test 62 % zbgv=056) LYMPHOCYTES RELATIVE PERCENT (BEAKER) (test 25 % xqnq=848) MONOCYTES RELATIVE PERCENT (BEAKER) (test 10 % qenc=875) EOSINOPHILS RELATIVE PERCENT (BEAKER) (test 2 % vxkr=521) BASOPHILS RELATIVE PERCENT (BEAKER) (test 1 % lepw=083) NEUTROPHILS ABSOLUTE COUNT (BEAKER) (test 3.65 K/ L 1.78-5.38 udtk=822) LYMPHOCYTES ABSOLUTE COUNT (BEAKER) (test 1.49 K/ L 1.32-3.57 spvz=165) MONOCYTES ABSOLUTE COUNT (BEAKER) (test 0.56 K/ L 0.30-0.82 nnqd=587) EOSINOPHILS ABSOLUTE COUNT (BEAKER) (test 0.14 K/ L 0.04-0.54 nmdf=992) BASOPHILS ABSOLUTE COUNT (BEAKER) (test 0.05 K/ L 0.01-0.08 hvyc=421) IMMATURE GRANULOCYTES-RELATIVE PERCENT (BEAKER) 0 % 0-1 (test cmwh=6759) BASIC METABOLIC [id number] 06:01:00 Test Item Value Reference Range Comments SODIUM (BEAKER) (test 140 meq/L 136-145 vqcl=369) POTASSIUM (BEAKER) (test 3.8 meq/L 3.5-5.1 Specimen slightly rrhz=500) hemolyzed CHLORIDE (BEAKER) (test 108 meq/L 98-107 gzzk=904) CO2 (BEAKER) (test 23 meq/L 22-29 jgse=098) BLOOD UREA NITROGEN 14 mg/dL 7-21 (BEAKER) (test bjhh=822) CREATININE (BEAKER) (test 0.87 mg/dL 0.57-1.25 Specimen slightly ajnh=548) hemolyzed GLUCOSE RANDOM (BEAKER) 91 mg/dL 70-105 (test rjoi=196) CALCIUM (BEAKER) (test 9.2 mg/dL 8.4-10.2 ygey=709) EGFR (BEAKER) (test 90 mL/min/1.73 sq m ESTIMATED GFR IS NOT halc=9888) ACCURATE CREATININE CLEARANCE IN PREDICTING GLOMERULAR FILTRATION RATE. ESTIMATED GFR IS NOT APPLICABLE FOR DIALYSIS PATIENTS. HEMOGLOBIN [id number] 08:04:00 Test Item Value Reference Range Comments HEMOGLOBIN A1C (BEAKER) (test qjvk=687) 5.1 % 4.3-6.1 [id number] 07:27:00 Test Item Value Reference Range Comments MAGNESIUM (BEAKER) (test gtem=016) 1.9 mg/dL 1.6-2.6 BASIC METABOLIC [id number] 07:27:00 Test Item Value Reference Range Comments SODIUM (BEAKER) (test 139 meq/L 136-145 zzvy=866) POTASSIUM (BEAKER) (test 4.1 meq/L 3.5-5.1 qadn=609) CHLORIDE (BEAKER) (test 108 meq/L 98-107 sixe=766) CO2 (BEAKER) (test 22 meq/L 22-29 mghr=880) BLOOD UREA NITROGEN 12 mg/dL 7-21 (BEAKER) (test gxwf=001) CREATININE (BEAKER) (test 0.88 mg/dL 0.57-1.25 tqcc=451) GLUCOSE RANDOM (BEAKER) 94 mg/dL 70-105 (test cvna=536) CALCIUM (BEAKER) (test 9.4 mg/dL 8.4-10.2 gppc=116) EGFR (BEAKER) (test 89 mL/min/1.73 sq m ESTIMATED GFR IS NOT hmtu=2742) ACCURATE CREATININE CLEARANCE IN PREDICTING GLOMERULAR FILTRATION RATE. ESTIMATED GFR IS NOT APPLICABLE FOR DIALYSIS PATIENTS. Specimen slightly ictericLIPID [id number] 07:27:00 Test Item Value Reference Range Comments TRIGLYCERIDES (BEAKER) (test ksez=759) 106 mg/dL CHOLESTEROL (BEAKER) (test rgaa=357) 220 mg/dL HDL CHOLESTEROL (BEAKER) (test cutj=992) 37 mg/dL LDL CHOLESTEROL CALCULATED (BEAKER) (test 162 mg/dL gfnz=043) Triglyceride Reference Range: Low Risk <150 Borderline 150- 199 High Risk 200-499 Very High Risk >=500Cholesterol Reference Range: Low Risk <200 Borderline 200-239 High Risk > 240HDL Cholesterol Reference Range: Low Risk >=60 High Risk <40LDL Cholesterol Reference Range: Optimal <100 Near Optimal 100-129 Borderline 130-159 High 160-189 Very High >=190 Specimen slightly ictericTSH/FREE T4 IF [id number] 07:07 :00 Test Item Value Reference Range Comments THYROID STIMULATING HORMONE (BEAKER) (test 1.46 uIU/mL 0.35-4.94 gprj=697) TROPONIN [id number] 07:05:00 Test Item Value Reference Range Comments TROPONIN I (BEAKER) (test asbf=043) 0.01 ng/mL 0.00-0.03 Troponin I (TnI) levels [...] acidosis, acute neurological disease, and persistent tachyarrhythmia.PROTHROMBIN [id number] 06:28:00 Test Item Value Reference Range Comments PROTIME (BEAKER) (test pcol=443) 16.7 seconds 11.7-14.7 INR (BEAKER) (test cwli=194) 1.4 <=5.9 RECOMMENDED COUMADIN/WARFARIN INR THERAPY RANGESSTANDARD DOSE: 2.0 - 3.0 Includes: PROPHYLAXIS forvenous thrombosis, systemic embolization; TREATMENT for venous thrombosis and/or pulmonary embolus.HIGH RISK: Target INR is 2.5-3.5 for patients with mechanical heart valves.[id number] 06:28:00 Test Item Value Reference Range Comments PROTIME (BEAKER) (test jmwo=622) 16.7 seconds 11.7-14.7 INR (BEAKER) (test uwts=669) 1.4 <=5.9 PARTIAL THROMBOPLASTIN TIME (BEAKER) (test 31.7 seconds 22.5-36.0 rhqq=589) RECOMMENDED COUMADIN/WARFARIN INR THERAPY RANGESSTANDARD DOSE: 2.0 - 3.0 Includes: PROPHYLAXIS forvenous thrombosis, systemic embolization; TREATMENT for venous thrombosis and/or pulmonary embolus.HIGH RISK: Target INR is 2.5-3.5 for patients with mechanical heart valves.CBC W/PLT COUNT & AUTO [id number] 06:18:00 Test Item Value Reference Range Comments WHITE BLOOD CELL COUNT (BEAKER) (test oujn=441) 6.7 K/ L 3.5-10.5 RED BLOOD CELL COUNT (BEAKER) (test rcmq=290) 4.86 M/ L 4.63-6.08 HEMOGLOBIN (BEAKER) (test rsxo=984) 15.4 GM/DL 13.7-17.5 HEMATOCRIT (BEAKER) (test ahsw=585) 44.9 % 40.1-51.0 MEAN CORPUSCULAR VOLUME (BEAKER) (test ltvm=545) 92.4 fL 79.0-92.2 MEAN CORPUSCULAR HEMOGLOBIN (BEAKER) (test 31.7 pg 25.7-32.2 otwc=006) MEAN CORPUSCULAR HEMOGLOBIN CONC (BEAKER) (test 34.3 GM/DL 32.3-36.5 tmim=564) RED CELL DISTRIBUTION WIDTH (BEAKER) (test 13.2 % 11.6-14.4 dtna=250) PLATELET COUNT (BEAKER) (test cqfk=016) 192 K/CU MM 150-450 MEAN PLATELET VOLUME (BEAKER) (test xmqp=495) 10.0 fL 9.4-12.4 NUCLEATED RED BLOOD CELLS (BEAKER) (test 0 /100 WBC 0-0 spgo=936) NEUTROPHILS RELATIVE PERCENT (BEAKER) (test 67 % ssti=576) LYMPHOCYTES RELATIVE PERCENT (BEAKER) (test 21 % qvwj=717) MONOCYTES RELATIVE PERCENT (BEAKER) (test 9 % jnkf=768) EOSINOPHILS RELATIVE PERCENT (BEAKER) (test 3 % zlgl=237) BASOPHILS RELATIVE PERCENT (BEAKER) (test 0 % seyl=657) NEUTROPHILS ABSOLUTE COUNT (BEAKER) (test 4.49 K/ L 1.78-5.38 hfif=639) LYMPHOCYTES ABSOLUTE COUNT (BEAKER) (test 1.38 K/ L 1.32-3.57 tavx=438) MONOCYTES ABSOLUTE COUNT (BEAKER) (test 0.62 K/ L 0.30-0.82 rknp=716) EOSINOPHILS ABSOLUTE COUNT (BEAKER) (test 0.17 K/ L 0.04-0.54 zxli=276) BASOPHILS ABSOLUTE COUNT (BEAKER) (test 0.03 K/ L 0.01-0.08 qdju=190) IMMATURE GRANULOCYTES-RELATIVE PERCENT (BEAKER) 0 % 0-1 (test ewln=3185)
--- NOTE | 2019-04-16 10:05 | RAD REPORT ---
EXAM DESCRIPTION: CT - Head C Spine Mpr Wo Con - 04/16/2019 9:39 am CLINICAL HISTORY: Head and neck injury status post injury. Head and neck pain COMPARISON: 2017 TECHNIQUE: Computed axial tomography of the head and cervical spine was obtained. Sagittal and coronal reconstruction was performed. All CT scans are performed using dose optimization technique as appropriate and may include automated exposure control or mA/KV adjustment according to patient size. FINDINGS: An intracranial bleed is not seen. The ventricles are normal in caliber. An extra-axial fl uid collection is not noted.Fluid within the visualized sinuses and mastoids is not seen A cervical fracture is not visualized. No dislocation is noted. Minimal anterior subluxation C3 on C4 unchanged. Spondylosis involves the cervical spine IMPRESSION: No acute intracranial abnormality is seen. A cervical fracture is not visualized. If the patient continues to have symptoms to suggest intracra nial /spinal cord pathology then MRI would be recommended
--- NOTE | 2019-04-16 10:38 | ER ---
Nurse's Notes [facility] Name: Buzz Jurado Age: 58 yrs Sex: Male : 1960 Arrival Date: 04/16/2019 Time: 09:19 Bed 19 Private MD: Diagnosis: Strain of muscle, fascia and tendon at neck level Presentation: 04/16 09:20 Presenting complaint: EMS states: Patient was at work climbing a ladder when he stood ae3 up, he struck his head on "some kind of obstruction". Patient was wearing a hard hat at the time and states he felt a "popping sensation like rice crispies" in his neck. Patient denies LOC and pain at this time. Care prior to arrival: Cervical collar in place. Placed on backboard. 09:20 Acuity: PASQUALE 3 ae3 09:20 Method Of Arrival: EMS: [facility] ae3 09:29 Mechanism of Injury: Head injury. Trauma event details: Injury occurred in the [address] 10:57 Transition of care: patient was not received from another setting of care. Onset of ae3 symptoms was April 16, 2019. Risk Assessment: Do you want to hurt yourself or someone else? Patient reports no desire to harm self or others. Initial Sepsis Screen: Does the patient meet any 2 criteria? No. Patient's initial sepsis screen is negative. Does the patient have a suspected source of infection? No. Patient's initial sepsis screen is negative. Trauma Activation: Not Applicable Physician: ED Physician; Name: ; Notified At: ; Arrived At: Physician: General Surgeon; Name: ; Notified At: ; Arrived At: Physician: Radiology; Name: ; Notified At: ; Arrived At: Physician: Respiratory; Name: ; Notified At: ; Arrived At: Physician: Lab; Name: ; Notified At: ; Arrived At: Historical: - Allergies: 09:35 No Known Allergies; ae3 - Home Meds: 09:53 aspirin 81 mg oral chew 1 tab once daily [Active]; Protan supplement for liver cleanse ae3 [Active]; - PMHx: 09:35 testicular cancer; Back pain; ae3 - PSHx: 09:35 Hernia repair; ae3 09:53 shoulder surgery; ae3 - Immunization history:: Adult Immunizations up to date. - Immunization history: Last tetanus immunization: - up to date. < 5 years ago. - Family history:: not pertinent. - Social history:: Smoking status: Patient/guardian denies using tobacco. - Ebola Screening: : Patient negative for fever greater than or equal to 101.5 degrees Fahrenheit, and additional compatible Ebola Virus Disease symptoms Patient denies exposure to infectious person Patient denies travel to an Ebola-affected area in the 21 days before illness onset. Screenin:29 Abuse screen: Denies threats or abuse. Nutritional screening: No deficits noted. ae3 Tuberculosis screening: No symptoms or risk factors identified. 11:00 Fall Risk None identified. No fall in past 12 months (0 pts). ae3 Primary Survey: 09:25 NO uncontrolled hemorrhage observed. A: Airway: patent. Breathing/Chest: Respiratory ae3 pattern: regular. Circulation: Cardiac rhythm:. Disability Alert. Exposure/Environment: A warming method has been applied: A warm blanket has been provided to the patient. 10:56 Reassessment Airway Airway Breathing/Chest Respiratory pattern Regular Respiratory ae3 effort Spontaneous Circulation. Assessment: 09:20 General: Appears in no apparent distress. uncomfortable, Behavior is calm, cooperative. ae3 Pain: Denies pain. 09:30 Neuro: Level of Consciousness is awake, alert, obeys commands, Oriented to person, ae3 place, time, situation, Appropriate for age. Cardiovascular: Patient's skin is warm and dry. Respiratory: Airway is patent Respiratory effort is even, unlabored. GI: No signs and/or symptoms were reported involving the gastrointestinal system. : No signs and/or symptoms were reported regarding the genitourinary system. Derm: Skin is pink, warm \\T\\ dry. 09:53 Reassessment: Patient appears in no apparent distress at this time. Reports mild pain ae3 1/10 in neck. [employer] Safety Employee at bedside.. Neuro: Level of Consciousness is awake, alert, obeys commands, Oriented to person, place, time, situation, Appropriate for age. Vital Signs: 09:23 BP 131 / 99; Pulse 86; Resp 18; Temp 98; Pulse Ox 99% ; Weight 58.97 kg; Height 6 ft. ae3 (182.88 cm) (R); Pain 1/10; 11:02 BP 140 / 96; Pulse 89; Resp 17; Pulse Ox 99% on R/A; ae3 09:23 Body Mass Index 17.63 (58.97 kg, 182.88 cm) ae3 Wesley Coma Score: 09:20 Eye Response: spontaneous(4). Verbal Response: oriented(5). Motor Response: obeys cleve commands(6). Total: 15. 09:23 Eye Response: spontaneous(4). Verbal Response: oriented(5). Motor Response: obeys ae3 commands(6). Total: 15. Trauma Score (Adult): 09:23 Eye Response: spontaneous(1); Verbal Response: oriented(1); Motor Response: obeys ae3 commands(2); Systolic BP: > 89 mm Hg(4); Respiratory Rate: 10 to 29 per min(4); Wesley Score: 15; Trauma Score: 12 ED Course: 09:19 Patient arrived in ED. ae3 09:19 Wali Phoenix NP is PHCP. pm1 09:19 Dell Mejia MD is Attending Physician. pm1 09:23 Triage completed. ae3 09:28 Patient has correct armband on for positive identification. Bed in low position. Call ae3 light in reach. Side rails up X2. Pulse ox on. NIBP on. Warm blanket given. 09:[address] via stretcher. ae3 09:32 CT completed. Patient tolerated procedure well. Patient moved to CT via stretcher. sj Patient moved back from CT. 09:40 CT Head C Spine In Process Unspecified. EDMS 10:56 No provider procedures requiring assistance completed. Patient did not have IV access ae3 during this emergency room visit. 10:58 Patient maintains SpO2 saturation greater than 95% on room air. ae3 11:00 Arm band placed on right wrist. ae3 11:00 Thermoregulation: warm blanket given to patient. ae3 Administered Medications: No medications were administered Intake: 11:01 PO: 0ml; Total: 0ml. ae3 Outcome: 10:38 Discharge ordered by . cleve 10:58 Patient's length of stay was not longer than 2 hours. ae3 10:59 Discharged to home ambulatory, With Safety Employee from [employer] ae3 10:59 Condition: stable 10:59 Discharge instructions given to patient, Instructed on discharge instructions, follow up and referral plans. medication usage, Demonstrated understanding of instructions, Prescriptions given X 1. 11:01 Patient left the ED. ae3 Signatures: Dispatcher [employer] EDMS Dell Mejia MD MD cha Jones, Susan sj Marinas, Patrick, TALKBACK HOST TALKBACK HOST pm1 Velvet Pike ae3 Georges Wiggins RN RN ae4
--- NOTE | 2019-04-16 10:39 | EDPHYS ---
Physician Documentation [facility] Name: Buzz Jurado Age: 58 yrs Sex: Male : 1960 Arrival Date: 04/16/2019 Time: 09:19 Bed 19 Private MD: ED Physician Dell Mejia HPI: 04/16 09:20 This 58 yrs old Male presents to ER via Unassigned with complaints of Head cleve Injury Without LOC-Adult. 09:20 The patient or guardian reports pain. The complaints affect the back of neck. Context cleve of injury: The problem was sustained at work. Onset: The symptoms/episode began/occurred just prior to arrival. Associated signs and symptoms: The patient has no apparent associated signs or symptoms. Severity of symptoms: At their worst the symptoms were mild, in the emergency department the symptoms are unchanged. The patient has not experienced similar symptoms in the past. Historical: - Allergies: 09:35 No Known Allergies; ae3 - Home Meds: 09:53 aspirin 81 mg oral chew 1 tab once daily [Active]; Protan supplement for liver cleanse ae3 [Active]; - PMHx: 09:35 testicular cancer; Back pain; ae3 - PSHx: 09:35 Hernia repair; ae3 09:53 shoulder surgery; ae3 - Immunization history:: Adult Immunizations up to date. - Immunization history: Last tetanus immunization: - up to date. < 5 years ago. - Family history:: not pertinent. - Social history:: Smoking status: Patient/guardian denies using tobacco. - Ebola Screening: : Patient negative for fever greater than or equal to 101.5 degrees Fahrenheit, and additional compatible Ebola Virus Disease symptoms Patient denies exposure to infectious person Patient denies travel to an Ebola-affected area in the 21 days before illness onset. ROS: 09:20 Constitutional: Negative for fever, chills, and weight loss, Eyes: Negative for injury, cleve pain, redness, and discharge, ENT: Negative for injury, pain, and discharge, Cardiovascular: Negative for chest pain, palpitations, and edema, Respiratory: Negative for shortness of breath, cough, wheezing, and pleuritic chest pain, Abdomen/GI: Negative for abdominal pain, nausea, vomiting, diarrhea, and constipation, Back: Negative for injury and pain, : Negative for injury, bleeding, discharge, and swelling, MS/Extremity: Negative for injury and deformity, Skin: Negative for injury, rash, and discoloration, Neuro: Negative for headache, weakness, numbness, tingling, and seizure, Psych: Negative for depression, anxiety, suicide ideation, homicidal ideation, and hallucinations, Allergy/Immunology: Negative for hives, rash, and allergies, Endocrine: Negative for neck swelling, polydipsia, polyuria, polyphagia, and marked weight changes, Hematologic/Lymphatic: Negative for swollen nodes, abnormal bleeding, and unusual bruising. 09:20 Neck: Positive for pain at rest. Exam: :20 Constitutional: This is a well developed, well nourished patient who is awake, alert, cleve and in no acute distress. Head/Face: Normocephalic, atraumatic. Eyes: Pupils equal round and reactive to light, extra-ocular motions intact. Lids and lashes normal. Conjunctiva and sclera are non-icteric and not injected. Cornea within normal limits. Periorbital areas with no swelling, redness, or edema. ENT: Nares patent. No nasal discharge, no septal abnormalities noted. Tympanic membranes are normal and external auditory canals are clear. Oropharynx with no redness, swelling, or masses, exudates, or evidence of obstruction, uvula midline. Mucous membranes moist. Chest/axilla: Normal chest wall appearance and motion. Nontender with no deformity. No lesions are appreciated. Cardiovascular: Regular rate and rhythm with a normal S1 and S2. No gallops, murmurs, or rubs. Normal PMI, no JVD. No pulse deficits. Respiratory: Lungs have equal breath sounds bilaterally, clear to auscultation and percussion. No rales, rhonchi or wheezes noted. No increased work of breathing, no retractions or nasal flaring. Abdomen/GI: Soft, non-tender, with normal bowel sounds. No distension or tympany. No guarding or rebound. No evidence of tenderness throughout. Back: No spinal tenderness. No costovertebral tenderness. Full range of motion. Male : Normal genitalia with no discharge or lesions. Skin: Warm, dry with normal turgor. Normal color with no rashes, no lesions, and no evidence of cellulitis. MS/ Extremity: Pulses equal, no cyanosis. Neurovascular intact. Full, normal range of motion. Neuro: Awake and alert, GCS 15, oriented to person, place, time, and situation. Cranial nerves II-XII grossly intact. Motor strength 5/5 in all extremities. Sensory grossly intact. Cerebellar exam normal. Normal gait. Psych: Awake, alert, with orientation to person, place and time. Behavior, mood, and affect are within normal limits. 09:20 Neck: External neck: is normal, C-spine: C-collar placed [employer], Thyroid: appears normal, Trachea: is midline with no obvious abnormalities, no acute changes, ROM/movement: is normal, no acute changes. Vital Signs: 09:23 BP 131 / 99; Pulse 86; Resp 18; Temp 98; Pulse Ox 99% ; Weight 58.97 kg; Height 6 ft. ae3 (182.88 cm) (R); Pain /10; 11:02 BP 140 / 96; Pulse 89; Resp 17; Pulse Ox 99% on R/A; ae3 09:23 Body Mass Index 17.63 (58.97 kg, 182.88 cm) ae3 Dayne Coma Score: 09:20 Eye Response: spontaneous(4). Verbal Response: oriented(5). Motor Response: obeys cleve commands(6). Total: 15. 09:23 Eye Response: spontaneous(4). Verbal Response: oriented(5). Motor Response: obeys ae3 commands(6). Total: 15. Trauma Score (Adult): 09:23 Eye Response: spontaneous(1); Verbal Response: oriented(1); Motor Response: obeys ae3 commands(2); Systolic BP: > 89 mm Hg(4); Respiratory Rate: 10 to 29 per min(4); [place] Score: 15; Trauma Score: 12 MDM: 09:25 Data reviewed: vital signs, nurses notes, radiologic studies. [facility] 09:26 Patient medically screened. [facility] 04/16 09:20 Order name: CT Head C Spine; Complete Time: 10:39 [facility] Administered Medications: No medications were administered Disposition: 04/16/19 10:38 Discharged to Home. Impression: Strain of muscle, fascia and tendon at neck level. - Condition is Stable. - Discharge Instructions: Muscle Strain, Cervical Sprain, [id number]. - Prescriptions for Motrin IB 200 mg Oral Tablet - take 1 tablet by ORAL route every 6 hours As needed as needed with food; 30 tablet. - Medication Reconciliation Form, Thank You Letter, Antibiotic Education, Prescription Opioid Use form. - Follow up: Private Physician; When: 1 - 2 days; Reason: Recheck today's complaints, Continuance of care, Re-evaluation by your physician. - Problem is new. - Symptoms have improved. Signatures: Dispatcher [employer] Dell Rodriguez MD MD cha Elliot, Andie ae3 Corrections: (The following items were deleted from the chart) 11:01 10:38 04/16/2019 10:38 Discharged to Home. Impression: Strain of muscle, fascia and ae3 tendon at neck level. Condition is Stable. Discharge Instructions: Muscle Strain, Cervical Sprain, [id number]. Prescriptions for Motrin IB 200 mg Oral Tablet - take 1 tablet by ORAL route every 6 hours As needed as needed with food; 30 tablet. and Forms are Medication Reconciliation Form, Thank You Letter, Antibiotic Education, Prescription Opioid Use. Follow up: Private Physician; When: 1 - 2 days; Reason: Recheck today's complaints, Continuance of care, Re-evaluation by your physician. Problem is new. Symptoms have improved. cleve
[2019-04-16 11:24] VITALS: BP 131/99; TEMP 98; O2SAT 99
== END 2019-04-16 11:01 | disposition home or self-care (01) ==
LOC: ER 09:17
DX: S16.1XXA Strain of muscle, fascia and tendon at neck level, initial encounter (principal); X58.XXXA Exposure to other specified factors, initial encounter; Y93.9 Activity, unspecified; Y92.89 Other specified places as the place of occurrence of the external cause; Y99.8 Other external cause status; Z79.82 Long term (current) use of aspirin; Z85.47 Personal history of malignant neoplasm of testis
CPT/HCPCS: 70450; 72125; 99285

== ENCOUNTER 2019-10-19 20:21 | Observation (INO) | payer OTHER, SELFPAY ==
--- OUTSIDE RECORDS SUMMARY | 2019-10-19 20:25 | XMS REPORT ---
:1960 [facility] Address [address] [place] [address] Care Team Providers Name Role Phone ADOLPH [...] exam:->RECTAL FINAL REPORT PATIENT ID: Rigo colin [id number] CLINICAL exam:->ABDOMINAL PAINWhat HISTORY: Left lower is [...] MDReport Verified Date/Time: 08/13/2018 22:50:13 Reading Location: [address] Reading Room TINE KINASE (CK), TOTAL AND MB 2018-08-13 22:40:00 Test Item Value Reference Range Comments CREATINE KINASE TOTAL (BEAKER) (test ebet=088) 80 U/L 29-200 CREATINE KINASE-MB (BEAKER) (test gxze=421) 1.7 ng/mL 0.0-6.6 CREATINE KINASE-MB INDEX (BEAKER) (test yhfq=937) 2.1 % CK-MB Reference Range:<6.7 Normal6.7-10.0 Borderline>10.0 AbnormalTROPONIN [id number] 22:40:00 Test Item Value Reference Range Comments TROPONIN I (BEAKER) (test ehfs=993) < ng/mL 0.00-0.03 Troponin I (TnI) levels [...] persistent tachyarrhythmia.RAD, CHEST, PA OR AP, 1 [id number] 22:04:00Reason for exam:->chest painShould this be performed [...] MIKeport Verified Date/Time: 08/13/2018 22:04:08 Reading Location: [facility] Transitional Reading Room URINALYSIS W/ [id number] 21:58:00 Test Item Value Reference Range Comments COLOR (BEAKER) (test tplf=707) Yellow CLARITY (BEAKER) (test lppr=554) Clear SPECIFIC GRAVITY UA (BEAKER) (test uoih=508) 1.017 1.001-1.035 PH UA (BEAKER) (test xayq=803) 6.5 5.0-8.0 PROTEIN UA (BEAKER) (test xiex=163) Negative Negative GLUCOSE UA (BEAKER) (test titp=177) Negative Negative KETONES UA (BEAKER) (test zmiw=290) Negative Negative BILIRUBIN UA (BEAKER) (test jxye=656) Negative Negative BLOOD UA (BEAKER) (test qlpk=395) Negative Negative NITRITE UA (BEAKER) (test vuqd=045) Negative Negative LEUKOCYTE ESTERASE UA (BEAKER) (test cijm=023) Negative Negative UROBILINOGEN UA (BEAKER) (test qjmv=125) 12.0 mg/dL 0.2-1.0 RBC UA (BEAKER) (test osma=388) < /HPF WBC UA (BEAKER) (test fzzt=068) < /HPF SQUAMOUS EPITHELIAL (BEAKER) (test vqnz=660) < /HPF SOURCE(BEAKER) (test fnmx=4920) B-TYPE NATRIURETIC FACTOR (BNP)2018-08-13 21:31:00 Test Item Value Reference Range Comments B-TYPE NATRIURETIC PEPTIDE (BEAKER) (test avxh=523) 69 pg/mL 0-100 [id number] 21:02:00 Test Item Value Reference Range Comments LIPASE (BEAKER) (test cxyv=410) 44 U/L 8-78 BASIC METABOLIC [id number] 21:02:00 Test Item Value Reference Range Comments SODIUM (BEAKER) (test 141 meq/L 136-145 fpjc=607) POTASSIUM (BEAKER) (test 4.2 meq/L 3.5-5.1 Specimen slightly vuvc=958) hemolyzed CHLORIDE (BEAKER) (test 107 meq/L 98-107 bkdm=827) CO2 (BEAKER) (test 27 meq/L 22-29 qoxu=056) BLOOD UREA NITROGEN 15 mg/dL 7-21 (BEAKER) (test xujl=700) CREATININE (BEAKER) (test 0.95 mg/dL 0.57-1.25 Specimen slightly ghnz=598) hemolyzed GLUCOSE RANDOM (BEAKER) 75 mg/dL 70-105 (test dfiv=592) CALCIUM (BEAKER) (test 9.1 mg/dL 8.4-10.2 jeio=378) EGFR (BEAKER) (test 81 mL/min/1.73 sq m ESTIMATED GFR IS NOT tlkn=4743) ACCURATE CREATININE CLEARANCE IN PREDICTING GLOMERULAR FILTRATION RATE. ESTIMATED GFR IS NOT APPLICABLE FOR DIALYSIS PATIENTS. HEPATIC FUNCTION [id number] 21:02:00 Test Item Value Reference Range Comments TOTAL PROTEIN (BEAKER) (test 6.7 gm/dL 6.0-8.3 Specimen slightly hemolyzed xwdh=834) ALBUMIN (BEAKER) (test 4.0 g/dL 3.5-5.0 Specimen slightly hemolyzed afdq=7289) BILIRUBIN TOTAL (BEAKER) (test 1.4 mg/dL 0.2-1.2 Specimen slightly hemolyzed ejmw=828) BILIRUBIN DIRECT (BEAKER) (test 0.3 mg/dL 0.1-0.5 Specimen slightly hemolyzed zbhb=508) ALKALINE PHOSPHATASE (BEAKER) 62 U/L 40-150 (test qtva=608) AST (SGOT) (BEAKER) (test 26 U/L 5-34 Specimen slightly hemolyzed mnnz=741) ALT (SGPT) (BEAKER) (test 47 U/L 6-55 Specimen slightly hemolyzed iegm=505) [id number] 20:37:00 Test Item Value Reference Range Comments PROTIME (BEAKER) (test kzrm=566) 13.8 seconds 11.7-14.7 INR (BEAKER) (test hnou=393) 1.1 <=5.9 PARTIAL THROMBOPLASTIN TIME (BEAKER) (test 24.9 seconds 22.5-36.0 gjhs=991) RECOMMENDED COUMADIN/WARFARIN INR THERAPY RANGESSTANDARD DOSE: 2.0 - 3.0 Includes: PROPHYLAXIS forvenous thrombosis, systemic embolization; TREATMENT for venous thrombosis and/or pulmonary embolus.HIGH RISK: Target INR is 2.5-3.5 for patients with mechanical heart valves.CBC W/PLT COUNT & AUTO [id number] 20:28:00 Test Item Value Reference Range Comments WHITE BLOOD CELL COUNT (BEAKER) (test mwvd=184) 6.6 K/ L 3.5-10.5 RED BLOOD CELL COUNT (BEAKER) (test jvyg=788) 4.54 M/ L 4.63-6.08 HEMOGLOBIN (BEAKER) (test ccji=733) 14.5 GM/DL 13.7-17.5 HEMATOCRIT (BEAKER) (test lxjt=468) 43.2 % 40.1-51.0 MEAN CORPUSCULAR VOLUME (BEAKER) (test dgrd=908) 95.2 fL 79.0-92.2 MEAN CORPUSCULAR HEMOGLOBIN (BEAKER) (test 31.9 pg 25.7-32.2 jlzr=741) MEAN CORPUSCULAR HEMOGLOBIN CONC (BEAKER) (test 33.6 GM/DL 32.3-36.5 ryor=108) RED CELL DISTRIBUTION WIDTH (BEAKER) (test 13.5 % 11.6-14.4 ztur=633) PLATELET COUNT (BEAKER) (test baku=713) 176 K/CU MM 150-450 MEAN PLATELET VOLUME (BEAKER) (test qrgj=418) 9.9 fL 9.4-12.4 NUCLEATED RED BLOOD CELLS (BEAKER) (test 0 /100 WBC 0-0 haji=874) NEUTROPHILS RELATIVE PERCENT (BEAKER) (test 64 % qnrw=464) LYMPHOCYTES RELATIVE PERCENT (BEAKER) (test 21 % ixir=017) MONOCYTES RELATIVE PERCENT (BEAKER) (test 11 % scdr=574) EOSINOPHILS RELATIVE PERCENT (BEAKER) (test 3 % vwcr=461) BASOPHILS RELATIVE PERCENT (BEAKER) (test 1 % ntgl=740) NEUTROPHILS ABSOLUTE COUNT (BEAKER) (test 4.23 K/ L 1.78-5.38 axfv=042) LYMPHOCYTES ABSOLUTE COUNT (BEAKER) (test 1.35 K/ L 1.32-3.57 jdcg=737) MONOCYTES ABSOLUTE COUNT (BEAKER) (test 0.72 K/ L 0.30-0.82 noez=252) EOSINOPHILS ABSOLUTE COUNT (BEAKER) (test 0.17 K/ L 0.04-0.54 dwbk=698) BASOPHILS ABSOLUTE COUNT (BEAKER) (test 0.04 K/ L 0.01-0.08 aimj=200) IMMATURE GRANULOCYTES-RELATIVE PERCENT (BEAKER) 1 % 0-1 (test rufo=9213) TISSUE [id number] 14:11:00Surgical Pathology Report Case: [id number] Authorizing Provider: Darshan Dillon MD Collected: 03/24/2018 4778 Ordering Location: [facility] Received: 03/26/2018 1129 PERIOPERATIVE SERVICES Pathologist: Shelton Joe MD Specimen: Soft Tissue, Other, Atrial Mass HEART, LEFT ATRIUM, RESECTION: MYXOMA Signing Pathologist Direct Phone Line: [phone] signed by Shelton Joe MD on 03/28/2018 at 2:11 [id number] atrial fibrillation, left atrial massLeft atrial massReceived [...] A2-A5, remainder of specimen. DB/plPerformedRAD, CHEST, 2 [id number] 13:30:00Reason for exam:->pneumo, discharge dependentFINAL REPORT Chest [...] MDReport Verified Date/Time: 03/28/2018 13:30:46 Reading Location: [facility] B1 C013W Consult Reading Room [id number] 07: 13:00 Test Item Value Reference Range Comments MAGNESIUM (BEAKER) (test dzex=411) 2.2 mg/dL 1.6-2.6 BASIC METABOLIC [id number] 07:13:00 Test Item Value Reference Range Comments SODIUM (BEAKER) (test 139 meq/L 136-145 hfsc=301) POTASSIUM (BEAKER) (test 4.6 meq/L 3.5-5.1 djsx=225) CHLORIDE (BEAKER) (test 102 meq/L 98-107 ahrh=574) CO2 (BEAKER) (test 28 meq/L 22-29 pdox=705) BLOOD UREA NITROGEN 11 mg/dL 7-21 (BEAKER) (test gohl=047) CREATININE (BEAKER) (test 0.70 mg/dL 0.57-1.25 oelz=885) GLUCOSE RANDOM (BEAKER) 98 mg/dL 70-105 (test ohnz=324) CALCIUM (BEAKER) (test 9.7 mg/dL 8.4-10.2 jvju=985) EGFR (BEAKER) (test 116 mL/min/1.73 sq m ESTIMATED GFR IS NOT lcjx=8572) ACCURATE CREATININE CLEARANCE IN PREDICTING GLOMERULAR FILTRATION RATE. ESTIMATED GFR IS NOT APPLICABLE FOR DIALYSIS PATIENTS. RAD, CHEST, 1 VIEW, NON [id number] 22:38:00Reason for exam:->eval for right pneumothorax after [...] Verified Date/Time: 03/27/2018 22: 38:14 Reading Location: [address] Reading Room 10:38 [id number] 05:17:00 Test Item Value Reference Range Comments MAGNESIUM (BEAKER) (test gwel=647) 2.0 mg/dL 1.6-2.6 BASIC METABOLIC [id number] 05:17:00 Test Item Value Reference Range Comments SODIUM (BEAKER) (test 138 meq/L 136-145 kkcw=642) POTASSIUM (BEAKER) (test 4.6 meq/L 3.5-5.1 ojfs=652) CHLORIDE (BEAKER) (test 101 meq/L 98-107 mvqq=217) CO2 (BEAKER) (test 29 meq/L 22-29 oaks=609) BLOOD UREA NITROGEN 11 mg/dL 7-21 (BEAKER) (test sdhg=986) CREATININE (BEAKER) (test 0.74 mg/dL 0.57-1.25 qqxf=421) GLUCOSE RANDOM (BEAKER) 116 mg/dL 70-105 (test ospp=554) CALCIUM (BEAKER) (test 9.3 mg/dL 8.4-10.2 ydew=667) EGFR (BEAKER) (test 109 mL/min/1.73 sq m ESTIMATED GFR IS NOT vgve=5127) ACCURATE CREATININE CLEARANCE IN PREDICTING GLOMERULAR FILTRATION RATE. ESTIMATED GFR IS NOT APPLICABLE FOR DIALYSIS PATIENTS. CBC W/PLT COUNT & AUTO [id number] 05:08:00 Test Item Value Reference Range Comments WHITE BLOOD CELL COUNT (BEAKER) (test bpub=709) 13.5 K/ L 3.5-10.5 RED BLOOD CELL COUNT (BEAKER) (test wfjp=515) 3.91 M/ L 4.63-6.08 HEMOGLOBIN (BEAKER) (test dnsl=769) 12.1 GM/DL 13.7-17.5 HEMATOCRIT (BEAKER) (test qmfh=045) 36.7 % 40.1-51.0 MEAN CORPUSCULAR VOLUME (BEAKER) (test ifmy=416) 93.9 fL 79.0-92.2 MEAN CORPUSCULAR HEMOGLOBIN (BEAKER) (test 30.9 pg 25.7-32.2 lbgw=366) MEAN CORPUSCULAR HEMOGLOBIN CONC (BEAKER) (test 33.0 GM/DL 32.3-36.5 obal=268) RED CELL DISTRIBUTION WIDTH (BEAKER) (test 13.2 % 11.6-14.4 mkcm=996) PLATELET COUNT (BEAKER) (test xpps=722) 116 K/CU MM 150-450 MEAN PLATELET VOLUME (BEAKER) (test pixq=359) 10.3 fL 9.4-12.4 NUCLEATED RED BLOOD CELLS (BEAKER) (test 0 /100 WBC 0-0 fptn=502) NEUTROPHILS RELATIVE PERCENT (BEAKER) (test 85 % qljc=335) LYMPHOCYTES RELATIVE PERCENT (BEAKER) (test 5 % sygg=239) MONOCYTES RELATIVE PERCENT (BEAKER) (test 9 % hina=813) EOSINOPHILS RELATIVE PERCENT (BEAKER) (test 0 % gumg=511) BASOPHILS RELATIVE PERCENT (BEAKER) (test 0 % ggsr=440) NEUTROPHILS ABSOLUTE COUNT (BEAKER) (test 11.40 K/ L 1.78-5.38 bbrc=937) LYMPHOCYTES ABSOLUTE COUNT (BEAKER) (test 0.69 K/ L 1.32-3.57 zjmu=373) MONOCYTES ABSOLUTE COUNT (BEAKER) (test 1.21 K/ L 0.30-0.82 jant=447) EOSINOPHILS ABSOLUTE COUNT (BEAKER) (test 0.01 K/ L 0.04-0.54 iznl=536) BASOPHILS ABSOLUTE COUNT (BEAKER) (test 0.02 K/ L 0.01-0.08 eqzl=836) IMMATURE GRANULOCYTES-RELATIVE PERCENT (BEAKER) 1 % 0-1 (test oaui=7827) POCT-GLUCOSE [id number] 08:39:00 Test Item Value Reference Range Comments POC-GLUCOSE METER (BEAKER) 96 mg/dL 70-110 TESTED AT [address] (test zczb=5503) [facility] [address] POCT-GLUCOSE [id number] 08:39:00 Test Item Value Reference Range Comments POC-GLUCOSE METER (BEAKER) 156 mg/dL 70-110 TESTED AT [address] (test hbyy=0511) [facility] [address] RAD, CHEST, 1 VIEW, NON [id number] 06:12:00Reason for exam:->chest tubeShould this be performed at the bedside?->YesFINAL REPORT RAD, CHEST, 1 VIEW, NON DEPT INDICATION: chest tube COMPARISON: Prior day's exam FINDINGS: Portable frontal view of the chest. IMPRESSION: Support Lines: The [place]aniella catheter has been. Right IJ sheath remains in place. Thoracic drainage catheters again noted. Lungs and pleura: Basilar subsegmental atelectasis on the right. Trace right apical pneumothorax. Bilateral small effusions. No pneumothorax.Heart and mediastinum: Stable contours. Additional findings: None. Signed: JR Valdez Robert MDReport Verified Date/Time: 03/26/2018 06:12:29 Reading Location: [address] Body Reading Room CBC W/ PLT COUNT & AUTO [id number] 05:52:00 Test Item Value Reference Range Comments WHITE BLOOD CELL COUNT (BEAKER) (test cdfl=116) 15.0 K/ L 3.5-10.5 RED BLOOD CELL COUNT (BEAKER) (test jmxx=816) 3.80 M/ L 4.63-6.08 HEMOGLOBIN (BEAKER) (test imkq=460) 12.1 GM/DL 13.7-17.5 HEMATOCRIT (BEAKER) (test nxgk=629) 34.7 % 40.1-51.0 MEAN CORPUSCULAR VOLUME (BEAKER) (test tknv=872) 91.3 fL 79.0-92.2 MEAN CORPUSCULAR HEMOGLOBIN (BEAKER) (test 31.8 pg 25.7-32.2 acfb=365) MEAN CORPUSCULAR HEMOGLOBIN CONC (BEAKER) (test 34.9 GM/DL 32.3-36.5 dwdd=424) RED CELL DISTRIBUTION WIDTH (BEAKER) (test 13.2 % 11.6-14.4 ozdj=157) PLATELET COUNT (BEAKER) (test ytnl=006) 102 K/CU MM 150-450 MEAN PLATELET VOLUME (BEAKER) (test apsl=931) 10.0 fL 9.4-12.4 NUCLEATED RED BLOOD CELLS (BEAKER) (test 0 /100 WBC 0-0 xrtp=838) NEUTROPHILS RELATIVE PERCENT (BEAKER) (test 85 % baxg=778) LYMPHOCYTES RELATIVE PERCENT (BEAKER) (test 5 % dnri=428) MONOCYTES RELATIVE PERCENT (BEAKER) (test 9 % lnit=621) EOSINOPHILS RELATIVE PERCENT (BEAKER) (test 0 % pyaq=329) BASOPHILS RELATIVE PERCENT (BEAKER) (test 0 % vdpr=597) NEUTROPHILS ABSOLUTE COUNT (BEAKER) (test 12.80 K/ L 1.78-5.38 hfzj=699) LYMPHOCYTES ABSOLUTE COUNT (BEAKER) (test 0.68 K/ L 1.32-3.57 dipj=757) MONOCYTES ABSOLUTE COUNT (BEAKER) (test 1.39 K/ L 0.30-0.82 ydml=556) EOSINOPHILS ABSOLUTE COUNT (BEAKER) (test 0.00 K/ L 0.04-0.54 tyem=091) BASOPHILS ABSOLUTE COUNT (BEAKER) (test 0.01 K/ L 0.01-0.08 rxcx=206) IMMATURE GRANULOCYTES-RELATIVE PERCENT (BEAKER) 1 % 0-1 (test oeul=9210) BLOOD GAS, [id number] 04:52:00 Test Item Value Reference Range Comments PH ARTERIAL (BEAKER) (test vzup=697) 7.44 7.35-7.45 PCO2 ARTERIAL (BEAKER) (test fmvq=212) 41 mmHg 35-45 PO2 ARTERIAL (BEAKER) (test cvka=741) 78 mmHg 80-90 O2 SATURATION ARTERIAL (BEAKER) (test mhap=184) 95.5 % 96.0-97.0 HCO3 ARTERIAL (BEAKER) (test bjvl=646) 27 mmol/L 21-29 BASE EXCESS ARTERIAL (BEAKER) (test youp=184) 3.1 mmol/L -2.0-3.0 PATIENT TEMPERATURE (BEAKER) (test mzry=0099) 37.7 C FIO2 (BEAKER) (test eizw=4088) 36.0 % [id number] 04:31:00 Test Item Value Reference Range Comments PHOSPHORUS (BEAKER) (test smbs=835) 3.1 mg/dL 2.3-4.7 BASIC METABOLIC [id number] 04:31:00 Test Item Value Reference Range Comments SODIUM (BEAKER) (test 137 meq/L 136-145 rudl=315) POTASSIUM (BEAKER) (test 3.8 meq/L 3.5-5.1 jjkf=812) CHLORIDE (BEAKER) (test 106 meq/L 98-107 ttxm=473) CO2 (BEAKER) (test 24 meq/L 22-29 absa=390) BLOOD UREA NITROGEN 11 mg/dL 7-21 (BEAKER) (test gquh=930) CREATININE (BEAKER) (test 0.65 mg/dL 0.57-1.25 eyvr=627) GLUCOSE RANDOM (BEAKER) 119 mg/dL 70-105 (test mxej=190) CALCIUM (BEAKER) (test 8.9 mg/dL 8.4-10.2 mbta=589) EGFR (BEAKER) (test 127 mL/min/1.73 sq m ESTIMATED GFR IS NOT skil=5934) ACCURATE CREATININE CLEARANCE IN PREDICTING GLOMERULAR FILTRATION RATE. ESTIMATED GFR IS NOT APPLICABLE FOR DIALYSIS PATIENTS. Specimen slightly ictericLACTIC ACID, ARTERIAL, WHOLE [id number] 04:26:00 Test Item Value Reference Range Comments LACTATE BLOOD ARTERIAL (2) (BEAKER) (test 0.8 mmol/L 0.5-2.2 dqys=2583) Effective 03/24/2016: Units/Reference Range ChangeNew: 0.5-2.2 mmol/L Previous: 5 -20 mg/dLRAD, CHEST, 1 VIEW, NON [id number] 09:24:00Reason for exam:->s/ p resection atrial myxomaShould [...] Daviseport Verified Date/Time: 03/25/2018 09:24:11 Reading Location: [address] Transitional Reading Room [id number] 06:29:00 Test Item Value Reference Range Comments PHOSPHORUS (BEAKER) (test jlmv=842) 1.1 mg/dL 2.3-4.7 CBC W/PLT COUNT & AUTO [id number] 05:51:00 Test Item Value Reference Range Comments WHITE BLOOD CELL COUNT (BEAKER) (test ixlh=810) 19.2 K/ L 3.5-10.5 RED BLOOD CELL COUNT (BEAKER) (test foyj=249) 4.11 M/ L 4.63-6.08 HEMOGLOBIN (BEAKER) (test opib=664) 12.9 GM/DL 13.7-17.5 HEMATOCRIT (BEAKER) (test hbru=571) 37.9 % 40.1-51.0 MEAN CORPUSCULAR VOLUME (BEAKER) (test hugi=087) 92.2 fL 79.0-92.2 MEAN CORPUSCULAR HEMOGLOBIN (BEAKER) (test 31.4 pg 25.7-32.2 bcxa=506) MEAN CORPUSCULAR HEMOGLOBIN CONC (BEAKER) (test 34.0 GM/DL 32.3-36.5 jkvv=775) RED CELL DISTRIBUTION WIDTH (BEAKER) (test 13.0 % 11.6-14.4 iuax=622) PLATELET COUNT (BEAKER) (test rnwy=963) 132 K/CU MM 150-450 MEAN PLATELET VOLUME (BEAKER) (test qgyg=641) 10.0 fL 9.4-12.4 NUCLEATED RED BLOOD CELLS (BEAKER) (test 0 /100 WBC 0-0 msmn=822) NEUTROPHILS RELATIVE PERCENT (BEAKER) (test 90 % meps=098) LYMPHOCYTES RELATIVE PERCENT (BEAKER) (test 1 % djjg=011) MONOCYTES RELATIVE PERCENT (BEAKER) (test 7 % ttdt=596) EOSINOPHILS RELATIVE PERCENT (BEAKER) (test 0 % uara=885) BASOPHILS RELATIVE PERCENT (BEAKER) (test 0 % gqey=695) NEUTROPHILS ABSOLUTE COUNT (BEAKER) (test 17.33 K/ L 1.78-5.38 vnex=378) LYMPHOCYTES ABSOLUTE COUNT (BEAKER) (test 0.27 K/ L 1.32-3.57 elxb=046) MONOCYTES ABSOLUTE COUNT (BEAKER) (test 1.39 K/ L 0.30-0.82 wbnk=430) EOSINOPHILS ABSOLUTE COUNT (BEAKER) (test 0.00 K/ L 0.04-0.54 jqpb=201) BASOPHILS ABSOLUTE COUNT (BEAKER) (test 0.04 K/ L 0.01-0.08 hmyy=643) IMMATURE GRANULOCYTES-RELATIVE PERCENT (BEAKER) 1 % 0-1 (test jsqy=7023) BLOOD GAS, [id number] 05:35:00 Test Item Value Reference Range Comments PH ARTERIAL (BEAKER) (test teth=965) 7.33 7.35-7.45 PCO2 ARTERIAL (BEAKER) (test cjsm=554) 40 mmHg 35-45 PO2 ARTERIAL (BEAKER) (test qygv=963) 159 mmHg 80-90 O2 SATURATION ARTERIAL (BEAKER) (test cujk=289) 98.9 % 96.0-97.0 HCO3 ARTERIAL (BEAKER) (test dmfu=322) 20 mmol/L 21-29 BASE EXCESS ARTERIAL (BEAKER) (test iyyy=562) -5.2 mmol/L -2.0-3.0 PATIENT TEMPERATURE (BEAKER) (test ujhp=4228) 37.4 C FIO2 (BEAKER) (test bgwl=6280) 40.0 % GLUCOSE-STAT [id number] 05:35:00 Test Item Value Reference Range Comments GLUCOSE RANDOM (BEAKER) (test zbte=242) 218 mg/dL 70-110 POTASSIUM-STAT [id number] 05:35:00 Test Item Value Reference Range Comments POTASSIUM (BEAKER) (test klof=454) 3.4 meq/L 3.6-5.5 SODIUM NA-STAT [id number] 05:33:00 Test Item Value Reference Range Comments SODIUM (BEAKER) (test rzcq=783) 144 meq/L 135-148 HGB/HCT (H&H) - STAT [id number] 05:33:00 Test Item Value Reference Range Comments HEMOGLOBIN (BEAKER) (test xcqx=197) 13.8 g/dL 13.0-16.8 HEMATOCRIT (BEAKER) (test wpcn=519) 41.0 % 40.0-50.0 [id number] 05:32:00 Test Item Value Reference Range Comments MAGNESIUM (BEAKER) (test qpxz=055) 1.9 mg/dL 1.6-2.6 BASIC METABOLIC [id number] 05:32:00 Test Item Value Reference Range Comments SODIUM (BEAKER) (test 143 meq/L 136-145 utin=434) POTASSIUM (BEAKER) (test 3.5 meq/L 3.5-5.1 moyf=964) CHLORIDE (BEAKER) (test 111 meq/L 98-107 sojc=417) CO2 (BEAKER) (test 17 meq/L 22-29 ahup=715) BLOOD UREA NITROGEN 13 mg/dL 7-21 (BEAKER) (test wkkp=901) CREATININE (BEAKER) (test 1.09 mg/dL 0.57-1.25 ubyk=985) GLUCOSE RANDOM (BEAKER) 227 mg/dL 70-105 (test zraw=262) CALCIUM (BEAKER) (test 8.5 mg/dL 8.4-10.2 aawp=682) EGFR (BEAKER) (test 70 mL/min/1.73 sq m ESTIMATED GFR IS NOT unfy=5987) ACCURATE CREATININE CLEARANCE IN PREDICTING GLOMERULAR FILTRATION RATE. ESTIMATED GFR IS NOT APPLICABLE FOR DIALYSIS PATIENTS. LACTIC ACID, ARTERIAL, WHOLE [id number] 05:19:00 Test Item Value Reference Range Comments LACTATE BLOOD ARTERIAL (2) 8.6 mmol/L 0.5-2.2 Specimen slightly hemolyzed (BEAKER) (test erxw=6591) Effective 03/24/2016: Units/Reference Range ChangeNew: 0.5-2.2 mmol/L Previous: 5 -20 mg/dLBLOOD GAS, [id number] 02:21:00 Test Item Value Reference Range Comments PH ARTERIAL (BEAKER) (test qpej=376) 7.31 7.35-7.45 PCO2 ARTERIAL (BEAKER) (test olmg=103) 36 mmHg 35-45 PO2 ARTERIAL (BEAKER) (test sdre=803) 123 mmHg 80-90 O2 SATURATION ARTERIAL (BEAKER) (test vqar=455) 98.2 % 96.0-97.0 HCO3 ARTERIAL (BEAKER) (test ojga=913) 18 mmol/L 21-29 BASE EXCESS ARTERIAL (BEAKER) (test pffn=703) -7.7 mmol/L -2.0-3.0 PATIENT TEMPERATURE (BEAKER) (test udmp=2949) 36.8 C FIO2 (BEAKER) (test jcya=3566) 40.0 % BLOOD GAS, [id number] 00:28:00 Test Item Value Reference Range Comments PH ARTERIAL (BEAKER) (test hlta=858) 7.28 7.35-7.45 PCO2 ARTERIAL (BEAKER) (test yxxb=469) 35 mmHg 35-45 PO2 ARTERIAL (BEAKER) (test iebz=740) 114 mmHg 80-90 O2 SATURATION ARTERIAL (BEAKER) (test ncgg=939) 97.8 % 96.0-97.0 HCO3 ARTERIAL (BEAKER) (test aszc=026) 16 mmol/L 21-29 BASE EXCESS ARTERIAL (BEAKER) (test kqna=992) -9.7 mmol/L -2.0-3.0 PATIENT TEMPERATURE (BEAKER) (test sfnx=4357) 36.7 C FIO2 (BEAKER) (test tltg=3316) 40.0 % POTASSIUM-STAT [id number] 00:28:00 Test Item Value Reference Range Comments POTASSIUM (BEAKER) (test wefa=159) 3.1 meq/L 3.6-5.5 GLUCOSE-STAT [id number] 00:28:00 Test Item Value Reference Range Comments GLUCOSE RANDOM (BEAKER) (test swwv=312) 236 mg/dL 70-110 CALCIUM, [id number] 00:28:00 Test Item Value Reference Range Comments CALCIUM IONIZED (BEAKER) (test dzdn=639) 1.10 mmol/L 1.12-1.27 PH, BLOOD (BEAKER) (test ukca=3911) 7.28 SODIUM NA-STAT [id number] 00:27:00 Test Item Value Reference Range Comments SODIUM (BEAKER) (test wghu=158) 142 meq/L 135-148 HEMOGLOBIN-STAT [id number] 00:27:00 Test Item Value Reference Range Comments HEMOGLOBIN (BEAKER) (test dxgw=747) 15.1 g/dL 13.0-16.8 HGB/HCT (H&H) - STAT [id number] 00:27:00 Test Item Value Reference Range Comments HEMOGLOBIN (BEAKER) (test ihgk=745) 15.1 GM/DL 13.0-16.8 HEMATOCRIT (BEAKER) (test hwpz=039) 44.0 % 40.0-50.0 [id number] 22:39:00 Test Item Value Reference Range Comments MAGNESIUM (BEAKER) (test 2.2 mg/dL 1.6-2.6 Specimen slightly hemolyzed tspw=792) BASIC METABOLIC [id number] 22:39:00 Test Item Value Reference Range Comments SODIUM (BEAKER) (test 140 meq/L 136-145 wmuc=020) POTASSIUM (BEAKER) (test 4.0 meq/L 3.5-5.1 Specimen slightly rxfj=151) hemolyzed CHLORIDE (BEAKER) (test 110 meq/L 98-107 hfxa=468) CO2 (BEAKER) (test 17 meq/L 22-29 vzio=574) BLOOD UREA NITROGEN 14 mg/dL 7-21 (BEAKER) (test wwjl=877) CREATININE (BEAKER) (test 1.09 mg/dL 0.57-1.25 Specimen slightly zkpd=790) hemolyzed GLUCOSE RANDOM (BEAKER) 202 mg/dL 70-105 (test tqev=865) CALCIUM (BEAKER) (test 8.8 mg/dL 8.4-10.2 choo=074) EGFR (BEAKER) (test 70 mL/min/1.73 sq m ESTIMATED GFR IS NOT ymtq=5835) ACCURATE CREATININE CLEARANCE IN PREDICTING GLOMERULAR FILTRATION RATE. ESTIMATED GFR IS NOT APPLICABLE FOR DIALYSIS PATIENTS. LACTIC ACID, ARTERIAL, WHOLE [id number] 22:36:00 Test Item Value Reference Range Comments LACTATE BLOOD ARTERIAL (2) 5.5 mmol/L 0.5-2.2 Specimen slightly hemolyzed (BEAKER) (test qhot=2507) Effective 03/24/2016: Units/Reference Range ChangeNew: 0.5-2.2 mmol/L Previous: 5 -20 mg/[id number] 22:32:00 Test Item Value Reference Range Comments FIBRINOGEN LEVEL (BEAKER) (test wryf=744) 375 mg/dl 225-434 [id number] 22:32:00 Test Item Value Reference Range Comments PARTIAL THROMBOPLASTIN TIME (BEAKER) (test 29.6 seconds 22.5-36.0 hrut=989) CBC W/PLT COUNT & AUTO [id number] 22:31:00 Test Item Value Reference Range Comments WHITE BLOOD CELL COUNT (BEAKER) (test pkzx=366) 20.7 K/ L 3.5-10.5 RED BLOOD CELL COUNT (BEAKER) (test dyvs=843) 4.73 M/ L 4.63-6.08 HEMOGLOBIN (BEAKER) (test qqxp=825) 14.8 GM/DL 13.7-17.5 HEMATOCRIT (BEAKER) (test ofci=359) 44.4 % 40.1-51.0 MEAN CORPUSCULAR VOLUME (BEAKER) (test maid=706) 93.9 fL 79.0-92.2 MEAN CORPUSCULAR HEMOGLOBIN (BEAKER) (test 31.3 pg 25.7-32.2 wxgh=826) MEAN CORPUSCULAR HEMOGLOBIN CONC (BEAKER) (test 33.3 GM/DL 32.3-36.5 isqi=069) RED CELL DISTRIBUTION WIDTH (BEAKER) (test 13.2 % 11.6-14.4 aphr=604) PLATELET COUNT (BEAKER) (test aaie=990) 147 K/CU MM 150-450 MEAN PLATELET VOLUME (BEAKER) (test toep=360) 9.9 fL 9.4-12.4 NUCLEATED RED BLOOD CELLS (BEAKER) (test 0 /100 WBC 0-0 jtxz=851) NEUTROPHILS RELATIVE PERCENT (BEAKER) (test 82 % vrcg=227) LYMPHOCYTES RELATIVE PERCENT (BEAKER) (test 7 % ywak=961) MONOCYTES RELATIVE PERCENT (BEAKER) (test 9 % uzbn=523) EOSINOPHILS RELATIVE PERCENT (BEAKER) (test 0 % klmh=656) BASOPHILS RELATIVE PERCENT (BEAKER) (test 0 % cqja=565) NEUTROPHILS ABSOLUTE COUNT (BEAKER) (test 17.02 K/ L 1.78-5.38 ndfk=015) LYMPHOCYTES ABSOLUTE COUNT (BEAKER) (test 1.53 K/ L 1.32-3.57 yngc=877) MONOCYTES ABSOLUTE COUNT (BEAKER) (test 1.85 K/ L 0.30-0.82 tuvz=067) EOSINOPHILS ABSOLUTE COUNT (BEAKER) (test 0.03 K/ L 0.04-0.54 thhy=800) BASOPHILS ABSOLUTE COUNT (BEAKER) (test 0.06 K/ L 0.01-0.08 uyiw=185) IMMATURE GRANULOCYTES-RELATIVE PERCENT (BEAKER) 1 % 0-1 (test blcv=7475) PROTHROMBIN TIME/[id number] 22:31:00 Test Item Value Reference Range Comments PROTIME (BEAKER) (test lwle=695) 17.4 seconds 11.7-14.7 INR (BEAKER) (test bypj=219) 1.4 <=5.9 RECOMMENDED COUMADIN/WARFARIN INR THERAPY RANGESSTANDARD DOSE: 2.0 - 3.0 Includes: PROPHYLAXIS forvenous thrombosis, systemic embolization; TREATMENT for venous thrombosis and/or pulmonary embolus.HIGH RISK: Target INR is 2.5-3.5 for patients with mechanical heart valves.OXYGEN SATURATION, [id number] 22:26:00 Test Item Value Reference Range Comments O2 SATURATION (MEASURED) (BEAKER) (test ajnv=9437) 78.3 % CALCIUM, [id number] 22:23:00 Test Item Value Reference Range Comments CALCIUM IONIZED (BEAKER) (test kzqe=629) 1.19 mmol/L 1.12-1.27 PH, BLOOD (BEAKER) (test pirf=2424) 7.26 SODIUM NA-STAT [id number] 22:22:00 Test Item Value Reference Range Comments SODIUM (BEAKER) (test gerd=242) 139 meq/L 135-148 POTASSIUM-STAT [id number] 22:22:00 Test Item Value Reference Range Comments POTASSIUM (BEAKER) (test wcot=669) 3.7 meq/L 3.6-5.5 HGB/HCT (H&H) - STAT [id number] 22:22:00 Test Item Value Reference Range Comments HEMOGLOBIN (BEAKER) (test xcyr=109) 15.7 g/dL 13.0-16.8 HEMATOCRIT (BEAKER) (test gzce=458) 46.0 % 40.0-50.0 BLOOD GAS, [id number] 22:22:00 Test Item Value Reference Range Comments PH ARTERIAL (BEAKER) (test hqrs=621) 7.26 7.35-7.45 PCO2 ARTERIAL (BEAKER) (test augd=795) 44 mmHg 35-45 PO2 ARTERIAL (BEAKER) (test yqef=932) 102 mmHg 80-90 O2 SATURATION ARTERIAL (BEAKER) (test yxid=852) 96.8 % 96.0-97.0 HCO3 ARTERIAL (BEAKER) (test gdic=168) 19 mmol/L 21-29 BASE EXCESS ARTERIAL (BEAKER) (test sxta=797) -7.6 mmol/L -2.0-3.0 PATIENT TEMPERATURE (BEAKER) (test btlk=8333) 36.9 C FIO2 (BEAKER) (test zxtl=8827) 60.0 % GLUCOSE-STAT [id number] 22:22:00 Test Item Value Reference Range Comments GLUCOSE RANDOM (BEAKER) (test cgnr=841) 197 mg/dL 70-110 RAD, CHEST, 1 VIEW, NON [id number] 21:48:00Reason for exam:->s/p atrial myexoma dissectionFINAL REPORT RAD, CHEST, 1 VIEW, NON DEPT INDICATION: s/p atrial myexoma dissection COMPARISON: March 23, 2020 FINDINGS : Portable frontal view of the chest. IMPRESSION: Support Lines: Right IJ [place] catheter terminates over the proximal right main [...] MDReport Verified Date/Time: 03/24/2018 21:48:52 Reading Location: [facility] C013Y CT Body Reading Room [id number] 21:05:00 Test Item Value Reference Range Comments ACTIVATED CLOTTING TIME (BEAKER) 98 sec TESTED AT [facility] [address] [facility] [facility] (test dwov=918) [facility] [address] [id number] 21:05:00 Test Item Value Reference Range Comments ACTIVATED CLOTTING TIME 494 sec TESTED AT [place] [address] [facility] (BEAKER) (test bfpc=584) [place] [address] [id number] 21:05:00 Test Item Value Reference Range Comments ACTIVATED CLOTTING TIME 510 sec TESTED AT [place] [address] [address] (BEAKER) (test fyzi=379) [place] [address] [id number] 21:05:00 Test Item Value Reference Range Comments ACTIVATED CLOTTING TIME 527 sec TESTED AT [place] [address] [facility] (BEAKER) (test ydyz=260) [place] [address] [id number] 21:05:00 Test Item Value Reference Range Comments ACTIVATED CLOTTING TIME 527 sec TESTED AT [address] (BEAKER) (test mfef=091) [place] [address] [id number] 21:05:00 Test Item Value Reference Range Comments ACTIVATED CLOTTING TIME 417 sec TESTED AT [address] (BEAKER) (test xtcy=747) [place] [address] [id number] 21:05:00 Test Item Value Reference Range Comments ACTIVATED CLOTTING TIME 428 sec TESTED AT [address] (BEAKER) (test rbtt=942) [place] [address] [id number] 21:05:00 Test Item Value Reference Range Comments ACTIVATED CLOTTING TIME 389 sec TESTED AT [address] (BEAKER) (test zkmp=987) [place] [address] [id number] 21:05:00 Test Item Value Reference Range Comments ACTIVATED CLOTTING TIME 351 sec TESTED AT [place] [address] [facility] (BEAKER) (test ycvg=348) [place] [address] [id number] 21:05:00 Test Item Value Reference Range Comments ACTIVATED CLOTTING TIME 103 sec TESTED AT [address] (BEAKER) (test rbqm=766) [place] [id number] BLOOD GAS, [id number] 19:37:00 Test Item Value Reference Range Comments PH ARTERIAL (BEAKER) (test xcuy=525) 7.36 7.35-7.45 PCO2 ARTERIAL (BEAKER) (test vrym=617) 43 mmHg 35-45 PO2 ARTERIAL (BEAKER) (test lrhq=015) 363 mmHg 80-90 O2 SATURATION ARTERIAL (BEAKER) (test btoe=017) 99.8 % 96.0-97.0 HCO3 ARTERIAL (BEAKER) (test lvmv=974) 24 mmol/L 21-29 BASE EXCESS ARTERIAL (BEAKER) (test wdfd=154) -1.9 mmol/L -2.0-3.0 PATIENT TEMPERATURE (BEAKER) (test gtxa=3405) 36.6 C FIO2 (BEAKER) (test yqsh=6016) 85.0 % GLUCOSE-STAT [id number] 19:37:00 Test Item Value Reference Range Comments GLUCOSE RANDOM (BEAKER) (test djhp=969) 177 mg/dL 70-110 SODIUM NA-STAT [id number] 19:37:00 Test Item Value Reference Range Comments SODIUM (BEAKER) (test bbxe=939) 133 meq/L 135-148 POTASSIUM-STAT [id number] 19:36:00 Test Item Value Reference Range Comments POTASSIUM (BEAKER) (test smfg=509) 5.3 meq/L 3.6-5.5 HGB/HCT (H&H) - STAT [id number] 19:36:00 Test Item Value Reference Range Comments HEMOGLOBIN (BEAKER) (test yfbs=912) 13.9 g/dL 13.0-16.8 HEMATOCRIT (BEAKER) (test cjtj=767) 41.0 % 40.0-50.0 POTASSIUM-STAT [id number] 19:09:00 Test Item Value Reference Range Comments POTASSIUM (BEAKER) (test bugh=068) 4.9 meq/L 3.6-5.5 BLOOD GAS, [id number] 19:09:00 Test Item Value Reference Range Comments PH ARTERIAL (BEAKER) (test qcns=848) 7.41 7.35-7.45 PCO2 ARTERIAL (BEAKER) (test mnwy=458) 37 mmHg 35-45 PO2 ARTERIAL (BEAKER) (test ufub=777) 353 mmHg 80-90 O2 SATURATION ARTERIAL (BEAKER) (test xjlt=670) 99.8 % 96.0-97.0 HCO3 ARTERIAL (BEAKER) (test rykf=376) 23 mmol/L 21-29 BASE EXCESS ARTERIAL (BEAKER) (test baos=063) -1.5 mmol/L -2.0-3.0 PATIENT TEMPERATURE (BEAKER) (test yhdr=5316) 36.6 C FIO2 (BEAKER) (test swzj=0297) 85.0 % GLUCOSE-STAT [id number] 19:09:00 Test Item Value Reference Range Comments GLUCOSE RANDOM (BEAKER) (test cicn=169) 141 mg/dL 70-110 SODIUM NA-STAT [id number] 19:09:00 Test Item Value Reference Range Comments SODIUM (BEAKER) (test dxaj=618) 132 meq/L 135-148 HGB/HCT (H&H) - STAT [id number] 19:09:00 Test Item Value Reference Range Comments HEMOGLOBIN (BEAKER) (test czeg=618) 13.3 g/dL 13.0-16.8 HEMATOCRIT (BEAKER) (test edae=001) 39.0 % 40.0-50.0 POTASSIUM-STAT [id number] 18:39:00 Test Item Value Reference Range Comments POTASSIUM (BEAKER) (test ggua=623) 4.1 meq/L 3.6-5.5 BLOOD GAS, [id number] 18:39:00 Test Item Value Reference Range Comments PH ARTERIAL (BEAKER) (test ebde=763) 7.41 7.35-7.45 PCO2 ARTERIAL (BEAKER) (test bgmq=829) 37 mmHg 35-45 PO2 ARTERIAL (BEAKER) (test jycr=611) 248 mmHg 80-90 O2 SATURATION ARTERIAL (BEAKER) (test uucr=935) 99.6 % 96.0-97.0 HCO3 ARTERIAL (BEAKER) (test aysf=376) 23 mmol/L 21-29 BASE EXCESS ARTERIAL (BEAKER) (test bapr=870) -1.6 mmol/L -2.0-3.0 PATIENT TEMPERATURE (BEAKER) (test yzke=5122) 35.2 C FIO2 (BEAKER) (test mjze=0517) 80.0 % GLUCOSE-STAT [id number] 18:39:00 Test Item Value Reference Range Comments GLUCOSE RANDOM (BEAKER) (test pywj=369) 120 mg/dL 70-110 SODIUM NA-STAT [id number] 18:39:00 Test Item Value Reference Range Comments SODIUM (BEAKER) (test suwb=284) 132 meq/L 135-148 HGB/HCT (H&H) - STAT [id number] 18:39:00 Test Item Value Reference Range Comments HEMOGLOBIN (BEAKER) (test vxse=639) 12.5 g/dL 13.0-16.8 HEMATOCRIT (BEAKER) (test zeqc=946) 37.0 % 40.0-50.0 CALCIUM, [id number] 17:24:00 Test Item Value Reference Range Comments CALCIUM IONIZED (BEAKER) (test nluj=415) 1.15 mmol/L 1.12-1.27 PH, BLOOD (BEAKER) (test eorb=7480) 7.38 BLOOD GAS, [id number] 17:24:00 Test Item Value Reference Range Comments PH ARTERIAL (BEAKER) (test hggj=867) 7.39 7.35-7.45 PCO2 ARTERIAL (BEAKER) (test ozku=049) 41 mmHg 35-45 PO2 ARTERIAL (BEAKER) (test fuxz=933) 447 mmHg 80-90 O2 SATURATION ARTERIAL (BEAKER) (test yonc=887) 99.8 % 96.0-97.0 HCO3 ARTERIAL (BEAKER) (test czbb=181) 25 mmol/L 21-29 BASE EXCESS ARTERIAL (BEAKER) (test mjcz=438) -0.5 mmol/L -2.0-3.0 PATIENT TEMPERATURE (BEAKER) (test jgnp=8403) 36.0 C FIO2 (BEAKER) (test woij=8938) 100.0 % GLUCOSE-STAT [id number] 17:23:00 Test Item Value Reference Range Comments GLUCOSE RANDOM (BEAKER) (test nava=563) 95 mg/dL 70-110 SODIUM NA-STAT [id number] 17:23:00 Test Item Value Reference Range Comments SODIUM (BEAKER) (test nqid=263) 136 meq/L 135-148 POTASSIUM-STAT [id number] 17:23:00 Test Item Value Reference Range Comments POTASSIUM (BEAKER) (test tdbo=739) 3.7 meq/L 3.6-5.5 HGB/HCT (H&H) - STAT [id number] 17:23:00 Test Item Value Reference Range Comments HEMOGLOBIN (BEAKER) (test cews=798) 15.6 g/dL 13.0-16.8 HEMATOCRIT (BEAKER) (test zndh=910) 46.0 % 40.0-50.0 [id number] 11:57:00 Test Item Value Reference Range Comments PARTIAL THROMBOPLASTIN TIME (BEAKER) (test 44.2 seconds 22.5-36.0 cvgt=513) BASIC METABOLIC [id number] 06:20:00 Test Item Value Reference Range Comments SODIUM (BEAKER) (test 139 meq/L 136-145 cuji=229) POTASSIUM (BEAKER) (test 4.2 meq/L 3.5-5.1 kfoy=696) CHLORIDE (BEAKER) (test 108 meq/L 98-107 jczt=546) CO2 (BEAKER) (test 23 meq/L 22-29 zyif=060) BLOOD UREA NITROGEN 13 mg/dL 7-21 (BEAKER) (test guco=826) CREATININE (BEAKER) (test 0.84 mg/dL 0.57-1.25 rhze=385) GLUCOSE RANDOM (BEAKER) 97 mg/dL 70-105 (test xpuh=598) CALCIUM (BEAKER) (test 9.5 mg/dL 8.4-10.2 ftxn=267) EGFR (BEAKER) (test 94 mL/min/1.73 sq m ESTIMATED GFR IS NOT eyir=1622) ACCURATE CREATININE CLEARANCE IN PREDICTING GLOMERULAR FILTRATION RATE. ESTIMATED GFR IS NOT APPLICABLE FOR DIALYSIS PATIENTS. [id number] 05:44:00 Test Item Value Reference Range Comments PARTIAL THROMBOPLASTIN TIME (BEAKER) (test 34.0 seconds 22.5-36.0 ztmc=886) CBC W/PLT COUNT & AUTO [id number] 05:33:00 Test Item Value Reference Range Comments WHITE BLOOD CELL COUNT (BEAKER) (test cjxn=726) 5.7 K/ L 3.5-10.5 RED BLOOD CELL COUNT (BEAKER) (test hhru=688) 5.07 M/ L 4.63-6.08 HEMOGLOBIN (BEAKER) (test bdkc=798) 15.7 GM/DL 13.7-17.5 HEMATOCRIT (BEAKER) (test nbyv=389) 47.2 % 40.1-51.0 MEAN CORPUSCULAR VOLUME (BEAKER) (test fekd=247) 93.1 fL 79.0-92.2 MEAN CORPUSCULAR HEMOGLOBIN (BEAKER) (test 31.0 pg 25.7-32.2 ihvx=588) MEAN CORPUSCULAR HEMOGLOBIN CONC (BEAKER) (test 33.3 GM/DL 32.3-36.5 sdeu=069) RED CELL DISTRIBUTION WIDTH (BEAKER) (test 13.3 % 11.6-14.4 ltvv=771) PLATELET COUNT (BEAKER) (test xjnr=873) 196 K/CU MM 150-450 MEAN PLATELET VOLUME (BEAKER) (test culc=432) 10.0 fL 9.4-12.4 NUCLEATED RED BLOOD CELLS (BEAKER) (test 0 /100 WBC 0-0 ciwk=546) NEUTROPHILS RELATIVE PERCENT (BEAKER) (test 60 % eviz=174) LYMPHOCYTES RELATIVE PERCENT (BEAKER) (test 26 % cdps=111) MONOCYTES RELATIVE PERCENT (BEAKER) (test 11 % oyxr=275) EOSINOPHILS RELATIVE PERCENT (BEAKER) (test 2 % snpe=400) BASOPHILS RELATIVE PERCENT (BEAKER) (test 1 % jixt=353) NEUTROPHILS ABSOLUTE COUNT (BEAKER) (test 3.41 K/ L 1.78-5.38 zxpm=115) LYMPHOCYTES ABSOLUTE COUNT (BEAKER) (test 1.51 K/ L 1.32-3.57 xyfi=662) MONOCYTES ABSOLUTE COUNT (BEAKER) (test 0.63 K/ L 0.30-0.82 qppn=631) EOSINOPHILS ABSOLUTE COUNT (BEAKER) (test 0.12 K/ L 0.04-0.54 ifpo=137) BASOPHILS ABSOLUTE COUNT (BEAKER) (test 0.04 K/ L 0.01-0.08 wkhw=089) IMMATURE GRANULOCYTES-RELATIVE PERCENT (BEAKER) 0 % 0-1 (test bzgn=2580) [id number] 22:16:00 Test Item Value Reference Range Comments PARTIAL THROMBOPLASTIN TIME (BEAKER) (test 32.2 seconds 22.5-36.0 xmlu=772) [id number] 15:17:00 Test Item Value Reference Range Comments PARTIAL THROMBOPLASTIN TIME (BEAKER) (test 26.8 seconds 22.5-36.0 iedo=344) Prior to initiating heparinRAD, CHEST, 2 [id number] 14:45:00Reason for exam :->cough for 3 weeksFINAL REPORT Two lateral and one frontal chest images Discussion: Lungs clear. Heart size normal. No effusion or pneumothorax. Bones and soft tissues unremarkable. Signed: Jeanmarie Farmer Verified Date/Time: 03/23/2018 14:45:35 Reading Location: [address] Consult Reading Room [facility] METABOLIC [id number] 06:41:00 Test Item Value Reference Range Comments SODIUM (BEAKER) (test 138 meq/L 136-145 crem=295) POTASSIUM (BEAKER) (test 4.4 meq/L 3.5-5.1 nipf=808) CHLORIDE (BEAKER) (test 108 meq/L 98-107 opdr=328) CO2 (BEAKER) (test 23 meq/L 22-29 gsca=642) BLOOD UREA NITROGEN 16 mg/dL 7-21 (BEAKER) (test rsvh=214) CREATININE (BEAKER) (test 0.88 mg/dL 0.57-1.25 lauy=654) GLUCOSE RANDOM (BEAKER) 87 mg/dL 70-105 (test jmtv=675) CALCIUM (BEAKER) (test 9.5 mg/dL 8.4-10.2 nwme=595) EGFR (BEAKER) (test 89 mL/min/1.73 sq m ESTIMATED GFR IS NOT ujfz=3893) ACCURATE CREATININE CLEARANCE IN PREDICTING GLOMERULAR FILTRATION RATE. ESTIMATED GFR IS NOT APPLICABLE FOR DIALYSIS PATIENTS. CBC W/PLT COUNT & AUTO [id number] 04:56:00 Test Item Value Reference Range Comments WHITE BLOOD CELL COUNT (BEAKER) (test uuip=990) 7.0 K/ L 3.5-10.5 RED BLOOD CELL COUNT (BEAKER) (test qqhn=964) 5.13 M/ L 4.63-6.08 HEMOGLOBIN (BEAKER) (test jmkb=986) 16.1 GM/DL 13.7-17.5 HEMATOCRIT (BEAKER) (test mnjp=026) 47.8 % 40.1-51.0 MEAN CORPUSCULAR VOLUME (BEAKER) (test fgkd=017) 93.2 fL 79.0-92.2 MEAN CORPUSCULAR HEMOGLOBIN (BEAKER) (test 31.4 pg 25.7-32.2 xdxm=961) MEAN CORPUSCULAR HEMOGLOBIN CONC (BEAKER) (test 33.7 GM/DL 32.3-36.5 mhmi=051) RED CELL DISTRIBUTION WIDTH (BEAKER) (test 13.2 % 11.6-14.4 iylt=161) PLATELET COUNT (BEAKER) (test etjz=653) 237 K/CU MM 150-450 MEAN PLATELET VOLUME (BEAKER) (test dtmy=730) 11.0 fL 9.4-12.4 NUCLEATED RED BLOOD CELLS (BEAKER) (test 0 /100 WBC 0-0 tjsm=894) NEUTROPHILS RELATIVE PERCENT (BEAKER) (test 68 % eija=310) LYMPHOCYTES RELATIVE PERCENT (BEAKER) (test 19 % qhkw=184) MONOCYTES RELATIVE PERCENT (BEAKER) (test 10 % cwve=946) EOSINOPHILS RELATIVE PERCENT (BEAKER) (test 2 % dbab=853) BASOPHILS RELATIVE PERCENT (BEAKER) (test 1 % yaha=938) NEUTROPHILS ABSOLUTE COUNT (BEAKER) (test 4.72 K/ L 1.78-5.38 edzp=993) LYMPHOCYTES ABSOLUTE COUNT (BEAKER) (test 1.35 K/ L 1.32-3.57 gkkf=102) MONOCYTES ABSOLUTE COUNT (BEAKER) (test 0.73 K/ L 0.30-0.82 yidl=934) EOSINOPHILS ABSOLUTE COUNT (BEAKER) (test 0.12 K/ L 0.04-0.54 oqlb=900) BASOPHILS ABSOLUTE COUNT (BEAKER) (test 0.04 K/ L 0.01-0.08 bexg=389) IMMATURE GRANULOCYTES-RELATIVE PERCENT (BEAKER) 0 % 0-1 (test tufw=2193) [id number] 06:11:00 Test Item Value Reference Range Comments MAGNESIUM (BEAKER) (test gjqf=856) 1.9 mg/dL 1.6-2.6 BASIC METABOLIC [id number] 06:11:00 Test Item Value Reference Range Comments SODIUM (BEAKER) (test 138 meq/L 136-145 kxri=335) POTASSIUM (BEAKER) (test 4.1 meq/L 3.5-5.1 aifg=389) CHLORIDE (BEAKER) (test 106 meq/L 98-107 lqvz=665) CO2 (BEAKER) (test 22 meq/L 22-29 bmkx=286) BLOOD UREA NITROGEN 13 mg/dL 7-21 (BEAKER) (test almj=688) CREATININE (BEAKER) (test 0.80 mg/dL 0.57-1.25 hhhf=394) GLUCOSE RANDOM (BEAKER) 91 mg/dL 70-105 (test hzer=752) CALCIUM (BEAKER) (test 9.6 mg/dL 8.4-10.2 phet=541) EGFR (BEAKER) (test 100 mL/min/1.73 sq m ESTIMATED GFR IS NOT ksiz=0181) ACCURATE CREATININE CLEARANCE IN PREDICTING GLOMERULAR FILTRATION RATE. ESTIMATED GFR IS NOT APPLICABLE FOR DIALYSIS PATIENTS. CBC W/PLT COUNT & AUTO [id number] 05:49:00 Test Item Value Reference Range Comments WHITE BLOOD CELL COUNT (BEAKER) (test wgxg=111) 5.7 K/ L 3.5-10.5 RED BLOOD CELL COUNT (BEAKER) (test ndsw=326) 5.31 M/ L 4.63-6.08 HEMOGLOBIN (BEAKER) (test suts=955) 16.3 GM/DL 13.7-17.5 HEMATOCRIT (BEAKER) (test twsm=758) 48.0 % 40.1-51.0 MEAN CORPUSCULAR VOLUME (BEAKER) (test teog=513) 90.4 fL 79.0-92.2 MEAN CORPUSCULAR HEMOGLOBIN (BEAKER) (test 30.7 pg 25.7-32.2 hfkf=618) MEAN CORPUSCULAR HEMOGLOBIN CONC (BEAKER) (test 34.0 GM/DL 32.3-36.5 dsnh=634) RED CELL DISTRIBUTION WIDTH (BEAKER) (test 13.2 % 11.6-14.4 vtfe=995) PLATELET COUNT (BEAKER) (test wljj=568) 198 K/CU MM 150-450 MEAN PLATELET VOLUME (BEAKER) (test glmx=587) 9.7 fL 9.4-12.4 NUCLEATED RED BLOOD CELLS (BEAKER) (test 0 /100 WBC 0-0 ykjf=866) NEUTROPHILS RELATIVE PERCENT (BEAKER) (test 60 % ngkt=692) LYMPHOCYTES RELATIVE PERCENT (BEAKER) (test 25 % nkgg=741) MONOCYTES RELATIVE PERCENT (BEAKER) (test 11 % ufno=417) EOSINOPHILS RELATIVE PERCENT (BEAKER) (test 4 % xkdr=948) BASOPHILS RELATIVE PERCENT (BEAKER) (test 1 % patw=696) NEUTROPHILS ABSOLUTE COUNT (BEAKER) (test 3.42 K/ L 1.78-5.38 ggpz=510) LYMPHOCYTES ABSOLUTE COUNT (BEAKER) (test 1.40 K/ L 1.32-3.57 ohtv=283) MONOCYTES ABSOLUTE COUNT (BEAKER) (test 0.60 K/ L 0.30-0.82 dvme=555) EOSINOPHILS ABSOLUTE COUNT (BEAKER) (test 0.21 K/ L 0.04-0.54 bfjk=111) BASOPHILS ABSOLUTE COUNT (BEAKER) (test 0.06 K/ L 0.01-0.08 mzrv=788) IMMATURE GRANULOCYTES-RELATIVE PERCENT (BEAKER) 0 % 0-1 (test clbu=5580) BASIC METABOLIC [id number] 04:57:00 Test Item Value Reference Range Comments SODIUM (BEAKER) (test 140 meq/L 136-145 hlbb=707) POTASSIUM (BEAKER) (test 4.1 meq/L 3.5-5.1 gasp=625) CHLORIDE (BEAKER) (test 109 meq/L 98-107 glzy=867) CO2 (BEAKER) (test 24 meq/L 22-29 hkxg=623) BLOOD UREA NITROGEN 14 mg/dL 7-21 (BEAKER) (test zpwf=254) CREATININE (BEAKER) (test 0.81 mg/dL 0.57-1.25 difz=960) GLUCOSE RANDOM (BEAKER) 100 mg/dL 70-105 (test vqrk=488) CALCIUM (BEAKER) (test 9.4 mg/dL 8.4-10.2 fcqg=329) EGFR (BEAKER) (test 98 mL/min/1.73 sq m ESTIMATED GFR IS NOT bwfv=4832) ACCURATE CREATININE CLEARANCE IN PREDICTING GLOMERULAR FILTRATION RATE. ESTIMATED GFR IS NOT APPLICABLE FOR DIALYSIS PATIENTS. CBC W/PLT COUNT & AUTO [id number] 04:42:00 Test Item Value Reference Range Comments WHITE BLOOD CELL COUNT (BEAKER) (test brgd=285) 5.9 K/ L 3.5-10.5 RED BLOOD CELL COUNT (BEAKER) (test qccm=543) 5.02 M/ L 4.63-6.08 HEMOGLOBIN (BEAKER) (test pzhq=807) 15.6 GM/DL 13.7-17.5 HEMATOCRIT (BEAKER) (test szrf=475) 45.3 % 40.1-51.0 MEAN CORPUSCULAR VOLUME (BEAKER) (test nuzh=148) 90.2 fL 79.0-92.2 MEAN CORPUSCULAR HEMOGLOBIN (BEAKER) (test 31.1 pg 25.7-32.2 diix=938) MEAN CORPUSCULAR HEMOGLOBIN CONC (BEAKER) (test 34.4 GM/DL 32.3-36.5 fevd=808) RED CELL DISTRIBUTION WIDTH (BEAKER) (test 13.2 % 11.6-14.4 lmwu=949) PLATELET COUNT (BEAKER) (test lalv=617) 202 K/CU MM 150-450 MEAN PLATELET VOLUME (BEAKER) (test ohhd=613) 9.6 fL 9.4-12.4 NUCLEATED RED BLOOD CELLS (BEAKER) (test 0 /100 WBC 0-0 ownj=182) NEUTROPHILS RELATIVE PERCENT (BEAKER) (test 62 % ljsm=854) LYMPHOCYTES RELATIVE PERCENT (BEAKER) (test 25 % jnln=784) MONOCYTES RELATIVE PERCENT (BEAKER) (test 10 % giul=770) EOSINOPHILS RELATIVE PERCENT (BEAKER) (test 2 % rwos=573) BASOPHILS RELATIVE PERCENT (BEAKER) (test 1 % rmyn=817) NEUTROPHILS ABSOLUTE COUNT (BEAKER) (test 3.65 K/ L 1.78-5.38 lioa=523) LYMPHOCYTES ABSOLUTE COUNT (BEAKER) (test 1.49 K/ L 1.32-3.57 ycsp=503) MONOCYTES ABSOLUTE COUNT (BEAKER) (test 0.56 K/ L 0.30-0.82 tsnh=301) EOSINOPHILS ABSOLUTE COUNT (BEAKER) (test 0.14 K/ L 0.04-0.54 wfmv=071) BASOPHILS ABSOLUTE COUNT (BEAKER) (test 0.05 K/ L 0.01-0.08 wtps=198) IMMATURE GRANULOCYTES-RELATIVE PERCENT (BEAKER) 0 % 0-1 (test ozqq=8410) BASIC METABOLIC [id number] 06:01:00 Test Item Value Reference Range Comments SODIUM (BEAKER) (test 140 meq/L 136-145 tglw=202) POTASSIUM (BEAKER) (test 3.8 meq/L 3.5-5.1 Specimen slightly hxhg=815) hemolyzed CHLORIDE (BEAKER) (test 108 meq/L 98-107 bqaj=108) CO2 (BEAKER) (test 23 meq/L 22-29 htmz=299) BLOOD UREA NITROGEN 14 mg/dL 7-21 (BEAKER) (test uerp=004) CREATININE (BEAKER) (test 0.87 mg/dL 0.57-1.25 Specimen slightly vvyu=933) hemolyzed GLUCOSE RANDOM (BEAKER) 91 mg/dL 70-105 (test ipjm=781) CALCIUM (BEAKER) (test 9.2 mg/dL 8.4-10.2 vufh=904) EGFR (BEAKER) (test 90 mL/min/1.73 sq m ESTIMATED GFR IS NOT krfe=0129) ACCURATE CREATININE CLEARANCE IN PREDICTING GLOMERULAR FILTRATION RATE. ESTIMATED GFR IS NOT APPLICABLE FOR DIALYSIS PATIENTS. HEMOGLOBIN [id number] 08:04:00 Test Item Value Reference Range Comments HEMOGLOBIN A1C (BEAKER) (test ecqu=445) 5.1 % 4.3-6.1 [id number] 07:27:00 Test Item Value Reference Range Comments MAGNESIUM (BEAKER) (test qefy=652) 1.9 mg/dL 1.6-2.6 BASIC METABOLIC [id number] 07:27:00 Test Item Value Reference Range Comments SODIUM (BEAKER) (test 139 meq/L 136-145 uzvj=240) POTASSIUM (BEAKER) (test 4.1 meq/L 3.5-5.1 djaf=432) CHLORIDE (BEAKER) (test 108 meq/L 98-107 jdpo=281) CO2 (BEAKER) (test 22 meq/L 22-29 dsfj=968) BLOOD UREA NITROGEN 12 mg/dL 7-21 (BEAKER) (test pfkj=282) CREATININE (BEAKER) (test 0.88 mg/dL 0.57-1.25 uczm=719) GLUCOSE RANDOM (BEAKER) 94 mg/dL 70-105 (test nwbd=186) CALCIUM (BEAKER) (test 9.4 mg/dL 8.4-10.2 uspr=552) EGFR (BEAKER) (test 89 mL/min/1.73 sq m ESTIMATED GFR IS NOT dgzd=0908) ACCURATE CREATININE CLEARANCE IN PREDICTING GLOMERULAR FILTRATION RATE. ESTIMATED GFR IS NOT APPLICABLE FOR DIALYSIS PATIENTS. Specimen slightly ictericLIPID [id number] 07:27:00 Test Item Value Reference Range Comments TRIGLYCERIDES (BEAKER) (test frcw=092) 106 mg/dL CHOLESTEROL (BEAKER) (test ggse=406) 220 mg/dL HDL CHOLESTEROL (BEAKER) (test lxkc=687) 37 mg/dL LDL CHOLESTEROL CALCULATED (BEAKER) (test 162 mg/dL giey=987) Triglyceride Reference Range: Low Risk <150 Borderline 150- 199 High Risk 200-499 Very High Risk >=500Cholesterol Reference Range: Low Risk <200 Borderline 200-239 High Risk > 240HDL Cholesterol Reference Range: Low Risk >=60 High Risk <40LDL Cholesterol Reference Range: Optimal <100 Near Optimal 100-129 Borderline 130-159 High 160-189 Very High >=190 Specimen slightly ictericTSH/FREE T4 IF [id number] 07:07 :00 Test Item Value Reference Range Comments THYROID STIMULATING HORMONE (BEAKER) (test 1.46 uIU/mL 0.35-4.94 uyfd=791) TROPONIN [id number] 07:05:00 Test Item Value Reference Range Comments TROPONIN I (BEAKER) (test zuiz=110) 0.01 ng/mL 0.00-0.03 Troponin I (TnI) levels [...] acidosis, acute neurological disease, and persistent tachyarrhythmia.PROTHROMBIN [id number] 06:28:00 Test Item Value Reference Range Comments PROTIME (BEAKER) (test fzjq=325) 16.7 seconds 11.7-14.7 INR (BEAKER) (test veeu=256) 1.4 <=5.9 RECOMMENDED COUMADIN/WARFARIN INR THERAPY RANGESSTANDARD DOSE: 2.0 - 3.0 Includes: PROPHYLAXIS forvenous thrombosis, systemic embolization; TREATMENT for venous thrombosis and/or pulmonary embolus.HIGH RISK: Target INR is 2.5-3.5 for patients with mechanical heart valves.[id number] 06:28:00 Test Item Value Reference Range Comments PROTIME (BEAKER) (test rfph=593) 16.7 seconds 11.7-14.7 INR (BEAKER) (test xgrm=657) 1.4 <=5.9 PARTIAL THROMBOPLASTIN TIME (BEAKER) (test 31.7 seconds 22.5-36.0 zvur=425) RECOMMENDED COUMADIN/WARFARIN INR THERAPY RANGESSTANDARD DOSE: 2.0 - 3.0 Includes: PROPHYLAXIS forvenous thrombosis, systemic embolization; TREATMENT for venous thrombosis and/or pulmonary embolus.HIGH RISK: Target INR is 2.5-3.5 for patients with mechanical heart valves.CBC W/PLT COUNT & AUTO [id number] 06:18:00 Test Item Value Reference Range Comments WHITE BLOOD CELL COUNT (BEAKER) (test qdek=688) 6.7 K/ L 3.5-10.5 RED BLOOD CELL COUNT (BEAKER) (test nwex=961) 4.86 M/ L 4.63-6.08 HEMOGLOBIN (BEAKER) (test mwkm=737) 15.4 GM/DL 13.7-17.5 HEMATOCRIT (BEAKER) (test bjlb=401) 44.9 % 40.1-51.0 MEAN CORPUSCULAR VOLUME (BEAKER) (test udst=493) 92.4 fL 79.0-92.2 MEAN CORPUSCULAR HEMOGLOBIN (BEAKER) (test 31.7 pg 25.7-32.2 hvxj=294) MEAN CORPUSCULAR HEMOGLOBIN CONC (BEAKER) (test 34.3 GM/DL 32.3-36.5 vogd=841) RED CELL DISTRIBUTION WIDTH (BEAKER) (test 13.2 % 11.6-14.4 smsm=177) PLATELET COUNT (BEAKER) (test zjqa=270) 192 K/CU MM 150-450 MEAN PLATELET VOLUME (BEAKER) (test wxmk=154) 10.0 fL 9.4-12.4 NUCLEATED RED BLOOD CELLS (BEAKER) (test 0 /100 WBC 0-0 lqpk=609) NEUTROPHILS RELATIVE PERCENT (BEAKER) (test 67 % hrqx=159) LYMPHOCYTES RELATIVE PERCENT (BEAKER) (test 21 % kqfk=960) MONOCYTES RELATIVE PERCENT (BEAKER) (test 9 % jkrg=502) EOSINOPHILS RELATIVE PERCENT (BEAKER) (test 3 % txsn=767) BASOPHILS RELATIVE PERCENT (BEAKER) (test 0 % pqcx=076) NEUTROPHILS ABSOLUTE COUNT (BEAKER) (test 4.49 K/ L 1.78-5.38 oosu=782) LYMPHOCYTES ABSOLUTE COUNT (BEAKER) (test 1.38 K/ L 1.32-3.57 xmtr=529) MONOCYTES ABSOLUTE COUNT (BEAKER) (test 0.62 K/ L 0.30-0.82 ebce=112) EOSINOPHILS ABSOLUTE COUNT (BEAKER) (test 0.17 K/ L 0.04-0.54 zwsf=780) BASOPHILS ABSOLUTE COUNT (BEAKER) (test 0.03 K/ L 0.01-0.08 lexj=335) IMMATURE GRANULOCYTES-RELATIVE PERCENT (BEAKER) 0 % 0-1 (test ewwg=3868)
[2019-10-19] MEDS ORDERED: MORPHINE 4 MG/ML SYR ONE (20:41)
[2019-10-19] MEDS ORDERED: ONDANSETRON 4 MG/2 ML VIAL ONE (20:41)
--- NOTE | 2019-10-19 20:51 | ER ---
Nurse's Notes [facility] Name: Buzz Jurado Age: 59 yrs Sex: Male : 1960 Arrival Date: 10/19/2019 Time: 20:24 Bed 6 Private MD: Diagnosis: Chest pain, unspecified;Dyspnea Presentation: 10/19 20:40 Presenting complaint: Patient states: "I have had chest pain for the last 30 min." jl states: "He has been feeling odd for the past 5 days including sweats, feeling fatigue even with plenty of sleep. he has had a blockage in an artery before requiring heart surgery.". Transition of care: patient was not received from another setting of care. Onset of symptoms was October 19, 2019. Risk Assessment: Do you want to hurt yourself or someone else? Patient reports no desire to harm self or others. Initial Sepsis Screen: Does the patient meet any 2 criteria? No. Patient's initial sepsis screen is negative. Does the patient have a suspected source of infection? No. Patient's initial sepsis screen is negative. Care prior to arrival: Medication(s) given: ASA, 81 mg, x 2. 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 - Social history:: Smoking status: Patient/guardian denies using tobacco. - Ebola Screening: : Patient negative for fever greater than or equal to 101.5 degrees Fahrenheit, and additional compatible Ebola Virus Disease symptoms. - Family history:: not pertinent. Screenin:22 Abuse screen: Denies threats or abuse. Denies injuries from another. Nutritional lp1 screening: No deficits noted. Tuberculosis screening: No symptoms or risk factors identified. Fall Risk None identified. Assessment: 20:45 General: Appears uncomfortable, Behavior is appropriate for age. Pain: Complains of lp1 pain in chest Pain does not radiate. Pain began 30 min ago. Neuro: Level of Consciousness is awake, alert, obeys commands, Oriented to person, place, time, situation. Cardiovascular: Patient's skin is warm and dry. Respiratory: Respiratory effort is even, unlabored, Breath sounds are clear bilaterally. GI: Abdomen is non-distended. : No signs and/or symptoms were reported regarding the genitourinary system. EENT: No signs and/or symptoms were reported regarding the EENT system. Derm: Skin is intact, Skin is dry, Skin is normal, Skin temperature is warm. Musculoskeletal: Circulation, motion, and sensation intact. 21:45 Reassessment: Patient appears in no apparent distress at this time. Patient and/or lp1 family updated on plan of care and expected duration. Pain level reassessed. Patient states pain comes and goes; family at bedside. 22:40 Reassessment: Reassessment: Spoke with Dr. Lynne, discussed patient's current lp1 vitals, States okay to give Nitro paste. 23:35 Reassessment: Provider okay to give patient's family copy of lab results. lp1 23:45 Reassessment: Patient appears in no apparent distress at this time. Patient states no lp1 more episodes of intermittent chest pain after applying Nitro paste to chest Patient denies pain at this time. Patient states feeling better. Patient states symptoms have improved. Vital Signs: 20:43 BP 134 / 94; Pulse 87; Resp 22 S; Pulse Ox 98% on R/A; Weight 102.06 kg (R); Height 6 jd3 ft. 4 in. (193.04 cm) (R); Pain 3/10; 21:00 BP 144 / 107; Pulse 87; Resp 20; Pulse Ox 97% on R/A; lp1 21:20 BP 122 / 90; Pulse 87; Resp 15; Pulse Ox 96% on R/A; lp1 21:40 BP 127 / 95; Pulse 86; Resp 16; Pulse Ox 95% on R/A; lp1 22:15 BP 127 / 87; Pulse 81; Resp 17; Pulse Ox 95% on R/A; lp1 23:00 BP 112 / 80; Pulse 76; Resp 20; Temp 97.5; Pulse Ox 96% on R/A; lp1 23:45 BP 103 / 77; Pulse 68; Resp 14; Pulse Ox 97% on R/A; Pain 0/10; lp1 10/20 00:15 BP 106 / 71; Pulse 62; Resp 15; Pulse Ox 96% on R/A; lp1 10/19 20:43 Body Mass Index 27.39 (102.06 kg, 193.04 cm) jd3 ED Course: 10/19 20:24 Patient arrived in ED. ds1 20:35 Ketty Velázquez, RN is Primary Nurse. lp1 20:43 Triage completed. jd3 20:44 Arm band placed on. EKG completed in triage. Results shown to MD. jd3 20:45 Dell Mejia MD is Attending Physician. cleve 20:45 Patient has correct armband on for positive identification. Placed in gown. Bed in low lp1 position. cardiac monitor on. Pulse ox on. NIBP on. 20:45 Patient maintains SpO2 saturation greater than 95% on room air. lp1 20:50 Radiology exam delayed due to lab results not completed at this time. (BUN/Creatinine). vm2 20:50 Katya Lynne MD is Hospitalizing Provider. cleve 20:50 Inserted saline lock: 20 gauge in left forearm, using aseptic technique. Blood lp1 collected. 22:43 No provider procedures requiring assistance completed. Patient admitted, IV remains in lp1 place. Administered Medications: 20:58 Drug: morphine 4 mg Route: IVP; Site: left forearm; lp1 22:17 Follow up: Response: Pain is decreased lp1 20:58 Drug: Zofran 4 mg Route: IVP; Site: left forearm; lp1 22:17 Follow up: Response: No adverse reaction lp1 22:16 Drug: Lopressor (metoprolol TARTRATE) 50 mg Route: PO; lp1 23:06 Follow up: Response: No adverse reaction lp1 22:17 Drug: Pepcid 20 mg Route: IVP; Site: left forearm; lp1 23:07 Follow up: Response: No adverse reaction lp1 23:05 Drug: Nitro-Bid Ointment 2 % 1 inches Route: Transdermal; Site: anterior chest wall; lp1 23:44 Follow up: Response: Marked relief of symptoms lp1 23:44 Drug: Lovenox 100 mg Route: Sub-Q; Site: right lower abdomen; lp1 23:59 Follow up: Response: No adverse reaction lp1 23:44 Not Given (Hemodynamic Parameters): Lopressor 2.5 mg IVP once; Hold for SBP <100 or HR lp1 <60. 23:44 Not Given (Hemodynamic Parameters): Lopressor 2.5 mg IVP once; Hold for SBP <100 or HR lp1 <60. Outcome: 20:51 Decision to Hospitalize by Provider. cleve 22:43 Condition: stable lp1 22:43 Instructed on the need for admit. 23:58 Admitted to Tele accompanied by tech, via wheelchair, room 423, with chart, Report lp1 called to TED Vera 10/20 00:34 Patient left the ED. lp1 Signatures: Dell Mejia MD MD cha Sanford, Demi ds1 Ketty Velázquez RN RN lp1 Sowmya Sims 2 Adan Nguyen RN RN jd3 Corrections: (The following items were deleted from the chart) 10/19 22:43 22:40 Reassessment: lp1 lp1
--- NOTE | 2019-10-19 20:52 | EDPHYS ---
Physician Documentation [facility] Name: Buzz Jurado Age: 59 yrs Sex: Male : 1960 Arrival Date: 10/19/2019 Time: 20:24 Bed 6 Private MD: ED Physician Dell Mejia HPI: 10/19 20:47 This 59 yrs old Male presents to ER via Wheelchair with complaints of Chest cleve Pain. 20:47 The patient or guardian reports chest pain that is located primarily in the substernal cleve area, anterior chest wall, bilaterally. Onset: just prior to arrival. The pain does not radiate. Associated signs and symptoms: Pertinent positives: diaphoresis, lightheadedness, shortness of breath. The chest pain is described as a pressure. Modifying factors: The symptoms are alleviated by nothing. the symptoms are aggravated by nothing. Severity of pain: At its worst the pain was moderate just prior to arrival, in the emergency department the pain has improved moderately. The patient has not experienced similar symptoms in the past. 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 - Social history:: Smoking status: Patient/guardian denies using tobacco. - Ebola Screening: : Patient negative for fever greater than or equal to 101.5 degrees Fahrenheit, and additional compatible Ebola Virus Disease symptoms. - Family history:: not pertinent. ROS: 20:47 Constitutional: Negative for fever, chills, and weight loss, Eyes: Negative for injury, cleve pain, redness, and discharge, ENT: Negative for injury, pain, and discharge, Neck: Negative for injury, pain, and swelling, Respiratory: Negative for shortness of breath, cough, wheezing, and pleuritic chest pain, Abdomen/GI: Negative for abdominal pain, nausea, vomiting, diarrhea, and constipation, Back: Negative for injury and pain, : Negative for injury, bleeding, discharge, and swelling, MS/Extremity: Negative for injury and deformity, Skin: Negative for injury, rash, and discoloration, Neuro: Negative for headache, weakness, numbness, tingling, and seizure, Psych: Negative for depression, anxiety, suicide ideation, homicidal ideation, and hallucinations, Allergy/Immunology: Negative for hives, rash, and allergies, Endocrine: Negative for neck swelling, polydipsia, polyuria, polyphagia, and marked weight changes, Hematologic/Lymphatic: Negative for swollen nodes, abnormal bleeding, and unusual bruising. 20:47 Cardiovascular: Positive for chest pain. Exam: 20:47 Constitutional: This is a well developed, well nourished patient who is awake, alert, cleve and in no acute distress. Head/Face: Normocephalic, atraumatic. Eyes: Pupils equal round and reactive to light, extra-ocular motions intact. Lids and lashes normal. Conjunctiva and sclera are non-icteric and not injected. Cornea within normal limits. Periorbital areas with no swelling, redness, or edema. ENT: Nares patent. No nasal discharge, no septal abnormalities noted. Tympanic membranes are normal and external auditory canals are clear. Oropharynx with no redness, swelling, or masses, exudates, or evidence of obstruction, uvula midline. Mucous membranes moist. Neck: Trachea midline, no thyromegaly or masses palpated, and no cervical lymphadenopathy. Supple, full range of motion without nuchal rigidity, or vertebral point tenderness. No Meningismus. Chest/axilla: Normal chest wall appearance and motion. Nontender with no deformity. No lesions are appreciated. Cardiovascular: Regular rate and rhythm with a normal S1 and S2. No gallops, murmurs, or rubs. Normal PMI, no JVD. No pulse deficits. Respiratory: Lungs have equal breath sounds bilaterally, clear to auscultation and percussion. No rales, rhonchi or wheezes noted. No increased work of breathing, no retractions or nasal flaring. Abdomen/GI: Soft, non-tender, with normal bowel sounds. No distension or tympany. No guarding or rebound. No evidence of tenderness throughout. Back: No spinal tenderness. No costovertebral tenderness. Full range of motion. Male : Normal genitalia with no discharge or lesions. Skin: Warm, dry with normal turgor. Normal color with no rashes, no lesions, and no evidence of cellulitis. MS/ Extremity: Pulses equal, no cyanosis. Neurovascular intact. Full, normal range of motion. Neuro: Awake and alert, GCS 15, oriented to person, place, time, and situation. Cranial nerves II-XII grossly intact. Motor strength 5/5 in all extremities. Sensory grossly intact. Cerebellar exam normal. Normal gait. Psych: Awake, alert, with orientation to person, place and time. Behavior, mood, and affect are within normal limits. Vital Signs: 20:43 BP 134 / 94; Pulse 87; Resp 22 S; Pulse Ox 98% on R/A; Weight 102.06 kg (R); Height 6 jd3 ft. 4 in. (193.04 cm) (R); Pain 3/10; 21:00 BP 144 / 107; Pulse 87; Resp 20; Pulse Ox 97% on R/A; lp1 21:20 BP 122 / 90; Pulse 87; Resp 15; Pulse Ox 96% on R/A; lp1 21:40 BP 127 / 95; Pulse 86; Resp 16; Pulse Ox 95% on R/A; lp1 22:15 BP 127 / 87; Pulse 81; Resp 17; Pulse Ox 95% on R/A; lp1 23:00 BP 112 / 80; Pulse 76; Resp 20; Temp 97.5; Pulse Ox 96% on R/A; lp1 23:45 BP 103 / 77; Pulse 68; Resp 14; Pulse Ox 97% on R/A; Pain 0/10; lp1 10/20 00:15 BP 106 / 71; Pulse 62; Resp 15; Pulse Ox 96% on R/A; lp1 10/19 20:43 Body Mass Index 27.39 (102.06 kg, 193.04 cm) jd3 MDM: 10/19 20:[address] [facility] 20:49 Data reviewed: vital signs, nurses notes, lab test result(s), EKG, radiologic studies, [facility] CT scan, plain films. 10/19 20:32 Order name: Basic Metabolic Panel 10/19 20:32 Order name: CBC with Diff 10/19 20:32 Order name: LFT's 10/19 20:32 Order name: Magnesium 10/19 20:32 Order name: NT PRO-BNP 10/19 20:32 Order name: PT-INR 10/19 20:32 Order name: Troponin (emerg Dept Use Only) 10/19 20:47 Order name: Lipase [facility] 10/19 21:28 Order name: Basic Metabolic Panel [facility] 10/19 21:28 Order name: Liver (Hepatic) Function [facility] 10/19 21:28 Order name: Troponin (Emerg Dept Use Only) [facility] 10/19 21:28 Order name: NT PRO-BNP [facility] 10/19 21:28 Order name: Magnesium [facility] 10/19 21:35 Order name: CBC with Automated Diff; Complete Time: 23:44 [facility] 10/19 20:32 Order name: XRAY Chest (1 view) 10/19 20:32 Order name: EKG; Complete Time: 20:32 10/19 20:32 Order name: Cardiac monitoring; Complete Time: 20:59 10/19 20:32 Order name: EKG - Nurse/Tech; Complete Time: 20:59 10/19 20:47 Order name: CT Aorta for Dissection [facility] 10/19 21:06 Order name: RAD; Complete Time: 21:26 [facility] 10/19 21:36 Order name: Protime (+INR); Complete Time: 23:44 [facility] 10/20 00:18 Order name: Lipase [facility] 10/19 20:32 Order name: IV Saline Lock; Complete Time: 20:59 10/19 20:32 Order name: Labs collected and sent; Complete Time: 20:59 10/19 20:32 Order name: O2 Per Protocol; Complete Time: 20:59 10/19 20:32 Order name: O2 Sat Monitoring; Complete Time: 20:59 bb Administered Medications: 20:58 Drug: morphine 4 mg Route: IVP; Site: left forearm; lp1 22:17 Follow up: Response: Pain is decreased lp1 20:58 Drug: Zofran 4 mg Route: IVP; Site: left forearm; lp1 22:17 Follow up: Response: No adverse reaction lp1 22:16 Drug: Lopressor (metoprolol TARTRATE) 50 mg Route: PO; lp1 23:06 Follow up: Response: No adverse reaction lp1 22:17 Drug: Pepcid 20 mg Route: IVP; Site: left forearm; lp1 23:07 Follow up: Response: No adverse reaction lp1 23:05 Drug: Nitro-Bid Ointment 2 % 1 inches Route: Transdermal; Site: anterior chest wall; lp1 23:44 Follow up: Response: Marked relief of symptoms lp1 23:44 Drug: Lovenox 100 mg Route: Sub-Q; Site: right lower abdomen; lp1 23:59 Follow up: Response: No adverse reaction lp1 23:44 Not Given (Hemodynamic Parameters): Lopressor 2.5 mg IVP once; Hold for SBP <100 or HR lp1 <60. 23:44 Not Given (Hemodynamic Parameters): Lopressor 2.5 mg IVP once; Hold for SBP <100 or HR lp1 <60. Disposition: 10/19/19 20:51 Hospitalization ordered by Katya Lynne for Observation. Preliminary diagnosis are Chest pain, unspecified, Dyspnea. - Bed requested for Telemetry/MedSurg (observation). - Status is Observation. lp1 - Condition is Fair. - Problem is new. - Symptoms have improved. UTI on Admission? No Signatures: Dispatcher [employer] EDMS Dell Mejia MD MD cha Ballard, Brenda, RN RN bb Ketty Velázquez RN RN lp1 Tawnya Black RN RN Adan Nguyen RN RN jd3 Corrections: (The following items were deleted from the chart) 23: 20:51 Hospitalization Ordered by Katya Lynne MD for Observation. Preliminary cg diagnosis is Chest pain, unspecified; Dyspnea. Bed requested for Telemetry/MedSurg (observation). Status is Observation. Condition is Fair. Problem is new. Symptoms have improved. UTI on Admission? No. cleve 10/20 00:34 10/19 23:29 10/19/2019 20:51 Hospitalization Ordered by Katya Lynne MD for lp1 Observation. Preliminary diagnosis is Chest pain, unspecified; Dyspnea. Bed requested for Telemetry/MedSurg (observation). Status is Observation. Condition is Fair. Problem is new. Symptoms have improved. UTI on Admission? No. cg
--- NOTE | 2019-10-19 21:05 | RAD REPORT ---
EXAM DESCRIPTION: RAD - Chest Single View - 10/19/2019 8:43 pm CLINICAL HISTORY: Chest pain COMPARISON: February 2018 TECHNIQUE: AP portable chest image was obtained 2038 hours . FINDINGS: Lungs are clear. Heart and vasculature are normal. No measurable pleural effusion and no p neumothorax. No acute bony abnormality seen. No acute aortic findings suspected. IMPRESSION: No acute cardiopulmonary process.
[2019-10-19 21:15] LABS: Protime INR 0.93
[2019-10-19] MEDS ORDERED: FAMOTIDINE 20 MG/2 ML VIAL IV ONE (21:21)
[2019-10-19] MEDS ORDERED: METOPROLOL TAR 50 MG TAB ONE (21:21)
[2019-10-19] MEDS ORDERED: ENOXAPARIN 100 MG/ML SYR SQ ONE (21:22)
[2019-10-19 21:27] LABS: ALT/SGPT 35 U/L (12-78); AST/SGOT 17 U/L (15-37); Albumin 3.6 g/dL (3.4-5.0); Alkaline Phosphatase 72 U/L (45-117); BUN Blood Urea Nitrogen 16 mg/dL (7-18); Bicarbonate 24 mmol/L (21-32); Bilirubin Direct 0.2 mg/dL (0-0.2); Bilirubin Total 0.9 mg/dL (0.2-1.0); Glucose Level 145 mg/dL (74-106); Magnesium 1.9 mg/dL (1.8-2.4); NT PRO-BNP 15 pg/mL (<125); Potassium 3.9 mmol/L (3.5-5.1); Protein, Total 6.8 g/dL (6.4-8.2); Sodium Level 141 mmol/L (136-145); Troponin (Emerg Dept Use Only) < 0.02 ng/mL (0.0-0.045)
[2019-10-19 21:29] LABS: Hematocrit 48.1 % (39.6-49.0); MPV 8.5 fL (7.6-11.3); RBC Red Blood Cell Count 5.03 M/uL (4.33-5.43)
[2019-10-19 21:30] LABS: Basophils % 0.4 % (0-1.3); Lymphocytes % 23.4 % (15.3-44.8)
[2019-10-19] MEDS ORDERED: NITROGLYCERIN 1 GM PKT TD ONE (21:46)
[2019-10-19] MEDS ORDERED: METOPROLOL TARTRATE 5 MG/5 ML INJ IV ONE (21:47)
[2019-10-19] MEDS ORDERED: MORPHINE 2 MG/ML SYR IV PRN ×2 (23:09→23:11)
[2019-10-19] MEDS ORDERED: ONDANSETRON 4 MG/2 ML VIAL IV PRN ×2 (23:09→23:11)
[2019-10-19] MEDS ORDERED: ALBUTEROL 2.5 MG/3 ML NEB SOL NEB PRN (23:09)
[2019-10-19] MEDS ORDERED: MELATONIN 5 MG TABLET PO PRN (23:11)
[2019-10-19] MEDS: NA CHLORIDE 0.9% 1,000 ML IV SCH (23:45)
--- NOTE | 2019-10-20 00:02 | HP ---
Date of Admission: 10/19/2019 Presenting Complaint: Chest pain. History Of Present Illness: Mr. Rhiannon Gerber is a 59-year-old male with past medical histor y of myxoma resection in 2018 after presenting with AFib and low EF and cardiac thrombosis. Post res ection, patient states he was on amiodarone and Lopressor for about 6 months, but taken off earlier t his year. 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 He developed chest pain today while he was sitting down and getting ready for work. Chest pain he initially said was substernal, then later said the chest pain was left sided. It was nonradiating. It was intense. He is unable to describe the exact pattern. He states he has feeling of impending doom. He denies any associated shortness of breath. He has taken 2 doses of aspirin with no relief of pain. On pre sentation in the ED, he was given IV morphine, which reduced the pain, but he is feeling about a 3/10 pain now. He admits to a history of feeling of impending doom intermittently with over 3 episodes s lisa this week. He admits to intermittent headache. He admits to recent chest congestion with cough . , who was present at bedside states the patient has been having intermittent dizziness and traci r-syncope where his legs buccal since the last 3 weeks. She feels his symptoms are similar to the sy mptoms he had when he had the myxoma in the past. Past Medical History: Significant for cardiac myxoma as well as intermittent AFib in the past. Past Surgical History: Status post myxoma resection. Allergies: NO KNOWN DRUG ALLERGY. Social History: Patient denies any tobacco, alcohol, or illicit drug. Family History: Significant for father with coronary artery disease in his 70s. Home Medications: None. Review of Systems: Multiple. General: The patient admits to intermittent dizziness. He denies any fever or chills. Respiratory: He admits to occasional chest congestion and cough. He denies any shortness of breath or orthopnea. Cardiovascular: Positive for new chest pain, but denies any palpitation. GI: The patient denies any diarrhea or constipation. : The patient denies any dysuria or nocturia. Neuro: Patient admits to occasional sweating, admits to occasional headaches, and intermittent unste amaris gait. Psych: The patient admits to anxiety, feeling of impending doom. He has recently been noted to be c rying for no reason as per . Physical Examination: CURRENT VITALS: Blood pressure of 122/87, pulse of 90, respiratory rate of 15, O2 saturation of 97% on room air, temperature afebrile. GENERAL: Average built male, not in any distress. HEENT: Head: Atraumatic, normocephalic. Pupils equal, reactive to light. NECK: No JVD. No carotid bruit. RESPIRATORY: Good air entry. No crepitations. CARDIOVASCULAR: S1, S2. Rate and rhythm regular. No reproducible anterior chest wall tenderness. GI: Abdomen full, soft, nontender. Bowel sounds positive. No epigastric tenderness. : Deferred. MUSCULOSKELETAL: No pedal edema. No calf tenderness. NEURO: Patient is alert, conversant, have a depressed affect. No neurological focal motor deficits. Diagnostic Studies: Chest x-ray shows no acute cardiopulmonary process. CTA of the chest pending. Rest of the lab shows WBC 8.4, hemoglobin 16, hematocrit 48, platelet 183. INR 0.9. Sodium 141, pot assium 3.9, bicarb 24, creatinine 1.0, glucose 145. AST and alkaline phosphatase normal. Troponin l ess than 0.02, albumin 3.6. Lipase pending. EKG showed normal sinus rhythm at 87 beats per minute. No ST-segment changes. Impression: 1.Atypical chest pain. 2.Presumed recent upper respiratory tract infection. 3.History of myxoma resection. Plan: We will admit patient to observation. We will place patient in telemetry. We will obtain a C T of the chest to rule out any intrathoracic infiltrate or large recurrence of myxoma, although less likely given patient is in sinus rhythm. Some of patient's symptoms appear to be attributed to dehyd ration in the setting of recent viral respiratory tract infection. We do serial set of cardiac enzym es. The patient and the spouse requested a repeat echocardiogram. Review of patient's echocardiogra m from 9 months ago was essentially normal. If CT is negative for any mass, patient may not necessar haris need a repeat echocardiogram while inpatient. We do subcutaneous Lovenox for DVT prophylaxis. W e will place in telemetry and monitor cardiac reading. We will start patient on gentle IV fluid with normal saline. We will do DVT prophylaxis. Advanced directives, patient is a full code. Total time spent in discussion and evaluation greater than 70 minutes. EO/MODL Voice ID: [id number]
[2019-10-20 00:18] LABS: Lipase 154 U/L (73-393)
[2019-10-20 00:43] VITALS: BMI 27.1
[2019-10-20 06:25] LABS: Absolute Lymphocytes (CBC) 1.6 K/uL (0.7-4.9); Basophils % 0.5 % (0-1.3); Hematocrit 44.1 % (39.6-49.0); Lymphocytes % 21.1 % (15.3-44.8); MPV 8.6 fL (7.6-11.3); RBC Red Blood Cell Count 4.65 M/uL (4.33-5.43)
[2019-10-20 06:35] LABS: Albumin 3.3 g/dL (3.4-5.0); Bilirubin Total 0.7 mg/dL (0.2-1.0); Potassium 3.8 mmol/L (3.5-5.1); Protein, Total 6.2 g/dL (6.4-8.2)
[2019-10-20 07:27] VITALS: O2SAT 96
--- NOTE | 2019-10-20 08:22 | EKG ---
Test Date: 2019-10-19 Test Time: 20:25:51 Automobile Accessories Salesperson: AER MEASUREMENT RESULTS: Intervals: Rate: 87 [place]: QRSD: 60 QT: 334 QTc: 401 [place]: P: [place]: QRS: 5 T: -20 INTERPRETIVE STATEMENTS: Sinus rhythm Nonspecific ST and T wave abnormality Abnormal ECG Compared to ECG 09/18/2018 08:50:32 ST (T wave) deviation now present Electronically Signed On 10-20-19 08:21:49 AUTOMOBILE ASSEMBLY SUPERVISOR by Ernie Murillo
[2019-10-20] MEDS ORDERED: FAMOTIDINE 20 MG TAB PO SCH (09:00)
[2019-10-20] MEDS: DULOXETINE 20 MG CAP PO SCH (09:00)
[2019-10-20] MEDS ORDERED: NITROGLYCERIN 0.2 MG/HR (5 MG) PATCH TD SCH (09:00)
[2019-10-20] MEDS: NA CHLORIDE 0.9% 1,000 ML IV SCH (09:45)
[2019-10-20] MEDS ORDERED: ACETAMINOPHEN 500 MG TAB PO PRN (10:15)
[2019-10-20] MEDS: ASPIRIN 325 MG TAB PO SCH (10:18)
[2019-10-20] MEDS: ENOXAPARIN 40 MG/0.4 ML SQ SCH (10:18)
--- NOTE | 2019-10-20 11:04 | P.PN ---
Subjective Date of Service: 10/21/19 Chief Complaint: Chest pain Subjective: Improving (Patient's pain has resolved use was complaining of left- sided atypical chest pain no radiation no prior history of coronary artery disease he is usually very active) Review of Systems Unremarkable (Denies any) Physical Examination - Vital Signs Temperature: 97.8 F Blood Pressure: 95/51 Pulse: 73 Respirations: 16 Pulse Ox (%): 96 - Physical Exam General: Alert, In no apparent distress, Oriented x3 HEENT: Atraumatic Neck: Supple Respiratory: Clear to auscultation bilaterally Cardiovascular: No edema, Regular rate/rhythm Capillary refill: >2 Seconds Gastrointestinal: Normal bowel sounds, Soft and benign Musculoskeletal: No clubbing, No swelling Integumentary: No rashes, No breakdown - Studies Laboratory Data (last 24 hrs) 10/19/19 20:50: PT 11.0, INR 0.93 10/19/19 20:50: WBC 8.4, Hgb 16.4, Hct 48.1, Plt Count 183 10/19/19 20:50: Sodium 141, Potassium 3.9, BUN 16, Creatinine 1.08, Glucose 145 H, Magnesium 1.9, Total Bilirubin 0.9, AST 17, ALT 35, Alkaline Phosphatase 72, Lipase 154 10/19/19 20:47: Lipase Cancelled Assessment & Plan - Problems (Diagnosis) (1) Chest pain Current Visit: Yes Status: Acute Plan: Patient is 59 years of age admitted with left-sided chest pain no prior history of coronary artery disease history of left atrial myxoma that was resected in nonspecific changes on EKG troponins are negative labs are unremarkable chest x- ray clear CT scan does not show any evidence of dissection continue to monitor possible discharge tomorrow console card Qualifiers: Chest pain type: unspecified Qualified Code(s): R07.9 - Chest pain, unspecified
[2019-10-20 12:58] LABS: Thyroid Stimulating Hormone 2.11 uIU/mL (0.360-3.740)
[2019-10-21 08:31] VITALS: BP 127/86; TEMP 97.2
[2019-10-21] MEDS: ASPIRIN 325 MG TAB PO SCH (09:00)
[2019-10-21] MEDS: ENOXAPARIN 40 MG/0.4 ML SQ SCH (09:00)
[2019-10-21] MEDS: DULOXETINE 20 MG CAP PO SCH (09:12)
--- NOTE | 2019-10-21 09:34 | P.DS ---
Admission Date: 10/19/19 Discharge Date: 10/21/19 Disposition: ROUTINE DISCHARGE Discharge Condition: GOOD Reason for Admission: Chest pain - Problems (1) Chest pain Current Visit: Yes Status: Acute Qualifiers: Chest pain type: unspecified Qualified Code(s): R07.9 - Chest pain, unspecified Brief History of Present Illness: Patient admitted with chest pain Hospital Course: He was admitted with atypical chest pain intermittent heartburns no evidence of myocardial damage seen by Cardiology troponins negative EKG nonspecific changes at the time of discharge he was doing well he denied any pain patient had ambulated possibly related to reflux a he has to stay on a PPI for at least a month 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 the time of discharge vital signs stable chest clear cardiovascular system os sounds normal abdomen soft extremities no edema chest x-ray clear aortic dissection CT scan was negative Vital Signs/Physical Exam: Temp Pulse Resp BP Pulse Ox 97.2 F 71 16 127/86 97 10/21/19 08:00 10/21/19 08:00 10/21/19 08:00 10/21/19 08:00 10/21/19 08:00 Laboratory Data at Discharge: WBC 7.7 K/uL (4.3-10.9) 10/20/19 05:45 Hgb 15.6 g/dL (13.6-17.9) 10/20/19 05:45 Hct 44.1 % (39.6-49.0) 10/20/19 05:45 Plt Count 180 K/uL (152-406) 10/20/19 05:45 PT 11.0 SECONDS (9.5-12.5) 10/19/19 20:50 INR 0.93 10/19/19 20:50 Sodium 142 mmol/L (136-145) 10/20/19 05:45 Potassium 3.8 mmol/L (3.5-5.1) 10/20/19 05:45 BUN 13 mg/dL (7-18) 10/20/19 05:45 Creatinine 0.91 mg/dL (0.55-1.3) 10/20/19 05:45 Glucose 144 mg/dL (74-106) H 10/20/19 05:45 Magnesium 1.9 mg/dL (1.8-2.4) 10/19/19 20:50 Total Bilirubin 0.7 mg/dL (0.2-1.0) 10/20/19 05:45 AST 15 U/L (15-37) 10/20/19 05:45 ALT 33 U/L (12-78) 10/20/19 05:45 Alkaline Phosphatase 67 U/L (45-117) 10/20/19 05:45 Troponin I < 0.02 ng/mL (0.0-0.045) 10/20/19 05:45 Lipase 154 U/L (73-393) 10/19/19 20:50 Home Medications: Aspirin Chewable [Aspirin Chewable*] 1 pill PO DAILY 10/20/19 Tizanidine HCl [Zanaflex] 2 mg PO Q6HR PRN 10/20/19 Pantoprazole [Protonix Tab*] 40 mg PO DAILYAC #30 tab 10/21/19 New Medications: Pantoprazole [Protonix Tab*] 40 mg PO DAILYAC #30 tab Patient Discharge Instructions: 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
[2019-10-21] MEDS ORDERED: PANTOPRAZOLE 40MG TABLET PO SCH (12:32)
--- NOTE | 2019-10-21 13:48 | CON ---
Date of Consultation: 10/21/2019 Identification: 59-year-old man. History Of Present Illness: Mr. Jurado has been in our hospital since the 19 of October. This is October 21. He came to the hospital because of chest pain. He also has sweating spells, dizziness since he has been in our hospital. It has been more than 48 hours. We have not seen any significan t arrhythmia. No fevers, chills, sweats. EKGs are unremarkable. Cardiac enzymes are normal. About a year and a half ago, the patient had a cardiac cath. His coronaries were normal. 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 There was no bypass surgery done. It was in mid 2017. He has never had any kind of vascular disease. No history of myocardial infarction, stroke, diabetes, dyslipidem ia. Uses no tobacco. Physical Examination: General: He is alert, oriented, pleasant. Vital Signs: 6 feet 4 inches, 222 pounds. HEENT: Normal. Lungs: Clear. Cardiac: Within normal limits. Abdomen: Soft. Extremities: Normal. His EKG shows nonspecific ST and T-wave abnormality and just mostly T-wave flattening. Impression: This is not an acute coronary syndrome. He can be discharged. He needs to have an echo cardiogram to see if his atrial myxoma is recurrent. His symptoms sound more like recurrent left atr ial myxoma than unstable angina with his normal cardiac cath 18 months ago or so, I think it is very unlikely. He has developed coronary heart disease quickly. BALTAZAR/MONY Voice ID: [id number] Report ID: [id number]
--- NOTE | 2019-10-22 10:06 | EKG ---
Test Date: 2019-10-21 Test Time: 10:26:13 Giving Officer: FARIHA MEASUREMENT RESULTS: Intervals: Rate: 81 SD: QRSD: 72 QT: 336 QTc: 390 [place]: P: SD: QRS: 5 T: 46 INTERPRETIVE STATEMENTS: Accelerated Junctional rhythm Nonspecific ST abnormality Abnormal ECG Compared to ECG 10/19/2019 20:25:51 Accelerated junctional rhythm now present Sinus rhythm no longer present ST (T wave) deviation still present Electronically Signed On 10-22-19 10:04:16 CATHOLIC PRIEST by Ernie Murillo
--- NOTE | 2019-10-23 14:28 | RAD REPORT ---
EXAM DESCRIPTION: CT - Angio Aorta For Dissection - 10/20/2019 4:51 am CLINICAL HISTORY: Pain. Rule out aortic dissection.. TECHNIQUE: CTA of the chest, abdomen, and pelvis without and with IV contrast. 3 mm axial images of the chest, abdomen, and pelvis were obtained with IV contrast. 3 mm coronal and sagittal reformatted images were obtained. DOSE OPTIMIZATION: This facility uses dose optimization techniques as appropriate to perform exams, including at least one of the following techniques: 1. Automated exposure control. 2. Adjustment of the mA and/or kV according to patient size (this includes techniques or standardized protocols for targeted exams where dose is matched to the indication/reason for exam, i.e. extremiti es or head). 3. Use of iterative reconstructive technique. INTRAVENOUS CONTRAST: Not documented. Please refer to medical record COMPARISON: None. FINDINGS: Lung Viera: Normal. Thoracic Aorta: Normal. Right Brachiocephalic Artery: Normal. Left Common Carotid Artery: Normal. Left Subclavian Artery: Normal. Mediastinal Structures: No pericardial effusion. No adenopathy. Pulmonary Arteries: Normal. Pleural Space: Normal. Axillae: No adenopathy. Liver: Normal. Spleen: Normal. Pancreas: Normal. Gallbladder: Normal. Adrenal Glands: Normal. Right Kidney: Normal. Left Kidney: Normal. Abdominal Aorta: Mild atherosclerosis of the distal abdominal aorta. Celiac Artery: Normal. Superior Mesenteric Artery: Normal. Right Renal Artery: Normal. Left Renal Artery: Normal. Inferior Mesenteric Artery: Normal. Right Iliofemoral Artery: Normal. Left Iliofemoral Artery: Normal. Retroperitoneal Structures: Normal. Bowel Survey: There is moderate distention of the stomach was filled with There is increased stool within the ascending and transverse colon. The distal ileum is unremarkable. The appendix is not specifically identified. There are no secondary signs of appendicitis. Prostate Gland: Normal in size. Urinary Bladder: Normal. Peritoneal Cavity: Normal. Mesenteric Structures: Normal. Abdominal Wall: No hernia. Bony Structures: No suspicious lesions. There is severe multilevel degenerative disc disease throughout the lumbar spine. IMPRESSION: 1. No evidence of aortic pathology. 2. Increased stool within the ascending and transverse colon. 3. Moderate gastric distention with the stomach filled with food debris. 4. Severe multilevel degenerative disc disease throughout the lumbar spine. Electronically signed by: Neo Mishra MD 10/19/2019 10:26 PM DIE CUTTING MACHINE OPERATOR Due to temporary technical issues with the PACS/Fluency reporting system, reports are being signed by the in house radiologist as a courtesy to ensure prompt reporting. The interpreting radiologist is f ully responsible for the content of the report.
== END 2019-10-21 12:08 | disposition home or self-care (01) ==
LOC: ER 20:21 → ERHOLD 23:26 → 4TH 10-20 00:02
PROVIDERS: ADMIT Internal Medicine; ATTEND Internal Medicine Sleep Medicine
DX: R07.89 Other chest pain (principal)
CPT/HCPCS: 93005 ×2; 85025 ×2; 80048; 36415; 83735; 85610; 80076; 84443; 84484 ×3; 84439; 83690; 80053; 83880; 71275; 74175; 71045; 96375; 96372; 96374; 99285; Q9967; J1650 ×2; J7030; J2405; G0378 ×3

== ENCOUNTER 2020-12-19 23:00 | Inpatient (IN) | payer OTHER ==
--- OUTSIDE RECORDS SUMMARY | 2020-12-19 23:04 | XMS REPORT | Clinical Summary ---
:1960 Author Organization [facility] Address [address] [place] [address] Care Team Providers Name Role Phone Pete Primary Care Provider Unavailable Allergies Active Allergy Reactions Severity Noted Date Comments Codeine Nausea Only 03/17/2018 Medications Medication Sig Dispensed Refills Start Date End Date Status aspirin 81 MG EC Take 81 mg by 0 Active tablet mouth. bisoprolol (ZEBETA) 5 Take 1 tablet 90 tablet 3 10/26/201903/2020 MG tablet (5 mg total) by mouth daily. atorvastatin (LIPITOR) Take 1 tablet 90 tablet 3 10/26/2019 10 MG tablet (10 mg total) by mouth daily. 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 Family History Medical History Relation Name Comments Heart disease Father Heart disease Mother Relation Name Status Comments Father Mother Social History Tobacco Use Types Packs/Day Years Used Date Never Smoker Smokeless Tobacco: Never Used Alcohol Use Drinks/Week oz/Week Comments Yes occasion; wine and beer Sex Assigned at Date Recorded Not on file Last Filed Vital Signs Not on file Plan of Treatment Health Maintenance Due Date Last Done Comments PNEUMOCOCCAL VACCINE 0-64 YRS (1 of 1 1966 - PPSV23) INFLUENZA VACCINE (#1) 2020 09/06/2019, 09/20/2018, 09/22/2012 LIPID PANEL 03/18/2021 03/18/2018 COLON CANCER SCREENING COLONOSCOPY 08/16/2028 08/16/2018 Results Not on fileafter 12/19/2019 Insurance Payer Benefit Plan / Subscriber ID Effective Dates Phone Addre ss Type Group CIGNA - MGD CIGNA [id number] 2004-Present HMO/POS CARE HMO/POS/OPEN ACCESS [id number] (Work) Advance Directives For more information, please contact: [phone] Code Status Date Activated Date Inactivated Comments Full Code 10/22/2019 3:09 PM 10/26/2019 11:08 AM This code status was determined by: Patient Full Code 03/24/2018 10:56 PM 03/28/2018 6:54 [...]
--- OUTSIDE RECORDS SUMMARY | 2020-12-19 23:06 | XMS REPORT | Continuity of Care Document ---
:1960 Author Organization [facility] t Address [address] [place] [address] Care Team Providers Name Role Phone [place] Primary Care Physician Unavailable Migue MATHIS Attending Clinician Unavailable CAROLINA CHOWDARY Attending Clinician Unavailable SILVIA Attending Clinician Unavailable CHIO MOREL Admitting Clinician Unavailable SILVIA Admitting Clinician Unavailable Payers Payer Name Policy Type Policy Number Effective Date Expiration Date S ource Problems Condition Condition Condition Status Onset Resolution Last Treating Co mments Source Name Details Category Date Date Treatment Clinician Date Coronary Coronary Disease [facility] disease disease [facility] involving involving [facility] [place] coronary coronary artery of artery of [place] heart heart without without angina angina pectoris pectoris Chest Chest Disease Active [address] [facility] pain, pain, 2-02 [facility] - unspecifie unspecifie 00:00: Me dical d type d type 00 Center AV AV Disease Active 2018- [facility] junctional junctional 2-02 Natalie kes - rhythm rhythm 00:00: Medical 00 Center Metabolic Metabolic Disease Active [address] [facility] [address] acidosis acidosis 5-05 [facility] - 00:[facility]: Medical 00 Center Respirator Respirator Disease Active [address] y y 5-05 [facility] - insufficie insufficie 00:00: Me dical ncy ncy 00 Center Atrial Atrial Disease Active [facility] mass mass 5-04 [facility] - 00:00: Medical 00 [facility] Non-ischem Non-ischem Disease Active [facility] ic ic 5 [facility] - cardiomyop cardiomyop 00:00: Me dical athy athy 00 [facility] Aneurysm, Aneurysm, Disease Active [facility] ascending ascending 03-17 [facility] - aorta aorta 00:00: Medical 00 [facility] 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 Allergies, Adverse Reactions, Alerts Allergy Allergy Status Severity Reaction(s) Onset Inactive Treating Comm ents Source Name Type Date Date Clinician Jeff Reeder Active Nausea Only [facility] to 03-17 [facility] - adverse 00:00: Medical reaction 00 Center s No Known DA Active [facility] Allergie 01-27 Clear s 00:00: [place] 00 [facility] Family History Family Member Diagnosis Comments Start Date Stop Date Source Natural father Heart disease [facility] Natural mother Heart disease [facility] Social History Social Habit Start Date Stop Date Quantity Comments Source Sex Assigned At [facility] Tobacco use and 2019-10-27 2019-10-27 Never used [facility] - exposure 00:00:00 00:00:00 [facility] Alcohol intake 2019-10-27 2019-10-27 [facility]er [facility] 00:[facility]:00 00:00:00 of alcohol [facility] (finding) Alcohol Comment 2018-03-17 2018-03-17 occasion; wine [facility] - 00:[facility]:00 00:00:00 and beer [facility] Smoking Status Start Date Stop Date Source Never smoker [facility] edical Munith Medications Ordered Filled Start Stop Current Ordering Indication Dosage Frequency Signature Comments Components Source Medication Medication Date Date Medication? Clinician (SIG) Name Name aspirin 81 2019- Yes 81mg Take [address] MG EC 1-05 by mouth. [facility] - tablet 21:51: Medical 30 Center bisoprolol 2018-11- No 5mg QD Take [address] [facility] [address] (ZEBETA) 5 12-27 tablet (5 [facility]ga es - MG tablet 00:00: 23:59 mg total) Me dical 00 :00 by mouth Center daily. atorvastati 2018-11- No 10mg QD Take [address] [facility] n (LIPITOR) 12-27 tablet (10 L ukes - 10 MG 00:00: 23:59 mg total) Medica l tablet 00 :00 by mouth Center daily. Procedures This patient has no known procedures. Plan of Care Planned Activity Planned Date Details Comments Source Future Scheduled 2028-08-[address] [facility] - Test 00:00:00 malignant neoplasm of Medica l Center colon (procedure) [code = 338089529] Future Scheduled 2021-03-[address] [address] [facility] - Test 00:00:00 (procedure) [code = Medical Center [id number]] Future Scheduled 2020-07-22 INFLUENZA VACCINE (#1) [facility] - Test 00:00:00 [code = INFLUENZA Medical Ce nter VACCINE (#1)] Future Scheduled [address] [facility] - Test 00:00:00 0-64 YRS (1 of 1 - Medical C enter PPSV23) [code = PNEUMOCOCCAL VACCINE 0-64 YRS (1 of 1 - PPSV23)] Results Test Description Test Time Test Comments Results Result Comments Source BASIC METABOLIC PANEL 2019-10-26 05:27:00 Test Item Value Reference Range Interpretation Comme nts SODIUM (BEAKER) (test code 138 meq/L 136-145 = 381) POTASSIUM (BEAKER) (test 3.9 meq/L 3.5-5.1 Spe cimen slightly code = 379) hemolyzed CHLORIDE (BEAKER) (test 105 meq/L 98-107 code = 382) CO2 (BEAKER) (test code = 26 meq/L 22-29 355) BLOOD UREA NITROGEN 14 mg/dL 7-21 (BEAKER) (test code = 354) CREATININE (BEAKER) (test 0.83 mg/dL 0.57-1.25 Sp ecimen slightly code = 358) hemolyzed GLUCOSE RANDOM (BEAKER) 101 mg/dL 70-105 (test code = 652) CALCIUM (BEAKER) (test code 9.2 mg/dL 8.4-10.2 = 697) EGFR (BEAKER) (test code = 95 mL/min/1.73 sq m ESTIMATED GFR IS NOT 1092) ACCURATE CRE ATININE CLEARANCE IN [place] EDICTING GLOMERULAR FILT RATION RATE. ESTIMATED GFR IS NOT APPLICABLE FOR DIALYSIS PATIENTS. CBC W/PLT COUNT & AUTO [id number] 04:59:00 Test Item Value Reference Range Interpretation Comments WHITE BLOOD CELL COUNT (BEAKER) 6.1 K/ L 3.5-10.5 (test code = 775) RED BLOOD CELL COUNT (BEAKER) 4.96 M/ L 4.63-6.08 (test code = 761) HEMOGLOBIN (BEAKER) (test code = 16.1 GM/DL 13.7-17.5 410) HEMATOCRIT (BEAKER) (test code = 46.0 % 40.1-51.0 411) MEAN CORPUSCULAR VOLUME (BEAKER) 92.7 fL 79.0-92.2 H (test code = 753) MEAN CORPUSCULAR HEMOGLOBIN 32.5 pg 25.7-32.2 H (BEAKER) (test code = 751) MEAN CORPUSCULAR HEMOGLOBIN CONC 35.0 GM/DL 32.3-36.5 (BEAKER) (test code = 752) RED CELL DISTRIBUTION WIDTH 12.9 % 11.6-14.4 (BEAKER) (test code = 412) PLATELET COUNT (BEAKER) (test 186 K/CU MM 150-450 code = 756) MEAN PLATELET VOLUME (BEAKER) 9.7 fL 9.4-12.4 (test code = 754) NUCLEATED RED BLOOD CELLS 0 /100 WBC 0-0 (BEAKER) (test code = 413) NEUTROPHILS RELATIVE PERCENT 57 % (BEAKER) (test code = 429) LYMPHOCYTES RELATIVE PERCENT 26 % (BEAKER) (test code = 430) MONOCYTES RELATIVE PERCENT 12 % (BEAKER) (test code = 431) EOSINOPHILS RELATIVE PERCENT 4 % (BEAKER) (test code = 432) BASOPHILS RELATIVE PERCENT 1 % (BEAKER) (test code = 437) NEUTROPHILS ABSOLUTE COUNT 3.50 K/ L 1.78-5.38 (BEAKER) (test code = 670) LYMPHOCYTES ABSOLUTE COUNT 1.59 K/ L 1.32-3.57 (BEAKER) (test code = 414) MONOCYTES ABSOLUTE COUNT (BEAKER) 0.73 K/ L 0.30-0.82 (test code = 415) EOSINOPHILS ABSOLUTE COUNT 0.22 K/ L 0.04-0.54 (BEAKER) (test code = 416) BASOPHILS ABSOLUTE COUNT (BEAKER) 0.03 K/ L 0.01-0.08 (test code = 417) IMMATURE GRANULOCYTES-RELATIVE 1 % 0-1 PERCENT (BEAKER) (test code = 2801) MR, CARDIAC, [id number] 18:25:00FINAL REPORT Cardiac MRI dated 24 October 2019 INDICATION: This is a 59 yearsold gentleman, with history of left atrial myxoma resection in 2018, presents for follow-up assessment as there is recurrence of similar symptoms before cardiac surgery. TECHNIQUE: Tiffani ACHIEVA MRIscanner. Morphologic and dynamic cine imaging were performed in multiple projections before and after contrast administration. Thereafter, gadolinium was administered, which was followed by viability/scar imaging. Finally, flow quantification sequences were performed to determine the degree of valvular dysfunction. Please refer to the contrast sheet scanned in the EPIC system for the amount and route of contrast given. Patient weighs 230 pounds, with height of 76 inches. Body surface area is approximately 2.37 sq m. FINDINGS: The chest wall and mediastinum appears unremarkable. Patient is post median sternotomy. The pericardium and pulmonary arteries appear normal. Limited imaging through thelungs reveals no gross abnormalities; MR is not optimised in the assessment of pulmonary parenchymallung disease. The cardiac chambers demonstrate normal atrioventricular and ventriculoarterial concordance, and systemic and pulmonary venous return. In the axial orientation, that could be mild ectasia seen in the mid ascending thoracic aorta that measures 3.9-4.0 cm in diameter. No aortic aneurysmis identified. No acute aortic pathology is present. There is no evidence of acute aortic pathology,such as dissection, intramural haematoma, or contained rupture. The left atrium is assessed through serial four-chamber, 2 chamber and short axis cine. No left atrial mass is identified. No abnormality is identified inter-atrial septum. Finally, no mass is identified the right atrium, left ventricle,right ventricle. No pericardial mass is observed. This study is NEGATIVE for recurrent myxoma. The left ventricle is normal in size, with mild systolic dysfunction. Ejection fraction is quantified to be 44%. There is hypokinesis identified in the anteroseptum, when viewed from the parasternal long axis and short axis orientations. Quantitative values are as follows: EDV = 168 cc; ESV = 94 cc; stroke volume = 75 cc; and ejection fraction = 44%. Calculated absolute cardiac output = 4.3 liters/min. Absolute left ventricular mass = 105 grams. The right ventricle is normal in size and function, by visual estimation. Quantitative values are as follows: EDV = 164 cc; ESV = 91 cc; stroke volume = 72 cc;and ejection fraction = 44%. Cine imaging and flow quantification is remarkable for trace mitral re gurgitation. Trace tricuspid regurgitation is identified. Trace aortic regurgitation is also identified. Viability/scar imaging reveals uniformly "nulled" myocardium, indicating no prior myocardial damage. All of the left ventricular myocardium appears full thickness and viable. Ventricular thrombus i s not present. Flow curves suggest normal left and right atrial pressures. When viewed from the four-chamber orientation, left atrial size is unremarkable. CONCLUSIONS: 1. The left ventricle is normalin size with mild systolic dysfunction. Segmental wall motion abnormalities as described above. Ejection fraction is quantified to be 44%. Quantitative left ventricular functional values are as described above. Viability/scar imaging is normal. There is no evidence of prior myocardial damage. The exact aetiology of the mild left ventricle systolic dysfunction is uncertain. Coronary angiography in 2018 was reported to have patent coronary arteries, per EPIC. Please correlate clinically. 2. The right ventricle is normal in size and function. Quantitative right ventricular functional values as described above. Similar stroke-volume is obtained obtained through flow quantification through the ascending aorta, as well as [EDV-ESV] of the left and right ventricles, the peripheral indicating accurate ventricular quantitative analysis. 3. This study is NEGATIVE for recurrence of left atrial myxoma. No mass is identified in the left atrium, and no abnormality is seen close to the interatrial septum. In addition, no mass is identified in the right atrium, left ventricle, right ventricle, and no pe ricardial or paracardiac mass is identified. 4. Other findings as described above. Signed: Harsha Matthew MDReport Verified Date/Time: 10/24/2019 18:25:39 PET, CARDIAC PERFUSION MULTIPLE STUDIES, REST AND [id number] 15:39:00Reason for exam:->chest pain and arrthymiaFINAL REPORT PROCEDURE: Rest/Stress MYOCARDIAL PERFUSION PET with regaden oson\\XA9\\ CPT CODE: 41077 INDICATION: Chest pain, atrial arrhythmia HISTORY: Cardiac risk factors: Peripheral vascular disease. Other cardiovascular history: AAA, left atrial mass resection. Recent cardiac symptoms: Chest pain. Current cardiovascular-related medications: Aspirin, atenolol. PROTOCOL: Limited low-dose CT imaging was performed for attenuation correction. 40.0mCi of Rb-82 chloride was injected iv at rest, and gated PET (positron emission tomography) images were obtained. Subsequently, 40.1 mCi of Rb-82 chloride was injected iv at expected peak pharmacologiceffect, and gated PET images were obtained. PRELIMINARY STRESS TEST DATA FROM NONINVASIVE CARDIOLOGY: Pharmacologic stress was by 10-second iv infusion of 0.4 mg of regadenoson. Radiotracer was injected 30 seconds after start of stress. Heart rate was 63 beats/min at rest and 85 beats/min (52% of MPHR) at tracer injection. BP was 100/65 mmHg at rest and 97/57 mmHg at tracer injection. Stress was stopped for predetermined endpoint. The patient experienced no symptoms; treatment was not required. Preliminary ECG evaluation revealed sinus rhythm at rest and no ischemic changes with stress. (Final ECG interpretation and other stress and monitoring data are reported separately by Cardiology.) IMAGING FINDINGS: Study quality is good. Images obtained after stress injection show decreased radiotracer uptake in the mid to basal anterolateral LV. Resting images show physiologic distribution of radiotracer. LV volume appears normal. RV volume appears normal. Gated images obtained immediately afte r stress show mild hypokinesis of the lateral LV wall motion. Gated images obtained at rest show mild hypokinesis of the lateral LV wall motion. LVEF at rest is 50%. LVEF at stress is 57%. IMPRESSION: 1. Abnormal study. 2. Appropriate pharmacologic stress. 3. Abnormal myocardial perfusion. There is a mild, small, reversible perfusion defect of the mid to basal anterolateral LV. 4. Low normal resting LV function. No deterioration of function is noted with pharmacologic stress. 5. Extracardiac tracer distribution is normal. 6. No previous [facility] study for comparison. Signed: Jose Hall MDReport Verified Date/Time: 10/24/2019 15:39:24 Reading Location: [address] Reading Room C-REACTIVE [id number] 17:37:00 Test Item Value Reference Range Interpretation Comments C-REACTIVE PROTEIN (BEAKER) (test 0.10 mg/dL 0.00-0.50 code = 676) [id number] 17:34:00 Test Item Value Reference Range Interpretation Comments MAGNESIUM (BEAKER) 1.9 mg/dL 1.6-2.6 Specimen slightly (test code = 627) hemolyzed BASIC METABOLIC [id number] 17:34:00 Test Item Value Reference Range Interpretation Comments SODIUM (BEAKER) 141 meq/L 136-145 (test code = 381) POTASSIUM (BEAKER) 4.4 meq/L 3.5-5.1 Specimen slightly (test code = 379) hemolyzed CHLORIDE (BEAKER) 105 meq/L 98-107 (test code = 382) CO2 (BEAKER) (test 27 meq/L 22-29 code = 355) BLOOD UREA NITROGEN 10 mg/dL 7-21 (BEAKER) (test code = 354) CREATININE (BEAKER) 0.84 mg/dL 0.57-1.25 Specimen slightly (test code = 358) hemolyzed GLUCOSE RANDOM 82 mg/dL 70-105 (BEAKER) (test code = 652) CALCIUM (BEAKER) 10.1 mg/dL 8.4-10.2 (test code = 697) EGFR (BEAKER) (test 94 mL/min/1.73 ESTIMA NANNETTE GFR IS code = 1092) sq m NOT ACCURATE CREATININE CLEARANCE IN PREDICTING GLOMERULAR FILTRATION RATE . ESTIMATED GFR I S NOT APPLICABLE FOR DIALYSIS PATIEN TS. TROPONIN [id number] 00:32:00 Test Item Value Reference Range Interpretation Comments TROPONIN I (BEAKER) (test code = 397) < ng/mL 0.00-0.03 Troponin I (TnI) levels [...] failure, acidosis, acute neurological disease, and persistent tachyarrhythmia.TROPONIN [id number] 19:08:00 Test Item Value Reference Range Interpretation Comments TROPONIN I (BEAKER) (test code = 397) < ng/mL 0.00-0.03 Troponin I (TnI) levels [...] failure, acidosis, acute neurological disease, and persistent tachyarrhythmia.TSH/FREE T4 IF [id number] 16:20:00 Test Item Value Reference Range Interpretation Comments THYROID STIMULATING HORMONE 1.37 uIU/mL 0.35-4.94 (BEAKER) (test code = 772) B-TYPE NATRIURETIC FACTOR (BNP)2019-10-22 12:59:00 Test Item Value Reference Range Interpretation Comments B-TYPE NATRIURETIC PEPTIDE (BEAKER) 18 pg/mL 0-100 (test code = 700) TROPONIN [id number] 12:59:00 Test Item Value Reference Range Interpretation Comments TROPONIN I (BEAKER) (test code = 397) < ng/mL 0.00-0.03 Troponin I (TnI) levels [...] failure, acidosis, acute neurological disease, and persistent tachyarrhythmia.[id number] 12:52:00 Test Item Value Reference Range Interpretation Comments MAGNESIUM (BEAKER) (test code = 2.0 mg/dL 1.6-2.6 627) BASIC METABOLIC [id number] 12:52:00 Test Item Value Reference Range Interpretation Comments SODIUM (BEAKER) 142 meq/L 136-145 (test code = 381) POTASSIUM (BEAKER) 4.4 meq/L 3.5-5.1 (test code = 379) CHLORIDE (BEAKER) 107 meq/L 98-107 (test code = 382) CO2 (BEAKER) (test 29 meq/L 22-29 code = 355) BLOOD UREA NITROGEN 8 mg/dL 7-21 (BEAKER) (test code = 354) CREATININE (BEAKER) 0.85 mg/dL 0.57-1.25 (test code = 358) GLUCOSE RANDOM 92 mg/dL 70-105 (BEAKER) (test code = 652) CALCIUM (BEAKER) 10.1 mg/dL 8.4-10.2 (test code = 697) EGFR (BEAKER) (test 92 mL/min/1.73 ESTIMA NANNETTE GFR IS code = 1092) sq m NOT ACCURATE CREATININE CLEARANCE IN PREDICTING GLOMERULAR FILTRATION RATE . ESTIMATED GFR I S NOT APPLICABLE FOR DIALYSIS PATIEN TSPb RAD, CHEST, 1 VIEW, NON [id number] 12:49:00Reason for exam:->CHEST PAIN FINAL REPORT INDICATION: CHEST PAIN COMPARISON: August 13, 2018 TECHNIQUE:Single frontal view of the chest. FINDINGS: Lungs and pleura: Clear lungs. No effusion.Heart and mediastinum: Normal heart size. Unremarkable mediastinal contours.Osseous structures: No acute abnormality.Other: None. IMPRESSION: No acute intrathoracic abnormality. Signed: JR Valdez Robert MDReport Verified Date/Time: 10/22/2019 12:49:33 Reading Location: [facility] Radiology Reading Room [id number] 12:48:00 Test Item Value Reference Range Interpretation Comments PROTIME (BEAKER) (test code = 12.0 seconds 11.9-14.2 759) INR (BEAKER) (test code = 370) 0.9 <=5.9 PARTIAL THROMBOPLASTIN TIME 25.7 seconds 22.5-36.0 (BEAKER) (test code = 760) Effective 04/18/2019: PT Reference Range ChangeNew: 11.9-14.2 Previous: 11.7- 14.7RECOMMENDED COUMADIN/WARFARIN INR THERAPY RANGESSTANDARD DOSE: 2.0-3.0 Includes: PROPHYLAXIS for venous thrombosis, systemic embolization; TREATMENT for venous thrombosis and/or pulmonary embolus.HIGH RISK: Target INR is2.5-3.5 for patients wiht mechanical heart valves.CBC W/PLT COUNT & AUTO [id number] 12:38:00 Test Item Value Reference Range Interpretation Comments WHITE BLOOD CELL COUNT (BEAKER) 7.8 K/ L 3.5-10.5 (test code = 775) RED BLOOD CELL COUNT (BEAKER) 5.23 M/ L 4.63-6.08 (test code = 761) HEMOGLOBIN (BEAKER) (test code = 16.7 GM/DL 13.7-17.5 410) HEMATOCRIT (BEAKER) (test code = 49.4 % 40.1-51.0 411) MEAN CORPUSCULAR VOLUME (BEAKER) 94.5 fL 79.0-92.2 H (test code = 753) MEAN CORPUSCULAR HEMOGLOBIN 31.9 pg 25.7-32.2 (BEAKER) (test code = 751) MEAN CORPUSCULAR HEMOGLOBIN CONC 33.8 GM/DL 32.3-36.5 (BEAKER) (test code = 752) RED CELL DISTRIBUTION WIDTH 12.9 % 11.6-14.4 (BEAKER) (test code = 412) PLATELET COUNT (BEAKER) (test 195 K/CU MM 150-450 code = 756) MEAN PLATELET VOLUME (BEAKER) 9.8 fL 9.4-12.4 (test code = 754) NUCLEATED RED BLOOD CELLS 0 /100 WBC 0-0 (BEAKER) (test code = 413) NEUTROPHILS RELATIVE PERCENT 75 % (BEAKER) (test code = 429) LYMPHOCYTES RELATIVE PERCENT 15 % (BEAKER) (test code = 430) MONOCYTES RELATIVE PERCENT 9 % (BEAKER) (test code = 431) EOSINOPHILS RELATIVE PERCENT 1 % (BEAKER) (test code = 432) BASOPHILS RELATIVE PERCENT 1 % (BEAKER) (test code = 437) NEUTROPHILS ABSOLUTE COUNT 5.80 K/ L 1.78-5.38 H (BEAKER) (test code = 670) LYMPHOCYTES ABSOLUTE COUNT 1.15 K/ L 1.32-3.57 L (BEAKER) (test code = 414) MONOCYTES ABSOLUTE COUNT (BEAKER) 0.66 K/ L 0.30-0.82 (test code = 415) EOSINOPHILS ABSOLUTE COUNT 0.07 K/ L 0.04-0.54 (BEAKER) (test code = 416) BASOPHILS ABSOLUTE COUNT (BEAKER) 0.04 K/ L 0.01-0.08 (test code = 417) IMMATURE GRANULOCYTES-RELATIVE 1 % 0-1 PERCENT (BEAKER) (test code = 2801) CT, [id number] 22:50:00Reason for exam:->RECTAL BLEEDINGReason for exam:->ABDOMINAL PAINWhat is the patient's sedation requirement?->No SedationFINAL REPORT CLINICAL HISTORY: Left lower quadrant pain, rectal bleeding, suspect diverticulitis FINDINGS: Multiple axial images of the abdomen and pelvis were performed after the uncomplicated administration of IV contrast. Oral contrast was not given. This exam was performedaccording to our departmental dose-optimization program, which includes automated exposure control, adjustment of the mA and/or kV according to patient size and/or use of the iterative reconstruction technique. Comparison:None. Lower chest: Clear lungs. No pleural effusion or pneumothorax. Visualized c ardiac contours normal. Liver: No significant findings. Gallbladder and biliary tree: No significantfindings. Spleen: No significant findings. Adrenal Glands: No significant findings. Kidneys and ureters: No significant findings. Stomach and Duodenum: No significant findings. Pancreas: No significantfindings. Bowel: High density content in the left [...] Verified Date/Time: 08/13/2018 22:50:13 Reading Location: [address] Reading Room CREATINE KINASE (CK), TOTAL AND [id number] 22:40:00 Test Item Value Reference Range Interpretation Comments CREATINE KINASE TOTAL (BEAKER) 80 U/L 29-200 (test code = 380) CREATINE KINASE-MB (BEAKER) (test 1.7 ng/mL 0.0-6.6 code = 750) CREATINE KINASE-MB INDEX (BEAKER) 2.1 % (test code = 395) CK-MB Reference Range:<6.7 Normal6.7-10.0 Borderline>10.0 AbnormalTROPONIN [id number] 22:40:00 Test Item Value Reference Range Interpretation Comments TROPONIN I (BEAKER) (test code = 397) < ng/mL 0.00-0.03 Troponin I (TnI) levels [...] persistent tachyarrhythmia.RAD, CHEST, PA OR AP, 1 [id number] 22:04:00Reason for exam:->chest painShould this be performed at the bedside?->YesFINAL REPORT INDICATION: chest pain COMPARISON: March 28, 2018 TECHNIQUE: Singlefrontal view of the chest. FINDINGS: Lungs and pleura: Clear lungs. No effusion.Heart and mediastinum: Normal heart size. Unremarkable mediastinal contours.Osseous structures: No acute abnormality.Other: None. IMPRESSION: No acute intrathoracic abnormality. Signed: JR Valdez Robert MDReport Verified Date/Time: 08/13/2018 22:04:08 Reading Location: [facility] Reading Room El ectronically signed by: CATHERINE VALDEZ on 08/13/2018 10:04 PMURINALYSIS W/ [id number] 21:58:00 Test Item Value Reference Range Interpretation Comments COLOR (BEAKER) (test code = 470) Yellow CLARITY (BEAKER) (test code = 469) Clear SPECIFIC GRAVITY UA (BEAKER) (test 1.017 1.001-1.035 code = 468) PH UA (BEAKER) (test code = 467) 6.5 5.0-8.0 PROTEIN UA (BEAKER) (test code = Negative Negative 464) GLUCOSE UA (BEAKER) (test code = Negative Negative 365) KETONES UA (BEAKER) (test code = Negative Negative 371) BILIRUBIN UA (BEAKER) (test code = Negative Negative 462) BLOOD UA (BEAKER) (test code = Negative Negative 461) NITRITE UA (BEAKER) (test code = Negative Negative 465) LEUKOCYTE ESTERASE UA (BEAKER) Negative Negative (test code = 466) UROBILINOGEN UA (BEAKER) (test 12.0 mg/dL 0.2-1.0 H code = 463) RBC UA (BEAKER) (test code = 519) < /HPF WBC UA (BEAKER) (test code = 520) < /HPF SQUAMOUS EPITHELIAL (BEAKER) (test < /HPF code = 516) SOURCE(BEAKER) (test code = 2795) B-TYPE NATRIURETIC FACTOR (BNP)2018-08-13 21:31:00 Test Item Value Reference Range Interpretation Comments B-TYPE NATRIURETIC PEPTIDE (BEAKER) 69 pg/mL 0-100 (test code = 700) [id number] 21:02:00 Test Item Value Reference Range Interpretation Comments LIPASE (BEAKER) (test code = 749) 44 U/L 8-78 BASIC METABOLIC [id number] 21:02:00 Test Item Value Reference Range Interpretation Comments SODIUM (BEAKER) 141 meq/L 136-145 (test code = 381) POTASSIUM (BEAKER) 4.2 meq/L 3.5-5.1 Specimen slightly (test code = 379) hemolyzed CHLORIDE (BEAKER) 107 meq/L 98-107 (test code = 382) CO2 (BEAKER) (test 27 meq/L 22-29 code = 355) BLOOD UREA NITROGEN 15 mg/dL 7-21 (BEAKER) (test code = 354) CREATININE (BEAKER) 0.95 mg/dL 0.57-1.25 Specimen slightly (test code = 358) hemolyzed GLUCOSE RANDOM 75 mg/dL 70-105 (BEAKER) (test code = 652) CALCIUM (BEAKER) 9.1 mg/dL 8.4-10.2 (test code = 697) EGFR (BEAKER) (test 81 mL/min/1.73 ESTIMA NANNETTE GFR IS code = 1092) sq m NOT ACCURATE CREATININE CLEARANCE IN PREDICTING GLOMERULAR FILTRATION RATE . ESTIMATED GFR I S NOT APPLICABLE FOR DIALYSIS PATIEN TS. HEPATIC FUNCTION [id number] 21:02:00 Test Item Value Reference Range Interpretation Comments TOTAL PROTEIN (BEAKER) 6.7 gm/dL 6.0-8.3 Speci men slightly (test code = 770) hemolyzed ALBUMIN (BEAKER) (test 4.0 g/dL 3.5-5.0 Speci men slightly code = 1145) hemolyzed BILIRUBIN TOTAL 1.4 mg/dL 0.2-1.2 H Specimen sli ghtly (BEAKER) (test code = hemoly zed 377) BILIRUBIN DIRECT 0.3 mg/dL 0.1-0.5 Specimen sl ightly (BEAKER) (test code = hemoly zed 706) ALKALINE PHOSPHATASE 62 U/L 40-150 (BEAKER) (test code = 346) AST (SGOT) (BEAKER) 26 U/L 5-34 Specimen slightly (test code = 353) hemolyzed ALT (SGPT) (BEAKER) 47 U/L 6-55 Specimen slightly (test code = 347) hemolyzed [id number] 20:37:00 Test Item Value Reference Range Interpretation Comments PROTIME (BEAKER) (test code = 13.8 seconds 11.7-14.7 759) INR (BEAKER) (test code = 370) 1.1 <=5.9 PARTIAL THROMBOPLASTIN TIME 24.9 seconds 22.5-36.0 (BEAKER) (test code = 760) RECOMMENDED COUMADIN/WARFARIN INR THERAPY RANGESSTANDARD DOSE: 2.0 - 3.0 Includes: PROPHYLAXIS forvenous thrombosis, systemic embolization; TREATMENT for venous thrombosis and/or pulmonary embolus.HIGH RISK: Target INR is 2.5-3.5 for patients with mechanical heart valves.CBC W/PLT COUNT & AUTO DIFFERENTIAL 2018-08-13 20:28:00 Test Item Value Reference Range Interpretation Comments WHITE BLOOD CELL COUNT (BEAKER) 6.6 K/ L 3.5-10.5 (test code = 775) RED BLOOD CELL COUNT (BEAKER) 4.54 M/ L 4.63-6.08 L (test code = 761) HEMOGLOBIN (BEAKER) (test code = 14.5 GM/DL 13.7-17.5 410) HEMATOCRIT (BEAKER) (test code = 43.2 % 40.1-51.0 411) MEAN CORPUSCULAR VOLUME (BEAKER) 95.2 fL 79.0-92.2 H (test code = 753) MEAN CORPUSCULAR HEMOGLOBIN 31.9 pg 25.7-32.2 (BEAKER) (test code = 751) MEAN CORPUSCULAR HEMOGLOBIN CONC 33.6 GM/DL 32.3-36.5 (BEAKER) (test code = 752) RED CELL DISTRIBUTION WIDTH 13.5 % 11.6-14.4 (BEAKER) (test code = 412) PLATELET COUNT (BEAKER) (test 176 K/CU MM 150-450 code = 756) MEAN PLATELET VOLUME (BEAKER) 9.9 fL 9.4-12.4 (test code = 754) NUCLEATED RED BLOOD CELLS 0 /100 WBC 0-0 (BEAKER) (test code = 413) NEUTROPHILS RELATIVE PERCENT 64 % (BEAKER) (test code = 429) LYMPHOCYTES RELATIVE PERCENT 21 % (BEAKER) (test code = 430) MONOCYTES RELATIVE PERCENT 11 % (BEAKER) (test code = 431) EOSINOPHILS RELATIVE PERCENT 3 % (BEAKER) (test code = 432) BASOPHILS RELATIVE PERCENT 1 % (BEAKER) (test code = 437) NEUTROPHILS ABSOLUTE COUNT 4.23 K/ L 1.78-5.38 (BEAKER) (test code = 670) LYMPHOCYTES ABSOLUTE COUNT 1.35 K/ L 1.32-3.57 (BEAKER) (test code = 414) MONOCYTES ABSOLUTE COUNT (BEAKER) 0.72 K/ L 0.30-0.82 (test code = 415) EOSINOPHILS ABSOLUTE COUNT 0.17 K/ L 0.04-0.54 (BEAKER) (test code = 416) BASOPHILS ABSOLUTE COUNT (BEAKER) 0.04 K/ L 0.01-0.08 (test code = 417) IMMATURE GRANULOCYTES-RELATIVE 1 % 0-1 PERCENT (BEAKER) (test code = 2801) TISSUE [id number] 14:11:00Surgical Pathology Report Case: [id number] Authorizing Provider: Darshan Dillon MD Collected: 03/24/2018 3948 Ordering Location: [facility] Received: 03/26/2018 1129 PERIOPERATIVE SERVICES Pathologist: Shelton Joe MD Specimen: Soft Tissue, Other, Atrial Mass HEART, LEFT ATRIUM, RESECTION:MYXOMA Signing Pathologist Direct Phone Line: [phone] signed by Shelton Esteban MD on 03/28/2018 at 2:11 [id number] atrial fibrillation, left atrial massLeft atrial massReceived fresh labeled "soft tissue, other", description "atrial mass" is a 4.0 x 2.0 x 1.0 cm dark red to yellow christine irregular rubbery gelatinous soft tissue mass. The specimen is serially secti oned to reveal a dark red to yellow-christine, rubbery, hemorrhagic, gelatinous cut surface. No firm areasare identified. Ink code: resection margin - black. The specimen is entirely submitted as follows: A1, perpendicular resection margin; A2-A5, remainder of specimen. DB/plPerformedRAD, CHEST, 2 [id number] 13:30:00Reason for exam:->pneumo, discharge dependentFINAL REPORT Chest 2 views 03/28/2018 1:29 PM CLINICAL HISTORY: pneumo, discharge dependent COMPARISON: 03/27/2018 IMPRESSION: No pneumothorax is evident. There are trace bilateral pleural effusions with adjacent basilar atelectasis. Cardiomediastinal contours are within normal limits. The central pulmonary vasculature is not engorged. There are no acute-appearing skeletal abnormali ties. Signed: Jose Miguel Gardner Verified Date/Time: 03/28/2018 13:30:46 Reading Location: [facility] B[facility] C013W Consult Reading Room [id number] 07:13:00 Test Item Value Reference Range Interpretation Comments MAGNESIUM (BEAKER) (test code = 2.2 mg/dL 1.6-2.6 627) BASIC METABOLIC [id number] 07:13:00 Test Item Value Reference Range Interpretation Comments SODIUM (BEAKER) 139 meq/L 136-145 (test code = 381) POTASSIUM (BEAKER) 4.6 meq/L 3.5-5.1 (test code = 379) CHLORIDE (BEAKER) 102 meq/L 98-107 (test code = 382) CO2 (BEAKER) (test 28 meq/L 22-29 code = 355) BLOOD UREA NITROGEN 11 mg/dL 7-21 (BEAKER) (test code = 354) CREATININE (BEAKER) 0.70 mg/dL 0.57-1.25 (test code = 358) GLUCOSE RANDOM 98 mg/dL 70-105 (BEAKER) (test code = 652) CALCIUM (BEAKER) 9.7 mg/dL 8.4-10.2 (test code = 697) EGFR (BEAKER) (test 116 mL/min/1.73 ESTIM ATED GFR IS code = 1092) sq m NOT ACCURATE CREATININE CLEARANCE IN PREDICTING GLOMERULAR FILTRATION RATE . ESTIMATED GFR I S NOT APPLICABLE FOR DIALYSIS PATIEN TS. RAD, CHEST, 1 VIEW, NON [id number] 22:38:00Reason for exam:->eval for right pneumothorax after [...] of dictation. She will notify the appropriate on-callclinician. Signed: Pawan Dasheport Verified Date/Time: 03/27/2018 22:38:14 Reading Location: [address] Reading Room 10:38 [id number] 05:17:00 Test Item Value Reference Range Interpretation Comments MAGNESIUM (BEAKER) (test code = 2.0 mg/dL 1.6-2.6 627) BASIC METABOLIC [id number] 05:17:00 Test Item Value Reference Range Interpretation Comments SODIUM (BEAKER) 138 meq/L 136-145 (test code = 381) POTASSIUM (BEAKER) 4.6 meq/L 3.5-5.1 (test code = 379) CHLORIDE (BEAKER) 101 meq/L 98-107 (test code = 382) CO2 (BEAKER) (test 29 meq/L 22-29 code = 355) BLOOD UREA NITROGEN 11 mg/dL 7-21 (BEAKER) (test code = 354) CREATININE (BEAKER) 0.74 mg/dL 0.57-1.25 (test code = 358) GLUCOSE RANDOM 116 mg/dL 70-105 H (BEAKER) (test code = 652) CALCIUM (BEAKER) 9.3 mg/dL 8.4-10.2 (test code = 697) EGFR (BEAKER) (test 109 mL/min/1.73 ESTIM ATED GFR IS code = 1092) sq m NOT ACCURATE CREATININE CLEARANCE IN PREDICTING GLOMERULAR FILTRATION RATE . ESTIMATED GFR I S NOT APPLICABLE FOR DIALYSIS PATIEN TS. CBC W/PLT COUNT & AUTO [id number] 05:08:00 Test Item Value Reference Range Interpretation Comments WHITE BLOOD CELL COUNT (BEAKER) 13.5 K/ L 3.5-10.5 H (test code = 775) RED BLOOD CELL COUNT (BEAKER) 3.91 M/ L 4.63-6.08 L (test code = 761) HEMOGLOBIN (BEAKER) (test code = 12.1 GM/DL 13.7-17.5 L 410) HEMATOCRIT (BEAKER) (test code = 36.7 % 40.1-51.0 L 411) MEAN CORPUSCULAR VOLUME (BEAKER) 93.9 fL 79.0-92.2 H (test code = 753) MEAN CORPUSCULAR HEMOGLOBIN 30.9 pg 25.7-32.2 (BEAKER) (test code = 751) MEAN CORPUSCULAR HEMOGLOBIN CONC 33.0 GM/DL 32.3-36.5 (BEAKER) (test code = 752) RED CELL DISTRIBUTION WIDTH 13.2 % 11.6-14.4 (BEAKER) (test code = 412) PLATELET COUNT (BEAKER) (test 116 K/CU MM 150-450 L code = 756) MEAN PLATELET VOLUME (BEAKER) 10.3 fL 9.4-12.4 (test code = 754) NUCLEATED RED BLOOD CELLS 0 /100 WBC 0-0 (BEAKER) (test code = 413) NEUTROPHILS RELATIVE PERCENT 85 % (BEAKER) (test code = 429) LYMPHOCYTES RELATIVE PERCENT 5 % (BEAKER) (test code = 430) MONOCYTES RELATIVE PERCENT 9 % (BEAKER) (test code = 431) EOSINOPHILS RELATIVE PERCENT 0 % (BEAKER) (test code = 432) BASOPHILS RELATIVE PERCENT 0 % (BEAKER) (test code = 437) NEUTROPHILS ABSOLUTE COUNT 11.40 K/ L 1.78-5.38 H (BEAKER) (test code = 670) LYMPHOCYTES ABSOLUTE COUNT 0.69 K/ L 1.32-3.57 L (BEAKER) (test code = 414) MONOCYTES ABSOLUTE COUNT (BEAKER) 1.21 K/ L 0.30-0.82 H (test code = 415) EOSINOPHILS ABSOLUTE COUNT 0.01 K/ L 0.04-0.54 L (BEAKER) (test code = 416) BASOPHILS ABSOLUTE COUNT (BEAKER) 0.02 K/ L 0.01-0.08 (test code = 417) IMMATURE GRANULOCYTES-RELATIVE 1 % 0-1 PERCENT (BEAKER) (test code = 2801) POCT-GLUCOSE [id number] 08:39:00 Test Item Value Reference Range Interpretation Comments POC-GLUCOSE METER 96 mg/dL 70-110 TESTED AT [place] [id number] [facility] (test code = [place] [facility] [address] 1538) POCT-GLUCOSE [id number] 08:39:00 Test Item Value Reference Range Interpretation Comments POC-GLUCOSE METER 156 mg/dL 70-110 H TESTED AT [facility] 6720 (BEAKER) (test code = [facility] Juan David [facility] 1538) [address] RAD, CHEST, 1 VIEW, NON [id number] 06:12:00Reason for exam:->chest tubeShould this be performed at the bedside?->YesFINAL REPORT RAD, CHEST, 1 VIEW, NON DEPT INDICATION: chest tube COMPARISON: Prior day's exam FINDINGS: Portable frontal view of the chest. IMPRESSION: Support Lines: The Parachute-Daniella catheter has been. Right IJ sheath remains in place. Thoracic drainage catheters again noted. Lungs and pleura: Basilar subsegmental atelectasis on the right. Trace right apical pneumothorax. Bilateral small effusions. No pneumothorax.Heart and mediastinum: Stable contours. Additional findings: None. Signed: JR Valdez Robert MDReport Verified Date/Time: 03/26/2018 06:12:29 Reading Location: [facility] C013Y CT Body Reading Room CBC W/PLT COUNT & AUTO [id number] 05:52:00 Test Item Value Reference Range Interpretation Comments WHITE BLOOD CELL COUNT (BEAKER) 15.0 K/ L 3.5-10.5 H (test code = 775) RED BLOOD CELL COUNT (BEAKER) 3.80 M/ L 4.63-6.08 L (test code = 761) HEMOGLOBIN (BEAKER) (test code = 12.1 GM/DL 13.7-17.5 L 410) HEMATOCRIT (BEAKER) (test code = 34.7 % 40.1-51.0 L 411) MEAN CORPUSCULAR VOLUME (BEAKER) 91.3 fL 79.0-92.2 (test code = 753) MEAN CORPUSCULAR HEMOGLOBIN 31.8 pg 25.7-32.2 (BEAKER) (test code = 751) MEAN CORPUSCULAR HEMOGLOBIN CONC 34.9 GM/DL 32.3-36.5 (BEAKER) (test code = 752) RED CELL DISTRIBUTION WIDTH 13.2 % 11.6-14.4 (BEAKER) (test code = 412) PLATELET COUNT (BEAKER) (test 102 K/CU MM 150-450 L code = 756) MEAN PLATELET VOLUME (BEAKER) 10.0 fL 9.4-12.4 (test code = 754) NUCLEATED RED BLOOD CELLS 0 /100 WBC 0-0 (BEAKER) (test code = 413) NEUTROPHILS RELATIVE PERCENT 85 % (BEAKER) (test code = 429) LYMPHOCYTES RELATIVE PERCENT 5 % (BEAKER) (test code = 430) MONOCYTES RELATIVE PERCENT 9 % (BEAKER) (test code = 431) EOSINOPHILS RELATIVE PERCENT 0 % (BEAKER) (test code = 432) BASOPHILS RELATIVE PERCENT 0 % (BEAKER) (test code = 437) NEUTROPHILS ABSOLUTE COUNT 12.80 K/ L 1.78-5.38 H (BEAKER) (test code = 670) LYMPHOCYTES ABSOLUTE COUNT 0.68 K/ L 1.32-3.57 L (BEAKER) (test code = 414) MONOCYTES ABSOLUTE COUNT (BEAKER) 1.39 K/ L 0.30-0.82 H (test code = 415) EOSINOPHILS ABSOLUTE COUNT 0.00 K/ L 0.04-0.54 L (BEAKER) (test code = 416) BASOPHILS ABSOLUTE COUNT (BEAKER) 0.01 K/ L 0.01-0.08 (test code = 417) IMMATURE GRANULOCYTES-RELATIVE 1 % 0-1 PERCENT (BEAKER) (test code = 2801) BLOOD GAS, [id number] 04:52:00 Test Item Value Reference Range Interpretation Comments PH ARTERIAL (BEAKER) (test code = 7.44 7.35-7.45 383) PCO2 ARTERIAL (BEAKER) (test code 41 mmHg 35-45 = 384) PO2 ARTERIAL (BEAKER) (test code = 78 mmHg 80-90 L 385) O2 SATURATION ARTERIAL (BEAKER) 95.5 % 96.0-97.0 L (test code = 386) HCO3 ARTERIAL (BEAKER) (test code 27 mmol/L 21-29 = 388) BASE EXCESS ARTERIAL (BEAKER) 3.1 mmol/L -2.0-3.0 H (test code = 387) PATIENT TEMPERATURE (BEAKER) (test 37.7 C code = 1818) FIO2 (BEAKER) (test code = 1819) 36.0 % [id number] 04:31:00 Test Item Value Reference Range Interpretation Comments PHOSPHORUS (BEAKER) (test code = 3.1 mg/dL 2.3-4.7 604) BASIC METABOLIC [id number] 04:31:00 Test Item Value Reference Range Interpretation Comments SODIUM (BEAKER) 137 meq/L 136-145 (test code = 381) POTASSIUM (BEAKER) 3.8 meq/L 3.5-5.1 (test code = 379) CHLORIDE (BEAKER) 106 meq/L 98-107 (test code = 382) CO2 (BEAKER) (test 24 meq/L 22-29 code = 355) BLOOD UREA NITROGEN 11 mg/dL 7-21 (BEAKER) (test code = 354) CREATININE (BEAKER) 0.65 mg/dL 0.57-1.25 (test code = 358) GLUCOSE RANDOM 119 mg/dL 70-105 H (BEAKER) (test code = 652) CALCIUM (BEAKER) 8.9 mg/dL 8.4-10.2 (test code = 697) EGFR (BEAKER) (test 127 mL/min/1.73 ESTIM ATED GFR IS code = 1092) sq m NOT ACCURATE CREATININE CLEARANCE IN PREDICTING GLOMERULAR FILTRATION RATE . ESTIMATED GFR I S NOT APPLICABLE FOR DIALYSIS PATIEN TS. Specimen slightly ictericLACTIC ACID, ARTERIAL, WHOLE [id number] 04:26:00 Test Item Value Reference Range Interpretation Comments LACTATE BLOOD ARTERIAL (2) 0.8 mmol/L 0.5-2.2 (BEAKER) (test code = 2874) Effective 03/24/2016: Units/Reference Range ChangeNew: 0.5-2.2 mmol/L Previous: 5-20 mg/dLRAD, CHEST, 1 VIEW, NON [id number] 09:24:00Reason for exam:- >s/p resection atrial myxomaShould this be performed at the bedside?->Yes FINAL REPORT HISTORY : s/p resection atrial myxoma. Comparison: 03/24/2018 Comment: Single portable view of the [...] MDReport Verified Date/Time: 03/25/2018 09:24:11 Reading Location: [facility] C0[facility] Transitional Reading Room [id number] 06:29:00 Test Item Value Reference Range Interpretation Comments PHOSPHORUS (BEAKER) (test code = 1.1 mg/dL 2.3-4.7 LL 604) CBC W/PLT COUNT & AUTO [id number] 05:51:00 Test Item Value Reference Range Interpretation Comments WHITE BLOOD CELL COUNT (BEAKER) 19.2 K/ L 3.5-10.5 H (test code = 775) RED BLOOD CELL COUNT (BEAKER) 4.11 M/ L 4.63-6.08 L (test code = 761) HEMOGLOBIN (BEAKER) (test code = 12.9 GM/DL 13.7-17.5 L 410) HEMATOCRIT (BEAKER) (test code = 37.9 % 40.1-51.0 L 411) MEAN CORPUSCULAR VOLUME (BEAKER) 92.2 fL 79.0-92.2 (test code = 753) MEAN CORPUSCULAR HEMOGLOBIN 31.4 pg 25.7-32.2 (BEAKER) (test code = 751) MEAN CORPUSCULAR HEMOGLOBIN CONC 34.0 GM/DL 32.3-36.5 (BEAKER) (test code = 752) RED CELL DISTRIBUTION WIDTH 13.0 % 11.6-14.4 (BEAKER) (test code = 412) PLATELET COUNT (BEAKER) (test 132 K/CU MM 150-450 L code = 756) MEAN PLATELET VOLUME (BEAKER) 10.0 fL 9.4-12.4 (test code = 754) NUCLEATED RED BLOOD CELLS 0 /100 WBC 0-0 (BEAKER) (test code = 413) NEUTROPHILS RELATIVE PERCENT 90 % (BEAKER) (test code = 429) LYMPHOCYTES RELATIVE PERCENT 1 % (BEAKER) (test code = 430) MONOCYTES RELATIVE PERCENT 7 % (BEAKER) (test code = 431) EOSINOPHILS RELATIVE PERCENT 0 % (BEAKER) (test code = 432) BASOPHILS RELATIVE PERCENT 0 % (BEAKER) (test code = 437) NEUTROPHILS ABSOLUTE COUNT 17.33 K/ L 1.78-5.38 H (BEAKER) (test code = 670) LYMPHOCYTES ABSOLUTE COUNT 0.27 K/ L 1.32-3.57 L (BEAKER) (test code = 414) MONOCYTES ABSOLUTE COUNT (BEAKER) 1.39 K/ L 0.30-0.82 H (test code = 415) EOSINOPHILS ABSOLUTE COUNT 0.00 K/ L 0.04-0.54 L (BEAKER) (test code = 416) BASOPHILS ABSOLUTE COUNT (BEAKER) 0.04 K/ L 0.01-0.08 (test code = 417) IMMATURE GRANULOCYTES-RELATIVE 1 % 0-1 PERCENT (BEAKER) (test code = 2801) BLOOD GAS, [id number] 05:35:00 Test Item Value Reference Range Interpretation Comments PH ARTERIAL (BEAKER) (test code = 7.33 7.35-7.45 L 383) PCO2 ARTERIAL (BEAKER) (test code 40 mmHg 35-45 = 384) PO2 ARTERIAL (BEAKER) (test code 159 mmHg 80-90 H = 385) O2 SATURATION ARTERIAL (BEAKER) 98.9 % 96.0-97.0 H (test code = 386) HCO3 ARTERIAL (BEAKER) (test code 20 mmol/L 21-29 L = 388) BASE EXCESS ARTERIAL (BEAKER) -5.2 mmol/L -2.0-3.0 L (test code = 387) PATIENT TEMPERATURE (BEAKER) 37.4 C (test code = 1818) FIO2 (BEAKER) (test code = 1819) 40.0 % GLUCOSE-STAT [id number] 05:35:00 Test Item Value Reference Range Interpretation Comments GLUCOSE RANDOM (BEAKER) (test code 218 mg/dL 70-110 H = 652) POTASSIUM-STAT [id number] 05:35:00 Test Item Value Reference Range Interpretation Comments POTASSIUM (BEAKER) (test code = 3.4 meq/L 3.6-5.5 L 379) SODIUM NA-STAT [id number] 05:33:00 Test Item Value Reference Range Interpretation Comments SODIUM (BEAKER) (test code = 381) 144 meq/L 135-148 HGB/HCT (H&H) - STAT [id number] 05:33:00 Test Item Value Reference Range Interpretation Comments HEMOGLOBIN (BEAKER) (test code = 13.8 g/dL 13.0-16.8 410) HEMATOCRIT (BEAKER) (test code = 41.0 % 40.0-50.0 411) [id number] 05:32:00 Test Item Value Reference Range Interpretation Comments MAGNESIUM (BEAKER) (test code = 1.9 mg/dL 1.6-2.6 627) BASIC METABOLIC [id number] 05:32:00 Test Item Value Reference Range Interpretation Comments SODIUM (BEAKER) 143 meq/L 136-145 (test code = 381) POTASSIUM (BEAKER) 3.5 meq/L 3.5-5.1 (test code = 379) CHLORIDE (BEAKER) 111 meq/L 98-107 H (test code = 382) CO2 (BEAKER) (test 17 meq/L 22-29 L code = 355) BLOOD UREA NITROGEN 13 mg/dL 7-21 (BEAKER) (test code = 354) CREATININE (BEAKER) 1.09 mg/dL 0.57-1.25 (test code = 358) GLUCOSE RANDOM 227 mg/dL 70-105 H (BEAKER) (test code = 652) CALCIUM (BEAKER) 8.5 mg/dL 8.4-10.2 (test code = 697) EGFR (BEAKER) (test 70 mL/min/1.73 ESTIMA NANNETTE GFR IS code = 1092) sq m NOT ACCURATE CREATININE CLEARANCE IN PREDICTING GLOMERULAR FILTRATION RATE . ESTIMATED GFR I S NOT APPLICABLE FOR DIALYSIS PATIEN TS. LACTIC ACID, ARTERIAL, WHOLE [id number] 05:19:00 Test Item Value Reference Range Interpretation Comments LACTATE BLOOD 8.6 mmol/L 0.5-2.2 H Specimen sligh tly ARTERIAL (2) (BEAKER) hemoly zed (test code = 2874) Effective 03/24/2016: Units/Reference Range ChangeNew: 0.5-2.2 mmol/L Previous: 5-20 mg/dLBLOOD GAS, [id number] 02:21:00 Test Item Value Reference Range Interpretation Comments PH ARTERIAL (BEAKER) (test code = 7.31 7.35-7.45 L 383) PCO2 ARTERIAL (BEAKER) (test code 36 mmHg 35-45 = 384) PO2 ARTERIAL (BEAKER) (test code 123 mmHg 80-90 H = 385) O2 SATURATION ARTERIAL (BEAKER) 98.2 % 96.0-97.0 H (test code = 386) HCO3 ARTERIAL (BEAKER) (test code 18 mmol/L 21-29 L = 388) BASE EXCESS ARTERIAL (BEAKER) -7.7 mmol/L -2.0-3.0 L (test code = 387) PATIENT TEMPERATURE (BEAKER) 36.8 C (test code = 1818) FIO2 (BEAKER) (test code = 1819) 40.0 % BLOOD GAS, [id number] 00:28:00 Test Item Value Reference Range Interpretation Comments PH ARTERIAL (BEAKER) (test code = 7.28 7.35-7.45 L 383) PCO2 ARTERIAL (BEAKER) (test code 35 mmHg 35-45 = 384) PO2 ARTERIAL (BEAKER) (test code 114 mmHg 80-90 H = 385) O2 SATURATION ARTERIAL (BEAKER) 97.8 % 96.0-97.0 H (test code = 386) HCO3 ARTERIAL (BEAKER) (test code 16 mmol/L 21-29 L = 388) BASE EXCESS ARTERIAL (BEAKER) -9.7 mmol/L -2.0-3.0 L (test code = 387) PATIENT TEMPERATURE (BEAKER) 36.7 C (test code = 1818) FIO2 (BEAKER) (test code = 1819) 40.0 % POTASSIUM-STAT [id number] 00:28:00 Test Item Value Reference Range Interpretation Comments POTASSIUM (BEAKER) (test code = 3.1 meq/L 3.6-5.5 L 379) GLUCOSE-STAT [id number] 00:28:00 Test Item Value Reference Range Interpretation Comments GLUCOSE RANDOM (BEAKER) (test code 236 mg/dL 70-110 H = 652) CALCIUM, [id number] 00:28:00 Test Item Value Reference Range Interpretation Comments CALCIUM IONIZED (BEAKER) (test 1.10 mmol/L 1.12-1.27 L code = 698) PH, BLOOD (BEAKER) (test code = 7.28 1810) SODIUM NA-STAT [id number] 00:27:00 Test Item Value Reference Range Interpretation Comments SODIUM (BEAKER) (test code = 381) 142 meq/L 135-148 HEMOGLOBIN-STAT [id number] 00:27:00 Test Item Value Reference Range Interpretation Comments HEMOGLOBIN (BEAKER) (test code = 15.1 g/dL 13.0-16.8 410) HGB/HCT (H&H) - STAT [id number] 00:27:00 Test Item Value Reference Range Interpretation Comments HEMOGLOBIN (BEAKER) (test code = 15.1 GM/DL 13.0-16.8 410) HEMATOCRIT (BEAKER) (test code = 44.0 % 40.0-50.0 411) [id number] 22:39:00 Test Item Value Reference Range Interpretation Comments MAGNESIUM (BEAKER) 2.2 mg/dL 1.6-2.6 Specimen slightly (test code = 627) hemolyzed BASIC METABOLIC [id number] 22:39:00 Test Item Value Reference Range Interpretation Comments SODIUM (BEAKER) 140 meq/L 136-145 (test code = 381) POTASSIUM (BEAKER) 4.0 meq/L 3.5-5.1 Specimen slightly (test code = 379) hemolyzed CHLORIDE (BEAKER) 110 meq/L 98-107 H (test code = 382) CO2 (BEAKER) (test 17 meq/L 22-29 L code = 355) BLOOD UREA NITROGEN 14 mg/dL 7-21 (BEAKER) (test code = 354) CREATININE (BEAKER) 1.09 mg/dL 0.57-1.25 Specimen slightly (test code = 358) hemolyzed GLUCOSE RANDOM 202 mg/dL 70-105 H (BEAKER) (test code = 652) CALCIUM (BEAKER) 8.8 mg/dL 8.4-10.2 (test code = 697) EGFR (BEAKER) (test 70 mL/min/1.73 ESTIMA NANNETTE GFR IS code = 1092) sq m NOT ACCURATE CREATININE CLEARANCE IN PREDICTING GLOMERULAR FILTRATION RATE . ESTIMATED GFR I S NOT APPLICABLE FOR DIALYSIS PATIEN TS. LACTIC ACID, ARTERIAL, WHOLE [id number] 22:36:00 Test Item Value Reference Range Interpretation Comments LACTATE BLOOD 5.5 mmol/L 0.5-2.2 H Specimen sligh tly ARTERIAL (2) (BEAKER) hemoly zed (test code = 2874) Effective 03/24/2016: Units/Reference Range ChangeNew: 0.5-2.2 mmol/L Previous: 5-20 mg/[id number] 22:32:00 Test Item Value Reference Range Interpretation Comments FIBRINOGEN LEVEL (BEAKER) (test 375 mg/dl 225-434 code = 658) [id number] 22:32:00 Test Item Value Reference Range Interpretation Comments PARTIAL THROMBOPLASTIN TIME 29.6 seconds 22.5-36.0 (BEAKER) (test code = 760) CBC W/PLT COUNT & AUTO [id number] 22:31:00 Test Item Value Reference Range Interpretation Comments WHITE BLOOD CELL COUNT (BEAKER) 20.7 K/ L 3.5-10.5 H (test code = 775) RED BLOOD CELL COUNT (BEAKER) 4.73 M/ L 4.63-6.08 (test code = 761) HEMOGLOBIN (BEAKER) (test code = 14.8 GM/DL 13.7-17.5 410) HEMATOCRIT (BEAKER) (test code = 44.4 % 40.1-51.0 411) MEAN CORPUSCULAR VOLUME (BEAKER) 93.9 fL 79.0-92.2 H (test code = 753) MEAN CORPUSCULAR HEMOGLOBIN 31.3 pg 25.7-32.2 (BEAKER) (test code = 751) MEAN CORPUSCULAR HEMOGLOBIN CONC 33.3 GM/DL 32.3-36.5 (BEAKER) (test code = 752) RED CELL DISTRIBUTION WIDTH 13.2 % 11.6-14.4 (BEAKER) (test code = 412) PLATELET COUNT (BEAKER) (test 147 K/CU MM 150-450 L code = 756) MEAN PLATELET VOLUME (BEAKER) 9.9 fL 9.4-12.4 (test code = 754) NUCLEATED RED BLOOD CELLS 0 /100 WBC 0-0 (BEAKER) (test code = 413) NEUTROPHILS RELATIVE PERCENT 82 % (BEAKER) (test code = 429) LYMPHOCYTES RELATIVE PERCENT 7 % (BEAKER) (test code = 430) MONOCYTES RELATIVE PERCENT 9 % (BEAKER) (test code = 431) EOSINOPHILS RELATIVE PERCENT 0 % (BEAKER) (test code = 432) BASOPHILS RELATIVE PERCENT 0 % (BEAKER) (test code = 437) NEUTROPHILS ABSOLUTE COUNT 17.02 K/ L 1.78-5.38 H (BEAKER) (test code = 670) LYMPHOCYTES ABSOLUTE COUNT 1.53 K/ L 1.32-3.57 (BEAKER) (test code = 414) MONOCYTES ABSOLUTE COUNT (BEAKER) 1.85 K/ L 0.30-0.82 H (test code = 415) EOSINOPHILS ABSOLUTE COUNT 0.03 K/ L 0.04-0.54 L (BEAKER) (test code = 416) BASOPHILS ABSOLUTE COUNT (BEAKER) 0.06 K/ L 0.01-0.08 (test code = 417) IMMATURE GRANULOCYTES-RELATIVE 1 % 0-1 PERCENT (BEAKER) (test code = 2801) PROTHROMBIN [id number] 22:31:00 Test Item Value Reference Range Interpretation Comments PROTIME (BEAKER) (test code = 17.4 seconds 11.7-14.7 H 759) INR (BEAKER) (test code = 370) 1.4 <=5.9 RECOMMENDED COUMADIN/WARFARIN INR THERAPY RANGESSTANDARD DOSE: 2.0 - 3.0 Includes: PROPHYLAXIS forvenous thrombosis, systemic embolization; TREATMENT for venous thrombosis and/or pulmonary embolus.HIGH RISK: Target INR is 2.5-3.5 for patients with mechanical heart valves.OXYGEN SATURATION, [id number] 22:26:00 Test Item Value Reference Range Interpretation Comments O2 SATURATION (MEASURED) (BEAKER) 78.3 % (test code = 1455) CALCIUM, [id number] 22:23:00 Test Item Value Reference Range Interpretation Comments CALCIUM IONIZED (BEAKER) (test 1.19 mmol/L 1.12-1.27 code = 698) PH, BLOOD (BEAKER) (test code = 7.26 1810) SODIUM NA-STAT [id number] 22:22:00 Test Item Value Reference Range Interpretation Comments SODIUM (BEAKER) (test code = 381) 139 meq/L 135-148 POTASSIUM-STAT [id number] 22:22:00 Test Item Value Reference Range Interpretation Comments POTASSIUM (BEAKER) (test code = 3.7 meq/L 3.6-5.5 379) HGB/HCT (H&H) - STAT [id number] 22:22:00 Test Item Value Reference Range Interpretation Comments HEMOGLOBIN (BEAKER) (test code = 15.7 g/dL 13.0-16.8 410) HEMATOCRIT (BEAKER) (test code = 46.0 % 40.0-50.0 411) BLOOD GAS, [id number] 22:22:00 Test Item Value Reference Range Interpretation Comments PH ARTERIAL (BEAKER) (test code = 7.26 7.35-7.45 L 383) PCO2 ARTERIAL (BEAKER) (test code 44 mmHg 35-45 = 384) PO2 ARTERIAL (BEAKER) (test code 102 mmHg 80-90 H = 385) O2 SATURATION ARTERIAL (BEAKER) 96.8 % 96.0-97.0 (test code = 386) HCO3 ARTERIAL (BEAKER) (test code 19 mmol/L 21-29 L = 388) BASE EXCESS ARTERIAL (BEAKER) -7.6 mmol/L -2.0-3.0 L (test code = 387) PATIENT TEMPERATURE (BEAKER) 36.9 C (test code = 1818) FIO2 (BEAKER) (test code = 1819) 60.0 % GLUCOSE-STAT [id number] 22:22:00 Test Item Value Reference Range Interpretation Comments GLUCOSE RANDOM (BEAKER) (test code 197 mg/dL 70-110 H = 652) RAD, CHEST, 1 VIEW, NON [id number] 21:48:00Reason for exam:->s/p atrial myexoma dissectionFINAL REPORT RAD, CHEST, 1 VIEW, NON DEPT INDICATION: s/p atrial myexoma dissection COMPARISON: March 23, 2020 FINDINGS: Portable frontal view of the chest. IMPRESSION: Support Lines: Right IJ Parachute- Daniella catheter terminates over the proximal right main [...] caliber.Additional findings: None. Signed: JR Valdez Robert [facility] Verified Date/Time: 03/24/2018 21:48:52 Reading Location[facility] B1 C013Y [facility] Body Reading Room [id number] 21:05:00 Test Item Value Reference Range Interpretation Comments ACTIVATED CLOTTING TIME 98 sec TEST ED AT [place] [address] ([facility]) (test code = [place] [address]) [id number] 21:05:00 Test Item Value Reference Range Interpretation Comments ACTIVATED CLOTTING TIME 494 sec TEST ED AT [place] [address] ([facility]) (test code = [place] 441) [id number] 21:05:00 Test Item Value Reference Range Interpretation Comments ACTIVATED CLOTTING TIME 510 sec TEST ED AT [place] [address] ([facility]) (test code = [place] 441) [id number] 21:05:00 Test Item Value Reference Range Interpretation Comments ACTIVATED CLOTTING TIME 527 sec TEST ED AT [place] [address] ([facility]) (test code = [place] 441) [id number] 21:05:00 Test Item Value Reference Range Interpretation Comments ACTIVATED CLOTTING TIME 527 sec TEST ED AT [place] [address] ([facility]) (test code = [place] 441) [id number] 21:05:00 Test Item Value Reference Range Interpretation Comments ACTIVATED CLOTTING TIME 417 sec TEST ED AT [place] [address] ([facility]) (test code = [place] 441) [id number] 21:05:00 Test Item Value Reference Range Interpretation Comments ACTIVATED CLOTTING TIME 428 sec TEST ED AT [place] [address] ([facility]) (test code = [place] 441) [id number] 21:05:00 Test Item Value Reference Range Interpretation Comments ACTIVATED CLOTTING TIME 389 sec TEST ED AT [place] [address] ([facility]) (test code = [place] 441) [id number] 21:05:00 Test Item Value Reference Range Interpretation Comments ACTIVATED CLOTTING TIME 351 sec TEST ED AT [place] [address] ([facility]) (test code = [place] 441) [id number] 21:05:00 Test Item Value Reference Range Interpretation Comments ACTIVATED CLOTTING TIME 103 sec TEST ED AT [facility] 6720 (BEAKER) (test code = [place] [address]) [address] BLOOD GAS, [id number] 19:37:00 Test Item Value Reference Range Interpretation Comments PH ARTERIAL (BEAKER) (test code = 7.36 7.35-7.45 383) PCO2 ARTERIAL (BEAKER) (test code 43 mmHg 35-45 = 384) PO2 ARTERIAL (BEAKER) (test code 363 mmHg 80-90 H = 385) O2 SATURATION ARTERIAL (BEAKER) 99.8 % 96.0-97.0 H (test code = 386) HCO3 ARTERIAL (BEAKER) (test code 24 mmol/L 21-29 = 388) BASE EXCESS ARTERIAL (BEAKER) -1.9 mmol/L -2.0-3.0 (test code = 387) PATIENT TEMPERATURE (BEAKER) 36.6 C (test code = 1818) FIO2 (BEAKER) (test code = 1819) 85.0 % GLUCOSE-STAT [id number] 19:37:00 Test Item Value Reference Range Interpretation Comments GLUCOSE RANDOM (BEAKER) (test code 177 mg/dL 70-110 H = 652) SODIUM NA-STAT [id number] 19:37:00 Test Item Value Reference Range Interpretation Comments SODIUM (BEAKER) (test code = 381) 133 meq/L 135-148 L POTASSIUM-STAT [id number] 19:36:00 Test Item Value Reference Range Interpretation Comments POTASSIUM (BEAKER) (test code = 5.3 meq/L 3.6-5.5 379) HGB/HCT (H&H) - STAT [id number] 19:36:00 Test Item Value Reference Range Interpretation Comments HEMOGLOBIN (BEAKER) (test code = 13.9 g/dL 13.0-16.8 410) HEMATOCRIT (BEAKER) (test code = 41.0 % 40.0-50.0 411) POTASSIUM-STAT [id number] 19:09:00 Test Item Value Reference Range Interpretation Comments POTASSIUM (BEAKER) (test code = 4.9 meq/L 3.6-5.5 379) BLOOD GAS, [id number] 19:09:00 Test Item Value Reference Range Interpretation Comments PH ARTERIAL (BEAKER) (test code = 7.41 7.35-7.45 383) PCO2 ARTERIAL (BEAKER) (test code 37 mmHg 35-45 = 384) PO2 ARTERIAL (BEAKER) (test code 353 mmHg 80-90 H = 385) O2 SATURATION ARTERIAL (BEAKER) 99.8 % 96.0-97.0 H (test code = 386) HCO3 ARTERIAL (BEAKER) (test code 23 mmol/L 21-29 = 388) BASE EXCESS ARTERIAL (BEAKER) -1.5 mmol/L -2.0-3.0 (test code = 387) PATIENT TEMPERATURE (BEAKER) 36.6 C (test code = 1818) FIO2 (BEAKER) (test code = 1819) 85.0 % GLUCOSE-STAT [id number] 19:09:00 Test Item Value Reference Range Interpretation Comments GLUCOSE RANDOM (BEAKER) (test code 141 mg/dL 70-110 H = 652) SODIUM NA-STAT [id number] 19:09:00 Test Item Value Reference Range Interpretation Comments SODIUM (BEAKER) (test code = 381) 132 meq/L 135-148 L HGB/HCT (H&H) - STAT [id number] 19:09:00 Test Item Value Reference Range Interpretation Comments HEMOGLOBIN (BEAKER) (test code = 13.3 g/dL 13.0-16.8 410) HEMATOCRIT (BEAKER) (test code = 39.0 % 40.0-50.0 L 411) POTASSIUM-STAT [id number] 18:39:00 Test Item Value Reference Range Interpretation Comments POTASSIUM (BEAKER) (test code = 4.1 meq/L 3.6-5.5 379) BLOOD GAS, [id number] 18:39:00 Test Item Value Reference Range Interpretation Comments PH ARTERIAL (BEAKER) (test code = 7.41 7.35-7.45 383) PCO2 ARTERIAL (BEAKER) (test code 37 mmHg 35-45 = 384) PO2 ARTERIAL (BEAKER) (test code 248 mmHg 80-90 H = 385) O2 SATURATION ARTERIAL (BEAKER) 99.6 % 96.0-97.0 H (test code = 386) HCO3 ARTERIAL (BEAKER) (test code 23 mmol/L 21-29 = 388) BASE EXCESS ARTERIAL (BEAKER) -1.6 mmol/L -2.0-3.0 (test code = 387) PATIENT TEMPERATURE (BEAKER) 35.2 C (test code = 1818) FIO2 (BEAKER) (test code = 1819) 80.0 % GLUCOSE-STAT [id number] 18:39:00 Test Item Value Reference Range Interpretation Comments GLUCOSE RANDOM (BEAKER) (test code 120 mg/dL 70-110 H = 652) SODIUM NA-STAT [id number] 18:39:00 Test Item Value Reference Range Interpretation Comments SODIUM (BEAKER) (test code = 381) 132 meq/L 135-148 L HGB/HCT (H&H) - STAT [id number] 18:39:00 Test Item Value Reference Range Interpretation Comments HEMOGLOBIN (BEAKER) (test code = 12.5 g/dL 13.0-16.8 L 410) HEMATOCRIT (BEAKER) (test code = 37.0 % 40.0-50.0 L 411) CALCIUM, [id number] 17:24:00 Test Item Value Reference Range Interpretation Comments CALCIUM IONIZED (BEAKER) (test 1.15 mmol/L 1.12-1.27 code = 698) PH, BLOOD (BEAKER) (test code = 7.38 1810) BLOOD GAS, [id number] 17:24:00 Test Item Value Reference Range Interpretation Comments PH ARTERIAL (BEAKER) (test code = 7.39 7.35-7.45 383) PCO2 ARTERIAL (BEAKER) (test code 41 mmHg 35-45 = 384) PO2 ARTERIAL (BEAKER) (test code 447 mmHg 80-90 H = 385) O2 SATURATION ARTERIAL (BEAKER) 99.8 % 96.0-97.0 H (test code = 386) HCO3 ARTERIAL (BEAKER) (test code 25 mmol/L 21-29 = 388) BASE EXCESS ARTERIAL (BEAKER) -0.5 mmol/L -2.0-3.0 (test code = 387) PATIENT TEMPERATURE (BEAKER) 36.0 C (test code = 1818) FIO2 (BEAKER) (test code = 1819) 100.0 % GLUCOSE-STAT [id number] 17:23:00 Test Item Value Reference Range Interpretation Comments GLUCOSE RANDOM (BEAKER) (test code = 95 mg/dL 70-110 652) SODIUM NA-STAT [id number] 17:23:00 Test Item Value Reference Range Interpretation Comments SODIUM (BEAKER) (test code = 381) 136 meq/L 135-148 POTASSIUM-STAT [id number] 17:23:00 Test Item Value Reference Range Interpretation Comments POTASSIUM (BEAKER) (test code = 3.7 meq/L 3.6-5.5 379) HGB/HCT (H&H) - STAT [id number] 17:23:00 Test Item Value Reference Range Interpretation Comments HEMOGLOBIN (BEAKER) (test code = 15.6 g/dL 13.0-16.8 410) HEMATOCRIT (BEAKER) (test code = 46.0 % 40.0-50.0 411) [id number] 11:57:00 Test Item Value Reference Range Interpretation Comments PARTIAL THROMBOPLASTIN TIME 44.2 seconds 22.5-36.0 H (BEAKER) (test code = 760) BASIC METABOLIC [id number] 06:20:00 Test Item Value Reference Range Interpretation Comments SODIUM (BEAKER) 139 meq/L 136-145 (test code = 381) POTASSIUM (BEAKER) 4.2 meq/L 3.5-5.1 (test code = 379) CHLORIDE (BEAKER) 108 meq/L 98-107 H (test code = 382) CO2 (BEAKER) (test 23 meq/L 22-29 code = 355) BLOOD UREA NITROGEN 13 mg/dL 7-21 (BEAKER) (test code = 354) CREATININE (BEAKER) 0.84 mg/dL 0.57-1.25 (test code = 358) GLUCOSE RANDOM 97 mg/dL 70-105 (BEAKER) (test code = 652) CALCIUM (BEAKER) 9.5 mg/dL 8.4-10.2 (test code = 697) EGFR (BEAKER) (test 94 mL/min/1.73 ESTIMA NANNETTE GFR IS code = 1092) sq m NOT ACCURATE CREATININE CLEARANCE IN PREDICTING GLOMERULAR FILTRATION RATE . ESTIMATED GFR I S NOT APPLICABLE FOR DIALYSIS PATIEN TS. [id number] 05:44:00 Test Item Value Reference Range Interpretation Comments PARTIAL THROMBOPLASTIN TIME 34.0 seconds 22.5-36.0 (BEAKER) (test code = 760) CBC W/PLT COUNT & AUTO [id number] 05:33:00 Test Item Value Reference Range Interpretation Comments WHITE BLOOD CELL COUNT (BEAKER) 5.7 K/ L 3.5-10.5 (test code = 775) RED BLOOD CELL COUNT (BEAKER) 5.07 M/ L 4.63-6.08 (test code = 761) HEMOGLOBIN (BEAKER) (test code = 15.7 GM/DL 13.7-17.5 410) HEMATOCRIT (BEAKER) (test code = 47.2 % 40.1-51.0 411) MEAN CORPUSCULAR VOLUME (BEAKER) 93.1 fL 79.0-92.2 H (test code = 753) MEAN CORPUSCULAR HEMOGLOBIN 31.0 pg 25.7-32.2 (BEAKER) (test code = 751) MEAN CORPUSCULAR HEMOGLOBIN CONC 33.3 GM/DL 32.3-36.5 (BEAKER) (test code = 752) RED CELL DISTRIBUTION WIDTH 13.3 % 11.6-14.4 (BEAKER) (test code = 412) PLATELET COUNT (BEAKER) (test 196 K/CU MM 150-450 code = 756) MEAN PLATELET VOLUME (BEAKER) 10.0 fL 9.4-12.4 (test code = 754) NUCLEATED RED BLOOD CELLS 0 /100 WBC 0-0 (BEAKER) (test code = 413) NEUTROPHILS RELATIVE PERCENT 60 % (BEAKER) (test code = 429) LYMPHOCYTES RELATIVE PERCENT 26 % (BEAKER) (test code = 430) MONOCYTES RELATIVE PERCENT 11 % (BEAKER) (test code = 431) EOSINOPHILS RELATIVE PERCENT 2 % (BEAKER) (test code = 432) BASOPHILS RELATIVE PERCENT 1 % (BEAKER) (test code = 437) NEUTROPHILS ABSOLUTE COUNT 3.41 K/ L 1.78-5.38 (BEAKER) (test code = 670) LYMPHOCYTES ABSOLUTE COUNT 1.51 K/ L 1.32-3.57 (BEAKER) (test code = 414) MONOCYTES ABSOLUTE COUNT (BEAKER) 0.63 K/ L 0.30-0.82 (test code = 415) EOSINOPHILS ABSOLUTE COUNT 0.12 K/ L 0.04-0.54 (BEAKER) (test code = 416) BASOPHILS ABSOLUTE COUNT (BEAKER) 0.04 K/ L 0.01-0.08 (test code = 417) IMMATURE GRANULOCYTES-RELATIVE 0 % 0-1 PERCENT (BEAKER) (test code = 2801) [id number] 22:16:00 Test Item Value Reference Range Interpretation Comments PARTIAL THROMBOPLASTIN TIME 32.2 seconds 22.5-36.0 (BEAKER) (test code = 760) [id number] 15:17:00 Test Item Value Reference Range Interpretation Comments PARTIAL THROMBOPLASTIN TIME 26.8 seconds 22.5-36.0 (BEAKER) (test code = 760) Prior to initiating heparinRAD, CHEST, 2 [id number] 14:45:00Reason for exam:->cough for 3 weeksFINAL REPORT Two lateral and one frontal chest images Discussion: Lungs clear. Heart size normal. No effusion or pneumothorax. Bones and soft tissues unremarkable. Signed: Jeanmarie Farmereport Verified Date/Time: 03/23/2018 14:45:35 Reading Location: [address] Consult Reading Room [facility] METABOLIC [id number] 06:41:00 Test Item Value Reference Range Interpretation Comments SODIUM (BEAKER) 138 meq/L 136-145 (test code = 381) POTASSIUM (BEAKER) 4.4 meq/L 3.5-5.1 (test code = 379) CHLORIDE (BEAKER) 108 meq/L 98-107 H (test code = 382) CO2 (BEAKER) (test 23 meq/L 22-29 code = 355) BLOOD UREA NITROGEN 16 mg/dL 7-21 (BEAKER) (test code = 354) CREATININE (BEAKER) 0.88 mg/dL 0.57-1.25 (test code = 358) GLUCOSE RANDOM 87 mg/dL 70-105 (BEAKER) (test code = 652) CALCIUM (BEAKER) 9.5 mg/dL 8.4-10.2 (test code = 697) EGFR (BEAKER) (test 89 mL/min/1.73 ESTIMA NANNETTE GFR IS code = 1092) sq m NOT ACCURATE CREATININE CLEARANCE IN PREDICTING GLOMERULAR FILTRATION RATE . ESTIMATED GFR I S NOT APPLICABLE FOR DIALYSIS PATIEN TS. CBC W/PLT COUNT & AUTO [id number] 04:56:00 Test Item Value Reference Range Interpretation Comments WHITE BLOOD CELL COUNT (BEAKER) 7.0 K/ L 3.5-10.5 (test code = 775) RED BLOOD CELL COUNT (BEAKER) 5.13 M/ L 4.63-6.08 (test code = 761) HEMOGLOBIN (BEAKER) (test code = 16.1 GM/DL 13.7-17.5 410) HEMATOCRIT (BEAKER) (test code = 47.8 % 40.1-51.0 411) MEAN CORPUSCULAR VOLUME (BEAKER) 93.2 fL 79.0-92.2 H (test code = 753) MEAN CORPUSCULAR HEMOGLOBIN 31.4 pg 25.7-32.2 (BEAKER) (test code = 751) MEAN CORPUSCULAR HEMOGLOBIN CONC 33.7 GM/DL 32.3-36.5 (BEAKER) (test code = 752) RED CELL DISTRIBUTION WIDTH 13.2 % 11.6-14.4 (BEAKER) (test code = 412) PLATELET COUNT (BEAKER) (test 237 K/CU MM 150-450 code = 756) MEAN PLATELET VOLUME (BEAKER) 11.0 fL 9.4-12.4 (test code = 754) NUCLEATED RED BLOOD CELLS 0 /100 WBC 0-0 (BEAKER) (test code = 413) NEUTROPHILS RELATIVE PERCENT 68 % (BEAKER) (test code = 429) LYMPHOCYTES RELATIVE PERCENT 19 % (BEAKER) (test code = 430) MONOCYTES RELATIVE PERCENT 10 % (BEAKER) (test code = 431) EOSINOPHILS RELATIVE PERCENT 2 % (BEAKER) (test code = 432) BASOPHILS RELATIVE PERCENT 1 % (BEAKER) (test code = 437) NEUTROPHILS ABSOLUTE COUNT 4.72 K/ L 1.78-5.38 (BEAKER) (test code = 670) LYMPHOCYTES ABSOLUTE COUNT 1.35 K/ L 1.32-3.57 (BEAKER) (test code = 414) MONOCYTES ABSOLUTE COUNT (BEAKER) 0.73 K/ L 0.30-0.82 (test code = 415) EOSINOPHILS ABSOLUTE COUNT 0.12 K/ L 0.04-0.54 (BEAKER) (test code = 416) BASOPHILS ABSOLUTE COUNT (BEAKER) 0.04 K/ L 0.01-0.08 (test code = 417) IMMATURE GRANULOCYTES-RELATIVE 0 % 0-1 PERCENT (BEAKER) (test code = 2801) [id number] 06:11:00 Test Item Value Reference Range Interpretation Comments MAGNESIUM (BEAKER) (test code = 1.9 mg/dL 1.6-2.6 627) BASIC METABOLIC [id number] 06:11:00 Test Item Value Reference Range Interpretation Comments SODIUM (BEAKER) 138 meq/L 136-145 (test code = 381) POTASSIUM (BEAKER) 4.1 meq/L 3.5-5.1 (test code = 379) CHLORIDE (BEAKER) 106 meq/L 98-107 (test code = 382) CO2 (BEAKER) (test 22 meq/L 22-29 code = 355) BLOOD UREA NITROGEN 13 mg/dL 7-21 (BEAKER) (test code = 354) CREATININE (BEAKER) 0.80 mg/dL 0.57-1.25 (test code = 358) GLUCOSE RANDOM 91 mg/dL 70-105 (BEAKER) (test code = 652) CALCIUM (BEAKER) 9.6 mg/dL 8.4-10.2 (test code = 697) EGFR (BEAKER) (test 100 mL/min/1.73 ESTIM ATED GFR IS code = 1092) sq m NOT ACCURATE CREATININE CLEARANCE IN PREDICTING GLOMERULAR FILTRATION RATE . ESTIMATED GFR I S NOT APPLICABLE FOR DIALYSIS PATIEN TS. CBC W/PLT COUNT & AUTO [id number] 05:49:00 Test Item Value Reference Range Interpretation Comments WHITE BLOOD CELL COUNT (BEAKER) 5.7 K/ L 3.5-10.5 (test code = 775) RED BLOOD CELL COUNT (BEAKER) 5.31 M/ L 4.63-6.08 (test code = 761) HEMOGLOBIN (BEAKER) (test code = 16.3 GM/DL 13.7-17.5 410) HEMATOCRIT (BEAKER) (test code = 48.0 % 40.1-51.0 411) MEAN CORPUSCULAR VOLUME (BEAKER) 90.4 fL 79.0-92.2 (test code = 753) MEAN CORPUSCULAR HEMOGLOBIN 30.7 pg 25.7-32.2 (BEAKER) (test code = 751) MEAN CORPUSCULAR HEMOGLOBIN CONC 34.0 GM/DL 32.3-36.5 (BEAKER) (test code = 752) RED CELL DISTRIBUTION WIDTH 13.2 % 11.6-14.4 (BEAKER) (test code = 412) PLATELET COUNT (BEAKER) (test 198 K/CU MM 150-450 code = 756) MEAN PLATELET VOLUME (BEAKER) 9.7 fL 9.4-12.4 (test code = 754) NUCLEATED RED BLOOD CELLS 0 /100 WBC 0-0 (BEAKER) (test code = 413) NEUTROPHILS RELATIVE PERCENT 60 % (BEAKER) (test code = 429) LYMPHOCYTES RELATIVE PERCENT 25 % (BEAKER) (test code = 430) MONOCYTES RELATIVE PERCENT 11 % (BEAKER) (test code = 431) EOSINOPHILS RELATIVE PERCENT 4 % (BEAKER) (test code = 432) BASOPHILS RELATIVE PERCENT 1 % (BEAKER) (test code = 437) NEUTROPHILS ABSOLUTE COUNT 3.42 K/ L 1.78-5.38 (BEAKER) (test code = 670) LYMPHOCYTES ABSOLUTE COUNT 1.40 K/ L 1.32-3.57 (BEAKER) (test code = 414) MONOCYTES ABSOLUTE COUNT (BEAKER) 0.60 K/ L 0.30-0.82 (test code = 415) EOSINOPHILS ABSOLUTE COUNT 0.21 K/ L 0.04-0.54 (BEAKER) (test code = 416) BASOPHILS ABSOLUTE COUNT (BEAKER) 0.06 K/ L 0.01-0.08 (test code = 417) IMMATURE GRANULOCYTES-RELATIVE 0 % 0-1 PERCENT (BEAKER) (test code = 2801) BASIC METABOLIC [id number] 04:57:00 Test Item Value Reference Range Interpretation Comments SODIUM (BEAKER) 140 meq/L 136-145 (test code = 381) POTASSIUM (BEAKER) 4.1 meq/L 3.5-5.1 (test code = 379) CHLORIDE (BEAKER) 109 meq/L 98-107 H (test code = 382) CO2 (BEAKER) (test 24 meq/L 22-29 code = 355) BLOOD UREA NITROGEN 14 mg/dL 7-21 (BEAKER) (test code = 354) CREATININE (BEAKER) 0.81 mg/dL 0.57-1.25 (test code = 358) GLUCOSE RANDOM 100 mg/dL 70-105 (BEAKER) (test code = 652) CALCIUM (BEAKER) 9.4 mg/dL 8.4-10.2 (test code = 697) EGFR (BEAKER) (test 98 mL/min/1.73 ESTIMA NANNETTE GFR IS code = 1092) sq m NOT ACCURATE CREATININE CLEARANCE IN PREDICTING GLOMERULAR FILTRATION RATE . ESTIMATED GFR I S NOT APPLICABLE FOR DIALYSIS PATIEN TS. CBC W/PLT COUNT & AUTO [id number] 04:42:00 Test Item Value Reference Range Interpretation Comments WHITE BLOOD CELL COUNT (BEAKER) 5.9 K/ L 3.5-10.5 (test code = 775) RED BLOOD CELL COUNT (BEAKER) 5.02 M/ L 4.63-6.08 (test code = 761) HEMOGLOBIN (BEAKER) (test code = 15.6 GM/DL 13.7-17.5 410) HEMATOCRIT (BEAKER) (test code = 45.3 % 40.1-51.0 411) MEAN CORPUSCULAR VOLUME (BEAKER) 90.2 fL 79.0-92.2 (test code = 753) MEAN CORPUSCULAR HEMOGLOBIN 31.1 pg 25.7-32.2 (BEAKER) (test code = 751) MEAN CORPUSCULAR HEMOGLOBIN CONC 34.4 GM/DL 32.3-36.5 (BEAKER) (test code = 752) RED CELL DISTRIBUTION WIDTH 13.2 % 11.6-14.4 (BEAKER) (test code = 412) PLATELET COUNT (BEAKER) (test 202 K/CU MM 150-450 code = 756) MEAN PLATELET VOLUME (BEAKER) 9.6 fL 9.4-12.4 (test code = 754) NUCLEATED RED BLOOD CELLS 0 /100 WBC 0-0 (BEAKER) (test code = 413) NEUTROPHILS RELATIVE PERCENT 62 % (BEAKER) (test code = 429) LYMPHOCYTES RELATIVE PERCENT 25 % (BEAKER) (test code = 430) MONOCYTES RELATIVE PERCENT 10 % (BEAKER) (test code = 431) EOSINOPHILS RELATIVE PERCENT 2 % (BEAKER) (test code = 432) BASOPHILS RELATIVE PERCENT 1 % (BEAKER) (test code = 437) NEUTROPHILS ABSOLUTE COUNT 3.65 K/ L 1.78-5.38 (BEAKER) (test code = 670) LYMPHOCYTES ABSOLUTE COUNT 1.49 K/ L 1.32-3.57 (BEAKER) (test code = 414) MONOCYTES ABSOLUTE COUNT (BEAKER) 0.56 K/ L 0.30-0.82 (test code = 415) EOSINOPHILS ABSOLUTE COUNT 0.14 K/ L 0.04-0.54 (BEAKER) (test code = 416) BASOPHILS ABSOLUTE COUNT (BEAKER) 0.05 K/ L 0.01-0.08 (test code = 417) IMMATURE GRANULOCYTES-RELATIVE 0 % 0-1 PERCENT (BEAKER) (test code = 2801) BASIC METABOLIC [id number] 06:01:00 Test Item Value Reference Range Interpretation Comments SODIUM (BEAKER) 140 meq/L 136-145 (test code = 381) POTASSIUM (BEAKER) 3.8 meq/L 3.5-5.1 Specimen slightly (test code = 379) hemolyzed CHLORIDE (BEAKER) 108 meq/L 98-107 H (test code = 382) CO2 (BEAKER) (test 23 meq/L 22-29 code = 355) BLOOD UREA NITROGEN 14 mg/dL 7-21 (BEAKER) (test code = 354) CREATININE (BEAKER) 0.87 mg/dL 0.57-1.25 Specimen slightly (test code = 358) hemolyzed GLUCOSE RANDOM 91 mg/dL 70-105 (BEAKER) (test code = 652) CALCIUM (BEAKER) 9.2 mg/dL 8.4-10.2 (test code = 697) EGFR (BEAKER) (test 90 mL/min/1.73 ESTIMA NANNETTE GFR IS code = 1092) sq m NOT ACCURATE CREATININE CLEARANCE IN PREDICTING GLOMERULAR FILTRATION RATE . ESTIMATED GFR I S NOT APPLICABLE FOR DIALYSIS PATIEN TS. HEMOGLOBIN [id number] 08:04:00 Test Item Value Reference Range Interpretation Comments HEMOGLOBIN A1C (BEAKER) (test code = 5.1 % 4.3-6.1 368) [id number] 07:27:00 Test Item Value Reference Range Interpretation Comments MAGNESIUM (BEAKER) (test code = 1.9 mg/dL 1.6-2.6 627) BASIC METABOLIC [id number] 07:27:00 Test Item Value Reference Range Interpretation Comments SODIUM (BEAKER) 139 meq/L 136-145 (test code = 381) POTASSIUM (BEAKER) 4.1 meq/L 3.5-5.1 (test code = 379) CHLORIDE (BEAKER) 108 meq/L 98-107 H (test code = 382) CO2 (BEAKER) (test 22 meq/L 22-29 code = 355) BLOOD UREA NITROGEN 12 mg/dL 7-21 (BEAKER) (test code = 354) CREATININE (BEAKER) 0.88 mg/dL 0.57-1.25 (test code = 358) GLUCOSE RANDOM 94 mg/dL 70-105 (BEAKER) (test code = 652) CALCIUM (BEAKER) 9.4 mg/dL 8.4-10.2 (test code = 697) EGFR (BEAKER) (test 89 mL/min/1.73 ESTIMA NANNETTE GFR IS code = 1092) sq m NOT ACCURATE CREATININE CLEARANCE IN PREDICTING GLOMERULAR FILTRATION RATE . ESTIMATED GFR I S NOT APPLICABLE FOR DIALYSIS PATIEN TS. Specimen slightly ictericLIPID [id number] 07:27:00 Test Item Value Reference Range Interpretation Comments TRIGLYCERIDES (BEAKER) (test code = 106 mg/dL 540) CHOLESTEROL (BEAKER) (test code = 220 mg/dL 631) HDL CHOLESTEROL (BEAKER) (test code 37 mg/dL = 976) LDL CHOLESTEROL CALCULATED (BEAKER) 162 mg/dL (test code = 633) Triglyceride Reference Range: Low Risk <150 Borderline 150-199 High Risk 200-499 Very High Risk >=500Cholesterol Reference Range: Low Risk <200 Borderline 200-239 High Risk >240HDL Cholesterol Reference Range: Low Risk >=60 High Risk <40LDL Cholesterol Reference Range: Optimal <100 Near Optimal 100-129 Borderline 130-159 High 160-189 Very High >=190 Specimen slightly ictericTSH/FREE T4 IF [id number] 07:07:00 Test Item Value Reference Range Interpretation Comments THYROID STIMULATING HORMONE 1.46 uIU/mL 0.35-4.94 (BEAKER) (test code = 772) TROPONIN [id number] 07:05:00 Test Item Value Reference Range Interpretation Comments TROPONIN I (BEAKER) (test code = 0.01 ng/mL 0.00-0.03 397) Troponin I (TnI) levels must be interpreted [...] acidosis, acute neurological disease, and persistent tachyarrhythmia.PROTHROMBIN [id number] 06:28:00 Test Item Value Reference Range Interpretation Comments PROTIME (BEAKER) (test code = 16.7 seconds 11.7-14.7 H 759) INR (BEAKER) (test code = 370) 1.4 <=5.9 RECOMMENDED COUMADIN/WARFARIN INR THERAPY RANGESSTANDARD DOSE: 2.0 - 3.0 Includes: PROPHYLAXIS forvenous thrombosis, systemic embolization; TREATMENT for venous thrombosis and/or pulmonary embolus.HIGH RISK: Target INR is 2.5-3.5 for patients with mechanical heart valves.[id number] 06:28:00 Test Item Value Reference Range Interpretation Comments PROTIME (BEAKER) (test code = 16.7 seconds 11.7-14.7 H 759) INR (BEAKER) (test code = 370) 1.4 <=5.9 PARTIAL THROMBOPLASTIN TIME 31.7 seconds 22.5-36.0 (BEAKER) (test code = 760) RECOMMENDED COUMADIN/WARFARIN INR THERAPY RANGESSTANDARD DOSE: 2.0 - 3.0 Includes: PROPHYLAXIS forvenous thrombosis, systemic embolization; TREATMENT for venous thrombosis and/or pulmonary embolus.HIGH RISK: Target INR is 2.5-3.5 for patients with mechanical heart valves.CBC W/PLT COUNT & AUTO DIFFERENTIAL 2018-03-18 06:18:00 Test Item Value Reference Range Interpretation Comments WHITE BLOOD CELL COUNT (BEAKER) 6.7 K/ L 3.5-10.5 (test code = 775) RED BLOOD CELL COUNT (BEAKER) 4.86 M/ L 4.63-6.08 (test code = 761) HEMOGLOBIN (BEAKER) (test code = 15.4 GM/DL 13.7-17.5 410) HEMATOCRIT (BEAKER) (test code = 44.9 % 40.1-51.0 411) MEAN CORPUSCULAR VOLUME (BEAKER) 92.4 fL 79.0-92.2 H (test code = 753) MEAN CORPUSCULAR HEMOGLOBIN 31.7 pg 25.7-32.2 (BEAKER) (test code = 751) MEAN CORPUSCULAR HEMOGLOBIN CONC 34.3 GM/DL 32.3-36.5 (BEAKER) (test code = 752) RED CELL DISTRIBUTION WIDTH 13.2 % 11.6-14.4 (BEAKER) (test code = 412) PLATELET COUNT (BEAKER) (test 192 K/CU MM 150-450 code = 756) MEAN PLATELET VOLUME (BEAKER) 10.0 fL 9.4-12.4 (test code = 754) NUCLEATED RED BLOOD CELLS 0 /100 WBC 0-0 (BEAKER) (test code = 413) NEUTROPHILS RELATIVE PERCENT 67 % (BEAKER) (test code = 429) LYMPHOCYTES RELATIVE PERCENT 21 % (BEAKER) (test code = 430) MONOCYTES RELATIVE PERCENT 9 % (BEAKER) (test code = 431) EOSINOPHILS RELATIVE PERCENT 3 % (BEAKER) (test code = 432) BASOPHILS RELATIVE PERCENT 0 % (BEAKER) (test code = 437) NEUTROPHILS ABSOLUTE COUNT 4.49 K/ L 1.78-5.38 (BEAKER) (test code = 670) LYMPHOCYTES ABSOLUTE COUNT 1.38 K/ L 1.32-3.57 (BEAKER) (test code = 414) MONOCYTES ABSOLUTE COUNT (BEAKER) 0.62 K/ L 0.30-0.82 (test code = 415) EOSINOPHILS ABSOLUTE COUNT 0.17 K/ L 0.04-0.54 (BEAKER) (test code = 416) BASOPHILS ABSOLUTE COUNT (BEAKER) 0.03 K/ L 0.01-0.08 (test code = 417) IMMATURE GRANULOCYTES-RELATIVE 0 % 0-1 PERCENT (BEAKER) (test code = 2801)
[2020-12-20 00:14] LABS: Absolute Lymphocytes (CBC) 0.7 K/uL (0.7-4.9); Basophils % 0.2 % (0-1.3); Hematocrit 49.8 % (39.6-49.0); Lymphocytes % 6.8 % (15.3-44.8); MPV 8.7 fL (7.6-11.3); Protime INR 0.97; RBC Red Blood Cell Count 5.35 M/uL (4.33-5.43)
[2020-12-20] MEDS ORDERED: ONDANSETRON 4 MG/2 ML VIAL ONE ×2 (00:24→04:33)
[2020-12-20] MEDS ORDERED: CIPROFLOXACIN 400mg IV 400 MG/200 ML BAG IV ONE (00:24)
[2020-12-20] MEDS ORDERED: NA CHLORIDE 0.9% 1,000 ML ONE ×2 (00:24→03:17)
[2020-12-20] MEDS ORDERED: METRONIDAZOLE 500mg IVPB 500 MG/100 ML BAG IV ONE (00:24)
[2020-12-20 00:29] LABS: ALT/SGPT 46 U/L (12-78); AST/SGOT 21 U/L (15-37); Alkaline Phosphatase 91 U/L (45-117); BUN Blood Urea Nitrogen 19 mg/dL (7-18); Bicarbonate 28 mmol/L (21-32); Bilirubin Direct 0.4 mg/dL (0-0.2); Bilirubin Total 1.8 mg/dL (0.2-1.0); Glucose Level 113 mg/dL (74-106); Lipase 101 U/L (73-393); NT PRO-BNP 75 pg/mL (<125); Potassium 3.7 mmol/L (3.5-5.1); Protein, Total 7.8 g/dL (6.4-8.2); Sodium Level 139 mmol/L (136-145); Troponin (Emerg Dept Use Only) < 0.02 ng/mL (0.0-0.045)
--- NOTE | 2020-12-20 02:10 | ER ---
Nurse's Notes [facility] Name: Buzz Jurado Age: 60 yrs Sex: Male : 1960 Arrival Date: 12/19/2020 Time: 23:05 Bed 7 Private MD: Diagnosis: Other intestinal obstruction-SMALL BOWEL OBSTRUCTION;Nausea and vomiting Presentation: 12/19 23:28 Chief complaint: Patient states: ABD pain that began about 1300 today. [place] slight vg1 numbness in left arm, but that has subsided since then. Coronavirus screen: Client denies travel out of the [place] in the last 14 days. Ebola Screen: Patient negative for fever greater than or equal to 101.5 degrees Fahrenheit, and additional compatible Ebola Virus Disease symptoms. Initial Sepsis Screen: Does the patient meet any 2 criteria? No. Patient's initial sepsis screen is negative. Does the patient have a suspected source of infection? No. Patient's initial sepsis screen is negative. Risk Assessment: Do you want to hurt yourself or someone else? Patient reports no desire to harm self or others. Onset of symptoms was December 19, 2020. 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 - Social history:: Smoking status: Patient denies any tobacco usage or history of. Screenin:38 Abuse screen: Denies threats or abuse. Nutritional screening: No deficits noted. vg1 Tuberculosis screening: No symptoms or risk factors identified. Fall Risk No fall in past 12 months (0 pts). No secondary diagnosis (0 pts). IV access (20 points). Ambulatory Aid- None/Bed Rest/Nurse Assist (0 pts). Gait- Normal/Bed Rest/Wheelchair (0 pts) Mental Status- Oriented to own ability (0 pts). Total Bain Fall Scale indicates No Risk (0-24 pts). Assessment: 23:36 General: Appears in no apparent distress. comfortable, Behavior is calm, cooperative. vg1 Pain: Complains of pain in umbilical area Pain currently is 3 out of 10 on a pain scale. Neuro: Level of Consciousness is awake, alert, obeys commands, Oriented to person, place, time, situation. Cardiovascular: Patient's skin is warm and dry. Respiratory: Airway is patent Respiratory effort is even, unlabored, Respiratory pattern is regular, symmetrical. GI: Abdomen is flat, non-distended, Abd is soft and non tender X 4 quads. Reports nausea, vomiting, Stated BM today was soft and christine colored. : No signs and/or symptoms were reported regarding the genitourinary system. EENT: No signs and/or symptoms were reported regarding the EENT system. Derm: Skin is intact, is healthy with good turgor. Musculoskeletal: Circulation, motion, and sensation intact. 12/20 00:04 Reassessment: Patient is actively vomiiting. vg1 00:50 Reassessment: Patient and/or family updated on plan of care and expected duration. Pain ll2 level reassessed. Patient is alert, oriented x 3, equal unlabored respirations, skin warm/dry/pink. pt denies nausea at this time. 01:50 Reassessment: Patient and/or family updated on plan of care and expected duration. Pain ll2 level reassessed. Patient is alert, oriented x 3, equal unlabored respirations, skin warm/dry/pink. Vital Signs: 12/19 23:28 BP 121 / 88; Pulse 60; Resp 14; Temp 97.9; Pulse Ox 98% on R/A; Weight 104.33 kg; vg1 Height 6 ft. 4 in. (193.04 cm); Pain 3/10; 23:28 Body Mass Index 28.00 (104.33 kg, 193.04 cm) vg1 ED Course: 23:05 Patient arrived in ED. cf2 23:16 Dell Mejia MD is Attending Physician. cleve 23:28 Sowmya Black RN is Primary Nurse. vg1 23:29 Triage completed. vg1 23:39 Arm band placed on. vg1 23:39 Patient has correct armband on for positive identification. Bed in low position. Call vg1 light in reach. 23:55 XRAY Chest (1 view) In Process Unspecified. EDMS 23:58 Initial lab(s) drawn, by me, sent to lab. Inserted saline lock: 20 gauge in right jp3 wrist, using aseptic technique. Blood collected. Patient maintains SpO2 saturation greater than 95% on room air. 12/20 00:01 Verbal reassurance given. alarm security or surveillance monitor on. Pulse ox on. NIBP on. jp3 00:41 Report given to Nyasia JEAN. vg1 01:43 CT Abd/Pelvis - PO and IV Contrast In Process Unspecified. EDMS 02:08 Darshan Main is Hospitalizing Provider. cleve 02:41 Urine Culture Sent. ll2 03:02 Primary Nurse role handed off by Sowmya Black, TED mw2 03:20 Nyasia Farr, TED is Primary Nurse. ll2 Administered Medications: 00:23 Drug: NS 0.9% 1000 ml Route: IV; Rate: 1 bolus; Site: right wrist; dm5 01:00 Follow up: Response: No adverse reaction; IV Status: Completed infusion; IV Intake: ll2 1000ml 00:24 Drug: Flagyl 500 mg Volume: 100 ml; Route: IVPB; Rate: 200 ml/hr; Infused Over: 30 dm5 mins; Site: right wrist; 01:30 Follow up: Response: No adverse reaction; IV Status: Completed infusion; IV Intake: ll2 100ml 00:24 Drug: Zofran (Ondansetron) 4 mg Route: IVP; Site: right wrist; dm5 01:20 Follow up: Response: No adverse reaction ll2 00:45 Drug: Cipro 400 mg Volume: 200 ml; Route: IVPB; Infused Over: 60 mins; Site: right ll2 antecubital; 01:35 Follow up: Response: No adverse reaction; IV Status: Completed infusion; IV Intake: ll2 200ml 03:20 Drug: NS 0.9% 1000 ml Route: IV; Rate: 125 ml/hr; Site: right forearm; ll2 Outcome: 02:09 Decision to Hospitalize by Provider. cleve 06:48 Patient left the ED. ll2 07:39 Patient left the ED. sv Signatures: Dispatcher [employer] EDMS Markwardt, Daily, RN RN dm5 Camelia Jenkins, RN RN Dell Mcdonald MD MD cha Westbrook, Jesus Alberto 2 David Romo jp3 Alverto Serrano 2 Nyasia Farr, RN RN ll2 Sowmya Black, RN RN vg1
--- NOTE | 2020-12-20 02:11 | EDPHYS ---
Physician Documentation [facility] Name: Buzz Jurado Age: 60 yrs Sex: Male : 1960 Arrival Date: 12/19/2020 Time: 23:05 Bed 7 Private MD: WALDO Physician Dell Mejia HPI: 12/19 23:40 This 60 yrs old Male presents to ER via Ambulatory with complaints of Severe cleve Lower Abdominal pain, Nausea/Vomiting, SWEATS, Numbness Of Arm. 23:40 The patient presents to the emergency department with nausea, vomiting, 1 times since cleve the onset of symptoms. Onset: The symptoms/episode began/occurred just prior to arrival. Possible causes: unknown. The symptoms are aggravated by nothing. The symptoms are alleviated by nothing. Associated signs and symptoms: The patient has no apparent associated signs or symptoms. Severity of symptoms: At their worst the symptoms were mild. The patient has not experienced similar symptoms in the past. 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 - Social history:: Smoking status: Patient denies any tobacco usage or history of. ROS: 23:42 Constitutional: Negative for fever, chills, and weight loss, Eyes: Negative for injury, cleve pain, redness, and discharge, ENT: Negative for injury, pain, and discharge, Neck: Negative for injury, pain, and swelling, Cardiovascular: Negative for chest pain, palpitations, and edema, Respiratory: Negative for shortness of breath, cough, wheezing, and pleuritic chest pain, Back: Negative for injury and pain, : Negative for injury, bleeding, discharge, and swelling, MS/Extremity: Negative for injury and deformity, Skin: Negative for injury, rash, and discoloration, Neuro: Negative for headache, weakness, numbness, tingling, and seizure, Psych: Negative for depression, anxiety, suicide ideation, homicidal ideation, and hallucinations, Allergy/Immunology: Negative for hives, rash, and allergies, Endocrine: Negative for neck swelling, polydipsia, polyuria, polyphagia, and marked weight changes, Hematologic/Lymphatic: Negative for swollen nodes, abnormal bleeding, and unusual bruising. 23:42 Abdomen/GI: Positive for abdominal pain, nausea and vomiting, abdominal cramps, abdominal distension. Exam: 23:42 Constitutional: This is a well developed, well nourished patient who is awake, alert, cleve and in no acute distress. Head/Face: Normocephalic, atraumatic. Eyes: Pupils equal round and reactive to light, extra-ocular motions intact. Lids and lashes normal. Conjunctiva and sclera are non-icteric and not injected. Cornea within normal limits. Periorbital areas with no swelling, redness, or edema. ENT: Nares patent. No nasal discharge, no septal abnormalities noted. Tympanic membranes are normal and external auditory canals are clear. Oropharynx with no redness, swelling, or masses, exudates, or evidence of obstruction, uvula midline. Mucous membranes moist. Neck: Trachea midline, no thyromegaly or masses palpated, and no cervical lymphadenopathy. Supple, full range of motion without nuchal rigidity, or vertebral point tenderness. No Meningismus. Chest/axilla: Normal chest wall appearance and motion. Nontender with no deformity. No lesions are appreciated. Cardiovascular: Regular rate and rhythm with a normal S1 and S2. No gallops, murmurs, or rubs. Normal PMI, no JVD. No pulse deficits. Respiratory: Lungs have equal breath sounds bilaterally, clear to auscultation and percussion. No rales, rhonchi or wheezes noted. No increased work of breathing, no retractions or nasal flaring. Back: No spinal tenderness. No costovertebral tenderness. Full range of motion. Male : Normal genitalia with no discharge or lesions. Skin: Warm, dry with normal turgor. Normal color with no rashes, no lesions, and no evidence of cellulitis. MS/ Extremity: Pulses equal, no cyanosis. Neurovascular intact. Full, normal range of motion. Neuro: Awake and alert, GCS 15, oriented to person, place, time, and situation. Cranial nerves II-XII grossly intact. Motor strength 5/5 in all extremities. Sensory grossly intact. Cerebellar exam normal. Normal gait. Psych: Awake, alert, with orientation to person, place and time. Behavior, mood, and affect are within normal limits. 23:42 Abdomen/GI: Inspection: distension, Bowel sounds: hyperactive, Palpation: mild abdominal tenderness, in the right lower quadrant and left lower quadrant, Liver: no appreciated palpable abnormalities, Hernia: not appreciated. Vital Signs: 23:28 BP 121 / 88; Pulse 60; Resp 14; Temp 97.9; Pulse Ox 98% on R/A; Weight 104.33 kg; vg1 Height 6 ft. 4 in. (193.04 cm); Pain 3/10; 23:28 Body Mass Index 28.00 (104.33 kg, 193.04 cm) vg1 MDM: 23:17 Patient medically screened. [facility] 23:43 Differential diagnosis: Nonspecific abd pain, pancreatitis, appendicitis, cleve diverticulitis, viral gastroenteritis, gastroenteritis, AAA, acute coronary syndrome, appendicitis, bowel obstruction, coronary artery disease, cholecystitis, Cholelithiasis, gastritis, Hepatitis, myocardia ischemia or infarction, non-specific abd pain, pancreatitis. Data reviewed: vital signs, nurses notes, lab test result(s), EKG, radiologic studies, CT scan, plain films. Data interpreted: teletypesetter monitor: rate is 60 beats/min, rhythm is regular, Pulse oximetry: on room air is 98 %. Test interpretation: by ED physician or midlevel provider: ECG, plain radiologic studies. Counseling: I had a detailed discussion with the patient and/or guardian regarding: the historical points, exam findings, and any diagnostic results supporting the discharge/admit diagnosis, lab results, radiology results. 12/19 23:26 Order name: Basic Metabolic Panel [facility] 12/19 23:26 Order name: CBC with Diff [facility] 12/19 23:26 Order name: LFT's [facility] 12/19 23:26 Order name: Magnesium [facility] 12/19 23:26 Order name: NT PRO-BNP [facility] 12/19 23:26 Order name: PT-INR [facility] 12/19 23:26 Order name: Troponin (emerg Dept Use Only); Complete Time: 53 [facility] 12/19 23:26 Order name: Lipase; Complete Time: :53 [facility] 12/19 23:27 Order name: Basic Metabolic Panel; Complete Time: :53 [facility] 12/19 23:27 Order name: CBC with Automated Diff; Complete Time: :53 [facility] 12/19 23:27 Order name: Liver (Hepatic) Function; Complete Time: :53 [facility] 12/19 23:27 Order name: Magnesium; Complete Time: :53 [facility] 12/19 23:28 Order name: NT PRO-BNP; Complete Time: :53 [facility] 12/19 23:28 Order name: Protime (+INR); Complete Time: :53 [facility] 12/19 23:26 Order name: XRAY Chest (1 view) [facility] 12/19 23:26 Order name: EKG; Complete Time: 23:28 [facility] 12/19 23:26 Order name: Cardiac monitoring; Complete Time: 00:01 [facility] 12/19 23:26 Order name: CT Abd/Pelvis - PO and IV Contrast [facility] 12/19 23:29 Order name: Urine Culture [facility] 12/19 23:29 Order name: Urine Culture [facility] 12/20 02:08 Order name: COVID-19 : Document "Date of Symptom Onset" if Symptomatic. [facility] 12/20 02:32 Order name: CONS Physician Consult [facility] 12/20 02:45 Order name: Urine Dipstick--Ancillary (enter results) [facility] 12/20 05:38 Order name: SARS-COV-2 RT PCR [facility] 12/19 23:26 Order name: IV Saline Lock; Complete Time: 00:01 [facility] 12/19 23:26 Order name: Labs collected and sent; Complete Time: 00:01 [facility] 12/19 23:26 Order name: O2 Per Protocol; Complete Time: 23:41 [facility] 12/19 23:26 Order name: O2 Sat Monitoring; Complete Time: 23:41 [facility] 12/19 23:29 Order name: Urine Dipstick-Ancillary (obtain specimen); Complete Time: 02:41 [facility] Administered Medications: 12/20 00:23 Drug: NS 0.9% 1000 ml Route: IV; Rate: 1 bolus; Site: right wrist; dm5 01:00 Follow up: Response: No adverse reaction; IV Status: Completed infusion; IV Intake: ll2 1000ml 00:24 Drug: Flagyl 500 mg Volume: 100 ml; Route: IVPB; Rate: 200 ml/hr; Infused Over: 30 dm5 mins; Site: right wrist; 01:30 Follow up: Response: No adverse reaction; IV Status: Completed infusion; IV Intake: ll2 100ml 00:24 Drug: Zofran (Ondansetron) 4 mg Route: IVP; Site: right wrist; dm5 01:20 Follow up: Response: No adverse reaction ll2 00:45 Drug: Cipro 400 mg Volume: 200 ml; Route: IVPB; Infused Over: 60 mins; Site: right ll2 antecubital; 01:35 Follow up: Response: No adverse reaction; IV Status: Completed infusion; IV Intake: ll2 200ml 03:20 Drug: NS 0.9% 1000 ml Route: IV; Rate: 125 ml/hr; Site: right forearm; ll2 Disposition: 12/20/20 02:09 Hospitalization ordered by Darshan Main for Inpatient Admission. Preliminary diagnosis are Other intestinal obstruction - SMALL BOWEL OBSTRUCTION, Nausea and vomiting. - Bed requested for Telemetry/MedSurg (Inpatient). - Status is Inpatient Admission. sv - Condition is Stable. - Problem is new. - Symptoms have improved. Signatures: Dispatcher [employer] EDMS Daily Bravo RN RN dm5 Camelia Jenkins, RN RN Rhea Blas RN Dell Beauchamp MD MD cha Linscombe, Lacie, RN RN ll2 Sowmya Black, RN RN vg1 Corrections: (The following items were deleted from the chart) 02:12 02:09 Hospitalization Ordered by Darshan Main for Inpatient Admission. Preliminary [facility] diagnosis is Other intestinal obstruction - SMALL BOWEL OBSTRUCTION. Bed requested for Telemetry/MedSurg (Inpatient). Status is Inpatient Admission. Condition is Stable. Problem is new. Symptoms have improved. cleve 02:19 02:12 12/20/2020 02:09 Hospitalization Ordered by Darshan Main for Inpatient Admission. Preliminary diagnosis is Other intestinal obstruction - SMALL BOWEL OBSTRUCTION; Nausea and vomiting. Bed requested for Telemetry/MedSurg (Inpatient). Status is Inpatient Admission. Condition is Stable. Problem is new. Symptoms have improved. cleve 06:39 02:19 12/20/2020 02:09 Hospitalization Ordered by Darshan Main for Inpatient Admission. Preliminary diagnosis is Other intestinal obstruction - SMALL BOWEL OBSTRUCTION; Nausea and vomiting. Bed requested for [facility] ER HOLD. Status is Inpatient Admission. Condition is Stable. Problem is new. Symptoms have improved. mw 06:48 06:39 12/20/2020 02:09 Hospitalization Ordered by Darshan Main for Inpatient ll2 Admission. Preliminary diagnosis is Other intestinal obstruction - SMALL BOWEL OBSTRUCTION; Nausea and vomiting. Bed requested for Telemetry/MedSurg (Inpatient). Status is Inpatient Admission. Condition is Stable. Problem is new. Symptoms have improved. mw 07:39 06:48 12/20/2020 02:09 Hospitalization Ordered by Darshan Main for Inpatient sv Admission. Preliminary diagnosis is Other intestinal obstruction - SMALL BOWEL OBSTRUCTION; Nausea and vomiting. Bed requested for Telemetry/MedSurg (Inpatient). Status is Inpatient Admission. Condition is Stable. Problem is new. Symptoms have improved. ll2
--- NOTE | 2020-12-20 02:48 | P.HP ---
Certification for Inpatient Patient admitted to: Inpatient With expected LOS: >2 Midnights Patient will require the following post-hospital care: None Practitioner: I am a practitioner with admitting privileges, knowledge of patient current condition, hospital course, and medical plan of care. Services: Services provided to patient in accordance with Admission requirements found in Title 42 Section 412.3 of the Code of Federal Regulations <Augusto Mac - Last Filed: 12/20/20 02:38> Patient History Date of Service: 12/20/20 Primary Care Provider: Camelia Pete Reason for admission: SBO History of Present Illness: Mr. Jurado is a 72 yo male with h/o aortic aneurysm, atrial myxoma, ARELY, and te sticular cancer s/p orchiectomy with mets to the lung here today for vomiting and abdominal pain. Yesterday, he had intermittent abdominal discomfort, until he drove home from work. In the car, he had difficulty breathing, cold sweats, nausea and vomiting, and near-syncope with severe diffuse abdominal pain. He reports he vomited 3-4 times this evening. He says he had not been passing gas, but had 2 BM earlier yesterday. He denies fever and hemoptysis. He has had an appendectomy, two herniorraphies, and a right orphiectomy in the past. CT scan revealed a small bowel obstruction. At bedside, patient reports 1/10 abdominal pain and has stopped vomiting. Belly is soft, nontender, and nondistended and bowel sounds are auscultated in all four quadrants. Na 139, K 3.7, Cl 105, HCO3 28, BUN 19, Cr 0.99, glu 113. Hb/Hct 16.7/49.8. WBC 10.9. Plt 204. Home medications list reviewed: No - Past Medical/Surgical History Diabetic: No -: hyperlipidemia -: aortic anuerysm -: arthritis -: hemorrhoids -: testicular cancer with lung, lymphatic;liver mets -: svt left arm -: right atrial myxoma -: ARELY -: tonsillectomy -: hernia repairs x2 -: appendectmy -: rotator cuff repair- right -: right thumb repair -: right testicle removed -: open heart surgery Psychosocial/ Personal History: working - Family History Mother -: Heart disease, Hypertension, Other (see notes) Notes: hyperlipidemia Father -: Heart disease, Hypertension - Social History Smoking Status: Never smoker Counseled patient to stop smoking for: less than 10 minutes Smoking therapy provided: No Alcohol use: Yes CD- Drugs: No Caffeine use: Yes Place of Residence: Home <Augusto Mac - Last Filed: 12/20/20 02:38> Date of Service: 12/20/20 <yury chase - Last Filed: 12/20/20 12:09> Allergies No Known Allergies Allergy (Unverified 09/17/18 07:43) Home Medications: Aspirin Chewable [Aspirin Chewable*] 81 pill PO DAILY 10/20/19 Ascorbic Acid [Vitamin C] 1,000 mg PO DAILY 12/20/20 Atorvastatin Calcium [Lipitor] 20 mg PO BEDTIME 12/20/20 Pregabalin [Lyrica] 150 mg PO BID 12/20/20 Sertraline [Zoloft] 50 mg PO DAILY 12/20/20 Zinc 100 mg PO BID 12/20/20 bisoproloL fumarate [Zebeta] 5 mg PO DAILY 12/20/20 buPROPion HCl [Wellbutrin Sr] 150 mg PO DAILY 12/20/20 Review of Systems General: Sweats, Malaise, As per HPI Eyes: Unremarkable ENT: Unremarkable Respiratory: Shortness of Breath, As per HPI Cardiovascular: Unremarkable Gastrointestinal: Nausea, Vomiting, Abdominal Pain, No Distention, As per HPI Genitourinary: Unremarkable Musculoskeletal: Unremarkable Integumentary: Unremarkable Neurological: As per HPI Lymphatics: Unremarkable <Augusto Mac - Last Filed: 12/20/20 02:38> Physical Examination - Vital Signs Temperature: 97.9 F Blood Pressure: 121/88 Pulse: 60 Respirations: 14 Pulse Ox (%): 98 - Physical Exam General: Alert, In no apparent distress, Oriented x3, Cooperative HEENT: Atraumatic, Normocephalic, PERRLA, Mucous membr. moist/pink, EOMI Neck: Supple, JVD not distended, No Thyromegaly, No LAD Respiratory: Clear to auscultation bilaterally, Normal air movement Cardiovascular: No edema, Normal pulses, Regular rate/rhythm, Normal S1 S2, No gallops, No rubs, No murmurs Capillary refill: <2 Seconds Gastrointestinal: Hypoactive, Soft and benign, Non-distended, No ascites, No tenderness, No masses, No rebound, No guarding, Other (active bowel sounds auscultated, belly is soft, no tenderness on light or deep palpation) Musculoskeletal: No clubbing, No swelling, No contractures, No erythema, No tenderness, No warmth Integumentary: No rashes, No breakdown, No significant lesion, No tenderness/swelling, No erythema, No warmth, No cyanosis Neurological: Normal speech, Normal strength at 5/5 x4 extr, Normal tone, Sensation intact, Cranial nerves 3-12 intact, Normal affect Lymphatics: No axilla or inguinal lymphadenopathy - Studies Laboratory Data (last 24 hrs) 12/19/20 23:58: PT 11.4, INR 0.97 12/19/20 23:58: WBC 10.90, Hgb 16.7, Hct 49.8 H, Plt Count 204 12/19/20 23:58: Sodium 139, Potassium 3.7, BUN 19 H, Creatinine 0.99, Glucose 113 H, Magnesium 2.0, Total Bilirubin 1.8 H, AST 21, ALT 46, Alkaline Phosphatase 91, Lipase 101 <Augusto Mac - Last Filed: 12/20/20 02:38> - Studies Laboratory Data (last 24 hrs) 12/19/20 23:58: PT 11.4, INR 0.97 12/19/20 23:58: WBC 10.90, Hgb 16.7, Hct 49.8 H, Plt Count 204 12/19/20 23:58: Sodium 139, Potassium 3.7, BUN 19 H, Creatinine 0.99, Glucose 113 H, Magnesium 2.0, Total Bilirubin 1.8 H, AST 21, ALT 46, Alkaline Phosphatase 91, Lipase 101 <yury chase - Last Filed: 12/20/20 12:09> Assessment and Plan - Problems (Diagnosis) (1) Small bowel obstruction Onset Date: ~12/20/20 Current Visit: Yes Status: Acute Plan: Small Bowel Obstruction found on CT scan - surgery consult placed - IVF and NPO - Zofran PRN - Flagyl 500mg TID and cipro 400mg q12 IV (2) Sleep apnea treated with nocturnal BiPAP Onset Date: Unknown Current Visit: Yes Status: Chronic Plan: - patient on CPAP 5 at home - ordered CPAP and continue to monitor (3) Hypertension Current Visit: Yes Status: Chronic Plan: - blood pressure management as needed Qualifiers: Hypertension type: essential hypertension Qualified Code(s): I10 - Essential (primary) hypertension (4) Hyperlipidemia Current Visit: Yes Status: Chronic Plan: -continue home medications Qualifiers: Hyperlipidemia type: unspecified Qualified Code(s): E78.5 - Hyperlipidemia, unspecified (5) Neuropathy Current Visit: Yes Status: Chronic Plan: -continue home medications Discharge Plan: Home Plan to discharge in: 48 Hours - Advance Directives Does patient have a Living Will: No Does patient have a Durable POA for Healthcare: No - Code Status/Comfort Care Code Status Assessed: Yes Code Status: Full Code Critical Care: No Time Spent Managing Pts Care (In Minutes): 70 <Augusto Mac - Last Filed: 12/20/20 02:38> Physician Review: Patient Assessed, Agree with Above Assessment and Plan Physician Review Additional Text: Small bowel obstruction. Obstructive sleep apnea. Plan: Supportive measures with IV fluid. Empiric IV antibiotics. General surgery consult. CPAP at night. <yury chase - Last Filed: 12/20/20 12:09>
[2020-12-20 02:54] LABS: Urine Blood NEGATIVE (NEG); Urine Glucose NEGATIVE (NEG); Urine Protein NEGATIVE (NEG); Urine Specific Gravity >1.030 (1.005-1.030)
[2020-12-20] MEDS ORDERED: MORPHINE 4 MG/ML SYR ONE (04:33)
[2020-12-20] MEDS: MORPHINE 4 MG/ML SYR IV PRN ×2 (04:50→10:59)
[2020-12-20] MEDS: ONDANSETRON 4 MG/2 ML VIAL IV PRN ×2 (04:50→10:59)
[2020-12-20] MEDS: D5 0.45 NS 1,000 ML IV SCH ×2 (05:14→15:14)
--- NOTE | 2020-12-20 09:59 | RAD REPORT ---
EXAM DESCRIPTION: RAD - Chest Single View - 12/19/2020 11:55 pm CLINICAL HISTORY: Cough;Abdominal distention COMPARISON: Portable September 2019 TECHNIQUE: AP portable chest image was obtained 12/19/2020 11:55 pm . FINDINGS: Lungs are clear. Interstitial pattern matches comparison. Heart and vasculature are normal . No measurable pleural effusion and no pneumothorax. No acute bony abnormality seen. No acute aortic findings suspected. IMPRESSION: No acute cardiopulmonary process. No significant change from comparison study.
[2020-12-20 11:08] VITALS: BMI 27.3
--- NOTE | 2020-12-20 12:08 | P.PN ---
Date of Service: 12/20/20 Patient seen and examined. He states her abdominal pain is better. States he has not passed flatus or had a bowel movement. Plan: Continue conservative management. Hydrate with IV fluid Empiric IV antibiotics. General surgery-Dr. Wood to see patient. CPAP at night.
--- NOTE | 2020-12-20 13:11 | CON ---
Date of Consultation: 12/20/2020 Brief History Of Present Illness: The patient is a 60-year-old male with a history of aortic aneurys m, atrial myxoma, obstructive sleep apnea, and testicular cancer, status post orchidectomy and an jennifer endectomy who presents to the hospital with vomiting and abdominal pain. Yesterday, he had intermitt ent abdominal discomfort. He drove from work in a car, had difficulty breathing, cold sweats, nausea , vomiting, and near syncopal episode and severe diffuse abdominal pain. He vomited 3 to 4 times daniel or to his arrival. He had had 2 bowel movements the day yesterday and denied any other symptomatolog y at this point. He continues to pass gas at this point, has no nausea, vomiting, and his abdominal distention has improved. He states that he recently got a pain shot and he is pain free at this poin t. Past Medical History: Significant for hyperlipidemia, aortic aneurysm, arthritis, hemorrhoids, testi cular cancer with lung metastasis, atrial myxoma, obstructive sleep apnea. Past Surgical History: Includes tonsillectomy, hernia repair x2, appendectomy, rotator cuff repair, right thumb repair, right testicular removed, open-heart surgery for atrial myxoma resection. I thin k he had a DVT of the left arm also. Allergies: NO KNOWN DRUG ALLERGIES. Home Medications: Include aspirin, Zanaflex, and Protonix. Social History: He denies smoking, alcohol, or recreational drug use. Family History: Significant for hypertension and heart disease in his mother, hyperlipidemia as well . Father had hypertension and heart disease. Review of Systems: Ten-point review of systems other than HPI, denies. Physical Examination: Vital Signs: At the time of my examination, his BMI is 27.7. His blood pressure 122/73, pulse is 69 , respiratory rate 16, temperature 96.9. General: He is awake, alert, oriented. Psychiatric: He is appropriate and conversive. HEENT: Normocephalic. Sclerae anicteric. Mucous membranes are moist. Oropharynx clear. Neck: Supple. No JVD. Chest: Normal expansion and excursion. Cardiovascular: Regular rate and rhythm. Pulmonary: Clear to auscultation bilaterally. Abdomen: Soft, nontender, nondistended. No rebound. No guarding. No focal peritonitis. Laboratory Data: He had a laboratory exam, which revealed a white blood cell count of 10.9, hemoglob in of 16.7, hematocrit 49.5, platelet count was 204. His neutrophils are 85%, his PT 11.4, INR 0.9. His sodium is 139, potassium 3.7, chloride 105, carbon dioxide 28, BUN 19, creatinine 0.9, glucose i s 113, calcium 10.1, magnesium 2.0, total bilirubin 1.8, direct component 0.4, AST 21, ALT 46, alkali ne phosphatase is 91. His proBNP was 75. His lipase is 101. His UA showed only 3+ leukocyte estera se, 1+ ketones. He had imaging performed as well, which included a CT scan of the abdomen and pelvis , officially read as findings compatible with small bowel obstruction. Specifically, there is a duod enal diverticulum, multiple mildly dilated small bowel loops with transition in the right lower abdom en, mild adjacent mesenteric edema. The remainder of the small bowel is decompressed. No appreciabl e mucosal thickening. Moderate stool within the large bowel. The appendix was not visualized. He h ad a chest x-ray as well, officially read as no acute cardiopulmonary process. No significant change from prior comparison. Assessment And Plan: This is a 60-year-old male who comes in with likely partial small bowel obstruc tion, now improving. 1.IV fluid hydration. 2.N.p.o. status. 3.No need for NG tube at this point, as the patient has not had any nausea, vomiting, however, if he develops nausea, vomiting, I will recommend placing him an NG and low intermittent wall suctioning. Serial examinations of the abdomen to continue. Await bowel function. If the patient improves, we will attempt nonoperative management as this is the patient's first episode of small bowel obstructio n and he currently has no symptoms at this point. We will await bowel function and continue examinat ions. I have explained the risks, benefits, and alternatives of the above stated plan. The patient agrees to proceed as indicated. PATRICK/MONY Voice ID: [id number] Report ID: [id number]
[2020-12-20] MEDS: CIPROFLOXACIN 400mg IV 400 MG/200 ML BAG IV SCH ×2 (13:26→20:17)
[2020-12-20] MEDS: METRONIDAZOLE 500mg IVPB 500 MG/100 ML BAG IV SCH ×2 (13:26→16:04)
[2020-12-20] MEDS ORDERED: ENOXAPARIN 40 MG/0.4 ML SQ SCH (17:00)
[2020-12-20] MEDS ORDERED: ACETAMINOPHEN 500 MG TAB PO ONE (20:03)
--- NOTE | 2020-12-20 22:19 | RAD REPORT ---
EXAM DESCRIPTION: CT - Abdomen Pelvis W Contrast - 12/20/2020 9:31 am CLINICAL HISTORY: ABD PAIN TECHNIQUE: Contiguous axial images obtained through the abdomen and pelvis following the uneventful administration of IV contrast. Coronal and sagittal reformatted images were provided. This exam was performed according to our departmental dose-optimization program, which includes autom ated exposure control, adjustment of the mA and/or kV according to patient size and/or use of iterati ve reconstruction technique. COMPARISON: Correlation is made with report only from study dated 10/19/2019. FINDINGS: Lung bases: Minimal subsegmental atelectasis/pleural parenchymal scar. Liver: Unremarkable Gallbladder and biliary system: Unremarkable Pancreas: Unremarkable Spleen: Unremarkable Adrenals: Unremarkable Kidneys: Normal renal cortical enhancement. No calculi. No hydronephrosis. Bowel: Duodenal diverticulum. Multiple mildly dilated small bowel loops with a transition in the righ t lower abdomen. Mild adjacent mesenteric edema. The remainder of the small bowel is decompressed. No appreciable mucosal thickening. Moderate stool within the large bowel. Appendix: The appendix is not definitively visualized. No findings to suggest acute appendicitis. Urinary bladder: Unremarkable Reproductive: Unremarkable as visualized Lymph nodes: No pathologically enlarged lymph nodes. Peritoneum: Trace free fluid within the rectovesical space. No free air. Vessels: Mild atherosclerotic disease. No abdominal aortic aneurysm. Abdominal wall: Prior left inguinal hernia repair. Suggestion for a hernia plug. Bones: Multilevel spondylosis. No acute fracture. IMPRESSION: 1. Findings compatible with small bowel obstruction. 2. Other findings as above. Electronically signed by: Maday Terry MD 12/20/2020 1:56 AM [employer] Due to temporary technical issues with the PACS/Fluency reporting system, reports are being signed by the in house radiologists without review as a courtesy to insure prompt reporting. The interpreting radiologist is fully responsible for the content of the report.
[2020-12-21] MEDS: METRONIDAZOLE 500mg IVPB 500 MG/100 ML BAG IV SCH ×2 (00:11→09:22)
[2020-12-21] MEDS: D5 0.45 NS 1,000 ML IV SCH (04:41)
[2020-12-21 06:34] LABS: Absolute Lymphocytes (CBC) 0.8 K/uL (0.7-4.9); Basophils % 0.3 % (0-1.3); Hematocrit 44.1 % (39.6-49.0); Lymphocytes % 13.9 % (15.3-44.8); MPV 8.8 fL (7.6-11.3); RBC Red Blood Cell Count 4.69 M/uL (4.33-5.43)
[2020-12-21 06:42] LABS: Potassium 3.3 mmol/L (3.5-5.1)
[2020-12-21 09:18] VITALS: O2SAT 95
[2020-12-21] MEDS: CIPROFLOXACIN 400mg IV 400 MG/200 ML BAG IV SCH (09:22)
[2020-12-21] MEDS ORDERED: BUPROPRION HCL S.R. 150MG TAB PO SCH (11:17)
[2020-12-21] MEDS ORDERED: ASCORBIC ACID 500 MG TABLET PO SCH (11:17)
[2020-12-21] MEDS ORDERED: ASPIRIN 81 MG CHEWABLE TABLET PO SCH (11:17)
[2020-12-21] MEDS ORDERED: BISOPROLOL 5 MG TABLET PO SCH (11:17)
[2020-12-21] MEDS ORDERED: PREGABALIN 75 MG CAP PO SCH (11:18)
[2020-12-21] MEDS ORDERED: SERTRALINE HCL 50 MG TAB PO SCH (11:18)
--- NOTE | 2020-12-21 11:34 | P.PN ---
Subjective Date of Service: 12/21/20 Primary Care Provider: Camelia Pete Chief Complaint: SBO Subjective: Improving (Patient feels better, passing large amount of gas, no emesis, no abd pain or other complaints) Review of Systems 10-point ROS is otherwise unremarkable Physical Examination - Vital Signs Temperature: 97.7 F Blood Pressure: 135/77 Pulse: 71 Respirations: 18 Pulse Ox (%): 97 - Physical Exam General: Alert, In no apparent distress, Cooperative Respiratory: Clear to auscultation bilaterally Gastrointestinal: Soft and benign, Non-distended, No ascites, No tenderness, No masses, No rebound, No guarding Assessment And Plan - Current Problems (Diagnosis) (1) Small bowel obstruction Onset Date: ~12/20/20 Current Visit: Yes Status: Acute Plan: - Resolved - clears advance to soft low residue, handout given - ok to DC from surgical standpoint if tolerated diet - follow up in 1-2 weeks in clinic Physician Review: Patient Assessed, Agree with Above Assessment and Plan Physician Review Additional Text: Small bowel obstruction. Obstructive sleep apnea. Plan: Supportive measures with IV fluid. Empiric IV antibiotics. General surgery consult. CPAP at night.
--- NOTE | 2020-12-21 13:29 | P.DS ---
Admission Date: 12/20/20 Discharge Date: 12/21/20 Primary Care Provider: Camelia Pete Disposition: ROUTINE DISCHARGE Discharge Condition: FAIR Reason for Admission: SBO Consultations: General Surgery-Dr. Wood. - Problems (1) Chronic atrial fibrillation Current Visit: Yes Status: Acute (2) Small bowel obstruction Onset Date: ~12/20/20 Current Visit: Yes Status: Acute (3) Hyperlipidemia Current Visit: Yes Status: Chronic Qualifiers: Hyperlipidemia type: unspecified Qualified Code(s): E78.5 - Hyperlipidemia, unspecified (4) Hypertension Current Visit: Yes Status: Chronic Qualifiers: Hypertension type: essential hypertension Qualified Code(s): I10 - Essential (primary) hypertension Brief History of Present Illness: 60-year-old gentleman with a history of chronic atrial fib, atrial myxoma, aortic aneurysm, testicular cancer with mets to the lungs presented to the emergency department with a complaint of nausea and vomiting and abdominal pain. CT abdomen and pelvis done in the ED demonstrated mildly dilated small bowel consistent with small-bowel obstruction. Patient was admitted for further management. Hospital Course: Patient admitted to the medical floor and started on supportive measures with IV hydration, antiemetics and IV opiates p.r.n. for pain. Patient was seen in by Dr. Wood who recommended known medical management. He had no episodes of nausea and vomiting during the hospital stay. He did not require NG tube insertion. He later became asymptomatic and passed flatus. Dr. Wood recommended to resume diet. Patient tolerated diet with no abdominal pain. Abdomen nondistended. Patient deemed stable for discharge. Vital Signs/Physical Exam: Temp Pulse Resp BP Pulse Ox 97.7 F 71 18 135/77 97 12/21/20 11:34 12/21/20 11:34 12/21/20 11:34 12/21/20 11:34 12/21/20 11:34 General: Alert, In no apparent distress, Oriented x3 Respiratory: Clear to auscultation bilaterally, Normal air movement Cardiovascular: No edema, Regular rate/rhythm, Normal S1 S2 Gastrointestinal: Normal bowel sounds, Soft and benign, Non-distended, No tenderness Musculoskeletal: No swelling Integumentary: No rashes Neurological: Normal strength at 5/5 x4 extr Laboratory Data at Discharge: WBC 5.80 K/uL (4.3-10.9) D 12/21/20 05:56 Hgb 14.7 g/dL (13.6-17.9) 12/21/20 05:56 Hct 44.1 % (39.6-49.0) 12/21/20 05:56 Plt Count 156 K/uL (152-406) D 12/21/20 05:56 PT 11.4 SECONDS (9.5-12.5) 12/19/20 23:58 INR 0.97 12/19/20 23:58 Sodium 141 mmol/L (136-145) 12/21/20 05:56 Potassium 3.3 mmol/L (3.5-5.1) L 12/21/20 05:56 BUN 10 mg/dL (7-18) 12/21/20 05:56 Creatinine 0.89 mg/dL (0.55-1.3) 12/21/20 05:56 Glucose 104 mg/dL (74-106) 12/21/20 05:56 Magnesium 2.0 mg/dL (1.8-2.4) 12/19/20 23:58 Total Bilirubin 1.8 mg/dL (0.2-1.0) H 12/19/20 23:58 AST 21 U/L (15-37) 12/19/20 23:58 ALT 46 U/L (12-78) 12/19/20 23:58 Alkaline Phosphatase 91 U/L (45-117) 12/19/20 23:58 Lipase 101 U/L (73-393) 12/19/20 23:58 Home Medications: Aspirin Chewable [Aspirin Chewable*] 81 pill PO DAILY 10/20/19 Ascorbic Acid [Vitamin C] 1,000 mg PO DAILY 12/20/20 Atorvastatin Calcium [Lipitor*] 20 mg PO BEDTIME 12/20/20 Pregabalin [Lyrica*] 150 mg PO BID 12/20/20 Sertraline [Zoloft*] 50 mg PO DAILY 12/20/20 Zinc 100 mg PO BID 12/20/20 bisoproloL fumarate [Zebeta*] 5 mg PO DAILY 12/20/20 buPROPion HCl [Wellbutrin Sr] 150 mg PO DAILY 12/20/20 Diet: AHA (Soft diet next 2 days.) Activity: Ad gerri Followup: NONE,NONE [Primary Care Provider] - 1-2 Weeks Time spent managing pt's care (in minutes): 36
[2020-12-21 14:47] VITALS: BP 132/76; TEMP 97.9
[2020-12-21] MEDS ORDERED: ZINC SULFATE 220 MG CAP PO SCH (21:00)
[2020-12-21] MEDS ORDERED: ATORVASTATIN 20 MG TAB PO SCH (21:00)
== END 2020-12-21 14:18 | disposition home or self-care (01) | DRG 389 ==
LOC: ER 23:00 → ERHOLD 12-20 02:58 → 2ND 12-20 07:05
PROVIDERS: ADMIT Internal Medicine; ATTEND Internal Medicine
DX: K56.609 Unspecified intestinal obstruction, unspecified as to partial versus complete obstruction (principal); I48.20 Chronic atrial fibrillation, unspecified; G47.33 Obstructive sleep apnea (adult) (pediatric); I10 Essential (primary) hypertension; G62.9 Polyneuropathy, unspecified; E78.5 Hyperlipidemia, unspecified; Z88.5 Allergy status to narcotic agent; Z79.82 Long term (current) use of aspirin; Z79.899 Other long term (current) drug therapy; Z99.89 Dependence on other enabling machines and devices; Z85.47 Personal history of malignant neoplasm of testis; Z90.49 Acquired absence of other specified parts of digestive tract; Z20.822 Contact with and (suspected) exposure to COVID-19
CPT/HCPCS: 36415; 71045; 74177; 80048; 80076; 81003; 83690; 83735; 83880; 84484; 85025; 85610; 87086; 87088; 94660; 94760; 99285; J0744; J1650; J2405; J7030; J7799; Q9967; U0003

== ENCOUNTER 2022-04-04 20:16 | Observation (INO) | payer OTHER ==
--- OUTSIDE RECORDS SUMMARY | 2022-04-04 20:22 | XMS REPORT | Continuity of Care Document ---
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 1819) 40.0 % POTASSIUM-STAT [id number] 00:28:00 Test Item Value Reference Range Interpretation Comments POTASSIUM (BEAKER) (test code = 3.1 meq/L 3.6-5.5 L 379) GLUCOSE-STAT [id number] 00:28:00 Test Item Value Reference Range Interpretation Comments GLUCOSE RANDOM (BEAKER) (test code 236 mg/dL 70-110 H = 652) CALCIUM, [id number] 00:28:00 Test Item Value Reference Range Interpretation Comments CALCIUM IONIZED (BEAKER) (test 1.10 mmol/L 1.12-1.27 L code = 698) PH, BLOOD (BEAKER) (test code = 7.28 1810) SODIUM NA-STAT [id number] 00:27:00 Test Item Value Reference Range Interpretation Comments SODIUM (BEAKER) (test code = 381) 142 meq/L 135-148 HEMOGLOBIN-STAT [id number] 00:27:00 Test Item Value Reference Range Interpretation Comments HEMOGLOBIN (BEAKER) (test code = 15.1 g/dL 13.0-16.8 410) HGB/HCT (H&H) - STAT [id number] 00:27:00 Test Item Value Reference Range Interpretation Comments HEMOGLOBIN (BEAKER) (test code = 15.1 GM/DL 13.0-16.8 410) HEMATOCRIT (BEAKER) (test code = 44.0 % 40.0-50.0 411) [id number] 22:39:00 Test Item Value Reference Range Interpretation Comments MAGNESIUM (BEAKER) 2.2 mg/dL 1.6-2.6 Specimen slightly (test code = 627) hemolyzed BASIC METABOLIC [id number] 22:39:00 Test Item Value Reference Range Interpretation [...] DIALYSIS PATIEN TS. LACTIC ACID, ARTERIAL, WHOLE [id number] 22:36:00 Test Item Value Reference Range Interpretation Comments LACTATE BLOOD 5.5 mmol/L 0.5-2.2 H Specimen sligh tly ARTERIAL (2) (BEAKER) hemoly zed (test code = 2874) Effective 03/24/2016: Units/Reference Range ChangeNew: 0.5-2.2 mmol/L Previous: 5-20 mg/[id number] 22:32:00 Test Item Value Reference Range Interpretation Comments FIBRINOGEN LEVEL (BEAKER) (test 375 mg/dl 225-434 code = 658) [id number] 22:32:00 Test Item Value Reference Range Interpretation Comments PARTIAL THROMBOPLASTIN TIME 29.6 seconds 22.5-36.0 (BEAKER) (test code = 760) CBC W/PLT COUNT & AUTO [id number] 22:31:00 Test Item Value Reference Range Interpretation [...] PERCENT (BEAKER) (test code = 2801) PROTHROMBIN [id number] 22:31:00 Test Item Value Reference Range Interpretation Comments PROTIME (BEAKER) (test code = 17.4 seconds 11.7-14.7 H 759) INR (BEAKER) (test code = 370) 1.4 <=5.9 RECOMMENDED COUMADIN/WARFARIN INR THERAPY RANGESSTANDARD DOSE: 2.0 - 3.0 Includes: PROPHYLAXIS forvenous thrombosis, systemic embolization; TREATMENT for venous thrombosis and/or pulmonary embolus.HIGH RISK: Target INR is 2.5-3.5 for patients with mechanical heart valves.OXYGEN SATURATION, [id number] 22:26:00 Test Item Value Reference Range Interpretation Comments O2 SATURATION (MEASURED) (BEAKER) 78.3 % (test code = 1455) CALCIUM, [id number] 22:23:00 Test Item Value Reference Range Interpretation Comments CALCIUM IONIZED (BEAKER) (test 1.19 mmol/L 1.12-1.27 code = 698) PH, BLOOD (BEAKER) (test code = 7.26 1810) SODIUM NA-STAT [id number] 22:22:00 Test Item Value Reference Range Interpretation Comments SODIUM (BEAKER) (test code = 381) 139 meq/L 135-148 POTASSIUM-STAT [id number] 22:22:00 Test Item Value Reference Range Interpretation Comments POTASSIUM (BEAKER) (test code = 3.7 meq/L 3.6-5.5 379) HGB/HCT (H&H) - STAT [id number] 22:22:00 Test Item Value Reference Range Interpretation Comments HEMOGLOBIN (BEAKER) (test code = 15.7 g/dL 13.0-16.8 410) HEMATOCRIT (BEAKER) (test code = 46.0 % 40.0-50.0 411) BLOOD GAS, [id number] 22:22:00 Test Item Value Reference Range Interpretation [...] (test code = 1819) 60.0 % GLUCOSE-STAT [id number] 22:22:00 Test Item Value Reference Range Interpretation Comments GLUCOSE RANDOM (BEAKER) (test code 197 mg/dL 70-110 H = 652) RAD, CHEST, 1 VIEW, NON [id number] 21:48:00Reason for exam:->s/p atrial myexoma dissectionFINAL REPORT RAD, CHEST, 1 VIEW, NON DEPT INDICATION: s/p atrial myexoma dissection COMPARISON: March 23, 2020 FINDINGS: Portable frontal view of the chest. IMPRESSION: Support Lines: Right IJ [place]- Daniella catheter terminates over the proximal right [...] MDReport Verified Date/Time: 03/24/2018 21:48:52 Reading Location: [facility] B1 C013Y CT Body Reading Room [id number] 21:05:00 Test Item Value Reference Range Interpretation Comments ACTIVATED CLOTTING TIME [address] ED [address] [facility] 6720 (BEAKER) (test code = [place] 441) [id number] 21:05:00 Test Item Value Reference Range Interpretation Comments ACTIVATED CLOTTING TIME 494 sec TEST ED AT [place] [address] ([facility] [place]) (test code = [place] 441) [id number] 21:05:00 Test Item Value Reference Range Interpretation Comments ACTIVATED CLOTTING TIME 510 sec TEST ED AT [place] [address] ([facility] [place]) (test code = [place] 441) [id number] 21:05:00 Test Item Value Reference Range Interpretation Comments ACTIVATED CLOTTING TIME 527 sec TEST ED AT [place] [address] ([facility] [place]) (test code = [place] 441) [id number] 21:05:00 Test Item Value Reference Range Interpretation Comments ACTIVATED CLOTTING TIME 527 sec TEST ED AT [place] [address] ([facility] [place]) (test code = [place] 441) [id number] 21:05:00 Test Item Value Reference Range Interpretation Comments ACTIVATED CLOTTING TIME 417 sec TEST ED AT [place] [address] ([facility] [place]) (test code = [place] 441) [id number] 21:05:00 Test Item Value Reference Range Interpretation Comments ACTIVATED CLOTTING TIME 428 sec TEST ED AT [place] [address] ([facility] [place]) (test code = [place] 441) [id number] 21:05:00 Test Item Value Reference Range Interpretation Comments ACTIVATED CLOTTING TIME 389 sec TEST ED AT [place] [address] ([facility] [place]) (test code = [place] 441) [id number] 21:05:00 Test Item Value Reference Range Interpretation Comments ACTIVATED CLOTTING TIME 351 sec TEST ED AT [place] [address] ([facility] [place]) (test code = [place] 441) [id number] 21:05:00 Test Item Value Reference Range Interpretation Comments ACTIVATED CLOTTING TIME 103 sec TEST ED AT [place] [address] ([facility] [place]) (test code = [place] 441) [id number] BLOOD GAS, [id number] 19:37:00 Test Item Value Reference Range Interpretation [...] (test code = 1819) 85.0 % GLUCOSE-STAT [id number] 19:37:00 Test Item Value Reference Range Interpretation Comments GLUCOSE RANDOM (BEAKER) (test code 177 mg/dL 70-110 H = 652) SODIUM NA-STAT [id number] 19:37:00 Test Item Value Reference Range Interpretation Comments SODIUM (BEAKER) (test code = 381) 133 meq/L 135-148 L POTASSIUM-STAT [id number] 19:36:00 Test Item Value Reference Range Interpretation Comments POTASSIUM (BEAKER) (test code = 5.3 meq/L 3.6-5.5 379) HGB/HCT (H&H) - STAT [id number] 19:36:00 Test Item Value Reference Range Interpretation Comments HEMOGLOBIN (BEAKER) (test code = 13.9 g/dL 13.0-16.8 410) HEMATOCRIT (BEAKER) (test code = 41.0 % 40.0-50.0 411) POTASSIUM-STAT [id number] 19:09:00 Test Item Value Reference Range Interpretation Comments POTASSIUM (BEAKER) (test code = 4.9 meq/L 3.6-5.5 379) BLOOD GAS, [id number] 19:09:00 Test Item Value Reference Range Interpretation [...] (test code = 1819) 85.0 % GLUCOSE-STAT [id number] 19:09:00 Test Item Value Reference Range Interpretation Comments GLUCOSE RANDOM (BEAKER) (test code 141 mg/dL 70-110 H = 652) SODIUM NA-STAT [id number] 19:09:00 Test Item Value Reference Range Interpretation Comments SODIUM (BEAKER) (test code = 381) 132 meq/L 135-148 L HGB/HCT (H&H) - STAT [id number] 19:09:00 Test Item Value Reference Range Interpretation Comments HEMOGLOBIN (BEAKER) (test code = 13.3 g/dL 13.0-16.8 410) HEMATOCRIT (BEAKER) (test code = 39.0 % 40.0-50.0 L 411) POTASSIUM-STAT [id number] 18:39:00 Test Item Value Reference Range Interpretation Comments POTASSIUM (BEAKER) (test code = 4.1 meq/L 3.6-5.5 379) BLOOD GAS, [id number] 18:39:00 Test Item Value Reference Range Interpretation [...] (test code = 1819) 80.0 % GLUCOSE-STAT [id number] 18:39:00 Test Item Value Reference Range Interpretation Comments GLUCOSE RANDOM (BEAKER) (test code 120 mg/dL 70-110 H = 652) SODIUM NA-STAT [id number] 18:39:00 Test Item Value Reference Range Interpretation Comments SODIUM (BEAKER) (test code = 381) 132 meq/L 135-148 L HGB/HCT (H&H) - STAT [id number] 18:39:00 Test Item Value Reference Range Interpretation Comments HEMOGLOBIN (BEAKER) (test code = 12.5 g/dL 13.0-16.8 L 410) HEMATOCRIT (BEAKER) (test code = 37.0 % 40.0-50.0 L 411) CALCIUM, [id number] 17:24:00 Test Item Value Reference Range Interpretation Comments CALCIUM IONIZED (BEAKER) (test 1.15 mmol/L 1.12-1.27 code = 698) PH, BLOOD (BEAKER) (test code = 7.38 1810) BLOOD GAS, [id number] 17:24:00 Test Item Value Reference Range Interpretation [...] (test code = 1819) 100.0 % GLUCOSE-STAT [id number] 17:23:00 Test Item Value Reference Range Interpretation Comments GLUCOSE RANDOM (BEAKER) (test code = 95 mg/dL 70-110 652) SODIUM NA-STAT [id number] 17:23:00 Test Item Value Reference Range Interpretation Comments SODIUM (BEAKER) (test code = 381) 136 meq/L 135-148 POTASSIUM-STAT [id number] 17:23:00 Test Item Value Reference Range Interpretation Comments POTASSIUM (BEAKER) (test code = 3.7 meq/L 3.6-5.5 379) HGB/HCT (H&H) - STAT [id number] 17:23:00 Test Item Value Reference Range Interpretation Comments HEMOGLOBIN (BEAKER) (test code = 15.6 g/dL 13.0-16.8 410) HEMATOCRIT (BEAKER) (test code = 46.0 % 40.0-50.0 411) [id number] 11:57:00 Test Item Value Reference Range Interpretation Comments PARTIAL THROMBOPLASTIN TIME 44.2 seconds 22.5-36.0 H (BEAKER) (test code = 760) BASIC METABOLIC [id number] 06:20:00 Test Item Value Reference Range Interpretation [...] S NOT APPLICABLE FOR DIALYSIS PATIEN TS. [id number] 05:44:00 Test Item Value Reference Range Interpretation Comments PARTIAL THROMBOPLASTIN TIME 34.0 seconds 22.5-36.0 (BEAKER) (test code = 760) CBC W/PLT COUNT & AUTO [id number] 05:33:00 Test Item Value Reference Range Interpretation [...] 0-1 PERCENT (BEAKER) (test code = 2801) [id number] 22:16:00 Test Item Value Reference Range Interpretation Comments PARTIAL THROMBOPLASTIN TIME 32.2 seconds 22.5-36.0 (BEAKER) (test code = 760) [id number] 15:17:00 Test Item Value Reference Range Interpretation Comments PARTIAL THROMBOPLASTIN TIME 26.8 seconds 22.5-36.0 (BEAKER) (test code = 760) Prior to initiating heparinRAD, CHEST, 2 [id number] 14:45:00Reason for exam:->cough for 3 weeksFINAL REPORT Two lateral and one frontal chest images Discussion: Lungs clear. Heart size normal. No effusion or pneumothorax. Bones and soft tissues unremarkable. Signed: Jeanmarie Farmereport Verified Date/Time: 03/23/2018 14:45:35 Reading Location: [address] Consult Reading Room BASI METABOLIC [id number] 06:41:00 Test Item Value Reference Range Interpretation [...] PATIEN TS. CBC W/PLT COUNT & AUTO [id number] 04:56:00 Test Item Value Reference Range Interpretation [...] 0-1 PERCENT (BEAKER) (test code = 2801) [id number] 06:11:00 Test Item Value Reference Range Interpretation Comments MAGNESIUM (BEAKER) (test code = 1.9 mg/dL 1.6-2.6 627) BASIC METABOLIC [id number] 06:11:00 Test Item Value Reference Range Interpretation [...] PATIEN TS. CBC W/PLT COUNT & AUTO [id number] 05:49:00 Test Item Value Reference Range Interpretation [...] (BEAKER) (test code = 2801) BASIC METABOLIC [id number] 04:57:00 Test Item Value Reference Range Interpretation [...] PATIEN TS. CBC W/PLT COUNT & AUTO [id number] 04:42:00 Test Item Value Reference Range Interpretation [...] (BEAKER) (test code = 2801) BASIC METABOLIC [id number] 06:01:00 Test Item Value Reference Range Interpretation [...] NOT APPLICABLE FOR DIALYSIS PATIEN TS. HEMOGLOBIN [id number] 08:04:00 Test Item Value Reference Range Interpretation Comments HEMOGLOBIN A1C (BEAKER) (test code = 5.1 % 4.3-6.1 368) [id number] 07:27:00 Test Item Value Reference Range Interpretation Comments MAGNESIUM (BEAKER) (test code = 1.9 mg/dL 1.6-2.6 627) BASIC METABOLIC [id number] 07:27:00 Test Item Value Reference Range Interpretation [...] FOR DIALYSIS PATIEN TS. Specimen slightly ictericLIPID [id number] 07:27:00 Test Item Value Reference Range Interpretation [...] High >=190 Specimen slightly ictericTSH/FREE T4 IF [id number] 07:07:00 Test Item Value Reference Range Interpretation Comments THYROID STIMULATING HORMONE 1.46 uIU/mL 0.35-4.94 (BEAKER) (test code = 772) TROPONIN [id number] 07:05:00 Test Item Value Reference Range Interpretation [...] acidosis, acute neurological disease, and persistent tachyarrhythmia.PROTHROMBIN [id number] 06:28:00 Test Item Value Reference Range Interpretation Comments PROTIME (BEAKER) (test code = 16.7 seconds 11.7-14.7 H 759) INR (BEAKER) (test code = 370) 1.4 <=5.9 RECOMMENDED COUMADIN/WARFARIN INR THERAPY RANGESSTANDARD DOSE: 2.0 - 3.0 Includes: PROPHYLAXIS forvenous thrombosis, systemic embolization; TREATMENT for venous thrombosis and/or pulmonary embolus.HIGH RISK: Target INR is 2.5-3.5 for patients with mechanical heart valves.[id number] 06:28:00 Test Item Value Reference Range Interpretation [...] % 0-1 PERCENT (BEAKER) (test code = 5202)
[2022-04-04 21:23] LABS: Absolute Lymphocytes (CBC) 1.5 K/uL (0.7-4.9); Hematocrit 43.1 % (39.6-49.0); Lymphocytes % 20.6 % (15.3-44.8); MPV 8.3 fL (7.6-11.3); RBC Red Blood Cell Count 4.63 M/uL (4.33-5.43)
[2022-04-04 21:29] LABS: Protime INR 0.97
[2022-04-04 21:47] LABS: Albumin 3.6 g/dL (3.4-5.0); Bilirubin Direct 0.3 mg/dL (0-0.2); Bilirubin Total 1.4 mg/dL (0.2-1.0); Magnesium 2.1 mg/dL (1.8-2.4); Protein, Total 6.7 g/dL (6.4-8.2); Troponin High Sensitivity 6.3 pg/mL (<58.9)
[2022-04-05] MEDS ORDERED: ASPIRIN 325 MG TAB ONE (00:09)
[2022-04-05] MEDS ORDERED: ASPIRIN 81 MG CHEWABLE TABLET ONE (00:10)
--- NOTE | 2022-04-05 00:31 | ER ---
Nurse's Notes [facility] Name: Buzz Jurado Age: 61 yrs Sex: Male : 1960 Arrival Date: 04/04/2022 Time: 20:19 Bed 18 Private MD: Diagnosis: Chest pain, unspecified Presentation: 04/04 20:36 Chief complaint: Patient states: I was on my way to work and it suddenly started jb4 hurting like I was punched. I started sweating profusely and started having difficulty breathing. I began feeling light headed, dizzy, and my vision became blurry. Currently I am having sharp chest pains and still feeling dizzy. Coronavirus screen: At this time, the client does not indicate any symptoms associated with coronavirus-19. Ebola Screen: No symptoms or risks identified at this time. Initial Sepsis Screen: Does the patient meet any 2 criteria? No. Patient's initial sepsis screen is negative. Does the patient have a suspected source of infection? No. Patient's initial sepsis screen is negative. Risk Assessment: Do you want to hurt yourself or someone else? Patient reports no desire to harm self or others. Onset of symptoms was April 04, 2022. Transition of care: patient was not received from another setting of care. 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 - Social history:: Smoking status: Patient denies any tobacco usage or history of. Screenin:21 Abuse screen: Denies threats or abuse. Nutritional screening: No deficits noted. ag7 Tuberculosis screening: No symptoms or risk factors identified. Fall Risk No fall in past 12 months (0 pts). No secondary diagnosis (0 pts). IV access (20 points). Ambulatory Aid- None/Bed Rest/Nurse Assist (0 pts). Gait- Normal/Bed Rest/Wheelchair (0 pts) Mental Status- Oriented to own ability (0 pts). Total Bain Fall Scale indicates No Risk (0-24 pts). Assessment: 20:50 General: Appears in no apparent distress. Behavior is calm, cooperative, appropriate ag7 for age. Pain: Denies pain. Neuro: Level of Consciousness is awake, alert, obeys commands, Oriented to person, place, time, situation, Appropriate for age Brush Machine Setter are equal bilaterally Moves all extremities. Cardiovascular: Heart tones present irregular. Capillary refill < 3 seconds in bilateral fingers Patient's skin is warm and dry. Pulses are palpable in right radial artery, left radial artery, left carotid pulse and right carotid pulse Edema is absent. Respiratory: Airway is patent Trachea midline Respiratory effort is even, unlabored, Respiratory pattern is regular, symmetrical, Breath sounds are clear bilaterally. GI: Bowel sounds present X 4 quads. Abd is soft and non tender X 4 quads. 22:00 Reassessment: No changes from previously documented assessment. Patient and/or family ag7 updated on plan of care and expected duration. Pain level reassessed. 23:43 Reassessment: Patient and/or family updated on plan of care and expected duration. Pain ag7 level reassessed. Patient is alert, oriented x 3, equal unlabored respirations, skin warm/dry/pink. Patient denies pain at this time. Patient states feeling better. 04/05 01:00 Reassessment: Patient and/or family updated on plan of care and expected duration. Pain ag7 level reassessed. Patient is alert, oriented x 3, equal unlabored respirations, skin warm/dry/pink. Patient denies pain at this time. 02:54 Reassessment: No changes from previously documented assessment. ag7 04:08 Reassessment: Patient and/or family updated on plan of care and expected duration. Pain ag7 level reassessed. Patient is alert, oriented x 3, equal unlabored respirations, skin warm/dry/pink. Patient denies pain at this time. 05:00 Reassessment: No changes from previously documented assessment. ag7 06:08 Reassessment: Patient and/or family updated on plan of care and expected duration. Pain ag7 level reassessed. Patient is alert, oriented x 3, equal unlabored respirations, skin warm/dry/pink. Patient denies pain at this time. Vital Signs: 04/04 20:36 BP 128 / 82; Pulse 51; Resp 16; Temp 98.3(O); Pulse Ox 99% on R/A; Weight 113.4 kg (R); jb4 Height 6 ft. 4 in. (193.04 cm) (R); Pain 3/10; 20:47 BP 111 / 65; Pulse 51; Resp 15 S; Pulse Ox 95% on R/A; Pain 0/10; ag7 21:45 BP 122 / 61; Pulse 50; Resp 16 S; Pulse Ox 95% on R/A; Pain 0/10; ag7 22:45 BP 119 / 63; Pulse 50; Resp 15 S; Pulse Ox 99% on R/A; Pain 0/10; ag7 23:30 BP 110 / 67; Pulse 49; Resp 17; Pulse Ox 95% on R/A; Pain 0/10; ag7 0516 00:15 BP 124 / 72 RA Supine (auto/lg); Pulse 50 RA; Resp 14 S; Pulse Ox 91% on R/A; ag7 02:00 BP 106 / 67; Pulse 52; Resp 14 S; Pulse Ox 98% on R/A; Pain 0/10; ag7 04:00 BP 116 / 72 RA Supine (auto/lg); Pulse 52 RA; Resp 13 S; Pulse Ox 97% on R/A; Pain 0/10;ag7 06:14 BP 105 / 70; Pulse 53; Resp 13 S; Pulse Ox 96% on R/A; Pain 0/10; ag7 0515 20:36 Body Mass Index 30.43 (113.40 kg, 193.04 cm) jb4 ED Course: 04/04 20:19 Patient arrived in ED. ja2 20:40 Triage completed. jb4 20:40 Arm band placed on right wrist. jb4 20:44 Dell Villalpando PA is PHCP. cp 20:44 Brad Colvin MD is Attending Physician. cp 20:50 Inserted saline lock: 20 gauge in left antecubital area, using aseptic technique. ag7 21:21 Patient has correct armband on for positive identification. Placed in gown. Bed in low ag7 position. Call light in reach. Side rails up X 1. 21:22 Zhane Dhaliwal, TED is Primary Nurse. ag7 22:53 CT Aorta for Dissection In Process Unspecified. EDMS 23:16 XRAY Chest (1 view) In Process Unspecified. EDMS 04/05 00:30 Hira Celaya MD is Hospitalizing Provider. cp 02:57 No provider procedures requiring assistance completed. ag7 Administered Medications: 04/04 21:03 CANCELLED (Physician Discretion): Aspirin Chewable Tablet 324 mg PO once; 81 mg tablets cp x 4 04/05 00:11 Drug: Aspirin Chewable Tablet 324 mg Route: PO; ag7 00:40 Follow up: Response: No adverse reaction ag7 Medication: 02:58 VIS not applicable for this client. ag7 Output: 06:10 Urine: 900ml (Voided); Total: 900ml. ag7 Outcome: 00:30 Decision to Hospitalize by Provider. cp 17:09 Patient left the ED. vg1 Signatures: Dispatcher [employer] EDMS Dell Villalpando PA PA cp Bryson, James RN RN jb4 Sowmya Black RN RN vg1 Faina Carrasco Angela, RN RN ag7 Corrections: (The following items were deleted from the chart) 04/04 20:41 20:40 PSHx: hearnia repair; jb4 jb4
--- NOTE | 2022-04-05 00:31 | EDPHYS ---
Physician Documentation [facility] Name: Buzz Jurado Age: 61 yrs Sex: Male : 1960 Arrival Date: 04/04/2022 Time: 20:19 Bed 18 Private MD: ED Physician Brad Colvin HPI: 04/04 21:05 This 61 yrs old Male presents to ER via Ambulatory with complaints of Fainting, Flank cp Pain, Abdominal Pain, Numbness Of Arm. 21:05 The patient has experienced near-syncope, felt dizzy. Onset: The symptoms/episode cp began/occurred today. Duration: This was a single episode. Context: occurred while the patient was driving to work. Just prior to the episode the patient experienced abdominal pain, blurred vision, chest pain, dizziness. Associated injury: The patient did not suffer any apparent associated injury. 21:05 Current symptoms: left side chest pain. cp 21:05 Patient reports pain started in abdomen and then moved upward into chest. 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 - Social history:: Smoking status: Patient denies any tobacco usage or history of. ROS: 21:10 Constitutional: Negative for body aches, chills, fever, poor PO intake. cp 21:10 Eyes: Negative for injury, pain, redness, and discharge. cp 21:10 ENT: Negative for drainage from ear(s), ear pain, sore throat, difficulty swallowing, difficulty handling secretions. 21:10 Cardiovascular: Positive for chest pain, Negative for edema, palpitations. 21:10 Respiratory: Negative for cough, shortness of breath, wheezing. 21:10 Abdomen/GI: Positive for abdominal pain, Negative for vomiting, diarrhea, constipation. 21:10 : Negative for urinary symptoms, testicular pain 21:10 Neuro: Positive for numbness, near syncope, Negative for altered mental status, headache, weakness. 21:10 All other systems are negative. Exam: 21:08 ECG was reviewed by the Attending Physician. cp 21:15 Constitutional: The patient appears in no acute distress, alert, awake, comfortable, cp non-diaphoretic, non-toxic, well developed, well nourished. 21:15 Head/Face: Normocephalic, atraumatic. cp 21:15 Eyes: Periorbital structures: appear normal, Pupils: equal, round, and reactive to light and accomodation, Extraocular movements: intact throughout, Conjunctiva: normal, no exudate, no injection, Sclera: no appreciated abnormality, Lids and lashes: appear normal, bilaterally. 21:15 ENT: External ear(s): are unremarkable, Nose: is normal, Mouth: Lips: moist, Oral mucosa: moist, Posterior pharynx: Airway: no evidence of obstruction, patent. 21:15 Neck: ROM/movement: is normal, is supple, without pain, no range of motions limitations, no nuchal rigidity. 21:15 Chest/axilla: Inspection: normal, Palpation: is normal, no crepitus, no tenderness. 21:15 Cardiovascular: Rate: bradycardic, Rhythm: regular, Edema: is not appreciated, JVD: is not appreciated. 21:15 Respiratory: the patient does not display signs of respiratory distress, Respirations: normal, no use of accessory muscles, no retractions, labored breathing, is not present, Breath sounds: are clear throughout, no decreased breath sounds, no stridor, no wheezing. 21:15 Abdomen/GI: Inspection: abdomen appears normal, Bowel sounds: active, all quadrants, Palpation: abdomen is soft and non-tender, in all quadrants. 21:15 Back: pain, is absent, ROM is normal. 21:15 Neuro: Orientation: to person, place \\T\\ time. Mentation: is normal, Cerebellar function: is grossly normal, Motor: moves all fours, strength is normal, Sensation: no obvious gross deficits. Vital Signs: 20:36 BP 128 / 82; Pulse 51; Resp 16; Temp 98.3(O); Pulse Ox 99% on R/A; Weight 113.4 kg (R); jb4 Height 6 ft. 4 in. (193.04 cm) (R); Pain 3/10; 20:47 BP 111 / 65; Pulse 51; Resp 15 S; Pulse Ox 95% on R/A; Pain 0/10; ag7 21:45 BP 122 / 61; Pulse 50; Resp 16 S; Pulse Ox 95% on R/A; Pain 0/10; ag7 22:45 BP 119 / 63; Pulse 50; Resp 15 S; Pulse Ox 99% on R/A; Pain 0/10; ag7 23:30 BP 110 / 67; Pulse 49; Resp 17; Pulse Ox 95% on R/A; Pain 0/10; ag7 04/05 00:15 BP 124 / 72 RA Supine (auto/lg); Pulse 50 RA; Resp 14 S; Pulse Ox 91% on R/A; ag7 02:00 BP 106 / 67; Pulse 52; Resp 14 S; Pulse Ox 98% on R/A; Pain 0/10; ag7 04:00 BP 116 / 72 RA Supine (auto/lg); Pulse 52 RA; Resp 13 S; Pulse Ox 97% on R/A; Pain 0/10;ag7 06:14 BP 105 / 70; Pulse 53; Resp 13 S; Pulse Ox 96% on R/A; Pain 0/10; ag7 04/04 20:36 Body Mass Index 30.43 (113.40 kg, 193.04 cm) jb4 MDM: 04/04 20:47 Patient medically screened. cp 21:30 Differential Diagnosis: aortic aneurysm, cardiac arrhythmia, cerebrovascular accident, cp sepsis, acute IA. 04/05 00:02 Data reviewed: vital signs, nurses notes, lab test result(s), EKG, radiologic studies, cp CT scan, plain films. Test interpretation: by ED physician or midlevel provider: ECG, plain radiologic studies. Physician consultation: Po Arellano was called at 00:00, was contacted at 00:00, regarding admission, to the telemetry unit. patient's condition, and will see patient in ED, shortly. 04/04 21:02 Order name: Basic Metabolic Panel; Complete Time: 21:59 cp 04/04 23:21 Interpretation: Normal except: CL 108; GFR 81. cp 04/04 21:02 Order name: CBC with Diff; Complete Time: 23:21 cp 04/04 21:02 Order name: LFT's; Complete Time: 23:21 cp 04/04 23:21 Interpretation: Normal except: AST 13; BILIT 1.4; BILID 0.3. cp 04/04 21:02 Order name: Magnesium; Complete Time: 23:21 cp 04/04 21:02 Order name: NT PRO-BNP; Complete Time: 23:21 cp 04/04 21:02 Order name: PT-INR; Complete Time: 23:21 04/04 21:02 Order name: Troponin HS; Complete Time: 23:21 cp 04/04 23:21 Interpretation: Reviewed. 04/04 21:02 Order name: Lipase; Complete Time: 23:21 cp 04/05 00:46 Order name: CBC with Automated Diff EDMS 04/05 00:46 Order name: CBC with Automated Diff EDMS 04/05 00:47 Order name: CBC with Automated Diff EDMS 04/05 00:47 Order name: Comprehensive Metabolic Panel EDWA 04/05 00:47 Order name: Comprehensive Metabolic Panel EDWA 04/05 00:47 Order name: Comprehensive Metabolic Panel EDWA 04/04 21:02 Order name: XRAY Chest (1 view) 04/04 21:02 Order name: EKG; Complete Time: 21:03 04/04 21:02 Order name: Cardiac monitoring; Complete Time: 21:22 04/04 21:04 Order name: CT Aorta for Dissection 04/05 00:46 Order name: Heart Healthy EDWA 04/05 00:46 Order name: Echo with Doppler EDWA 04/05 00:47 Order name: Lipid Profile EDWA 04/05 00:47 Order name: Lipid Profile EDWA 04/05 00:47 Order name: Troponin High Sensitivity EDWA 04/05 00:47 Order name: Troponin High Sensitivity [facility] 04/05 00:47 Order name: Troponin High Sensitivity [facility] 04/05 07:31 Order name: COVID-19 SARS RT PCR (Document "Date of Onset" if Symptomatic) bd 04/05 08:27 Order name: Diet Heart Healthy; Complete Time: 08:28 vg1 04/05 09:08 Order name: SARS-COV-2 RT PCR [facility] 04/04 21:02 Order name: EKG - Nurse/Tech; Complete Time: 21:22 04/04 21:02 Order name: IV Saline Lock; Complete Time: 21:22 04/04 21:02 Order name: Labs collected and sent; Complete Time: 21:22 04/04 21:02 Order name: O2 Per Protocol; Complete Time: 21:22 cp 04/04 21:02 Order name: O2 Sat Monitoring; Complete Time: : cp EC/15 21:08 Rate is 52 beats/min. Rhythm is regular. OR interval is normal. QRS interval is normal. cp QT interval is normal. T waves are Inverted in leads III, aVR. Interpreted by me. Reviewed by me. Administered Medications: 21:03 CANCELLED (Physician Discretion): Aspirin Chewable Tablet 324 mg PO once; 81 mg tablets cp x 4 04/05 00:11 Drug: Aspirin Chewable Tablet 324 mg Route: PO; ag7 00:40 Follow up: Response: No adverse reaction ag7 Disposition: 20:35 Co-signature as Attending Physician, Brad Colvin MD. [facility] Disposition Summary: 04/05/22 00:30 Hospitalization Ordered Hospitalization Status: Observation cp Provider: Hira Celaya cp Condition: Stable cp Problem: new cp Symptoms: have improved cp Bed/Room Type: Standard Location: [facility] ER HOLD(04/05/22 00:48) Room Assignment: ERHOLD-(04/05/22 00:48) cg Diagnosis - Chest pain, unspecified cp Forms: - Medication Reconciliation Form cp - SBAR form cp Signatures: Dispatcher [employer] EDMS Po Arellano, MATHEW-C [employer] PROCESSING TECH-Cla1 Dell Villalpando PA PA cp Tawnya Black, RN RN Hugo Rockwell RN RN [facility] Brad Colvin MD MD 7 Zhane Dhaliwal RN RN 7 Corrections: (The following items were deleted from the chart) 04/04 20:41 20:40 PSHx: hearnia repair; ede jbThu 21:03 21:02 Aspirin Chewable Tablet 324 mg PO once; 81 mg tablets x 4 ordered. cp cp 04/05 00:48 00:30 Telemetry/MedSurg (observation) cp cg 00:48 00:30 cp cg
[2022-04-05] MEDS ORDERED: ONDANSETRON 4 MG/2 ML VIAL IV PRN (00:41)
[2022-04-05] MEDS ORDERED: ACETAMINOPHEN 325 MG TABLET PO PRN (00:45)
--- NOTE | 2022-04-05 00:57 | P.HP ---
Certification for Inpatient Patient admitted to: Observation With expected LOS: <2 Midnights Patient will require the following post-hospital care: None Practitioner: I am a practitioner with admitting privileges, knowledge of patient current condition, hospital course, and medical plan of care. Services: Services provided to patient in accordance with Admission requirements found in Title 42 Section 412.3 of the Code of Federal Regulations Patient History Date of Service: 04/05/22 Reason for admission: Near syncope History of Present Illness: 61-year-old male with history of left atrial myxoma presents to the emergency department for near syncope. Patient reports he was driving on his way to work today when he had severe abdominal pain followed by diaphoresis and near syncope. Patient reports previously experiencing vasovagal syncope during a procedure in which he had similar symptoms, his pain is now resolved. His past bedside reports that she is concerned that he has had increasing fatigue over the course of the last couple of months. In 2018 he had a complex surgery for the removal of a 4 cm left atrial myxoma and an ablation for atrial fibrillation at [facility] in [place]. His evaluation in the emergency department revealed an initial high-sensitivity troponin that was negative unremarkable chest x-ray EKG without ST elevations he had a CT dissection protocol which revealed a tiny hypodensity within the right atrial appendage measuring 1 x 0.9 cm perhaps corresponding to thrombus or hilar lesion. Patient feeling much better at this time without any abdominal pain or tenderness on exam ED provider wishes to admit under observation for near syncope. Patient does have a report on his phone from an echocardiogram which was done on 01/15/2022 with normal left ventricular systolic function ejection fraction 55 to 60% normal systolic pulmonary artery pressure mild tricuspid regurg. Will admit, trend troponins and obtain echocardiogram for further evaluation Allergies No Known Allergies Allergy (Unverified 09/17/18 07:43) Home Medications: Aspirin Chewable [Aspirin Chewable*] 81 pill PO DAILY 10/20/19 Ascorbic Acid [Vitamin C] 1,000 mg PO DAILY 12/20/20 Atorvastatin Calcium [Lipitor*] 20 mg PO BEDTIME 12/20/20 Pregabalin [Lyrica*] 150 mg PO BID 12/20/20 Sertraline [Zoloft*] 50 mg PO DAILY 12/20/20 Zinc 100 mg PO BID 12/20/20 bisoproloL fumarate [Zebeta*] 5 mg PO DAILY 12/20/20 buPROPion HCl [Wellbutrin Sr] 150 mg PO DAILY 12/20/20 - Past Medical/Surgical History Diabetic: No -: hyperlipidemia -: aortic anuerysm 3.8cm -: testicular cancer with lung, lymphatic;liver 1984 -: Left atrial myxoma-2018, removed. -: ARELY -: tonsillectomy -: hernia repairs x2 -: appendectmy -: rotator cuff repair- right -: right thumb repair -: right testicle removed -: open heart surgery Psychosocial/ Personal History: working - Family History Mother -: Heart disease, Hypertension, Other (see notes) Notes: hyperlipidemia Father -: Heart disease, Hypertension - Social History Smoking Status: Never smoker Alcohol use: Yes CD- Drugs: No Caffeine use: Yes Place of Residence: Home Review of Systems 10-point ROS is otherwise unremarkable Cardiovascular: As per HPI Gastrointestinal: As per HPI Physical Examination - Physical Exam General: Alert, In no apparent distress, Oriented x3 HEENT: Atraumatic, PERRLA, Mucous membr. moist/pink, EOMI, Sclerae nonicteric Neck: Supple, 2+ carotid pulse no bruit, No LAD, Without JVD or thyroid abnormality Respiratory: Clear to auscultation bilaterally, Normal air movement Cardiovascular: Regular rate/rhythm (Sinus bradycardia rate 50), Normal S1 S2 Gastrointestinal: Normal bowel sounds, No tenderness Musculoskeletal: No tenderness Integumentary: No rashes Neurological: Normal gait, Normal speech, Normal strength at 5/5 x4 extr, Normal tone, Normal affect Lymphatics: No axilla or inguinal lymphadenopathy - Studies Laboratory Data (last 24 hrs) 04/04/22 21:13: PT 10.7, INR 0.97 04/04/22 21:13: WBC 7.1, Hgb 14.9, Hct 43.1, Plt Count 174 04/04/22 21:13: Sodium 141, Potassium 4.0, BUN 11, Creatinine 1.05, Glucose 85, Magnesium 2.1, Total Bilirubin 1.4 H, AST 13 L, ALT 29, Alkaline Phosphatase 78, Lipase 118 Assessment and Plan - Plan Assessment: Near syncopesuspect vasovagal Hypodensity right atrial appendage 1 x 0.9 cm History left atrial myxoma 2018 Hyperlipidemia Plan: Near syncopesuspect vasovagal: Patient describes event with severe abdominal pain followed by diaphoresis, yawning and near syncope describes reports similar sensation during procedure when he was told he was having vasovagal syncope symptoms have improved at this time, spouse is concerned as patient has been more fatigued over the course of the last 2 months or so. Will trend troponins, monitor on telemetry and obtain echocardiogram given incidental findings on CT scan. Sinus bradycardia with rate of 50 noted, not on any beta-blockers. Hypodensity right atrial appendage 1 x 0.9 cm: Patient with history of large left atrial myxoma in 2018 which was removed, patient also had an ablation for atrial fibrillation at that time. Patient does follow with cardiology outpatient last had echocardiogram in December 2019 to see [facility] for more details. Will obtain echocardiogram for further evaluation, patient was instructed to follow-up with his cardiology team at discharge. History left atrial myxoma 2018-removed Hyperlipidemia: Continue home meds DVT PPX: Lovenox Code status: Full Discharge Plan: Home Plan to discharge in: 24 Hours - Advance Directives Does patient have a Living Will: No Does patient have a Durable POA for Healthcare: No - Code Status/Comfort Care Code Status Assessed: Yes (Full code) Critical Care: No Time Spent Managing Pts Care (In Minutes): 55
[2022-04-05 04:20] LABS: Absolute Lymphocytes (CBC) 1.5 K/uL (0.7-4.9); Hematocrit 42.6 % (39.6-49.0); Lymphocytes % 24.1 % (15.3-44.8); MPV 8.5 fL (7.6-11.3); RBC Red Blood Cell Count 4.57 M/uL (4.33-5.43)
[2022-04-05 04:50] LABS: Albumin 3.4 g/dL (3.4-5.0); Bilirubin Total 1.4 mg/dL (0.2-1.0); Potassium 3.4 mmol/L (3.5-5.1); Protein, Total 6.5 g/dL (6.4-8.2); Troponin High Sensitivity 6.1 pg/mL (<58.9)
[2022-04-05 07:56] VITALS: BMI 30.4
[2022-04-05 08:02] VITALS: TEMP 97.9
[2022-04-05] MEDS ORDERED: ASPIRIN EC 81 MG TAB PO SCH (09:00)
[2022-04-05] MEDS ORDERED: ENOXAPARIN 40 MG/0.4 ML SQ SCH (09:00)
[2022-04-05] MEDS ORDERED: ASPIRIN EC 81 MG TAB PO ONE (09:25)
[2022-04-05] MEDS ORDERED: ENOXAPARIN 40 MG/0.4 ML SQ ONE (09:25)
--- NOTE | 2022-04-05 10:04 | EKG ---
Test Date: 2022-04-04 Test Time: 21:04:33 Industrial Engineering Intern: ALEXANDER MEASUREMENT RESULTS: Intervals: Rate: 52 OH: 184 QRSD: 88 QT: 424 QTc: 394 [place]: P: 29 OH: 184 QRS: 9 T: 9 INTERPRETIVE STATEMENTS: Sinus bradycardia Cannot rule out Anterior infarct, age undetermined Abnormal ECG Compared to ECG 10/21/2019 10:26:13 Myocardial infarct finding now present Accelerated junctional rhythm no longer present ST (T wave) deviation no longer present Electronically Signed On 04-05-22 10:02:31 CDT by Thomas Lopez
--- NOTE | 2022-04-05 12:03 | CON ---
Date of Consultation: 04/05/2022 Reason For Consultation: Syncope. History Of Present Illness: Mr. Jurado is a 61-year-old white male. Has had history of left atrial m yxoma removal in 2018. Has had an abdominal aortic aneurysm, recently checked by his bonsai culturist, Delmy Dias in [facility]. He has a history of sleep apnea. He had a history of m etastatic testicular cancer that has resolved. While he was driving, he developed severe abdominal p ain after which he became diaphoretic with numbness in the hand and became presyncopal. No chest sravanthi n reported. No nausea or vomiting. Denied PND, orthopnea, pedal edema, palpitations, or syncope. C T scan of his chest and abdomen showed a possible right atrial mass. Echocardiogram is pending. Asy mptomatic now. Past Medical History: Otherwise as stated above. Allergies: NONE. Review of Systems: Negative. Social History: Negative. Family History: Negative. Medications: At home include aspirin, Lipitor, Zebeta, Lyrica, Zoloft, and Wellbutrin. Physical Examination: Vital Signs: Stable, afebrile. HEENT: Negative. Neck: Supple with no bruit. Chest: Clear. Cardiac: Revealed a regular rhythm and rate. No murmurs, gallops, or rubs. Abdomen: Benign. Extremities: Revealed no clubbing, cyanosis, or edema. Diagnostic Data: All within normal limits. He has had a normal heart catheterization in the past. Impression And Plan: 1.Syncope secondary to vasovagal reaction from abdominal pain. 2.History of myxoma, status post left atrial myxoma removal with possible mass on the CT scan. Echo cardiogram is pending. He can go home after his echo. 3.Abdominal aortic aneurysm, followed by Dr. Dias in [facility]. 4.Sleep apnea. 5.History of testicular cancer that has resolved. 6.Dyslipidemia. 7.Mild hypertension, well controlled. Again, I agree with his present regimen. No reason to hold a mt medicine. See what the echocardiogram shows. If it occurs again, he will need some kind of event monitor. TOD/SMITHAL Voice ID: [id number] Report ID: [id number]
--- NOTE | 2022-04-05 13:42 | RAD REPORT ---
EXAM DESCRIPTION: CT - Angio Aorta For Dissection - 04/05/2022 7:04 am CLINICAL HISTORY: 61 years, Male, chest pain COMPARISON: 12/20/2020. TECHNIQUE: Multiple transaxial tomograms from the thoracic and abdominal aorta from the lung apex ly tic the to the ischial tuberosities performed after the administration of large bolus of IV contrast for complete opacification of the thoracic, abdominal aorta and iliac arteries utilizing 3 mm slice t hickness at 3 mm interval reconstruction. 2-D and 3-D multiplanar reformats, volume rendering technique and maximum intensity projection images were generated and reviewed. This exam was performed according to our departmental dose-optimization protocol, which includes auto mated exposure control, adjustment of the mA and/or kV according to patient size and/or use of iterat maggie reconstruction technique. FINDINGS: Thoracic aorta: The thoracic aorta demonstrate to be within normal limits. There is no evidence for dissection/or ane urysm. The ascending thoracic aorta measuring 3.8 x 3.8 cm on image 50, the aortic arch measured 3 cm on image 34, the descending portion measured 2.2 cm on image 79. The great vessels demonstrate maite l branching pattern with no evidence for significant stenosis/or proximal occlusion. Abdominal aorta: The abdominal aorta demonstrate to be patent. There is minimal atheromatous plaque formation at the d istal portion/aortic bifurcation. The proximal aorta measured 2.3 x 2.3 cm on axial image 112, the mi dportion measured 1.9 x 1.9 cm on image 127 with the distal portion measured 1.8 x 1.9 cm on image 15 5. The celiac trunk, superior mesenteric artery and inferior mesenteric artery demonstrate to be patent with no evidence for significant stenosis and/or occlusion. There are single bilateral renal arteries . The iliac arteries demonstrate to be patent with no gross abnormalities. Chest: The lung parenchyma demonstrate to be clear. No significant pulmonary nodules/or masses identi fied. Minimal dependent atelectatic changes. The trachea mainstem bronchus demonstrate to be unremarkable. There is no pleural/or pericardial effu sions. The heart is normal in size. No tiny hypodensity within the right atrial appendage measuring approxim ately 1 x 0.[address] series #401 image 61/243 perhaps corresponding to a thrombus/or hilar lesions could be of consideration. There is no significant mediastinal and/or hilar lymphadenopathy. The axillary regions demonstrate to be clear. The bone windows demonstrate no significant skeletal lesions. Abdomen and pelvis: The liver, gallbladder, spleen, adrenal glands, pancreas demonstrate to be unrema rkable. The kidneys demonstrate normal uptake of contrast media. There is no evidence for hydronephrosis/or n ephrolithiasis. Grossly the unopacified stomach, small bowel and large bowel demonstrate to be unremarkable. There is no evidence for free air/or bowel dilatation. The appendix was not visualized although no significan t diameter changes are seen within the right lower quadrant. The bladder demonstrate to be within normal limits. The prostate gland is unremarkable. There is no retroperitoneal lymphadenopathy. There is no evidence for ascites. The bone windows demonstrate to b e unremarkable. There is a probable left inguinal hernia repair IMPRESSION: No evidence for significant aortic dissection/or aneurysm. Small hypodensity within the right atrial appendage measuring approximately 1 x 0.9 cm perhaps corres ponding to a thrombus/or atrial lesions could be of consideration. Otherwise unremarkable CT scan of the chest, abdomen and pelvis with contrast. Electronically signed by: Reggie Nickerson MD 04/04/2022 11:31 PM CDT Due to temporary technical issues with the PACS/Fluency reporting system, reports are being signed by the in house radiologist without review as a courtesy to ensure prompt reporting. The interpreting r adiologist is fully responsible for the content of the report.
--- NOTE | 2022-04-05 13:47 | RAD REPORT ---
EXAM DESCRIPTION: RAD - Chest Single View - 04/04/2022 11:14 pm CLINICAL HISTORY: 61 years, Male, CHEST PAIN COMPARISON: None. FINDINGS: Single view of the chest was obtained portable. No prior films are available for compariso n. The cardiomediastinal silhouette demonstrate to be unremarkable. The heart is not enlarged. The thoracic aorta is mildly tortuous. Costophrenic angles are sharp. No areas of consolidation or mass es are seen. The rest of the soft tissue and bony structures demonstrate to be unremarkable. IMPRESSION: NO ACUTE CARDIOPULMONARY DISEASE SEEN. Electronically signed by: Reggie Nickerson MD 04/04/2022 11:33 PM CDT Due to temporary technical issues with the PACS/Fluency reporting system, reports are being signed by the in house radiologist without review as a courtesy to ensure prompt reporting. The interpreting r adiologist is fully responsible for the content of the report.
--- NOTE | 2022-04-05 14:35 | ECHO ---
HEIGHT: 6 ft 4 in WEIGHT: 250 lb 0 oz DATE OF STUDY: 04/05/[address]: Po Arellano NP 2-DIMENSIONAL: YES M.MODE: YES DOPPLER: YES COLOR FLOW: YE TDS: PORTABLE: YES DEFINITY: BUBBLE STUDY: DIAGNOSIS: RIGHT ATIRAL APPENDAGE ON CT/ HISTORY OF ATRIAL MYOXMOA CARDIAC HISTORY: CATHERIZATION: SURGERY: PROSTHETIC VALVE: PACEMAKER: MEASUREMENTS (cm) DIASTOLIC (NORMALS) SYSTOLIC (NORMALS) IVSd 1.0 (0.6-1.2) LA Diam 3.3 (1.9-4.0) LVEF 52% LVIDd 5.5 (3.5-5.7) LVIDs 4.0 (2.0-3.5) %FS 27% LVPWd 1.2 (0.6-1.2) Ao Diam 3.7 (2.0-3.7) 2 DIMENSIONAL ASSESSMENT: RIGHT ATRIUM: NORMAL LEFT ATRIUM: NORMAL RIGHT VENTRICLE: NORMAL LEFT VENTRICLE: NORMAL TRICUSPID VALVE: MODERATE TRICUSPID REGURGITATION MITRAL VALVE: MILD MITRAL REGURGITATION PULMONIC VALVE: NORMAL AORTIC VALVE: NORMAL PERICARDIAL EFFUSION: NONE AORTIC ROOT: NORMAL LEFT VENTRICULAR WALL MOTION: NORMAL DOPPLER/COLOR FLOW: MILD AORTIC INSUFFICIENCY. MODERATE TRICUSPID REGURGITATION. MILD MITRAL REGURGITATION. COMMENTS: NORMAL LEFT VENTRICULAR EJECTION FRACTION 55-60% WITH NORMAL WALL MOTION. MODERATE TRICUSPID REGURGITATION. MILD MITRAL REGURGITATION. MILD AORTIC INSUFFICIENCY. NO TUMOR IS SEEN IN THE RIGHT ATRIUM ON THIS ECHOCARDIOGRAM. IF CLINICALLY INDICATED, RECOMMEND CARDIAC MRI VERSUS TRANSESOPHAGEAL ECHOCARDIOGRAM. TECHNOLOGIST: WICHO WANG
[2022-04-05 16:21] VITALS: BP 102/62
[2022-04-05 17:34] VITALS: O2SAT 96
[2022-04-05] MEDS ORDERED: ATORVASTATIN 40 MG TAB PO SCH (21:00)
--- NOTE | 2022-04-14 22:05 | P.DS ---
Admission Date: 04/05/22 Discharge Date: 04/05/22 Disposition: ROUTINE DISCHARGE Discharge Condition: GOOD Reason for Admission: Near syncope Consultations: Cardiology - Dr. Lopez Procedures: Problem List Near syncope secondary to vasovagal reaction from abdominal pain h/o myxoma s/p left atrial myxoma removal (2018) Hypodensity right atrial appendage 1 x 0.[address] Hyperlipidemia h/o testicular cancer obstructive sleep apnea abdominal aortic aneurysm Brief History of Present Illness: 61yo M, PMH: [place] myxoma presented to ED for near syncopal episode. Patient reports he was driving on his way to work today when he had severe abdominal pain followed by diaphoresis and near syncope. Patient reports previously experiencing vasovagal syncope during a procedure in which he had similar symptoms, his pain is now resolved. 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 His evaluation in the emergency department revealed an initial high-sensitivity troponin that was negative unremarkable chest x-ray EKG without ST elevations he had a CT dissection protocol which revealed a tiny hypodensity within the right atrial appendage measuring 1 x 0.9 cm perhaps corresponding to thrombus or hilar lesion. Patient feeling much better at this time without any abdominal pain or tenderness on exam ED provider wishes to admit under observation for near syncope. Patient does have a report on his phone from an echocardiogram which was done on 01/15/2022 with normal left ventricular systolic function ejection fraction 55 to 60% normal systolic pulmonary artery pressure mild tricuspid regurg. Hospital Course: Patient's troponins remained negative and stable. Echocardiogram (TTE) revealed a normal EF, no lesion/thrombus/mass seen in right atrium. Did note moderate tricuspid regurgitation Prior echo in our system was in 2018 which noted mild tricuspid regurgitation. During his observation here, his HR was mostly in the 50s. On admission ranged from 48-55. Blood pressure ranged from 102-120/55-60s. Patient is prescribed bisoprolol and has not taken in ~2 days. Discussed the possibility of that medication leading to further bradycardia or hypotension, which would cause the fatigue, breathing harder, and intermittent dizziness for the last month. Triscupid regurgitation could be playing a role as well. Recommend monitoring heart rate and blood pressure at home. Continue to hold Bisoprolol for now, restart if HR > 60 and blood pressure > 130/70s consistently. Cardiology was consulted, and patient was deemed stable for discharge home. Recommend follow up with PCP within 1 week. Recommend follow up with his Credit Manager within 1 week, to discuss further if MAHESH or cardiac MRI should be done. Consider event / heart monitor to rule out arrhythmia. Vital Signs/Physical Exam: Temp Pulse Resp BP Pulse Ox 97.9 F 59 15 102/62 96 04/05/22 08:00 04/05/22 16:00 04/05/22 16:00 04/05/22 16:00 04/05/22 16:00 General: Alert, In no apparent distress, Oriented x3 HEENT: Sclerae nonicteric Respiratory: Clear to auscultation bilaterally, Normal air movement Cardiovascular: No edema, Regular rate/rhythm Gastrointestinal: Soft and benign, Non-distended Musculoskeletal: No erythema, No tenderness Integumentary: No rashes, No significant lesion Neurological: Normal speech, Normal affect Laboratory Data at Discharge: WBC 6.0 K/uL (4.3-10.9) D 04/05/22 03:22 Hgb 14.6 g/dL (13.6-17.9) 04/05/22 03:22 Hct 42.6 % (39.6-49.0) 04/05/22 03:22 Plt Count 167 K/uL (152-406) 04/05/22 03:22 PT 10.7 SECONDS (9.5-12.5) 04/04/22 21:13 INR 0.97 04/04/22 21:13 Sodium 140 mmol/L (136-145) 04/05/22 03:22 Potassium 3.4 mmol/L (3.5-5.1) L 04/05/22 03:22 BUN 9 mg/dL (7-18) 04/05/22 03:22 Creatinine 0.95 mg/dL (0.55-1.3) 04/05/22 03:22 Glucose 92 mg/dL (74-106) 04/05/22 03:22 Magnesium 2.1 mg/dL (1.8-2.4) 04/04/22 21:13 Total Bilirubin 1.4 mg/dL (0.2-1.0) H 04/05/22 03:22 AST 13 U/L (15-37) L 04/05/22 03:22 ALT 28 U/L (12-78) 04/05/22 03:22 Alkaline Phosphatase 75 U/L (45-117) 04/05/22 03:22 Triglycerides 107 mg/dL (<150) 04/05/22 03:22 Cholesterol 181 mg/dL (<200) 04/05/22 03:22 HDL Cholesterol 37 mg/dL (40-60) L 04/05/22 03:22 Cholesterol/HDL Ratio 4.89 04/05/22 03:22 Lipase 118 U/L (73-393) 04/04/22 21:13 Home Medications: Aspirin Chewable [Aspirin Chewable*] 81 pill PO DAILY 10/20/19 Ascorbic Acid [Vitamin C] 1,000 mg PO DAILY 12/20/20 Atorvastatin Calcium [Lipitor*] 20 mg PO BEDTIME 12/20/20 Pregabalin [Lyrica*] 150 mg PO BID 12/20/20 Sertraline [Zoloft*] 50 mg PO DAILY 12/20/20 Zinc 100 mg PO BID 12/20/20 buPROPion HCl [Wellbutrin Sr] 150 mg PO DAILY 12/20/20 Diet: AHA Activity: Ad gerri Followup: Thomas Lopez MD [ACTIVE - CAN ADMIT] - Theresa Pete MD [Primary Care Provider] - Time spent managing pt's care (in minutes): 45
== END 2022-04-05 17:06 | disposition home or self-care (01) ==
LOC: ER 20:16 → ERHOLD 04-05 07:26
PROVIDERS: ADMIT Hospitalist; ATTEND Hospitalist
DX: R55 Syncope and collapse (principal); R10.9 Unspecified abdominal pain; I71.4 Abdominal aortic aneurysm, without rupture; G47.33 Obstructive sleep apnea (adult) (pediatric); E78.5 Hyperlipidemia, unspecified; R93.1 Abnormal findings on diagnostic imaging of heart and coronary circulation; I07.1 Rheumatic tricuspid insufficiency; I10 Essential (primary) hypertension; R20.0 Anesthesia of skin; Z79.82 Long term (current) use of aspirin; Z79.899 Other long term (current) drug therapy; Z90.79 Acquired absence of other genital organ(s); Z85.47 Personal history of malignant neoplasm of testis; Z85.118 Personal history of other malignant neoplasm of bronchus and lung; Z85.05 Personal history of malignant neoplasm of liver; Z85.79 Personal history of other malignant neoplasms of lymphoid, hematopoietic and related tissues; Z20.822 Contact with and (suspected) exposure to COVID-19; Z82.49 Family history of ischemic heart disease and other diseases of the circulatory system
CPT/HCPCS: 93005; 93306; 85025 ×2; 80048; 36415; 83735; 85610; 80061; 80076; 84484 ×3; 83690; 80053; 83880; 71275; 74175; 71045; 99284; U0003; Q9967; J1650; G0378 ×2